=== PATIENT | male | born 1960 | race Caucasian/White ===

== ENCOUNTER 2017-11-25 15:05 | Inpatient (IN) | payer OTHER ==
[2017-11-25] MEDS ORDERED: NA CHLORIDE 0.9% 1,000 ML ONE (17:16)
[2017-11-25] MEDS ORDERED: ONDANSETRON 4 MG/2 ML VIAL ONE (17:16)
[2017-11-25] MEDS ORDERED: MORPHINE 4 MG/ML SYR ONE ×2 (17:16→22:02)
[2017-11-25 17:48] LABS: Urine Blood NEGATIVE (NEG); Urine Glucose NEGATIVE (NEG); Urine Protein 2+ (NEG); Urine pH 6.5 (5.0-7.0)
[2017-11-25 17:49] LABS: Absolute Lymphocytes (CBC) 0.9 K/uL (0.7-4.9); Absolute Monocytes 1.1 K/uL (0.1-1.3); Absolute Neutrophil 24.2 K/uL (1.8-8.0); Basophils % 0.5 % (0-1.3); Eosinophils % 0.1 % (0-4.4); Hematocrit 45.8 % (39.6-49.0); Lymphocytes % 3.3 % (15.3-44.8); MCH 33.1 pg (27.0-35.0); MPV 8.9 fL (7.6-11.3); Monocytes % 4.3 % (3.3-12.3); RBC Red Blood Cell Count 4.67 M/uL (4.33-5.43)
[2017-11-25 17:52] LABS: Bicarbonate 28 mEq/L (21-31); Glucose Level 113 mg/dL (65-120); Lipase 23 U/L (22-51); Potassium 3.6 mEq/L (3.6-5.0); Sodium Level 130 mEq/L (135-145)
[2017-11-25 17:59] LABS: ALT/SGPT 23 IU/L (10-60); AST/SGOT 48 IU/L (10-42); Albumin 3.1 g/dL (3.2-5.5); Alkaline Phosphatase 65 IU/L (42-121); BUN Blood Urea Nitrogen 9 mg/dL (6-20); Bilirubin Direct 0.3 mg/dL (0-0.2); Bilirubin Total 1.1 mg/dL (0.3-1.2); Glomerular Filtration Rate > 90 mL/min (=/>90); Protein, Total 7.3 g/dL (6.0-8.3)
[2017-11-25 18:20] LABS: Urine Amorphous Sediment 1+ /HPF (NONE SEEN); Urine Bacteria NONE SEEN /HPF (NONE SEEN); Urine Culture Reflex Order NOT NEEDED; Urine Mucus 4+ /HPF (NONE SEEN); Urine RBC <5 /HPF (NONE SEEN)
[2017-11-25 18:54] LABS: Protime INR 8.08
--- NOTE | 2017-11-25 19:00 | RAD REPORT ---
EXAM DESCRIPTION: CTAbdomen Pelvis W Contrast - 11/25/2017 6:46 pm CLINICAL HISTORY: Abdominal pain. COMPARISON: 11/19/2017 TECHNIQUE: Biphasic CT imaging of the abdomen and pelvis was performed with 100 ml non-ionic IV cont rast. All CT scans are performed using dose optimization technique as appropriate and may include automated exposure control or mA/KV adjustment according to patient size. FINDINGS: The lung bases are clear. Mild diffuse fatty liver is identified. The spleen, pancreas, adrenal glands and kidneys are within n ormal limits. Large loculated fluid collection is present along the left pericolic gutter measuring 11 x 8 cm exten ding into the left lower quadrant with components extending towards the midline and into the right lo wer quadrant and interloop region in the central mid abdomen. This fluid collection appears to abut t he sigmoid colon and is moderately enlarged since the prior study. A bowel obstruction is not present . No free air. The appendix is normal. No evidence of significant lymphadenopathy. Bilateral hip arthroplasties noted. IMPRESSION: Moderate enlargement of the inferior intra-abdominal fluid collection since the comparat clarisse study, likely representing an abscess.
[2017-11-25 19:48] LABS: Blood Morphology Comment NOT SEEN (NOT SEEN); Platelet Estimate ADEQ; Toxic Granulation 1+
--- NOTE | 2017-11-25 20:52 | ER ---
Nurse's Notes [facility] Name: Hammad Jones Jr Age: 57 yrs Sex: Male : 1960 Arrival Date: 11/25/2017 Time: 15:07 Bed 23 Private MD: Lam Denton T Diagnosis: Peritoneal abscess;Other abdominal pain;Abnormal coagulation profile-Elevated INR, coumadin toxicity;Urinary tract infection, site not specified Presentation: 11/25 15:18 Presenting complaint: Patient states: i came here last Sunday and was told i had small hj colon and colon infection, was Rx with antibiotics, i took it bu im still hurting; reports abd pain, 10/10; reports diarrhea;. Transition of care: patient was not received from another setting of care. Onset of symptoms was November 25, 2017. Care prior to arrival: None. 15:18 Method Of Arrival: Ambulatory 15:18 Acuity: RENETTA 3 hj Triage Assessment: 15:20 General: Appears in no apparent distress. uncomfortable, Behavior is calm, cooperative, hj appropriate for age. Pain: Complains of pain in abdomen. GI: Reports lower abdominal pain, cramping, nausea. Historical: - Allergies: 15:20 NKA; hj - Home Meds: 15:20 amlodipine oral [Active]; carvedilol Oral [Active]; Coumadin Oral [Active]; Iron CR hj Oral [Active]; Paxil Oral [Active]; - PMHx: 15:20 Enlarged Heart; Hypertension; hj - PSHx: 15:20 mechanical heart valve; giovanni hip replacement; hj - Immunization history:: Adult Immunizations up to date. - Social history:: Smoking status: Patient/guardian denies using tobacco, never smoked. Screenin:51 Abuse screen: Denies threats or abuse. Nutritional screening: No deficits noted. tl3 Tuberculosis screening: No symptoms or risk factors identified. Fall Risk None identified. Assessment: 15:21 GI: Bowel sounds present X 4 quads. Abd is soft Abdomen is tender to palpation. hj 15:51 General: Appears uncomfortable, obese, well groomed, well developed, Behavior is calm, tl3 cooperative, appropriate for age. Pain: Pain currently is 10 out of 10 on a pain scale. Neuro: Level of Consciousness is awake, alert, obeys commands, Oriented to person, place, time, situation, Appropriate for age. Cardiovascular: Heart tones S1 S2 present. Respiratory: Airway is patent Trachea midline. GI: Bowel sounds present X 4 quads. Abd is soft Abdomen is tender to palpation X 4 quads. : No signs and/or symptoms were reported regarding the genitourinary system. EENT: No signs and/or symptoms were reported regarding the EENT system. Derm: No signs and/or symptoms reported regarding the dermatologic system. Musculoskeletal: No signs and/or symptoms reported regarding the musculoskeletal system. 17:00 Reassessment: No changes from previously documented assessment. Patient and/or family tl3 updated on plan of care and expected duration. Pain level reassessed. Patient is alert, oriented x 3, equal unlabored respirations, skin warm/dry/pink. pt resting in room, no needs at this time. 17:18 Reassessment: pt finished contrast, CT notified. tl3 18:32 Reassessment: No changes from previously documented assessment. Patient and/or family tl3 updated on plan of care and expected duration. Pain level reassessed. Patient is alert, oriented x 3, equal unlabored respirations, skin warm/dry/pink. pt awaiting CT, in No distress at this time Luis Alberto at bedside discussing POC. 19:06 Reassessment: No changes from previously documented assessment. Patient and/or family tl3 updated on plan of care and expected duration. Pain level reassessed. Patient is alert, oriented x 3, equal unlabored respirations, skin warm/dry/pink. pt resting, no complaints at this time. 21:23 Reassessment: Luis Alberto at bedside reviewing POC with pt. tl3 22:00 Reassessment: Patient and/or family updated on plan of care and expected duration. Pain aj1 level reassessed. Patient is alert, oriented x 3, equal unlabored respirations, skin warm/dry/pink. pain decreased to a 3 after morphine. 22:40 Reassessment: No changes from previously documented assessment. Patient and/or family tl3 updated on plan of care and expected duration. Pain level reassessed. Patient is alert, oriented x 3, equal unlabored respirations, skin warm/dry/pink. attempted to call report but nurse was checking in another new patient and asks that we call back after 11pm. Vital Signs: 15:21 BP 113 / 71; Pulse 90; Resp 18; Temp 98.1(TE); Pulse Ox 97% on R/A; Weight 99.79 kg; hj Height 5 ft. 9 in. (175.26 cm); Pain 10/10; 15:51 BP 111 / 96; Pulse 95; Resp 18; Temp 98.6; Pulse Ox 100% ; tl3 17:00 BP 115 / 76; Pulse 92; Resp 18; Temp 98.5; Pulse Ox 100% ; tl3 19:06 BP 134 / 88; Pulse 89; Resp 18; Temp 98.6; Pulse Ox 98% on R/A; tl3 22:00 BP 138 / 92; Pulse 80; Resp 18; Temp 98; Pulse Ox 98% ; aj1 22:06 Pain 3/10; aj1 22:40 BP 135 / 91; Pulse 79; Resp 18; Pulse Ox 95% ; tl3 15:21 Body Mass Index 32.49 (99.79 kg, 175.26 cm) hj ED Course: 15:07 Patient arrived in ED. mr 15:08 Lam Denton MD is Private Physician. mr 15:19 Triage completed. hj 15:21 Arm band placed on left wrist. hj 15:44 Katja Shen RN is Primary Nurse. tl3 15:46 Luis Alberto Moulton NP is PHCP. pm1 15:46 Bart Drummond MD is Attending Physician. pm1 15:51 No apparent distress. Awaiting ED provider evaluation. tl3 15:51 Patient has correct armband on for positive identification. Placed in gown. Bed in low tl3 position. Call light in reach. Side rails up X 1. clinical research monitor on. Pulse ox on. NIBP on. Door closed. Lights dimmed. Warm blanket given. 15:51 No provider procedures requiring assistance completed. tl3 17:30 IV discontinued, intact, bleeding controlled, No redness/swelling at site. pt c/o pain tl3 to site with fluid infusion. 17:41 Urine Microscopic Only Sent. tl3 17:41 CT Abd/Pelvis - W/Contrast Sent. tl3 17:41 PT-INR Sent. tl3 17:42 Basic Metabolic Panel Sent. tl3 17:42 CBC with Diff Sent. tl3 17:42 Hepatic Function Sent. tl3 17:42 Lipase Sent. tl3 17:45 Missed attempt(s): 22 gauge in left antecubital area. Bleeding controlled, band aid tl3 applied, catheter tip intact. 18:29 Inserted saline lock: 22 gauge in right antecubital area, using aseptic technique. tl3 Blood collected. 18:48 CT completed. Patient moved to CT via wheelchair. Patient moved back from CT. cw1 18:54 Initial lab(s) drawn, by me, sent to lab. Inserted saline lock: 22 gauge in left upper mh5 arm, using aseptic technique. Blood collected. 19:03 Urine Culture Sent. tl3 20:47 Mj Winn MD is Hospitalizing Provider. pm1 21:22 Blood Culture Adult (2) Sent. tl3 22:06 Urine Dipstick--Ancillary (enter results) Sent. aj1 Administered Medications: 17:41 Drug: Zofran 4 mg Route: IVP; Site: right antecubital; tl3 19:05 Follow up: Response: No adverse reaction tl3 19:04 Drug: NS 0.9% 1000 ml Route: IV; Rate: 1000 ml; Site: left antecubital; tl3 20:00 Follow up: IV Status: Completed infusion; IV Intake: 1000ml aj1 20:10 Follow up: Response: No adverse reaction; IV Status: Completed infusion; IV Intake: tl3 1000ml 19:05 Drug: morphine 4 mg Route: IVP; Infused Over: 4 mins; Site: left antecubital; tl3 22:06 Follow up: Pain 3/10 Adult; Response: Pain is decreased aj1 21:00 Drug: Flagyl 500 mg Volume: 100 ml; Route: IVPB; Rate: 200 ml/hr; Infused Over: 30 tl3 mins; Site: left antecubital; Delivery: Primary tubing; 22:02 Follow up: Response: No adverse reaction; IV Status: Completed infusion; IV Intake: aj1 100ml 21:00 Drug: Cipro 400 mg Volume: 200 ml; Route: IVPB; Infused Over: 60 mins; Site: left tl3 antecubital; Delivery: Primary tubing; 22:01 Follow up: IV Status: Completed infusion; IV Intake: 100ml aj1 21:30 Drug: morphine 4 mg Route: IVP; Site: left antecubital; tl3 23:29 Follow up: Response: No adverse reaction; Pain is decreased tl3 22:07 Drug: InvANZ 1 grams Route: IVPB; Infused Over: 30 mins; Site: left antecubital; aj1 Delivery: Primary tubing; Intake: 20:00 IV: 1000ml; Total: 1000ml. aj1 20:10 IV: 1000ml; Total: 2000ml. tl3 22:01 IV: 100ml; Total: 2100ml. aj1 22:02 IV: 100ml; Total: 2200ml. aj1 Outcome: 20:51 Decision to Hospitalize by Provider. pm1 23:30 Admitted to Med/surg accompanied by tech, via stretcher, with chart, Report called to tl3 Mena RN 23:30 Admitted to 23:30 Condition: stable 23:31 Patient left the ED. tl3 Signatures: Estrella Nelson RN RN Mariella Spring mr Gage, Bernadette 1 Devon Ordaz RN RN Luis Alberto Moulton, MACHINE WOODWORKING SANDER MACHINE WOODWORKING SANDER pm1 Mariella Epstein 5 Katja Shen RN RN tl3 Corrections: (The following items were deleted from the chart) 15:22 15:21 Pulse 90bpm; Resp 18bpm; Pulse Ox 97% RA; Temp 98.1F Temporal; 99.79 kg; Height 5 hj ft. 9 in.; BMI: 32.4; Pain 10/10; hj 18:43 18:32 BP 114 / 71; Pulse 96bpm; Resp 16bpm; Pulse Ox 96% RA; Temp 102.8F; tl3 tl3
--- NOTE | 2017-11-25 20:53 | EDPHYS ---
Physician Documentation [facility] Name: Hammad Jones Jr Age: 57 yrs Sex: Male : 1960 Arrival Date: 11/25/2017 Time: 15:07 Bed 23 Private MD: Lam Denton T ED Physician Bart Drummond HPI: 11/25 16:08 This 57 yrs old Male presents to ER via Ambulatory with complaints of pm1 Abdominal Pain. 16:08 The patient presents with abdominal pain in the lower abdomen. Onset: The pm1 symptoms/episode began/occurred 2 week(s) ago. The symptoms do not radiate. Associated signs and symptoms: Pertinent positives: Diarrhea about 3 hours prior to arrival, Pertinent negatives: nausea and vomiting, chest pain, dysuria, fever, palpitations, shortness of breath. The symptoms are described as constant, crampy. Modifying factors: The symptoms are alleviated by nothing, the symptoms are aggravated by nothing. Severity of pain: in the emergency department the pain is actually worse is a 10 / 10. Patient was seen in the ER on 11/19/2017 for the same compliant of lower abdominal pain and admitted. CT at that time showed diverticulitis versus ischemic bowel. Patient also diagnosed with UTI. Patient was started on IV antibiotics and evaluated by general surgery. Patient decided to leave against medical advice the following day because he started feeling better and thought that the antibiotics would start improving his symptoms. Since leaving the hospital the patient reports that he has not been able to eat any food. He is able to drink fluids without any difficulty. No fevers or vomiting. Reports normal bowel movement until he had diarrhea for the first time about 3 hours [employer]IP [employer]. . Historical: - Allergies: 15:20 NKA; hj - Home Meds: 15:20 amlodipine oral [Active]; carvedilol Oral [Active]; Coumadin Oral [Active]; Iron CR hj Oral [Active]; Paxil Oral [Active]; - PMHx: 15:20 Enlarged Heart; Hypertension; hj - PSHx: 15:20 mechanical heart valve; giovanni hip replacement; hj - Immunization history:: Adult Immunizations up to date. - Social history:: Smoking status: Patient/guardian denies using tobacco, never smoked. ROS: 16:08 Constitutional: Negative for fever, chills, and weight loss, Eyes: Negative for injury, pm1 pain, redness, and discharge, ENT: Negative for injury, pain, and discharge, Neck: Negative for injury, pain, and swelling, Cardiovascular: Negative for chest pain, palpitations, and edema, Respiratory: Negative for shortness of breath, cough, wheezing, and pleuritic chest pain. 16:08 Back: Negative for injury and pain, : Negative for injury, bleeding, discharge, and swelling, MS/Extremity: Negative for injury and deformity, Skin: Negative for injury, rash, and discoloration. 16:08 Neuro: Negative for headache, weakness, numbness, tingling, and seizure. 16:08 Abdomen/GI: Positive for abdominal pain, diarrhea, of the right lower quadrant and left lower quadrant, Negative for nausea and vomiting. Exam: 16:10 Constitutional: This is a well developed, well nourished patient who is awake, alert, pm1 and in no acute distress. Head/Face: Normocephalic, atraumatic. Eyes: Pupils equal round and reactive to light, extra-ocular motions intact. Lids and lashes normal. Conjunctiva and sclera are non-icteric and not injected. Cornea within normal limits. Periorbital areas with no swelling, redness, or edema. ENT: Nares patent. No nasal discharge, no septal abnormalities noted. Tympanic membranes are normal and external auditory canals are clear. Oropharynx with no redness, swelling, or masses, exudates, or evidence of obstruction, uvula midline. Mucous membranes moist. Neck: Trachea midline, no thyromegaly or masses palpated, and no cervical lymphadenopathy. Supple, full range of motion without nuchal rigidity, or vertebral point tenderness. No Meningismus. Chest/axilla: Normal chest wall appearance and motion. Nontender with no deformity. No lesions are appreciated. 16:10 Respiratory: Lungs have equal breath sounds bilaterally, clear to auscultation and percussion. No rales, rhonchi or wheezes noted. No increased work of breathing, no retractions or nasal flaring. 16:10 Back: No spinal tenderness. No costovertebral tenderness. Full range of motion. Skin: Warm, dry with normal turgor. Normal color with no rashes, no lesions, and no evidence of cellulitis. MS/ Extremity: Pulses equal, no cyanosis. Neurovascular intact. Full, normal range of motion. 16:10 Cardiovascular: Rate: normal, Rhythm: regular, Heart sounds: murmur, heard in the aortic area, Click, Edema: is not appreciated. 16:10 Abdomen/GI: Inspection: obese Bowel sounds: normal, Palpation: soft, mild abdominal tenderness, in the right lower quadrant and left lower quadrant, mass, is not appreciated. 16:10 Neuro: Orientation: is normal, Motor: is normal, moves all fours, Sensation: is normal, no obvious gross deficits. Vital Signs: 15:21 BP 113 / 71; Pulse 90; Resp 18; Temp 98.1(TE); Pulse Ox 97% on R/A; Weight 99.79 kg; hj Height 5 ft. 9 in. (175.26 cm); Pain 10/10; 15:51 BP 111 / 96; Pulse 95; Resp 18; Temp 98.6; Pulse Ox 100% ; tl3 17:00 BP 115 / 76; Pulse 92; Resp 18; Temp 98.5; Pulse Ox 100% ; tl3 19:06 BP 134 / 88; Pulse 89; Resp 18; Temp 98.6; Pulse Ox 98% on R/A; tl3 22:00 BP 138 / 92; Pulse 80; Resp 18; Temp 98; Pulse Ox 98% ; aj1 22:06 Pain 3/10; aj1 22:40 BP 135 / 91; Pulse 79; Resp 18; Pulse Ox 95% ; tl3 15:21 Body Mass Index 32.49 (99.79 kg, 175.26 cm) MDM: 15:48 Patient medically screened. pm1 16:34 Data reviewed: vital signs. Data interpreted: Pulse oximetry: on room air is 100 %. pm1 Interpretation: normal. 19:55 Physician consultation: Devon Epstein MD was called at 19:52, was contacted at 19:52, pm1 regarding consult, patient's condition, Recommends consulting with Dr. Gil since he has seen the patient on 11/20/2017 with the same complaint. If he is not available, then he will provide consultation. 20:00 Physician consultation: Jordy Gil MD was contacted at 20:00, regarding consult, pm1 patient's condition, and will see patient would like admission per Dr. Mj Winn MD NPO, broad spectrum antibiotics, stop Coumadin. Contact Dr. Winn and request him to call Dr. Gil. Dr. Gil's plan is to contact Dr. Alba to determine if he will be able to drain the intraabdominal fluid percutaneously . 20:04 ED course: Discussed patient with attending physician, recommended Invanz, Flagyl, and pm1 Cipro IV based on patient's current medication, Flagyl, and his prior administration of quinolone and Flagyl given in ER at last visit. 20:05 Counseling: I had a detailed discussion with the patient and/or guardian regarding: the pm1 historical points, exam findings, and any diagnostic results supporting the discharge/admit diagnosis, radiology results, the need for further work-up and treatment in the hospital. 20:46 Physician consultation: Mj Winn MD was contacted at 20:46, regarding admission, pm1 patient's condition, and will see patient. 11/25 16:03 Order name: Basic Metabolic Panel pm1 11/25 16:03 Order name: CBC with Diff pm1 11/25 16:03 Order name: Hepatic Function pm1 11/25 16:03 Order name: Lipase pm1 11/25 16:03 Order name: PT-INR pm1 11/25 16:04 Order name: Urine Microscopic Only pm1 11/25 17:42 Order name: Urine Dipstick--Ancillary (enter results) ag 11/25 17:48 Order name: Urine Dipstick-Ancillary; Complete Time: 18:06 EDMS 11/25 17:53 Order name: Basic Metabolic Panel; Complete Time: 18:06 EDMS 11/25 17:53 Order name: Lipase; Complete Time: 18:06 EDMS 11/25 17:59 Order name: Liver (Hepatic) Function; Complete Time: 18:06 EDMS 11/25 18:03 Order name: CBC with Automated Diff; Complete Time: 21:28 EDMS 11/25 18:21 Order name: Urine Microscopic Only; Complete Time: 18:25 EDMS 11/25 18:27 Order name: Urine Culture pm11/25 16:03 Order name: IV Saline Lock; Complete Time: 17:42 pm1 11/25 16:03 Order name: Labs collected and sent; Complete Time: 17:42 pm1 11/25 16:03 Order name: Urine Dipstick-Ancillary (obtain specimen); Complete Time: 17:43 pm1 11/25 16:03 Order name: CT Abd/Pelvis - W/Contrast pm1 11/25 18:11 Order name: Labs - recollect needed; Complete Time: 19:03 iw 11/25 18:55 Order name: Protime (+INR); Complete Time: 19:40 EDMS 11/25 19:01 Order name: CT; Complete Time: 19:40 EDMS 11/25 19:45 Order name: Blood Culture Adult (2) pm1 11/25 19:49 Order name: Manual Differential; Complete Time: 21:28 EDMS 11/25 18:22 Order name: Labs - recollect needed; Complete Time: 19:03 ag 11/25 19:47 Order name: NPO; Complete Time: 21:24 pm1 Administered Medications: 17:41 Drug: Zofran 4 mg Route: IVP; Site: right antecubital; tl3 19:05 Follow up: Response: No adverse reaction tl3 19:04 Drug: NS 0.9% 1000 ml Route: IV; Rate: 1000 ml; Site: left antecubital; tl3 20:00 Follow up: IV Status: Completed infusion; IV Intake: 1000ml aj1 20:10 Follow up: Response: No adverse reaction; IV Status: Completed infusion; IV Intake: tl3 1000ml 19:05 Drug: morphine 4 mg Route: IVP; Infused Over: 4 mins; Site: left antecubital; tl3 22:06 Follow up: Pain 3/10 Adult; Response: Pain is decreased aj1 21:00 Drug: Flagyl 500 mg Volume: 100 ml; Route: IVPB; Rate: 200 ml/hr; Infused Over: 30 tl3 mins; Site: left antecubital; Delivery: Primary tubing; 22:02 Follow up: Response: No adverse reaction; IV Status: Completed infusion; IV Intake: aj1 100ml 21:00 Drug: Cipro 400 mg Volume: 200 ml; Route: IVPB; Infused Over: 60 mins; Site: left tl3 antecubital; Delivery: Primary tubing; 22:01 Follow up: IV Status: Completed infusion; IV Intake: 100ml aj1 21:30 Drug: morphine 4 mg Route: IVP; Site: left antecubital; tl3 23:29 Follow up: Response: No adverse reaction; Pain is decreased tl3 22:07 Drug: InvANZ 1 grams Route: IVPB; Infused Over: 30 mins; Site: left antecubital; aj1 Delivery: Primary tubing; Disposition: 11/26 10:59 Co-signature as Attending Physician, Bart Drummond MD I agree with the assessment and salena plan of care. Disposition: 11/25/17 20:51 Hospitalization ordered by Mj Winn for Inpatient Admission. Preliminary diagnosis are Peritoneal abscess, Other abdominal pain, Abnormal coagulation profile - Elevated INR, coumadin toxicity, Urinary tract infection, site not specified. - Bed requested for Telemetry/MedSurg (Inpatient). - Status is Inpatient Admission. tl3 - Condition is Stable. - Problem is new. - Symptoms have improved. UTI on Admission? No Signatures: Dispatcher [employer] EDEstrella Mendoza RN RN aj1 Julianna Mcguire RN Bart Lake MD MD cha Williams, Irene, RN Edwina Schultz Henry RN Luis Alberto Beltran, JOHN DIRECTOR OF GOVERNMENT SALES pm1 Katja Shen RN RN tl3
[2017-11-25] MEDS ORDERED: VITAMIN K (ADULT) 10 MG/ML SQ SCH (21:00)
[2017-11-25] MEDS ORDERED: METRONIDAZOLE 500mg IVPB 500 MG/100 ML BAG IV ONE (21:01)
[2017-11-25] MEDS ORDERED: CIPROFLOXACIN 400mg IV 400 MG/200 ML BAG IV ONE (21:01)
[2017-11-25] MEDS ORDERED: ERTAPENEM SODIUM 1 GM VIAL ONE (21:01)
[2017-11-25] MEDS ORDERED: NA CHLORIDE 0.9% 100 ML IV ONE (21:02)
[2017-11-26] MEDS ORDERED: MORPHINE 2 MG/ML SYR IV PRN (00:59)
[2017-11-26] MEDS ORDERED: ONDANSETRON 4 MG/2 ML VIAL IV PRN (00:59)
[2017-11-26] MEDS ORDERED: ACETAMINOPHEN 500 MG TAB PO PRN (00:59)
[2017-11-26] MEDS: NA CHLORIDE 0.9% 1,000 ML IV SCH ×2 (01:00→15:08)
[2017-11-26] MEDS ORDERED: HYDROMORPHONE HCL 1 MG/ML INJ IV PRN (01:06)
[2017-11-26 02:22] LABS: Protime INR 9.03
--- NOTE | 2017-11-26 04:23 | P.HP ---
Certification for Inpatient Patient admitted to: Inpatient With expected LOS: >2 Midnights Patient will require the following post-hospital care: None Practitioner: I am a practitioner with admitting privileges, knowledge of patient current condition, hospital course, and medical plan of care. Services: Services provided to patient in accordance with Admission requirements found in Title 42 Section 412.3 of the Code of Federal Regulations Patient History Date of Service: 11/25/17 Reason for admission: Intra-abdominal abscess History of Present Illness: Patient is a 57-year-old gentleman who came into the hospital with intra- abdominal abscess. Patient had been having issues and was in the hospital a few days ago. He had diverticulitis and there was concern for whether not he would need any surgical intervention. However, he eloped and the hospital was not able to identify where he went. Comes back to the emergency room with abdominal distention. His CT scan reveals a large intra-abdominal abscess. He will need to be admitted for percutaneous drainage of the intra-abdominal abscess. His INR is supratherapeutic(it was slightly subtherapeutic on his prior admission; however, I believe the interaction with antibiotics may have caused his INR to become elevated), and will try to bring this down cautiously as he has a history of aortic valve replacement with a metallic valve. Will hold quinolones, Flagyl, and even cephalosporins. Will use Zosyn and monitor INR closely. Will probably need to place him on a heparin drip while we work on getting his INR less than 1.5. At this time he is significantly supratherapeutic will hold off on the heparin drip. Will Consult Cardiology for their recommendations as well. General surgery is also consulted. Allergies No Known Allergies Allergy (Verified 11/26/17 00:31) Home Medications: Paroxetine HCl [Paxil Cr] 1 tab PO DAILY 09/21/15 Amlodipine Besylate [Amlodipine Besylate] 1 tab PO DAILY 11/19/17 Carvedilol [Carvedilol] 1 tab PO DAILY 11/19/17 Warfarin Sodium [Warfarin Sodium] 1 tab PO DAILY 11/19/17 - Past Medical/Surgical History Has patient received pneumonia vaccine in the past: No Diabetic: No -: HTN -: Aortic valve Replacement -: Chronic anticoagulation -: Abdominal infection -: Aortic valve replacement, 20 yrs ago, Dr. 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 moist/pink, EOMI, Sclerae nonicteric Neck: Supple, 2+ carotid pulse no bruit, No LAD, Without JVD or thyroid abnormality Respiratory: Clear to auscultation bilaterally, Normal air movement Cardiovascular: Regular rate/rhythm, Normal S1 S2, Systolic murmur (click) Gastrointestinal: Normal bowel sounds, Soft and benign, No tenderness, No rebound, No guarding, Distended Musculoskeletal: No clubbing, No swelling, No tenderness Integumentary: No rashes Neurological: Normal gait, Normal speech, Normal strength at 5/5 x4 extr, Normal tone, Sensation intact, Cranial nerves 3-12 intact, Normal affect Lymphatics: No axilla or inguinal lymphadenopathy - Studies Laboratory Data (last 24 hrs) 11/25/17 18:35: PT 97.4 H, INR 8.08 H* 11/25/17 17:30: WBC 26.4 H* D, Hgb 15.5, Hct 45.8, Plt Count 501 H D 11/25/17 17:30: Sodium 130 L, Potassium 3.6, BUN 9, Creatinine 0.76, Glucose 113 , Total Bilirubin 1.1, AST 48 H, ALT 23, Alkaline Phosphatase 65, Lipase 23 Assessment & Plan - Problems (Diagnosis) (1) Intra-abdominal abscess Current Visit: Yes Status: Acute (2) Elevated INR Onset Date: 09/22/15 Current Visit: No Status: Acute (3) Chronic anticoagulation Onset Date: 09/22/15 Current Visit: No Status: Chronic (4) H/O aortic valve replacement Onset Date: 09/22/15 Current Visit: No Status: Chronic (5) HTN (hypertension) Onset Date: 09/22/15 Current Visit: No Status: Chronic Qualifiers: Hypertension type: essential hypertension Qualified Code(s): I10 - Essential (primary) hypertension - Plan 1. Continue with IV hydration 2. Continue with IV antibiotics 3. Continue with pain control 4. NPO 5. General surgery consultation as well as interventional radiology for percutaneous drainage of intra-abdominal abscess; outpatient colonoscopy will also need to be performed at discharge 6. Serial H&H, and we will monitor INR closely as if he becomes subtherapeutic he has a risk of embolic phenomenon. Will start off with vitamin K and may need to give FFP prior to percutaneous drainage. Once his INR becomes therapeutic will need to start heparin drip while awaiting INR to become less than 1.5. Would check INR at least twice daily 7. GI and DVT prophylaxis Discharge Plan: Home Plan to discharge in: Greater than 2 days - Advance Directives Does patient have a Living Will: Yes Does patient have a Durable POA for Healthcare: Yes - Code Status/Comfort Care Code Status Assessed: Yes Code Status: Full Code Critical Care: No Time Spent Managing PTS Care (In Minutes): 50
[2017-11-26] MEDS ORDERED: NA CHLORIDE 0.9% 250 ML ONE ×2 (04:49→06:50)
[2017-11-26] MEDS ORDERED: VITAMIN K (ADULT) 10 MG/ML SQ SCH (05:00)
[2017-11-26] MEDS ORDERED: PIPER/TAZO/NS 3.375gm 3.375 GM/100 ML BAG IV SCH (06:00)
[2017-11-26] MEDS ORDERED: METRONIDAZOLE 500mg IVPB 500 MG/100 ML BAG IV SCH (06:00)
[2017-11-26 06:09] LABS: Absolute Lymphocytes (CBC) 0.9 K/uL (0.7-4.9); Absolute Monocytes 1.1 K/uL (0.1-1.3); Absolute Neutrophil 17.5 K/uL (1.8-8.0); Basophils % 0.4 % (0-1.3); Eosinophils % 0.2 % (0-4.4); Hematocrit 41.3 % (39.6-49.0); Lymphocytes % 4.6 % (15.3-44.8); MCH 33.4 pg (27.0-35.0); MCV 98.7 fL (80-100); MPV 9.1 fL (7.6-11.3); Monocytes % 5.7 % (3.3-12.3); RBC Red Blood Cell Count 4.18 M/uL (4.33-5.43)
[2017-11-26 06:12] LABS: Protime INR 8.78
[2017-11-26 06:14] LABS: ALT/SGPT 21 IU/L (10-60); AST/SGOT 46 IU/L (10-42); Albumin 2.4 g/dL (3.2-5.5); Bicarbonate 28 mEq/L (21-31); Potassium 3.8 mEq/L (3.6-5.0); Protein, Total 5.8 g/dL (6.0-8.3); Sodium Level 134 mEq/L (135-145)
[2017-11-26 06:50] LABS: Alkaline Phosphatase 56 IU/L (42-121); BUN Blood Urea Nitrogen 7 mg/dL (6-20); Bilirubin Total 0.8 mg/dL (0.3-1.2); Glomerular Filtration Rate > 90 mL/min (=/>90); Glucose Level 105 mg/dL (65-120)
[2017-11-26] MEDS ORDERED: INFLUENZA VACCINE (for 5y+) 0.5 ML DOSE IMVAC ONE (08:00)
[2017-11-26] MEDS: PIPER/TAZO/NS 3.375gm 3.375 GM/100 ML BAG IV SCH ×2 (09:00→15:09)
[2017-11-26] MEDS: PAROXETINE HCL PO SCH (09:00)
[2017-11-26] MEDS ORDERED: CEFEPIME 2 GM VIAL IV SCH (09:00)
[2017-11-26] MEDS: CARVEDILOL 12.5 MG TAB PO SCH (09:20)
[2017-11-26 09:27] LABS: MPV 9.2 fL (7.6-11.3)
[2017-11-26 09:44] LABS: Platelet Estimate ADEQ
--- NOTE | 2017-11-26 11:20 | CON ---
Date of Consultation: 11/25/2017 Reason: Intraabdominal abscess. History Of Present Illness: The patient is a 57-year-old gentleman, who came about a week ago with d iverticulitis and possible enteritis with some fluid in his belly and was on antibiotics. However, d uring his hospitalization, he left signing AMA and he returns yesterday with increasing abdominal dis tention and pain. He is having bowel movements. No blood in his stool. Has nausea but no vomiting. He has an aortic valve [place]. His INR is almost 9 on admission. No sore throat, runny nose, co ugh, headaches, or dizziness. No chest pain. Review of Systems: Otherwise unremarkable. Past Medical History: Hypertension. Past Surgical History: Aortic valve replacement. Allergies: NO ALLERGIES. Social History: He used to smoke. Drinks occasionally. Family History: Noncontributory. Physical Examination: Vital Signs: Stable. He is afebrile. General: He is awake, alert, oriented x3. Head and Neck: Cranial nerves 2 through 12 grossly within normal limits. No neck masses. No JVD. Throat clear. Neck is supple. Chest: Clear. Heart: S1, S2. Abdomen: Soft, distended. Hypoactive bowel sounds. Minimal tenderness but no peritonitis in the le ft lower quadrant. Extremities: Adequately perfused. Nontender. Neurologic: Nonfocal. Laboratory Data: His white count was 26.4 yesterday. It is down to 19.6. Platelets are down to 396 from 501. There is left shift still. His INR this morning was 8.78. He got vitamin K and is about to get FFP and they will repeat and give FFP as needed. The patient will need also to be on the hep michael and then that will be stopped prior to CT-guided drainage procedure, which I have discussed with Dr. Alba. Diagnostic Data: The CAT scan of the abdomen and pelvis was discussed with Dr. Alba, and the finding s are as follows: A left pericolic gutter abscess 11 x 8 cm extending into the left lower quadrant t owards the midline into the right lower quadrant and interloop region in the central mid abdomen. James wel obstruction is not present. Appendix is normal. Assessment: Intraabdominal abscess, probably secondary to perforated diverticulitis. Recommendations: Continue IV fluid, IV antibiotics as ordered: Monitor INR. Hopefully we can get i t to less than 1.5 and then we would proceed with the CT-guided drainage procedure and in the ideal s ituation, the patient will require a colonoscopy in 4-6 weeks. Following that he will need a segment al colon resection. The plan of care was discussed in detail with Dr. Winn, Dr. Hernandez, and the patie nt and family. JUAN DANIEL/ABBIE Voice ID: [id number] Report ID: [id number]
--- NOTE | 2017-11-26 12:50 | P.PN ---
Subjective Date of Service: 11/26/17 Chief Complaint: Intra-abdominal abscess Patient seen and examined at bedside with RN. Chart reviewed. Case discussed with surgery at this time. Patient complained of pain at this time. It is awaiting its per therapeutic was given vitamin K x2 and go back piece. Has a repeat INR at noon will follow up with that. Review of Systems General: As per HPI Physical Examination - Vital Signs Temperature: 98.1 F Blood Pressure: 151/82 Pulse: 77 Respirations: 16 Pulse Ox (%): 95 - Physical Exam General: Alert, In no apparent distress, Oriented x3 HEENT: Atraumatic, PERRLA, EOMI Neck: Supple, JVD not distended Respiratory: Clear to auscultation bilaterally, Normal air movement Cardiovascular: Regular rate/rhythm, Normal S1 S2 Gastrointestinal: Normal bowel sounds, Tenderness (Generalized Tenderness. ) Musculoskeletal: No tenderness Integumentary: No rashes Neurological: Normal speech, Normal tone, Normal affect Lymphatics: No axilla or inguinal lymphadenopathy - Studies Laboratory Data (last 24 hrs) 11/25/17 18:35: PT 97.4 H, INR 8.08 H* 11/25/17 17:30: WBC 26.4 H* D, Hgb 15.5, Hct 45.8, Plt Count 501 H D 11/25/17 17:30: Sodium 130 L, Potassium 3.6, BUN 9, Creatinine 0.76, Glucose 113 , Total Bilirubin 1.1, AST 48 H, ALT 23, Alkaline Phosphatase 65, Lipase 23 Medications List Reviewed: Yes Assessment & Plan - Problems (Diagnosis) (1) Intra-abdominal abscess Onset Date: 11/26/17 Current Visit: Yes Status: Acute Plan: Intra-abdominal Abscess after Acute diverticulitis. Pt left AMA last time. Now with abd pain and abscess -Scheduled for Perc drainage with IR -Supratherapeutic INR. -S/P 2 VitK and 3 FFP. -Awaiting for INR to be 1-2. IR to do procedure after that -IV Abx and Fluid for now. -Culture pending. (2) Elevated INR Onset Date: 09/22/15 Current Visit: No Status: Acute Plan: See # 1 -Hold Warfarin -Start on Heparin (3) H/O aortic valve replacement Onset Date: 09/22/15 Current Visit: No Status: Chronic (4) HTN (hypertension) Onset Date: 09/22/15 Current Visit: No Status: Chronic Qualifiers: Hypertension type: essential hypertension Qualified Code(s): I10 - Essential (primary) hypertension Discharge Plan: Other Plan to discharge in: 48 Hours - Code Status/Comfort Care Code Status Assessed: Yes Critical Care: No
[2017-11-26 13:02] LABS: Protime INR 3.23
--- NOTE | 2017-11-26 13:29 | CON ---
CARDIOLOGY CONSULTATION A 57-year-old man. History Of Present Illness: Mr. Jones came to the hospital with abdominal pain. He has been feeli ng worse and worse. His INR was very elevated and he was admitted to the hospital to undergo evaluat ion by a surgeon, most likely drainage of an abdominal abscess. The abscess was first noted on November 19, 7 days ago. He came to the hospital yesterday with worsening abdominal pain, diarrhea, and in ability to eat food. The patient has a history of aortic valve surgery. He has had bilateral hip srinivasan rgeries. He has a history of alcohol abuse, but lately has been abstinent. He has a serious problem with controlling his INRs. His INRs have ranged from too high to too low and are rarely in the ther apeutic range. His aortic valve prosthesis is a mechanical prosthesis. The goal INR is 2.5-3.5. Hi s INR when he came in was 8.08. He has had fresh frozen plasma and vitamin K and repeat INRs are lik mesfin to be close to normal. When they are normal, he should be on heparin. Heparin has an advantage of being able to wear off quickly when turned off when he needs procedures, but otherwise acting quic kly and going off quickly. We will stop Coumadin until the whole business of abscess has resolved. His abscess is in the lower abdomen and appears to be related to colonic diverticulitis or diverticul osis. He has never had a colonoscopy. He also has prostate hypertrophy. Allergies: HE HAS NO ALLERGIES. Medications: His outpatient medications had been paroxetine, Coumadin, carvedilol, and amlodipine. Past Medical History: He has underlying hypertension, depression, anxiety, aortic valve disease, pro state disease, and difficulty with medical compliance . Physical Examination: Vital Signs: Height 5 feet 9 inches; his chart says 320 pounds, but his actual weight is 220 pounds. We will try and get that corrected. General: He is obese. Alert and oriented. Heart: The prosthetic heart tones are typical. Abdomen: Soft, mildly tender, not rigid. There is no guarding or rebound. Extremities: Mild edema. A lot of discoloration and bruising of the shins. Diagnostic Data: His electrocardiogram from this admission is not yet available for viewing. Impression: Mr. Jones's aortic valve will be a significant problem. While he needs to go through surgery, I would recommend we completely reverse the Coumadin as quickly as possible and keep him on heparin until just 2 hours before procedures and then, as soon as possible after that procedure, he i s to resume heparin until such time that no procedures are anticipated and he can get back on Coumadi n then. MATY/ABBIE Voice ID: [id number] Report ID: [id number]
[2017-11-26] MEDS ORDERED: VITAMIN K (ADULT) 10 MG/ML SQ ONE (17:43)
[2017-11-26 20:23] LABS: Protime INR 2.19
[2017-11-26] MEDS ORDERED: HEPARIN 5000 UNIT/ML 1 ML VIAL SQ SCH (21:00)
[2017-11-27] MEDS: PIPER/TAZO/NS 3.375gm 3.375 GM/100 ML BAG IV SCH ×3 (01:29→18:10)
[2017-11-27] MEDS: NA CHLORIDE 0.9% 1,000 ML IV SCH ×4 (03:07→19:42)
[2017-11-27 05:32] LABS: Protime INR 1.73
[2017-11-27] MEDS: PAROXETINE HCL PO SCH (09:00)
[2017-11-27] MEDS: CARVEDILOL 12.5 MG TAB PO SCH (09:07)
[2017-11-27] MEDS: AMLODIPINE 5 MG TAB PO SCH (09:07)
[2017-11-27] MEDS: MORPHINE 4 MG/ML SYR IV PRN ×3 (09:48→19:43)
--- NOTE | 2017-11-27 10:36 | P.PN ---
Subjective Date of Service: 11/27/17 Chief Complaint: Intra-abdominal abscess Patient seen and examined at bedside with RN. Chart reviewed. Case discussed with surgery and IR at this time. Has a repeat INR that is < 2.0. Pt scheduled for Perc Drainage today. Heparin ggt to start after 1 hr if pt is not bleeding post procedure. Review of Systems General: As per HPI Physical Examination - Vital Signs Temperature: 98.4 F Blood Pressure: 156/97 Pulse: 79 Respirations: 17 Pulse Ox (%): 96 - Physical Exam General: Alert, In no apparent distress HEENT: Atraumatic, PERRLA, EOMI Neck: Supple, JVD not distended Respiratory: Clear to auscultation bilaterally, Normal air movement Cardiovascular: Regular rate/rhythm, Normal S1 S2 Gastrointestinal: Normal bowel sounds, No tenderness Musculoskeletal: No tenderness Integumentary: No rashes Neurological: Normal speech, Normal tone, Normal affect Lymphatics: No axilla or inguinal lymphadenopathy - Studies Medications List Reviewed: Yes Assessment & Plan - Problems (Diagnosis) (1) Intra-abdominal abscess Onset Date: 11/26/17 Current Visit: Yes Status: Acute Plan: Intra-abdominal Abscess after Acute diverticulitis. Pt left AMA last time. Now with abd pain and abscess -Scheduled for Perc drainage with IR -Supratherapeutic INR. -S/P 2 VitK and 3 FFP. -INR <2.0. IR todoy for perc drainage. -IV Abx and Fluid for now. -Culture pending. (2) Elevated INR Onset Date: 09/22/15 Current Visit: No Status: Acute Plan: See # 1 -Hold Warfarin -Start on Heparin ggt 1 hrs after procedure today (3) H/O aortic valve replacement Onset Date: 09/22/15 Current Visit: No Status: Chronic (4) HTN (hypertension) Onset Date: 09/22/15 Current Visit: No Status: Chronic Qualifiers: Hypertension type: essential hypertension Qualified Code(s): I10 - Essential (primary) hypertension Discharge Plan: Home Plan to discharge in: 24 Hours - Code Status/Comfort Care Code Status Assessed: Yes Critical Care: No
[2017-11-27] MEDS ORDERED: MIDAZOLAM HCL 2 MG/2 ML INJ ONE (11:14)
[2017-11-27] MEDS ORDERED: FENTANYL CITR 100 MCG/2 ML ONE ×2 (11:14)
[2017-11-27] MEDS ORDERED: NA CHLORIDE 0.9% 1,000 ML ONE (11:29)
--- NOTE | 2017-11-27 13:32 | RAD REPORT ---
EXAM DESCRIPTION: CT - Perc Abd Abcess Drainage - 11/27/2017 12:53 pm CLINICAL HISTORY: Intraperitoneal abscess for drainage COMPARISON: CT study November 25 TECHNIQUE: Patient presents for CT-guided drainage of a previously detailed intraperitoneal abscess along the left lateral abdomen. Patient had significant coagulation issues related to artificial hear t valve. INR had been corrected to approximately 1.7 which was sufficient for this procedure. Given t he planned approach between the rectus and oblique musculature, bleeding risk is felt to be low. The CT-guided percutaneous abscess drainage procedure, risks and alternatives were discussed with the patient in detail. After answering all questions, both oral and written consent were obtained. Time out procedure was performed. IV access and physiologic monitors were in place. Preliminary imaging ag ain identified a large abscess along the left side of the peritoneal cavity. Access site was selected . Skin was prepped and draped in the usual sterile fashion. Prior to any invasive procedure, the rich ent was pre-medicated with fentanyl 100 micrograms IV and Versed at 1.0 milligrams IV. Local anesthet ic was applied from the skin surface down to the peritoneal cavity. Initial attempts at single punctu re technique with the 12 [place] catheter were not successful. A Chiba needle was then used to punctur e the abdominal wall and enter the abscess cavity. CT imaging was utilized to confirm good positionin g of the Chiba needle. The needle was then removed and a second attempt at single puncture of the 12 [place] drainage catheter was performed. Successful access of the abscess was obtained. The sharp tip inner cannula is positioned approximately midway into the abscess. When the drain tube was advanced o daljit the needle the deep wall was penetrated. The inner stylet was fully retracted. Drainage catheter was retracted into a pigtail was within the central portion of the abscess. Pigtail was set. Approxim ately 300 mL of abscess fluid was aspirated. Drainage catheter was secured in place and patient was t ransferred back to the floor. Small quantity was retained for laboratory cultures. Patient tolerated procedure well without complic ation. The left side of the colon closely approximated the abscess but no evidence for colon injury o bserved. Vital signs were stable throughout the procedure. Conscious sedation time was [address] scans are performed using dose optimization technique as appropriate and may include automated exposure control or mA/KV adjustment according to patient size. IMPRESSION: CT-guided percutaneous abscess drainage procedure performed as detailed. Patient tolerat ed procedure well without immediate complication. Patient was transferred back to the floor for harpreet nued care. Small quantity of the aspirated abscess material was sent for Gram stain and culture. Approximately 3 00 mL of abscess was aspirated with an estimated 200-300 mL remaining.
[2017-11-27 13:53] LABS: Absolute Lymphocytes (CBC) 0.8 K/uL (0.7-4.9); Absolute Monocytes 1.1 K/uL (0.1-1.3); Basophils % 0.6 % (0-1.3); Eosinophils % 0.4 % (0-4.4); Hematocrit 38.1 % (39.6-49.0); MCV 98.3 fL (80-100); MPV 8.6 fL (7.6-11.3); Monocytes % 7.6 % (3.3-12.3); RBC Red Blood Cell Count 3.88 M/uL (4.33-5.43)
[2017-11-27 13:59] LABS: Protime INR 1.5
[2017-11-27 14:00] LABS: Bicarbonate 30 mEq/L (21-31); Glucose Level 91 mg/dL (65-120); Potassium 3.7 mEq/L (3.6-5.0); Sodium Level 135 mEq/L (135-145)
[2017-11-27 14:03] LABS: ALT/SGPT 27 IU/L (10-60); AST/SGOT 50 IU/L (10-42); Albumin 2.6 g/dL (3.2-5.5); Alkaline Phosphatase 53 IU/L (42-121); BUN Blood Urea Nitrogen 9 mg/dL (6-20); Bilirubin Total 1.6 mg/dL (0.3-1.2); Glomerular Filtration Rate > 90 mL/min (=/>90)
--- NOTE | 2017-11-27 14:40 | PN ---
Subjective: The patient is awake and alert. No complaints. Underwent the procedure for drainage. Had 300 cc. Removed. Cultures were done. He has a tube in place. No complaints. He is hungry. Objective: Vital Signs: Stable. He is afebrile. Abdomen: No peritonitis. Tube in place and functioning well. Assessment: Status post via CT-guided drainage of an abscess in the abdomen. Recommendation: Continue antibiotics. We will start him on clear liquids. He is cleared to start h is heparin drip and patient can be anticoagulated. We will follow this patient while in the hospital . /MODL Voice ID: [id number] Report ID: [id number]
[2017-11-27] MEDS: HEPARIN/D5W 25,000 UNIT/500 ML BAG IV PRN (16:04)
[2017-11-27] MEDS ORDERED: WARFARIN SODIUM 2.5 MG TAB PO SCH (17:00)
--- NOTE | 2017-11-27 20:56 | PN ---
The patient is 57, was admitted with an intraabdominal abscess secondary to perforated diverticulitis . He was seen by Dr. Riley yesterday. The patient underwent the surgery today. He is off Coumadin still, and heparin is still going. We will hope that he is on the Coumadin in a day or 2. The case was discussed with Dr. Hernandez. We will follow the patient as needed. The patient has a history of [facility] [place] aortic valve replacement. JOSE/ABBIE Voice ID: [id number] Report ID: [id number]
[2017-11-27 21:46] LABS: Body Fluid Source PERITONEAL; Color of fluid Brown (COLORLESS)
[2017-11-27 21:47] LABS: Appearance VERY TURBID (CLEAR); Body Fluid WBC 475000 /mm^3
[2017-11-28] MEDS: PIPER/TAZO/NS 3.375gm 3.375 GM/100 ML BAG IV SCH ×3 (00:20→17:38)
[2017-11-28] MEDS: MORPHINE 4 MG/ML SYR IV PRN (00:20)
[2017-11-28] MEDS: HYDROCODONE/APAP 5/325 MG TAB PO PRN ×3 (04:10→21:55)
[2017-11-28 05:58] LABS: Absolute Lymphocytes (CBC) 0.9 K/uL (0.7-4.9); Absolute Monocytes 0.9 K/uL (0.1-1.3); Absolute Neutrophil 7.8 K/uL (1.8-8.0); Basophils % 0.7 % (0-1.3); Eosinophils % 1.2 % (0-4.4); Hematocrit 36.3 % (39.6-49.0); Lymphocytes % 9.4 % (15.3-44.8); MCV 97.5 fL (80-100); MPV 8.9 fL (7.6-11.3); Monocytes % 9.4 % (3.3-12.3); RBC Red Blood Cell Count 3.73 M/uL (4.33-5.43)
[2017-11-28] MEDS: PAROXETINE HCL PO SCH (09:00)
[2017-11-28] MEDS: AMLODIPINE 5 MG TAB PO SCH (10:12)
[2017-11-28] MEDS: CARVEDILOL 12.5 MG TAB PO SCH (10:13)
[2017-11-28 10:22] LABS: Protime INR 1.44
[2017-11-28] MEDS: HEPARIN/D5W 25,000 UNIT/500 ML BAG IV PRN (12:34)
--- NOTE | 2017-11-28 13:03 | PN ---
Date of Progress Note: 11/28/2017 Subjective: The patient is awake, alert. Pain is much better. Tolerating liquids. Objective: Vital signs: Stable, afebrile. Abdomen: Benign. Laboratory Data: White count is normal. Drained about 60 cc. Assessment: Status post CT-guided drainage of intra-abdominal abscess. Recommendation: Continue antibiotics. Check cultures and adjust the antibiotics accordingly. Darion nue drain at this time. We will advance diet and the patient can be on Coumadin and once the INR is therapeutic, he can be discharged and follow up in a week. /MODL Voice ID: [id number] Report ID: [id number]
--- NOTE | 2017-11-28 14:38 | P.PN ---
Subjective Date of Service: 11/28/17 Chief Complaint: Intra-abdominal abscess Patient seen and examined at bedside with RN. Chart reviewed. Case discussed with surgery and IR at this time. S/p Perc Drainage. Currently being bridged with coumadin Review of Systems General: As per HPI Physical Examination - Vital Signs Temperature: 97.8 F Blood Pressure: 142/83 Pulse: 60 Respirations: 20 Pulse Ox (%): 92 - Physical Exam General: Alert, In no apparent distress HEENT: Atraumatic, PERRLA, EOMI Neck: Supple, JVD not distended Respiratory: Clear to auscultation bilaterally, Normal air movement Cardiovascular: Regular rate/rhythm, Normal S1 S2 Gastrointestinal: Normal bowel sounds, No tenderness, Distended Musculoskeletal: No tenderness Integumentary: No rashes Neurological: Normal speech, Normal tone, Normal affect Lymphatics: No axilla or inguinal lymphadenopathy - Studies Medications List Reviewed: Yes Assessment & Plan - Problems (Diagnosis) (1) Intra-abdominal abscess Onset Date: 11/26/17 Current Visit: Yes Status: Acute Plan: Intra-abdominal Abscess after Acute diverticulitis. Pt left AMA last time. Now with abd pain and abscess -S/P Perc drainage with IR POD#1 -IV Abx and Fluid for now. -Culture pending. (2) Elevated INR Onset Date: 09/22/15 Current Visit: No Status: Acute Plan: Restarted on Warfarin with INR of 1.55. Will continue to monitor to get therapeutic INR. (3) H/O aortic valve replacement Onset Date: 09/22/15 Current Visit: No Status: Chronic (4) HTN (hypertension) Onset Date: 09/22/15 Current Visit: Yes Status: Chronic Qualifiers: Hypertension type: essential hypertension Qualified Code(s): I10 - Essential (primary) hypertension Discharge Plan: Home Plan to discharge in: 24 Hours - Code Status/Comfort Care Code Status Assessed: Yes Critical Care: No
[2017-11-28] MEDS: WARFARIN SODIUM 5 MG TAB PO SCH (17:00)
[2017-11-29] MEDS: PIPER/TAZO/NS 3.375gm 3.375 GM/100 ML BAG IV SCH ×3 (01:07→16:08)
[2017-11-29] MEDS: HYDROCODONE/APAP 5/325 MG TAB PO PRN ×3 (04:39→21:52)
[2017-11-29 08:34] LABS: Protime INR 1.36
[2017-11-29] MEDS: PAROXETINE HCL PO SCH (09:00)
[2017-11-29] MEDS: CARVEDILOL 12.5 MG TAB PO SCH (10:16)
[2017-11-29] MEDS: AMLODIPINE 5 MG TAB PO SCH (10:16)
[2017-11-29] MEDS: HEPARIN/D5W 25,000 UNIT/500 ML BAG IV PRN (10:17)
--- NOTE | 2017-11-29 10:19 | PN ---
Date of Progress Note: 11/29/2017 Subjective: The patient is awake, alert, no complaint. Tolerating diet. Objective: Vital Signs: Stable. Afebrile. Abdomen: Benign. Output from the drain was 100 cc yesterday and 70 this morning. Laboratory Data: INR is 1.36 today. Assessment: CT-guided drainage of intra-abdominal abscess. Recommendation: Continue Coumadin. When anticoagulated, the patient can be discharged home on oral antibiotics, probably Augmentin is best for this patient as he is on Coumadin, and the patient will r equire followup in my office. I will arrange for a CT of the abdomen and pelvis as an outpatient to decide when to remove the drain. Plan of care was also discussed with Dr. Alba. The patient is clin ically doing very well. /MODL Voice ID: [id number] Report ID: [id number]
[2017-11-29] MEDS ORDERED: NA CHLORIDE 0.9% 250 ML ONE (10:32)
--- NOTE | 2017-11-29 12:14 | P.PN ---
Subjective Date of Service: 11/29/17 Chief Complaint: Intra-abdominal abscess Patient seen and examined at bedside with RN. Chart reviewed. Case discussed with surgery and IR at this time. S/p Perc Drainage. Currently being bridged with coumadin. INR is subtherapeutic at this time. Review of Systems 10-point ROS is otherwise unremarkable Physical Examination - Vital Signs Temperature: 97.0 F Blood Pressure: 133/77 Pulse: 69 Respirations: 18 Pulse Ox (%): 98 - Physical Exam General: Alert, In no apparent distress, Oriented x3 HEENT: Atraumatic, PERRLA, EOMI Neck: Supple, JVD not distended Respiratory: Clear to auscultation bilaterally, Normal air movement Cardiovascular: Regular rate/rhythm, Normal S1 S2 Gastrointestinal: Normal bowel sounds, No tenderness, Other (Drainage in place) , Distended Musculoskeletal: No tenderness Integumentary: No rashes Neurological: Normal speech, Normal tone, Normal affect Lymphatics: No axilla or inguinal lymphadenopathy - Studies Medications List Reviewed: Yes Assessment & Plan - Problems (Diagnosis) (1) Intra-abdominal abscess Onset Date: 11/26/17 Current Visit: Yes Status: Acute Plan: Intra-abdominal Abscess after Acute diverticulitis. Pt left AMA last time. Now with abd pain and abscess -S/P Perc drainage with IR POD#2 -IV Abx and Fluid for now. -Culture + for Enterbacter faceium. Sensitive to Augmentin. -Pt will be switched to PO augmentin when discharge home. . (2) Elevated INR Onset Date: 09/22/15 Current Visit: No Status: Acute Plan: Restarted on Warfarin -INR is 1.36. Goal is 2.5-3.5 (3) H/O aortic valve replacement Onset Date: 09/22/15 Current Visit: No Status: Chronic (4) HTN (hypertension) Onset Date: 09/22/15 Current Visit: Yes Status: Chronic Qualifiers: Hypertension type: essential hypertension Qualified Code(s): I10 - Essential (primary) hypertension Discharge Plan: Home Plan to discharge in: 24 Hours - Code Status/Comfort Care Code Status Assessed: Yes Critical Care: No
[2017-11-29] MEDS: WARFARIN SODIUM 5 MG TAB PO SCH (16:07)
[2017-11-30] MEDS ORDERED: NA CHLORIDE 0.9% 250 ML ONE (00:49)
[2017-11-30] MEDS: PIPER/TAZO/NS 3.375gm 3.375 GM/100 ML BAG IV SCH ×2 (00:52→08:21)
[2017-11-30] MEDS: HYDROCODONE/APAP 5/325 MG TAB PO PRN ×2 (04:41→11:01)
[2017-11-30] MEDS: HEPARIN/D5W 25,000 UNIT/500 ML BAG IV PRN (05:36)
[2017-11-30 05:50] LABS: Absolute Monocytes 0.7 K/uL (0.1-1.3); Absolute Neutrophil 5.6 K/uL (1.8-8.0); Lymphocytes % 13.4 % (15.3-44.8); MCH 33.4 pg (27.0-35.0); MCV 97.9 fL (80-100); MPV 8.8 fL (7.6-11.3); Monocytes % 9.6 % (3.3-12.3); RBC Red Blood Cell Count 3.89 M/uL (4.33-5.43)
[2017-11-30 06:00] LABS: Protime INR 1.44
[2017-11-30] MEDS: AMLODIPINE 5 MG TAB PO SCH (08:20)
[2017-11-30] MEDS: PAROXETINE HCL PO SCH (08:21)
[2017-11-30] MEDS: CARVEDILOL 12.5 MG TAB PO SCH (08:21)
--- NOTE | 2017-11-30 11:26 | PN ---
Date of Progress Note: 11/30/2017 Subjective: The patient is awake, alert. No complaint. Objective: Vital Signs: Stable. Afebrile. Abdomen: Benign. 70 cc out of the drain. Laboratory Data: INR still subtherapeutic. Assessment: Status post CT-guided drainage of intra-abdominal abscess. Recommendation: The patient wants to go home and states that he has Lovenox at home. Prior to surge ry, he is concerned he can be discharged home on Augmentin. We will follow him up next week in my of fice and arrange for him to have an outpatient CT to follow up. Venessa the abscess and the drainage has stopped, then we can take the drain out. Clinically, he is not septic anymore. His white count is normal. He is tolerating the diet, and the cultures are growing Enterococcus faecium sensitive to mu ltiple antibiotics including Augmentin which is probably most appropriate for him because he is on Co umadin. The plan of care was discussed with Dr. Hernandez. JUAN DANIEL/ABBIE Voice ID: [id number] Report ID: [id number]
--- NOTE | 2017-11-30 16:29 | P.DS ---
Admission Date: 11/25/17 Discharge Date: 11/30/17 Disposition: ROUTINE DISCHARGE Discharge Condition: GOOD Reason for Admission: Intra-abdominal abscess Consultations: Gen Surgery Cardiology Procedures: IR Perc Drainage of intraabd abscess - Problems (1) Intra-abdominal abscess Onset Date: 11/26/17 Status: Acute (2) Elevated INR Onset Date: 09/22/15 Status: Acute (3) H/O aortic valve replacement Onset Date: 09/22/15 Status: Chronic (4) HTN (hypertension) Onset Date: 09/22/15 Status: Chronic Qualifiers: Hypertension type: essential hypertension Qualified Code(s): I10 - Essential (primary) hypertension Brief History of Present Illness: See HPI Hospital Course: Overall during the hospital stay patient remained stable. Patient was initially admitted to the hospital for intra-abdominal abscess noticed on abdominal CT. Interventional radiology was consulted for a possible poor drainage. Given the patient's breath therapeutic INR procedure was hold until the patient's INR was subtherapeutic between 1-2. Patient was given vitamin K x2 and FFP x2 in on day 2 patient INR was 1.01. [facility]iology was also [facility] Cardio reccs to bridge pt with heparin and warfin can be on hold for the procedure. IR performed PERC drainage. patient had no complications during the procedure. Patient had a PERC drainage catheter placed and did well overall. Culture were + for Enterobacter sensitive to Augment PO. Pt was bridged over by Heparin. Today pt wanted to go home and thus pt was switched to lovenox SQ BID and warfarin was continued. PT was educated on Lovenox injection and was asked to bridge until INR is 2.5-3.5. Pt was then discharged home with home health and ppx for augmentin and lovenox. Pt was to f/u with Dr russo in the office in 2 week for PERC drainage catheter assessment. Vital Signs/Physical Exam: Temp Pulse Resp BP Pulse Ox 97.0 F 63 16 180/86 H 96 11/30/17 08:00 11/30/17 08:21 11/30/17 08:00 11/30/17 08:21 11/30/17 08:00 General: Alert, In no apparent distress, Oriented x3 HEENT: Atraumatic, PERRLA, EOMI Neck: Supple, JVD not distended Respiratory: Clear to auscultation bilaterally, Normal air movement Cardiovascular: Regular rate/rhythm, Normal S1 S2 Gastrointestinal: Normal bowel sounds, No tenderness, Other (PERC drainage in place with purlent discharge ) Musculoskeletal: No tenderness Integumentary: No rashes Neurological: Normal speech, Normal tone, Normal affect Lymphatics: No axilla or inguinal lymphadenopathy Laboratory Data at Discharge: WBC 7.5 K/uL (4.3-10.9) D 11/30/17 05:17 Hgb 13.0 g/dL (13.6-17.9) L 11/30/17 05:17 Hct 38.0 % (39.6-49.0) L 11/30/17 05:17 Plt Count 379 K/uL (152-406) 11/30/17 05:17 PT 17.1 SECONDS (9.5-12.5) H 11/30/17 05:07 INR 1.44 11/30/17 05:07 APTT 55.7 SECONDS (24.3-36.9) H 11/30/17 05:07 Sodium 135 mEq/L (135-145) 11/27/17 13:39 Potassium 3.7 mEq/L (3.6-5.0) 11/27/17 13:39 BUN 9 mg/dL (6-20) 11/27/17 13:39 Creatinine 0.56 mg/dL (0.61-1.24) L 11/27/17 13:39 Glucose 91 mg/dL (65-120) 11/27/17 13:39 Total Bilirubin 1.6 mg/dL (0.3-1.2) H 11/27/17 13:39 AST 50 IU/L (10-42) H 11/27/17 13:39 ALT 27 IU/L (10-60) 11/27/17 13:39 Alkaline Phosphatase 53 IU/L (42-121) 11/27/17 13:39 Lipase 23 U/L (22-51) 11/25/17 17:30 Home Medications: Paroxetine HCl [Paxil Cr] 1 tab PO DAILY 09/21/15 Amlodipine Besylate 1 tab PO DAILY 11/19/17 Carvedilol 1 tab PO DAILY 11/19/17 Warfarin Sodium 1 tab PO DAILY 11/19/17 Amox/Clavulanate [Augmentin 875-125 Tab] 875 mg PO BID #28 tab 11/30/17 Enoxaparin Sodium [Lovenox 100 MG INJ] 100 mg SQ BID #30 syr 11/30/17 New Medications: Amox/Clavulanate [Augmentin 875-125 Tab] 875 mg PO BID #28 tab Enoxaparin Sodium [Lovenox 100 MG INJ] 100 mg SQ BID #30 syr Patient Discharge Instructions: Please f/u Dr Gil in 2 week post discharge. New medication. Augmentin BID for 14 days. Lovenox 100mg BID till Your INR is 2.5-3.5 and then you can stop and continue wtih only Warfarin. Diet: Regular Activity: Ad renaldo Followup: Jordy Gil MD [ACTIVE - CAN ADMIT] - 1-2 Weeks
== END 2017-11-30 14:00 | disposition home health service (06) | DRG 392 ==
LOC: ER 15:05 → ERHOLD 21:34 → 2ND 21:38
PROVIDERS: ADMIT Hospitalist; ATTEND Family Medicine
PROC: 0W9F3ZZ Drainage of Abdominal Wall, Percutaneous Approach (ICD-10-PCS; principal; 2017-11-27)
DX: K57.20 Diverticulitis of large intestine with perforation and abscess without bleeding (principal); I10 Essential (primary) hypertension; F32.9 Major depressive disorder, single episode, unspecified; F41.9 Anxiety disorder, unspecified; Z79.01 Long term (current) use of anticoagulants; Z87.891 Personal history of nicotine dependence
CPT/HCPCS: 36415; 49021; 74177; 80048; 80053; 80076; 81003; 81015; 82274; 82962; 83690; 85025; 85049; 85610; 85730; 86850; 86900; 86901; 87040; 87070; 87075; 87077; 87186; 87205; 87493; 89050; 99285; J0692; J0744; J1335; J1644; J2250; J2270; J2405; J2543; J3010; J3430; J7030; P9059; Q9967

== ENCOUNTER 2018-01-27 15:13 | Emergency (ER) | payer OTHER ==
--- OUTSIDE RECORDS SUMMARY | 2018-01-27 15:16 | XMS REPORT | Clinical Summary ---
:1960 Author Organization [facility] Address [address] [place] [address] Care Team Providers Name Role Phone Lam Denton MD Primary Care Provider Allergies No Known Allergies Current Medications Prescription Sig. Disp. Refills Start Date End Date Status carvedilol (COREG) Take 12.5 mg by Active 12.5 MG tablet mouth daily. ferrous sulfate 325 Take 325 mg by Active (65 FE) MG tablet mouth daily with breakfast. acetaminophen-codei Take 1-2 tablets Active ne (TYLENOL WITH by mouth every 4 CODEINE #3) 300-30 (four) hours as mg per tablet needed for moderate pain. latanoprost Administer 1 Active (XALATAN) 0.005 % drop to both ophthalmic solution eyes nightly. PARoxetine CR Take 25 mg by Active (PAXIL-CR) 25 MG 24 mouth every hr tablet morning. warfarin (COUMADIN) Take 4 mg by Active 4 MG tablet mouth daily. amLODIPine Take 1 tablet 30 tablet 0 01/13/2018 Active (NORVASC) 10 mg (10 mg total) by 8 tablet mouth every morning for 30 days. enoxaparin Inject 0.9 mL 54 mL 0 01/12/2018 Active (LOVENOX) 100 mg/mL (90 mg total) 8 syringe under the skin 2 (two) times a day for 30 days. warfarin (COUMADIN) TAKE 1 TABLET 0 11/06/2017 Discontinued 4 MG tablet (4MG) BY ORAL 8 ROUTE EVERY DAY amLODIPine Take 5 mg by 1 11/13/2017 Discontinued (NORVASC) 5 mg mouth every 8 tablet morning. carvedilol (COREG) Take 12.5 mg by 1 10/08/2017 Discontinued 12.5 MG tablet mouth daily. 8 PARoxetine (PAXIL) Take 10 mg by Discontinued 10 MG tablet mouth every 8 morning. amoxicillin-pot Take 1 tablet by 20 tablet 0 01/03/2018 Discontinued clavulanate mouth 2 (two) 8 (AUGMENTIN) 875-125 times a day for mg per tablet 10 days. enoxaparin Inject 100 mg Discontinued (LOVENOX) 100 mg/mL under the skin 2 8 syringe (two) times a day. HYDROcodone-acetami Take 1-2 tablets Discontinued nophen (NORCO) by mouth every 4 8 5-325 mg per tablet (four) hours as needed for moderate pain. amoxicillin-pot Take 1 tablet by 01/03/2018 Discontinued clavulanate mouth 2 (two) 8 (AUGMENTIN) 875-125 times a day. For mg per tablet 10 days 01/03/18 - 01/13/18 HYDROcodone-acetami Take 1 tablet by 01/11/2018 nophen (NORCO) mouth every 4 8 7.5-325 mg per (four) hours as tablet needed for moderate pain for up to 14 days. Max Daily Amount: 6 tablets metroNIDAZOLE Take 1 tablet 30 tablet 0 01/12/2018 Discontinued (FLAGYL) 500 MG (500 mg total) 8 tablet by mouth 3 (three) times a day for 10 days. levoFLOXacin Take 1 tablet 10 tablet 0 01/13/2018 Discontinued (LEVAQUIN) 500 MG (500 mg total) 8 tablet by mouth daily for 10 days. metroNIDAZOLE Take 1 tablet 21 tablet 0 01/18/2018 (FLAGYL) 500 MG (500 mg total) 8 tablet by mouth 3 (three) times a day for 7 days. levoFLOXacin Take 1 tablet 7 tablet 0 01/18/2018 (LEVAQUIN) 500 MG (500 mg total) 8 tablet by mouth daily for 7 days. Active Problems Problem Noted Date Diverticulitis of large intestine with abscess without bleeding 01/08/2018 Bowel perforation 01/08/2018 Peritoneal abscess 01/08/2018 Encounters Date Type Specialty Care Team Description 01/18/2018 Office Visit General Surgery Tereso Diverticulitis of Cindy large intestine with NYLA Godinez abscess without bleeding (Primary Dx) 01/18/2018 Hospital Encounter Radiology Blair Flowers Diverticulitis of MD Shon large intestine with abscess without bleeding 01/11/2018 Orders Only General Surgery Blair Flowers DiverticDylan MD large intestine with abscess without bleeding (Primary Dx) 01/08/2018 - Hospital Encounter General Surgery Aileen, Diverticulitis of large intestine with abscess without bleeding (Primary Dx); 01/12/2018 Harrison Cummings MD Left lower quadrant pain Marvin Burnette MD Vinh, MD David Trotter, Gregory Bowen MD 01/03/2018 Office Visit General Surgery Blair Flowers DiverticDylan MD large intestine with perforation and abscess without bleeding (Primary Dx) after 01/26/2017 Family History Medical History Relation Name Comments Diabetes Father Heart disease Father Relation Name Status Comments Father Social History Tobacco Use Types Packs/Day Years Used Date Never Smoker Smokeless Tobacco: Never Used Alcohol Use Drinks/Week oz/Week Comments No 6 Standard drinks or equivalent 3.6 Sex Assigned at Date Recorded Not on file Last Filed Vital Signs Vital Sign Reading Time Taken Blood Pressure 134/78 01/18/2018 1:26 PM CDT Pulse 78 01/18/2018 1:26 PM CDT Temperature 36.4 C (97.6 F) 01/12/2018 11:29 AM CDT Respiratory Rate 18 01/12/2018 11:29 AM CDT Oxygen Saturation 96% 01/12/2018 11:29 AM CDT Inhaled Oxygen Concentration - - Weight 88.5 kg (195 lb) 01/18/2018 10:51 AM CDT Height 175.3 cm (5' 9") 01/18/2018 10:51 AM CDT Body Mass Index 28.8 01/18/2018 10:51 AM CDT Plan of Treatment Date Type Specialty Care Team Description 01/28/2018 Office Visit General Surgery Cindy Rider NP-C [address] [facility] [address] [facility] [place] [address] 03/12/2018 Surgery General Surgery Blair Flowers ROBOTIC ASSISTED MD Shon LAPARSCOPIC LOW [address] [facility] [address] [place], [place] [id number] 03/12/2018 Procedure Pass General Surgery 03/12/2018 Hospital Encounter General Surgery Blair Flowers MD [address] [facility] [address] [place], [place] [id number] Health Maintenance Due Date Last Done Comments COLON CANCER SCREENING 2008 SHINGRIX VACCINE (#1) 2008 INFLUENZA VACCINE 04/10/[address] Abdomen Pelvis W Contrast (01/18/2018 1:02 PM)Only the most recent of2 resultswithin the time period is included. Specimen Performing Laboratory [facility] [address] [place] [address] Narrative EXAMINATION:CT ABDOMEN PELVIS W CONTRAST CLINICAL HISTORY:K57.20 Diverticulitis of large intestine with perforation and abscess without bleeding, Diverticulitis with abscess COMPARISON:January 09, 2018 TECHNIQUE: Multiple axial CT images of the Abdomen and pelvis were obtained With IV contrast Oral contrast was administered. . Sagittal and coronal reconstructions were done. CT imaging was performed with iterative reconstruction technique and/or automated exposure control to reduce radiation dose. FINDINGS: HEPATOBILIARY:No focal hepatic lesions. No biliary ductal dilation. GALLBLADDER: Normal. SPLEEN:No splenomegaly. PANCREAS:No focal masses or ductal dilation. ADRENALS:No adrenal nodules. KIDNEYS:No hydronephrosis, stones or solid masses. PERITONEUM/RETROPERITONEUM:Left lower quadrant drain is in place. There is complete decompression of the previous fluid collection post catheter placement. A smaller collection of fluid and air in the left lower quadrant deep to the abdominal wall measures 2.8 cm in image 135 series 2 and 3.3 cm in image 140 series 2. These are adjacent to and difficult to differentiate from bowel loops. No contrast is seen within the's collections. No free air or free fluid. Subcutaneous tissue thickening measuring approximately 3.8 cm just under the sigmoid colon in image 147 series 2 similar to the prior exam could be related to some scarring. ABDOMINAL AORTA/IVC: No aneurysm or dissection. GI TRACT:There is some wall thickening the sigmoid colon sequela of prior inflammation. No bowel distention present to suggest obstruction. No pneumatosis. There are no signs of appendicitis. PELVIC ORGANS/BLADDER:The urinary bladder is fluid-filled. BONES AND SOFT TISSUES:No acute abnormality. VISUALIZED LOWER CHEST: No acute abnormality. Heart is enlarged with atherosclerotic aspiration of coronary arteries. IMPRESSION: Questionable very small residual fluid collections in the anterior peritoneum adjacent to bowel loops. No recurrence of the fluid collection drained by the percutaneous catheter. [id number] Procedure Note Hm Interface, Radiology Results Incoming - 01/18/2018 1:18 PM CDT EXAMINATION: CT ABDOMEN PELVIS W CONTRAST CLINICAL HISTORY: K57.20 Diverticulitis of large intestine with perforation and abscess without bleeding, Diverticulitis with abscess COMPARISON: January 09, 2018 TECHNIQUE: Multiple axial CT images of the Abdomen and pelvis were obtained With IV contrast Oral contrast was administered. . Sagittal and coronal reconstructions were done. CT imaging was performed with iterative reconstruction technique and/or automated exposure control to reduce radiation dose. FINDINGS: HEPATOBILIARY: No focal hepatic lesions. No biliary ductal dilation. GALLBLADDER: Normal. SPLEEN: No splenomegaly. PANCREAS: No focal masses or ductal dilation. ADRENALS: No adrenal nodules. KIDNEYS: No hydronephrosis, stones or solid masses. PERITONEUM/RETROPERITONEUM: Left lower quadrant drain is in place. There is complete decompression of the previous fluid collection post catheter placement. A smaller collection of fluid and air in the left lower quadrant deep to the abdominal wall measures 2.8 cm in image 135 series 2 and 3.3 cm in image 140 series 2. These are adjacent to and difficult to differentiate from bowel loops. No contrast is seen within the's collections. No free air or free fluid. Subcutaneous tissue thickening measuring approximately 3.8 cm just under the sigmoid colon in image 147 series 2 similar to the prior exam could be related to some scarring. ABDOMINAL AORTA/IVC: No aneurysm or dissection. GI TRACT: There is some wall thickening the sigmoid colon sequela of prior inflammation. No bowel distention present to suggest obstruction. No pneumatosis. There are no signs of appendicitis. PELVIC ORGANS/BLADDER: The urinary bladder is fluid-filled. BONES AND SOFT TISSUES: No acute abnormality. VISUALIZED LOWER CHEST: No acute abnormality. Heart is enlarged with atherosclerotic aspiration of coronary arteries. IMPRESSION: Questionable very small residual fluid collections in the anterior peritoneum adjacent to bowel loops. No recurrence of the fluid collection drained by the percutaneous catheter. [id number] Manual differential (01/12/2018 3:30 AM)Only the most recent of4 resultswithin the time period is included. Component Value Ref Range Manual differential PERFORMED Neutrophils 75.0 (H) 39.0 - 69.0 % Lymphocytes 12.0 (L) 25.0 - 45.0 % Monocytes 8.0 0.0 - 10.0 % Eosinophils 1.0 0.0 - 5.0 % Basophils 0.0 0.0 - 1.0 % Metamyelocytes 3 % Myelocytes 1 % Promyelocytes 0 % Platelet slide review Carlos A adequate Anisocytosis Moderate Specimen Performing Laboratory [facility] DEPARTMENT OF PATHOLOGY AND GENOMIC MEDICINE [address] [place] [address] Prothrombin time with INR (01/12/2018 3:30 AM)Only the most recent of5 resultswithin the time period is included. Component Value Ref Range Prothrombin time 23.2 (H) 12.0 - 15.0 sec INR 2.0 Comment: The International Normalized Ratio (INR) is a therapeutic monitoring tool for patients who are stable on oral anticoagulant therapy. An INR of 2.0-3.0 is suggested for deep vein thrombosis/pulmonary embolism. Specimen Performing Laboratory Blood [facility] DEPARTMENT OF PATHOLOGY AND GENOMIC MEDICINE [address] [place] [address] CBC with platelet and differential (01/12/2018 3:30 AM)Only the most recent of5 resultswithin the time period is included. Component Value Ref Range WBC 7.10 4.50 - 11.00 k/uL RBC 3.37 (L) 4.40 - 6.00 m/uL HGB 11.0 (L) 14.0 - 18.0 g/dL HCT 32.7 (L) 41.0 - 51.0 % MCV 97.0 82.0 - 100.0 fL MCH 32.6 27.0 - 34.0 pg MCHC 33.6 31.0 - 37.0 g/dL RDW - SD 47.1 37.0 - 55.0 fL MPV 9.4 8.8 - 13.2 fL Platelet count 309 150 - 400 k/uL Nucleated RBC 0.00 /100 WBC Neutrophils 75.0 (H) 39.0 - 69.0 % Lymphocytes 12.0 (L) 25.0 - 45.0 % Monocytes 8.0 0.0 - 10.0 % Eosinophils 1.0 0.0 - 5.0 % Basophils 0.0 0.0 - 1.0 % Specimen Performing Laboratory Blood [facility] AND [address] [address] Estimated GFR (01/11/2018 4:25 AM)Only the most recent of4 resultswithin the time period is included. Component Value Ref Range GFR Non Af Amer >90 mL/min/1.73 m2 GFR Af Amer >90 mL/min/1.73 m2 Comment: Chronic kidney disease: <60 mL/min/1.73m2 Kidney failure: <15 mL/min/1.73m2 The estimated GFR is calculated from the IDMS-traceable Modification of Diet in Renal Disease Equation. The accuracy of the calculation is poor when the creatinine is normal. Calculated values >90 mL/min/1.73m2 are not reported. This equation has not been validated in children (<18 years), women, the elderly (>70 years), or ethnic groups other than Caucasians and Americans. Specimen Performing Laboratory Plasma specimen [facility] AND [address] [address] Basic metabolic panel (01/11/2018 4:25 AM)Only the most recent of3 resultswithin the time period is included. Component Value Ref Range Sodium 135 135 - 148 mEq/L Potassium 3.9 3.5 - 5.0 mEq/L Chloride 97 (L) 98 - 112 mEq/L CO2 27 24 - 31 mEq/L Anion gap 11 7 - 15 mEq/L Comment: Starting from December , anion gap calculation no longer incorporates potassium. Please note the change. BUN 4 (L) 6 - 20 mg/dL Creatinine 0.5 (L) 0.7 - 1.2 mg/dL Glucose 81 65 - 99 mg/dL Calcium 9.0 8.3 - 10.2 mg/dL Specimen Performing Laboratory Plasma specimen [facility] DEPARTMENT OF PATHOLOGY AND [address] [address] [address] Guided Abscess Drain (01/09/2018 4:34 PM) Specimen [facility]forming [facility] [address] [place] [address] Narrative EXAMINATION:CT GUIDED ABSCESS DRAIN CLINICAL HISTORY:Fluid collectionabscess - hx of diverticulitis PROCEDURES: 1. Limited pre procedure CT of the abdomen. 2. CT guided placement of drain in left lower quadrant of the abdomen. PHYSICIANS: Dr. Manas Aguayo Anesthesia Type: Moderate sedation was administered by the procedure nurse and monitored intraservice [id number] by the procedure physician for 7 minutes. Lidocaine 1% was also used for local anesthetic. COMPLICATIONS: None. ESTIMATED BLOOD LOSS: < 5 mL PROCEDURE NOTE: The procedure, risks, benefits, and alternatives were carefully explained to the patient and written informed consent was obtained. The patient was placed supine on the CT table. A time out was performed. A limited CT of the lower abdomen was performed to localize left lower quadrantfluid collection and to determine appropriate needle entry and trajectory. The pelvis was prepped and draped in usual sterile fashion. Antibiotic prophylaxis: Antibiotic prophylaxis was not given since the patient was already on scheduled intravenous antibiotics prior to the procedure. Maximal sterile barrier technique was implemented. The skin and subcutaneous tissues were anesthetized with Lidocaine. Under CT guidance, using a 5 Fr. Yueh needle the fluid collection was accessed and 15 cc of purulent fluid was aspirated. A 0.035" Amplatz wire was advanced through the needle and coiled in the fluid collection. The needle was removed and exchanged for a 10 Australian Cook locking all-purpose drainage catheter. The wire was removed and final CT was performed to confirm drain placement within the fluid collection. The drain was sutured to skin with 2-0 nylon suture. Samples were sent for microbiology. FINDINGS: 1. Descending colon radiculitis complicated with left lower quadrant fluid collection/abscess. 2. Aspiration of purulent fluid from the collection. 3. CT guided placement of drainage catheter into the left lower quadrant. IMPRESSION: Successful CT guided drainage of left lower quadrant fluid collection/abscess. [id number] Procedure Note [facility], Radiology Results Incoming - 01/09/2018 4:58 PM CDT EXAMINATION: CT GUIDED ABSCESS DRAIN CLINICAL HISTORY: Fluid collection abscess - hx of diverticulitis PROCEDURES: 1. Limited pre procedure CT of the abdomen. 2. CT guided placement of drain in left lower quadrant of the abdomen. PHYSICIANS: Dr. Manas Aguayo Anesthesia Type: Moderate sedation was administered by the procedure nurse and monitored intraservice [id number] by the procedure physician for 7 minutes. Lidocaine 1 % was also used for local anesthetic. COMPLICATIONS: None. ESTIMATED BLOOD LOSS: < 5 mL PROCEDURE NOTE: The procedure, risks, benefits, and alternatives were carefully explained to the patient and written informed consent was obtained. The patient was placed supine on the CT table. A time out was performed. A limited CT of the lower abdomen was performed to localize left lower quadrantfluid collection and to determine appropriate needle entry and trajectory. The pelvis was prepped and draped in usual sterile fashion. Antibiotic prophylaxis: Antibiotic prophylaxis was not given since the patient was already on scheduled intravenous antibiotics prior to the procedure. Maximal sterile barrier technique was implemented. The skin and subcutaneous tissues were anesthetized with Lidocaine. Under CT guidance, using a 5 Fr. Yueh needle the fluid collection was accessed and 15 cc of purulent fluid was aspirated. A 0.035" Amplatz wire was advanced through the needle and coiled in the fluid collection. The needle was removed and exchanged for a 10 Australian Cook locking all-purpose drainage catheter. The wire was removed and final CT was performed to confirm drain placement within the fluid collection. The drain was sutured to skin with 2-0 nylon suture. Samples were sent for microbiology. FINDINGS: 1. Descending colon radiculitis complicated with left lower quadrant fluid collection/abscess. 2. Aspiration of purulent fluid from the collection. 3. CT guided placement of drainage catheter into the left lower quadrant. IMPRESSION: Successful CT guided drainage of left lower quadrant fluid collection/abscess. [id number] Aerobic culture (01/09/2018 4:15 PM) Component Value Ref Range Aerobic culture isolate Enterobacter aerogenes Few susceptibility to follow This organism is NOT a carbapenemase producing organism. (A) Comment: Specimen Information Specimen Source: Abscess Specimen Site: Abdomen Specimen Performing Laboratory Abscess [facility] DEPARTMENT OF PATHOLOGY AND GENOMIC MEDICINE [address] [place] [address] Organism Antibiotic Method Susceptibility Enterobacter aerogenes Amikacin GUS <=4 mcg/mL: Susceptible Enterobacter aerogenes Amoxicillin/Clavulanate GUS >16/8 mcg/mL: Resistant Enterobacter aerogenes Ampicillin/Sulbactam GUS >16/8 mcg/mL: Resistant Enterobacter aerogenes Ampicillin GUS >16 mcg/mL: Resistant Enterobacter aerogenes Aztreonam GUS 16 mcg/mL: Resistant Enterobacter aerogenes Cefazolin GUS >32 mcg/mL: Resistant Enterobacter aerogenes Cefoxitin GUS >16 mcg/mL: Resistant Enterobacter aerogenes Ceftazidime GUS >16 mcg/mL: Resistant Enterobacter aerogenes Ceftriaxone GUS >32 mcg/mL: Resistant Enterobacter aerogenes Cefuroxime Sodium GUS >16 mcg/mL: Resistant Enterobacter aerogenes Ciprofloxacin GUS <=0.5 mcg/mL: Susceptible Enterobacter aerogenes Ertapenem GUS 1 mcg/mL: Resistant Enterobacter aerogenes Gentamicin GUS 2 mcg/mL: Susceptible Enterobacter aerogenes Imipenem GUS mcg/mL: Resistant Enterobacter aerogenes Levofloxacin GUS <=1 mcg/mL: Susceptible Enterobacter aerogenes Meropenem GUS 0.25 mcg/mL: Susceptible Enterobacter aerogenes Piperacillin/Tazobactam GUS >64/4 mcg/mL: Resistant Enterobacter aerogenes Tetracycline GUS <=1 mcg/mL: Susceptible Enterobacter aerogenes Tigecycline GUS 1 mcg/mL: Susceptible Enterobacter aerogenes Tobramycin GUS 1 mcg/mL: Susceptible Enterobacter aerogenes Trimethoprim/Sulfamethoxazo GUS <=0.5/9.5 mcg/mL: le Susceptible Enterobacter aerogenes Cefipime GUS <=0.5 mcg/mL: Susceptible Enterobacter aerogenes Cefotaxime GUS mcg/mL: Resistant Gram stain (01/09/2018 4:15 PM) Component Value Ref Range Gram stain isolate Many WBC's Moderate Gram positive rods Comment: Specimen Information Specimen Source: Abscess Specimen Site: Abdomen Specimen Performing Laboratory Abscess [facility] DEPARTMENT OF PATHOLOGY AND GENOMIC MEDICINE [address] [place] [address] Anaerobic culture (01/09/2018 4:15 PM) Component Value Ref Range Anaerobic culture isolate Lactobacillus rhamnosus (A) Comment: Specimen Information Specimen Source: Abscess Specimen Site: Abdomen Specimen Performing Laboratory Abscess [facility] DEPARTMENT OF PATHOLOGY AND [facility] [address] [place] [address] Prepare fresh frozen plasma, 2 Units (01/09/2018 11:15 AM) Component Value Ref Range Product name Thawed Plasma Unit number [id number] Product code [id number] Dispense status Transfused Blood expiration date Blood type code 0600 Blood type A NEGATIVE Product name Thawed Plasma Unit number [id number] Product code [id number] Dispense status Transfused Blood expiration date Blood type code 6200 Blood type A POSITIVE Specimen Performing Laboratory Blood [facility] DEPARTMENT OF PATHOLOGY AND [facility] [address] [place] [address] Type and screen (01/09/2018 11:15 AM) Component Value Ref Range ABO grouping A Rh type POS Antibody screen (gel) NEG Specimen Performing Laboratory Blood [facility] DEPARTMENT OF PATHOLOGY AND [facility] [address] [place] [address] Lactic acid level (01/09/2018 4:00 AM)Only the most recent of2 resultswithin the time period is included. Component Value Ref Range Lactic acid 2.0 0.5 - 2.2 mmol/L Specimen Performing Laboratory Plasma specimen [facility] DEPARTMENT OF PATHOLOGY [address] [address] Lactic acid level, SEPSIS - Now and repeat 2x every 3 hours (01/08/2018 4:34 PM )Only the most recent of2 resultswithin the time period is included. Component Value Ref Range Lactic acid 1.8 0.5 - 2.2 mmol/L Specimen Performing Laboratory Blood [facility] DEPARTMENT PATHOLOGY [address] [address] Blood culture, aerobic & anaerobic (01/08/2018 10:35 AM) Component Value Ref Range Blood culture isolate No growth after 5 days of incubation. Comment: Specimen Information Specimen Source: Blood Specimen Site: Unspecified Specimen Performing Laboratory Blood [facility] [address] [address] Partial thromboplastin time, activated (01/08/2018 10:35 AM) Component Value Ref Range PTT 53.5 (H) 23.0 - 36.0 sec Comment: PTT therapeutic range for unfractionated heparin is 61.0-112.0 seconds which corresponds to Anti-Xa 0.3-0.7 U/ml. Specimen Performing Laboratory Blood [facility] DEPARTMENT PATHOLOGY [address] [address] Lipase level (01/08/2018 10:34 AM) Component Value Ref Range Lipase 21 13 - 60 U/L Specimen Performing Laboratory Plasma specimen [facility] DEPARTMENT PATHOLOGY [address] [address] Comprehensive metabolic panel (01/08/2018 10:34 AM) Component Value Ref Range Sodium 132 (L) 135 - 148 mEq/L Potassium 4.0 3.5 - 5.0 mEq/L Chloride 91 (L) 98 - 112 mEq/L CO2 28 24 - 31 mEq/L Anion gap 13 7 - 15 mEq/L Comment: Starting from December , anion gap calculation no longer incorporates potassium. Please note the change. BUN 5 (L) 6 - 20 mg/dL Creatinine 0.5 (L) 0.7 - 1.2 mg/dL Glucose 116 (H) 65 - 99 mg/dL Calcium 8.8 8.3 - 10.2 mg/dL Protein 7.6 6.3 - 8.3 g/dL Comment: 4.6-7.0 g/dL 1 week 4.4-7.6 g/dL 7 months-1year5.1-7.3 g/dL 1-2 years5.6-7.5 g/dL >3 years6.0-8.0 g/dL 18-150 6.3-8.3 g/dL Albumin 2.5 (L) 3.5 - 5.0 g/dL A/G ratio 0.5 (L) 0.7 - 3.8 Alkaline phosphatase 107 40 - 129 U/L AST 62 (H) 10 - 50 U/L ALT 19 5 - 50 U/L Total bilirubin 0.8 0.0 - 1.2 mg/dL Specimen Performing Laboratory Plasma specimen [facility] DEPARTMENT OF PATHOLOGY AND GENOMIC MEDICINE [address] [place] [address] Urinalysis screen and microscopy, with reflex to culture (01/08/2018 10:30 AM) Component Value Ref Range Specimen site Clean catch Color, UA Meme Appearance, UA Clear Specific gravity, UA 1.033 1.001 - 1.035 pH, UA 5.0 5.0 - 8.5 Protein, UA 2+ (A) Negative Glucose, UA Negative Negative Ketones, UA Trace (A) Negative Bilirubin, UA Positive@UBIL (A) Negative Blood, UA Negative Negative Nitrite, UA Negative Negative Urobilinogen, UA 4.0 (A) <2.0 Leukocyte esterase, UA Negative Negative Epithelial cells, UA 1 /HPF Round epithelial cells, UA <1 0 - 1 /HPF WBC, UA 4 (H) 0 - 1 /HPF RBC, UA 1 0 - 5 /HPF Bacteria, UA Few None seen Yeast, UA None seen Yeast with pseudohyphae, UA None seen Hyaline casts, UA >20 (A) /LPF Specimen Performing Laboratory Urine [facility] DEPARTMENT OF PATHOLOGY AND GENOMIC MEDICINE [address] [place] [id number] Urine culture (01/08/2018 10:30 AM) Component Value Ref Range Urine culture SEE COMMENTComment: Bacteriuria screen negative. Specimen Performing Laboratory [facility] DEPARTMENT OF PATHOLOGY AND GENOMIC MEDICINE [address] [place] [id number] after 01/26/2017 Insurance Payer Benefit Plan / Group Subscriber ID Type Phone Address [employer] PPO OPEN CHOICE xxxxxxxxx PPO Home: [id number] [facility] y [phone] [id number]
[2018-01-27 16:23] LABS: Absolute Lymphocytes (CBC) 1.2 K/uL (0.7-4.9); Absolute Neutrophil 8.6 K/uL (1.8-8.0); Basophils % 0.8 % (0-1.3); Eosinophils % 0.4 % (0-4.4); Hematocrit 38.2 % (39.6-49.0); Lymphocytes % 10.7 % (15.3-44.8); MCH 31.9 pg (27.0-35.0); MCV 92.9 fL (80-100); MPV 8.3 fL (7.6-11.3); Monocytes % 9.6 % (3.3-12.3); RBC Red Blood Cell Count 4.11 M/uL (4.33-5.43)
[2018-01-27 16:29] LABS: Protime INR 3.7
[2018-01-27] MEDS ORDERED: FAMOTIDINE 20 MG/2 ML VIAL IV ONE (16:35)
[2018-01-27] MEDS ORDERED: NA CHLORIDE 0.9% 1,000 ML ONE ×3 (16:35→17:52)
[2018-01-27] MEDS ORDERED: ONDANSETRON 4 MG/2 ML VIAL ONE (16:35)
[2018-01-27 16:41] LABS: Bicarbonate 23 mEq/L (21-31); Glucose Level 100 mg/dL (65-120); Lipase 17 U/L (22-51); Potassium 3.4 mEq/L (3.6-5.0); Sodium Level 129 mEq/L (135-145)
[2018-01-27 16:47] LABS: ALT/SGPT 13 IU/L (10-60); AST/SGOT 22 IU/L (10-42); Albumin 3.4 g/dL (3.2-5.5); Alkaline Phosphatase 67 IU/L (42-121); BUN Blood Urea Nitrogen 8 mg/dL (6-20); Bilirubin Direct 0.3 mg/dL (0-0.2); Bilirubin Total 1.2 mg/dL (0.3-1.2); Magnesium 1.5 mg/dL (1.8-2.5); Protein, Total 7.4 g/dL (6.0-8.3)
[2018-01-27 16:48] LABS: Amylase Level 29 U/L (28-100)
[2018-01-27] MEDS ORDERED: METOCLOPRAMIDE 10 MG/2mL INJ ONE (16:48)
[2018-01-27] MEDS ORDERED: POTASSIUM CL SA 10 MEQ TAB PO ONE (17:34)
[2018-01-27] MEDS ORDERED: Magnesium Sulfate 2gm IVPB 2 G/50 ML BAG IV ONE (17:34)
[2018-01-27 18:39] LABS: Urine Blood NEGATIVE (NEG); Urine Glucose NEGATIVE (NEG); Urine Protein NEGATIVE (NEG)
[2018-01-27 18:42] LABS: Urine Bacteria NONE SEEN /HPF (NONE SEEN); Urine RBC <5 /HPF (NONE SEEN)
[2018-01-27 18:43] LABS: Urine Culture Reflex Order NOT NEEDED
--- NOTE | 2018-01-27 18:45 | RAD REPORT ---
EXAM DESCRIPTION: Jeannie Single View01/27/2018 6:15 pm CLINICAL HISTORY: Chest pain COMPARISON: June 2017 FINDINGS: The lungs appear clear of acute infiltrate. Postsurgical changes involve the chest. The h eart is normal size IMPRESSION: No acute abnormalities displayed
--- NOTE | 2018-01-27 20:09 | ER ---
Nurse's Notes [facility] Name: Hammad Jones Jr Age: 57 yrs Sex: Male : 1960 Arrival Date: 01/27/2018 Time: 15:16 Bed 20 Private MD: Lam Denton T Diagnosis: Dehydration;Nausea and vomiting;Hypomagnesemia Presentation: 01/27 15:24 Presenting complaint: Patient states: I have been dealing with diverticulitis with la1 multiple abscesses, my last sx was with dr HUSSEIN at [facility] 10 days ago. Since then I have had decreased appetite, fatigue, malaise, vomiting. Pain is much better but I cant eat. Pt reports significant weight loss. Transition of care: patient was not received from another setting of care. Onset of symptoms was January 27, 2018. Initial Sepsis Screen: Does the patient meet any 2 criteria? No. Patient's initial sepsis screen is negative. Does the patient have a suspected source of infection? No. Patient's initial sepsis screen is negative. Care prior to arrival: None. 15:24 Method Of Arrival: Ambulatory la1 15:24 Acuity: RENETTA 3 la1 Historical: - Allergies: 15:27 NKA; la1 - Home Meds: 18:36 warfarin 4 mg Oral tab 1 tab once daily [Active]; paroxetine HCl 25 mg oral Tb24 1 tab ch once daily [Active]; amlodipine 10 mg tab 1 tab once daily [Active]; carvedilol 3.125 mg oral tab [Active]; Flagyl 500 mg Oral tab 1 tab [Active]; Levaquin 500 mg Oral tab 1 tab once daily [Active]; - PMHx: 15:27 Enlarged Heart; Hypertension; la1 - PSHx: 15:27 artificial heart valve; diverticulitis abscess tubes x 2; hip replacement x2; la1 - Immunization history:: Adult Immunizations up to date. - Social history:: Smoking status: Patient/guardian denies using tobacco. Screenin:12 Abuse screen: Denies threats or abuse. Denies injuries from another. Nutritional ch screening: No deficits noted. Tuberculosis screening: No symptoms or risk factors identified. Fall Risk None identified. Assessment: 17:12 General: Appears in no apparent distress. comfortable, Behavior is calm, cooperative, ch appropriate for age, quiet. Pain: Denies pain. Neuro: Level of Consciousness is awake, alert, obeys commands, Oriented to person, place, time, situation, Web Weaver are equal bilaterally Moves all extremities. Full function pt report getting weak after a few min of standing or physical exertion . Gait is steady, Speech is normal, Facial symmetry appears normal, Facial symmetry: tongue is midline, Pupils are PERRLA. Respiratory: Airway is patent Respiratory effort is even, unlabored, Breath sounds are clear bilaterally. GI: Abdomen is round non-distended, Bowel sounds present X 4 quads. Abd is soft X 4 quads Abdomen is tender to palpation X 4 quads. pt has bruising noted to lower abdomen, pt states he take lovenox in that area Reports nausea. : No signs and/or symptoms were reported regarding the genitourinary system. Derm: Skin is pink, warm \T\ dry. Musculoskeletal: Circulation, motion, and sensation intact. 19:32 General: Appears in no apparent distress. Behavior is calm, cooperative. Pain: Denies bb pain. Neuro: Level of Consciousness is awake, alert, obeys commands, Oriented to person, place, time, situation. Cardiovascular: Heart tones S1 S2 present Capillary refill < 3 seconds. Respiratory: Airway is patent Respiratory effort is even, unlabored. GI: Abdomen is non-distended, Bowel sounds present X 4 quads. Abd is soft and non tender X 4 quads. Derm: Skin is pink, warm \T\ dry. Musculoskeletal: Circulation, motion, and sensation intact. 20:28 Reassessment: Patient and/or family updated on plan of care and expected duration. Pain bb level reassessed. Patient is alert, oriented x 3, equal unlabored respirations, skin warm/dry/pink. pt states he is feeling better, verbalized understanding of and agrees to plan of care discharge instructions given, pt ambulated with steady gait to exit. Vital Signs: 15:27 BP 112 / 90; Pulse 106; Resp 16; Temp 98.3; Pulse Ox 100% on R/A; Weight 83.91 kg; la1 Height 5 ft. 9 in. (175.26 cm); 17:12 BP 120 / 58; Pulse 88; Resp 14; Temp 98.2; Pulse Ox 99% on R/A; Pain 0/10; ch 17:50 BP 125 / 83; Pulse 88; Resp 16; ch 17:52 BP 108 / 66 Sitting; Pulse 109; ch 17:54 BP 86 / 56 Standing; Pulse 124; Resp 24; ch 17:54 BP 119 / 54; Pulse 88; Resp 16; Temp 98.2; Pulse Ox 99% on R/A; Pain 0/10; ch 19:31 BP 118 / 80; Pulse 84; Resp 18 S; Pulse Ox 98% on R/A; Pain 0/10; bb 20:29 BP 151 / 82; Pulse 86; Resp 16 S; Temp 98.6(O); Pulse Ox 98% on R/A; Pain 0/10; bb 15:27 Body Mass Index 27.32 (83.91 kg, 175.26 cm) la1 ED Course: 15:16 Patient arrived in ED. sb2 15:17 Lam Denton MD is Private Physician. sb2 15:26 Triage completed. la1 15:27 Arm band placed on left wrist. la1 15:48 Vera Wang, SAUL is Primary Nurse. ch 15:53 Bart Rao PA is PHCP. cp 15:53 Bart Drummond MD is Attending Physician. cp 16:20 No provider procedures requiring assistance completed. Inserted saline lock: 18 gauge ch in right forearm, using aseptic technique. Blood collected. 17:12 Patient has correct armband on for positive identification. Bed in low position. Call ch light in reach. Side rails up X 1. Adult w/ patient. Pulse ox on. NIBP on. Warm blanket given. 18:12 X-ray completed. Portable x-ray completed in exam room. Patient tolerated procedure kp1 well. 18:15 Chest Single View XRAY In Process Unspecified. EDMS 19:32 IV is patent, is intact, with fluids infusing freely. bb 20:30 IV discontinued, intact, bleeding controlled, No redness/swelling at site. Pressure bb dressing applied. Administered Medications: 16:30 Drug: Pepcid 20 mg Route: IVP; Site: right forearm; ch 20:30 Follow up: Response: No adverse reaction bb 16:30 Drug: NS 0.9% 1000 ml Route: IV; Rate: 1 bolus; Site: right forearm; ch 17:30 Follow up: IV Status: Completed infusion; IV Intake: 1000ml bb 16:40 Drug: Zofran 4 mg Route: IVP; Site: right forearm; ch 20:30 Follow up: Response: No adverse reaction bb 17:31 Drug: Magnesium Sulfate 2 grams Route: IVPB; Infused Over: 2 hrs; Site: right forearm; ch 19:20 Follow up: IV Status: Completed infusion aa1 17:31 Drug: Potassium Chloride 20 mEq Route: PO; ch 19:00 Follow up: Response: No adverse reaction bb 17:31 Drug: NS 0.9% 1000 ml Route: IV; Rate: 125 ml/hr; Site: right forearm; ch 20:32 Follow up: IV Status: Order to discontinue infusion; IV Intake: 550ml bb 17:54 Drug: NS 0.9% 1000 ml Route: IV; Rate: 1 bolus; Site: right forearm; ch 20:31 Follow up: IV Status: Completed infusion bb 20:31 Follow up: IV Intake: 1000ml bb Intake: 17:30 IV: 1000ml; Total: 1000ml. bb 20:31 IV: 1000ml; Total: 2000ml. bb 20:32 IV: 550ml; Total: 2550ml. bb Outcome: 20:09 Discharge ordered by . cp 20:29 Discharged to home ambulatory. bb 20:29 Condition: stable 20:29 Discharge instructions given to patient, Instructed on discharge instructions, follow up and referral plans. medication usage, Demonstrated understanding of instructions, follow-up care, medications, Prescriptions given X 1. 20:32 Patient left the ED. bb Signatures: Dispatcher [employer] EDMS Vera Wang RN RN Gisela Steel RN RN aa1 Amna Montgomery RN RN bb Attema, Lee, RN RN la1 Bart Rao PA PA cp Poole, Kathy kp1 Ghazala Monroy sb2
--- NOTE | 2018-01-27 20:09 | EDPHYS ---
Physician Documentation [facility] Name: Hammad Jones Jr Age: 57 yrs Sex: Male : 1960 Arrival Date: 01/27/2018 Time: 15:16 Bed 20 Private MD: Lam Denton T ED Physician Bart Drummond HPI: 01/27 16:05 This 57 yrs old Male presents to ER via Ambulatory with complaints of cp Weakness, Decreased Appetite. 16:05 The patient presents to the emergency department with nausea, that is moderate, cp vomiting, that is intermittent. 16:05 Onset: The symptoms/episode began/occurred last week. cp 16:05 Associated signs and symptoms: Pertinent positives: anorexia, diarrhea, flatulence, cp general weakness, Pertinent negatives: abdominal pain, constipation, fever, GI bleeding. 16:05 Patient reports he was discharged last week from [facility] after being cp diagnosed with diverticular abscess and having surgery by DR Flowers. Patient reports decreased appetite, general weakness, intermittent vomiting since discharge. Historical: - Allergies: 15:27 NKA; la1 - Home Meds: 18:36 warfarin 4 mg Oral tab 1 tab once daily [Active]; paroxetine HCl 25 mg oral Tb24 1 tab ch once daily [Active]; amlodipine 10 mg tab 1 tab once daily [Active]; carvedilol 3.125 mg oral tab [Active]; Flagyl 500 mg Oral tab 1 tab [Active]; Levaquin 500 mg Oral tab 1 tab once daily [Active]; - PMHx: 15:27 Enlarged Heart; Hypertension; la1 - PSHx: 15:27 artificial heart valve; diverticulitis abscess tubes x 2; hip replacement x2; la1 - Immunization history:: Adult Immunizations up to date. - Social history:: Smoking status: Patient/guardian denies using tobacco. ROS: 16:10 Constitutional: Positive for fatigue, poor PO intake, weight loss, Negative for body cp aches, chills, fever. 16:10 Eyes: Negative for injury, pain, redness, and discharge. cp 16:10 ENT: Negative for drainage from ear(s), ear pain, sore throat, difficulty swallowing, difficulty handling secretions. 16:10 Cardiovascular: Negative for chest pain, edema, palpitations. 16:10 Respiratory: Negative for cough, shortness of breath, wheezing. 16:10 Abdomen/GI: Positive for nausea, vomiting, anorexia, Negative for abdominal pain, diarrhea, constipation, hematemesis, black/tarry stool, rectal bleeding. 16:10 : Negative for urinary symptoms. 16:10 Skin: Negative for cellulitis, rash. 16:10 Neuro: Positive for general weakness, Negative for altered mental status, headache. 16:10 All other systems are negative. Exam: 16:15 Constitutional: The patient appears in no acute distress, alert, awake, cp non-diaphoretic, non-toxic, well developed, well nourished. 16:15 Head/Face: Normocephalic, atraumatic. Eyes: Pupils equal round and reactive to light, cp extra-ocular motions intact. Lids and lashes normal. Conjunctiva and sclera are non-icteric and not injected. Cornea within normal limits. Periorbital areas with no swelling, redness, or edema. 16:15 ENT: External ear(s): are unremarkable, Ear canal(s): are normal, clear, TM's: bulging, is not appreciated, bilaterally, dullness, bilaterally, erythema, is not appreciated, bilaterally, Nose: is normal, Mouth: Lips: dry, Oral mucosa: dry, Posterior pharynx: is normal, airway is patent, no erythema, no exudate. 16:15 Neck: ROM/movement: is normal, is supple, without pain, no range of motions limitations, no meningismus, no nuchal rigidity. 16:15 Chest/axilla: Inspection: normal, Palpation: is normal, no crepitus, no tenderness. 16:15 Cardiovascular: Rate: tachycardic, Rhythm: regular, Edema: is not appreciated, JVD: is not appreciated. 16:15 Respiratory: the patient does not display signs of respiratory distress, Respirations: normal, no use of accessory muscles, no retractions, no splinting, no tachypnea, labored breathing, is not present, Breath sounds: are clear throughout, no decreased breath sounds, no stridor, no wheezing. 16:15 Abdomen/GI: Inspection: bruising, right lower quadrant and left lower quadrant, distension, is not seen, Bowel sounds: active, all quadrants, Palpation: abdomen is soft and non-tender, in all quadrants, rebound tenderness, is not appreciated, voluntary guarding, is not appreciated, involuntary guarding, is not appreciated. 16:15 Back: pain, is absent, ROM is normal. 16:15 Skin: cellulitis, is not appreciated, no rash present. 16:15 Neuro: Orientation: to person, place \T\ time. Mentation: is normal, Cerebellar function: is grossly normal, Motor: moves all fours, strength is normal, Sensation: is normal. 19:05 ECG was reviewed by the Attending Physician. cp Vital Signs: 15:27 BP 112 / 90; Pulse 106; Resp 16; Temp 98.3; Pulse Ox 100% on R/A; Weight 83.91 kg; la1 Height 5 ft. 9 in. (175.26 cm); 17:12 BP 120 / 58; Pulse 88; Resp 14; Temp 98.2; Pulse Ox 99% on R/A; Pain 0/10; ch 17:50 BP 125 / 83; Pulse 88; Resp 16; ch 17:52 BP 108 / 66 Sitting; Pulse 109; ch 17:54 BP 86 / 56 Standing; Pulse 124; Resp 24; ch 17:54 BP 119 / 54; Pulse 88; Resp 16; Temp 98.2; Pulse Ox 99% on R/A; Pain 0/10; ch 19:31 BP 118 / 80; Pulse 84; Resp 18 S; Pulse Ox 98% on R/A; Pain 0/10; bb 20:29 BP 151 / 82; Pulse 86; Resp 16 S; Temp 98.6(O); Pulse Ox 98% on R/A; Pain 0/10; bb 15:27 Body Mass Index 27.32 (83.91 kg, 175.26 cm) la1 MDM: 15:53 Patient medically screened. cp 17:00 Differential diagnosis: dehydration, kidney failure, electrolyte abnormality, bowel cp obstruction. 20:05 Data reviewed: vital signs, nurses notes, lab test result(s), EKG. cp 20:05 Test interpretation: by ED physician or midlevel provider: ECG. Counseling: I had a cp detailed discussion with the patient and/or guardian regarding: the historical points, exam findings, and any diagnostic results supporting the discharge/admit diagnosis, lab results, the need for outpatient follow up, DR Flowers, to return to the emergency department if symptoms worsen or persist or if there are any questions or concerns that arise at home. Response to treatment: the patient's symptoms have markedly improved after treatment, and as a result, I will discharge patient. 20:05 ED course: VSS. Patient reports he is feeling better. No vomiting observed in ED, cp nausea improved and patient tolerating po fluids. Will discharge to home. Patient has f/u appt tomorrow with physician wet process assistant head miller in office of DR Flowers. 01/27 16:00 Order name: Amylase, Serum; Complete Time: 17:18 cp 01/27 16:00 Order name: Basic Metabolic Panel; Complete Time: 17:18 cp 01/27 16:46 Interpretation: Normal except: NA 129; K 3.4; CL 97. cp 01/27 16:00 Order name: CBC with Diff; Complete Time: 16:46 cp 01/27 16:46 Interpretation: Normal except: RBC 4.11; HGB 13.1; HCT 38.2; MCV 92.9; MULUGETA% 78.5; LYM% cp 10.7; NEUT A 8.6. 01/27 16:00 Order name: Creatinine for Radiology; Complete Time: 16:46 cp 01/27 16:00 Order name: Hepatic Function; Complete Time: 17:18 cp 01/27 18:14 Interpretation: Normal except: BILID 0.3; GLOB 4.0; A/G 0.9. cp 01/27 16:00 Order name: Lipase; Complete Time: 17:18 cp 01/27 16:00 Order name: Urine Microscopic Only; Complete Time: 18:48 cp 01/27 16:00 Order name: Ptt, Activated; Complete Time: 16:46 cp 01/27 16:00 Order name: PT-INR; Complete Time: 16:46 cp 01/27 18:15 Interpretation: Reviewed. cp 01/27 16:00 Order name: Magnesium; Complete Time: 17:18 cp 01/27 18:14 Interpretation: Abnormal: MG 1.5. cp 01/27 16:00 Order name: Troponin I; Complete Time: 17:18 cp 01/27 17:47 Order name: Chest Single View XRAY; Complete Time: 18:48 aa5 01/27 18:49 Interpretation: Report review. cp 01/27 18:31 Order name: Urine Dipstick--Ancillary (enter results); Complete Time: 18:48 ag 01/27 16:00 Order name: Orthostatics; Complete Time: 19:27 cp 01/27 16:00 Order name: IV Saline Lock; Complete Time: 17:31 cp 01/27 16:00 Order name: Labs collected and sent; Complete Time: 17:32 cp 01/27 16:00 Order name: EKG; Complete Time: 16:01 cp 01/27 16:00 Order name: EKG - Nurse/Tech; Complete Time: 19:08 cp 01/27 18:51 Order name: PO challenge: crackers and juice; Complete Time: 20:02 cp EC:05 Rate is 78 beats/min. Rhythm is regular. OR interval is normal. QRS interval is normal. cp QT interval is normal. No ST changes noted. Interpreted by me. Reviewed by me. Administered Medications: 16:30 Drug: Pepcid 20 mg Route: IVP; Site: right forearm; ch 20:30 Follow up: Response: No adverse reaction bb 16:30 Drug: NS 0.9% 1000 ml Route: IV; Rate: 1 bolus; Site: right forearm; ch 17:30 Follow up: IV Status: Completed infusion; IV Intake: 1000ml bb 16:40 Drug: Zofran 4 mg Route: IVP; Site: right forearm; ch 20:30 Follow up: Response: No adverse reaction bb 17:31 Drug: Magnesium Sulfate 2 grams Route: IVPB; Infused Over: 2 hrs; Site: right forearm; ch 19:20 Follow up: IV Status: Completed infusion aa1 17:31 Drug: Potassium Chloride 20 mEq Route: PO; ch 19:00 Follow up: Response: No adverse reaction bb 17:31 Drug: NS 0.9% 1000 ml Route: IV; Rate: 125 ml/hr; Site: right forearm; ch 20:32 Follow up: IV Status: Order to discontinue infusion; IV Intake: 550ml bb 17:54 Drug: NS 0.9% 1000 ml Route: IV; Rate: 1 bolus; Site: right forearm; ch 20:31 Follow up: IV Status: Completed infusion bb 20:31 Follow up: IV Intake: 1000ml bb Disposition: 01/28 07:53 Co-signature as Attending Physician, Bart Drummond MD I agree with the assessment and salena plan of care. Disposition: 01/27/18 20:09 Discharged to Home. Impression: Dehydration, Nausea and vomiting, Hypomagnesemia. - Condition is Stable. - Discharge Instructions: Dehydration, Adult, Hypomagnesemia, Nausea and Vomiting, Rehydration, Adult. - Prescriptions for Phenergan 25 mg Rectal Suppository - insert 1 suppository by RECTAL route every 6 hours As needed; 12 suppository. promethazine 25 mg Oral Tablet - take 1 tablet by ORAL route every 6 hours As needed; 20 tablet. - Medication Reconciliation Form, Thank You Letter, Antibiotic Education, Prescription Opioid Use form. - Follow up: Private Physician; When: DR Flowers, tomorrow as scheduled; Reason: Recheck today's complaints. - Problem is new. - Symptoms have improved. - Notes: Hold evening dose of warfarin tonight Signatures: Dispatcher [employer] EDMS Vera Wang, RN RN Bart Sena MD MD cha Ballard, Brenda, RN RN bb Roszak, Josh, PA PA [id number] Sidney Manjarrez RN RN la1 Bart Rao PA PA cp Kern, Alissa RN aa1 Corrections: (The following items were deleted from the chart) 01/27 20:10 20:09 01/27/2018 20:09 Discharged to Home. Impression: Dehydration; Nausea and cp vomiting. Condition is Stable. Forms are Medication Reconciliation Form, Thank You Letter, Antibiotic Education, Prescription Opioid Use. Follow up: Private Physician; When: DR Flowers, tomorrow as scheduled; Reason: Recheck today's complaints. Problem is new. Symptoms have improved. cp 20:32 20:10 01/27/2018 20:09 Discharged to Home. Impression: Dehydration; Nausea and bb vomiting; Hypomagnesemia. Condition is Stable. Discharge Instructions: Dehydration, Adult, Nausea and Vomiting, Rehydration, Adult, Hypomagnesemia. Prescriptions for Phenergan 25 mg Rectal Suppository - insert 1 suppository by RECTAL route every 6 hours As needed; 12 suppository, promethazine 25 mg Oral Tablet - take 1 tablet by ORAL route every 6 hours As needed; 20 tablet. and Forms are Medication Reconciliation Form, Thank You Letter, Antibiotic Education, Prescription Opioid Use. Follow up: Private Physician; When: DR Flowers, tomorrow as scheduled; Reason: Recheck today's complaints. Problem is new. Symptoms have improved. cp
--- NOTE | 2018-01-28 08:00 | EKG ---
Test Date: 2018-01-27 Test Time: 19:02:57 Case Maker: GRICELDA MEASUREMENT RESULTS: Intervals: Rate: 78 LA: 182 QRSD: 98 QT: 384 QTc: 437 [place]: P: 29 LA: 182 QRS: 60 T: 74 INTERPRETIVE STATEMENTS: Normal sinus rhythm Normal ECG Compared to ECG 04/10/2017 09:28:44 Prolonged QT interval no longer present Electronically Signed On 01-28-18 07:59:22 CDT by Javier Riley
== END 2018-01-27 20:32 | disposition home or self-care (01) ==
LOC: ER 15:13
DX: E86.0 Dehydration (principal); E83.42 Hypomagnesemia; I10 Essential (primary) hypertension; Z79.01 Long term (current) use of anticoagulants; Z95.4 Presence of other heart-valve replacement
CPT/HCPCS: 36415; 71045; 80048; 80076; 81003; 81015; 82150; 83690; 83735; 84484; 85025; 85610; 85730; 93005; 96361; 96365; 96366; 96375; 99284; J2405; J2765; J3475; J7030

== ENCOUNTER 2018-08-14 12:05 | Inpatient (IN) | payer OTHER ==
--- OUTSIDE RECORDS SUMMARY | 2018-08-14 14:10 | XMS REPORT | Clinical Summary ---
:1960 Author Organization [facility] Address [address] [place] [address] Care Team Providers Name Role Phone Lam Denton MD Primary Care Provider Allergies No Known Allergies Medications Medication Sig Dispensed Refills Start Date End Date Status carvedilol (COREG) Take 12.5 mg by 0 Active 12.5 MG tablet mouth daily. ferrous sulfate 325 Take 325 mg by 0 Active (65 FE) MG tablet mouth daily with breakfast. acetaminophen-codei Take 1-2 tablets 0 Active ne (TYLENOL WITH by mouth every 4 CODEINE #3) 300-30 (four) hours as mg per tablet needed for moderate pain. latanoprost Administer 1 0 Active (XALATAN) 0.005 % drop to both ophthalmic solution eyes nightly. PARoxetine CR Take 25 mg by 0 Active (PAXIL-CR) 25 MG 24 mouth every hr tablet morning. warfarin (COUMADIN) Take 4 mg by 0 Active 4 MG tablet mouth daily. warfarin (COUMADIN) TAKE 1 TABLET 0 11/06/2017 Discontinued 4 MG tablet (4MG) BY ORAL 8 ROUTE EVERY DAY amLODIPine Take 5 mg by 1 11/13/2017 Discontinued (NORVASC) 5 mg mouth every 8 tablet morning. carvedilol (COREG) Take 12.5 mg by 1 10/08/2017 Discontinued 12.5 MG tablet mouth daily. 8 PARoxetine (PAXIL) Take 10 mg by 0 Discontinued 10 MG tablet mouth every 8 morning. amoxicillin-pot Take 1 tablet by 20 tablet 0 01/03/2018 Discontinued clavulanate mouth 2 (two) 8 (AUGMENTIN) 875-125 times a day for mg per tablet 10 days. enoxaparin Inject 100 mg 0 Discontinued (LOVENOX) 100 mg/mL under the skin 2 8 syringe (two) times a day. HYDROcodone-acetami Take 1-2 tablets 0 Discontinued nophen (NORCO) by mouth every 4 8 5-325 mg per tablet (four) hours as needed for moderate pain. amoxicillin-pot Take 1 tablet by 0 01/03/2018 Discontinued clavulanate mouth 2 (two) 8 (AUGMENTIN) 875-125 times a day. For mg per tablet 10 days 01/03/18 - 01/13/18 HYDROcodone-acetami Take 1 tablet by 0 01/11/2018 nophen (NORCO) mouth every 4 8 7.5-325 mg per (four) hours as tablet needed for moderate pain for up to 14 days. Max Daily Amount: 6 tablets metroNIDAZOLE Take 1 tablet 30 tablet 0 01/12/2018 Discontinued (FLAGYL) 500 MG (500 mg total) 8 tablet by mouth 3 (three) times a day for 10 days. amLODIPine Take 1 tablet 30 tablet 0 01/13/2018 (NORVASC) 10 mg (10 mg total) by 8 tablet mouth every morning for 30 days. enoxaparin Inject 0.9 mL 54 mL 0 01/12/2018 (LOVENOX) 100 mg/mL (90 mg total) 8 syringe under the skin 2 (two) times a day for 30 days. levoFLOXacin Take 1 tablet 10 tablet [...] Team Description 01/18/2018 Office Visit General Surgery Alagugurusamy, Diverticulitis of [place] large intestine with NYLA Godinez abscess without bleeding (Primary Dx) 01/18/2018 Hospital Encounter Radiology Miguel Flowersic Diverticulitis of [place] large intestine with abscess without bleeding 01/11/2018 Orders Only General Surgery Lionel Blair Diverticulitis of [place] large intestine with abscess without bleeding (Primary Dx) 01/08/2018 - Hospital Encounter General Surgery Johnnyi, Diverticulitis of large intestine with abscess without bleeding (Primary Dx); 01/12/2018 Harrison Cummings MD Left lower quadrant pain Marvin Burnette MD Vinh, Huy B., MD Patel, Gregory Bowen MD 01/03/2018 Office Visit General Surgery Blair Flowers Diverticulitis of [place] large intestine with perforation and abscess without bleeding (Primary Dx) after 08/13/2017 Family History Medical History Relation Name Comments Diabetes Father Heart disease Father Relation Name Status Comments Father Social History Tobacco Use Types Packs/Day Years Used Date Never Smoker Smokeless Tobacco: Never Used Alcohol Use Drinks/Week oz/Week Comments No 6 Standard drinks or equivalent 3.6 Sex Assigned at Date Recorded Not on file Job Start Date Occupation Industry Not on file Not on file Not on file Travel History Travel Start Travel End No recent travel history available. Last Filed Vital Signs Vital Sign Reading [...] 01/18/2018 10:51 AM CDT Plan of Treatment Health Maintenance Due Date Last Done Comments COLON CANCER SCREENING 2008 SHINGRIX VACCINE (1 of 2) 2008 INFLUENZA VACCINE 04/10/2018 HEPATITIS B VACCINES Aged Out No longer eligible based on patient's age to complete this topic IPV VACCINES Aged Out No longer eligible based on patient's age to complete this topic MENINGOCOCCAL VACCINE Aged Out No longer eligible based on patient's age to complete this topic Procedures Procedure Name Priority Date/Time Associated Diagnosis Comments TRANSFUSE FRESH FROZEN Routine 05/15/2018 5:[address] ABDOMEN PELVIS W STAT 01/18/2018 1:02 Diverticulitis of Results for this CONTRAST PM CDT large intestine with procedure are in abscess without the results bleeding section. MANUAL DIFFERENTIAL Routine 01/12/2018 3:30 Results for this AM CDT procedure are in the results section. PROTHROMBIN TIME WITH Routine 01/12/2018 3:30 Results for this INR AM CDT procedure are in the results section. CBC WITH PLATELET AND Routine 01/12/2018 3:30 Results for this DIFFERENTIAL AM CDT procedure are in the results section. MANUAL DIFFERENTIAL Routine 01/11/2018 8:46 Results for this AM CDT procedure are in the results section. CBC WITH PLATELET AND Routine 01/11/2018 8:46 Results for this DIFFERENTIAL AM CDT procedure are in the results section. ZZESTIMATED GFR Routine 01/11/2018 4:25 Results for this AM CDT procedure are in the results section. PROTHROMBIN TIME WITH Routine 01/11/2018 4:25 Results for this INR AM CDT procedure are in the results section. BASIC METABOLIC PANEL Routine 01/11/2018 4:25 Results for this AM CDT procedure are in the results section. MANUAL DIFFERENTIAL Routine 01/10/2018 3:50 Results for this AM CDT procedure are in the results section. ZZESTIMATED GFR Routine 01/10/2018 3:50 Results for this AM CDT procedure are in the results section. PROTHROMBIN TIME WITH Routine 01/10/2018 3:50 Results for this INR AM CDT procedure are in the results section. BASIC METABOLIC PANEL Routine 01/10/2018 3:50 Results for this AM CDT procedure are in the results section. CBC WITH PLATELET AND Routine 01/10/2018 3:50 Results for this DIFFERENTIAL AM CDT procedure are in the results section. CT GUIDED ABSCESS Routine 01/09/2018 4:34 Results for this DRAIN PM CDT procedure are in the results section. ANAEROBIC CULTURE Routine 01/09/2018 4:15 Results for this PM CDT procedure are in the results section. GRAM STAIN Routine 01/09/2018 4:15 Results for this PM CDT procedure are in the results section. AEROBIC CULTURE Routine 01/09/2018 4:15 Results for this PM CDT procedure are in the results section. PREPARE FRESH FROZEN Timed 01/09/2018 11:15 Results for this PLASMA AM CDT procedure are in the results section. TYPE AND SCREEN Timed 01/09/2018 11:15 Results for this AM CDT procedure are in the results section. LACTIC ACID LEVEL Routine 01/09/2018 4:00 Results for this AM CDT procedure are in the results section. ZZESTIMATED GFR Routine 01/09/2018 4:00 Results for this AM CDT procedure are in the results section. BASIC METABOLIC PANEL Routine 01/09/2018 4:00 Results for this AM CDT procedure are in the results section. PROTHROMBIN TIME WITH Routine 01/09/2018 3:35 Results for this INR AM CDT procedure are in the results section. HC COMPLETE BLD COUNT Routine 01/09/2018 3:35 Results for this W/AUTO DIFF AM CDT procedure are in the results section. LACTIC ACID LEVEL Routine 01/08/2018 9:45 Results for this PM CDT procedure are in the results section. CT ABDOMEN PELVIS W STAT 01/08/2018 7:32 Results for this CONTRAST PM CDT procedure are in the results section. LACTIC ACID LEVEL, Timed 01/08/2018 4:34 Results for this SEPSIS - NOW AND PM CDT procedure are in REPEAT 2X EVERY 3 the results HOURS section. PROTHROMBIN TIME WITH STAT 01/08/2018 10:35 Results for this INR AM CDT procedure are in the results section. PARTIAL THROMBOPLASTIN STAT 01/08/2018 10:35 Results for this TIME (PTT) AM CDT procedure are in the results section. MANUAL DIFFERENTIAL STAT 01/08/2018 10:35 Results for this AM CDT procedure are in the results section. CBC WITH PLATELET AND STAT 01/08/2018 10:35 Results for this DIFFERENTIAL AM CDT procedure are in the results section. BLOOD CULTURE, AEROBIC Routine 01/08/2018 10:35 Results for this & ANAEROBIC AM CDT procedure are in the results section. ZZESTIMATED GFR STAT 01/08/2018 10:34 Results for this AM CDT procedure are in the results section. LACTIC ACID LEVEL, STAT 01/08/2018 10:34 Results for this SEPSIS - NOW AND AM CDT procedure are in REPEAT 2X EVERY 3 the results HOURS section. LIPASE LEVEL STAT 01/08/2018 10:34 Results for this AM CDT procedure are in the results section. COMPREHENSIVE STAT 01/08/2018 10:34 Results for this METABOLIC PANEL AM CDT procedure are in the results section. URINALYSIS SCREEN AND STAT 01/08/2018 10:30 Results for this MICROSCOPY, WITH AM CDT procedure are in REFLEX TO CULTURE the results section. URINE CULTURE STAT 01/08/2018 10:30 Results for this AM CDT procedure are in the results section. after 08/13/2017 Results Transfuse fresh frozen plasma (05/15/2018 5:53 PM CDT)CT Abdomen Pelvis W Contrast (01/18/2018 1:02 PM CDT)Only the most recent of2 resultswithin the time period is included. Narrative Performed At EXAMINATION:CT ABDOMEN PELVIS W CONTRAST HM [facility] CLINICAL HISTORY:K57.20 Diverticulitis of large intestine with perforation and abscess without bleeding, Diverticulitis with abscess COMPARISON:January 09, 2018 TECHNIQUE: Multiple axial CT images of the Abdomen and pelvis were obtainedWith IV contrast Oral contrast was administered. . [...] fluid collection drained by the percutaneous catheter. [id number] Procedure Note Interface, Radiology Results Incoming - 01/18/2018 1:18 [...] fluid collection drained by the percutaneous catheter. [id number] Performing Organization Address City/State/Zipcode Phone Number [facility] [address] [place] [address] Manual differential (01/12/2018 3:30 AM CDT)Only the most recent of4 resultswithin the time period is included. Manual differential PERFORMED [facility] DEPARTMENT OF PATHOLOGY AND GENOMIC MEDICINE Neutrophils 75.0 (H) 39.0 - 69.0 % [facility] DEPARTMENT OF PATHOLOGY AND GENOMIC MEDICINE Lymphocytes 12.0 (L) 25.0 - 45.0 % [facility] DEPARTMENT OF PATHOLOGY AND GENOMIC MEDICINE Monocytes 8.0 0.0 - 10.0 % [facility] DEPARTMENT OF PATHOLOGY AND GENOMIC MEDICINE Eosinophils 1.0 0.0 - 5.0 % [facility] DEPARTMENT OF PATHOLOGY AND GENOMIC MEDICINE Basophils 0.0 0.0 - 1.0 % [facility] DEPARTMENT OF PATHOLOGY AND GENOMIC MEDICINE Metamyelocytes 3 % [facility] DEPARTMENT OF PATHOLOGY AND GENOMIC MEDICINE Myelocytes 1 % [facility] DEPARTMENT OF PATHOLOGY AND GENOMIC MEDICINE Promyelocytes 0 % [facility] DEPARTMENT OF PATHOLOGY AND GENOMIC MEDICINE Platelet slide review Carlos A adequate [facility] DEPARTMENT OF PATHOLOGY AND GENOMIC MEDICINE Anisocytosis Moderate [facility] DEPARTMENT OF PATHOLOGY AND GENOMIC MEDICINE Performing Organization Address City/[facility] Phone Number [facility] DEPARTMENT OF PATHOLOGY AND [address] [place] [id number] [facility] Prothrombin time with INR (01/12/2018 3:30 AM CDT)Only the most recent of5 resultswithin the time period is included. Prothrombin time 23.2 (H) 12.0 - 15.0 sec [facility] DEPARTMENT OF PATHOLOGY AND GENOMIC MEDICINE INR 2.0 [facility] DEPARTMENT OF Comment: PATHOLOGY AND GENOMIC The International Normalized Ratio (INR) is a therapeutic MEDICINE monitoring tool for patients who are stable on oral anticoagulant therapy. An INR of 2.0-3.0 is suggested for deep vein thrombosis/pulmonary embolism. Specimen Blood Performing Organization Address City/State/Zipcode Phone Number [facility] DEPARTMENT PATHOLOGY AND [address] [place] [id number] [employer] [facility] CBC with platelet and differential (01/12/2018 3:30 AM CDT)Only the most recent of5 resultswithin the time period is included. WBC 7.10 4.50 - 11.00 k/uL [facility] DEPARTMENT OF PATHOLOGY AND GENOMIC MEDICINE RBC 3.37 (L) 4.40 - 6.00 m/uL [facility] DEPARTMENT OF PATHOLOGY AND GENOMIC MEDICINE HGB 11.0 (L) 14.0 - 18.0 g/dL [facility] DEPARTMENT OF PATHOLOGY AND GENOMIC MEDICINE HCT 32.7 (L) 41.0 - 51.0 % [facility] DEPARTMENT OF PATHOLOGY AND GENOMIC MEDICINE MCV 97.0 82.0 - 100.0 fL [facility] DEPARTMENT OF PATHOLOGY AND GENOMIC MEDICINE MCH 32.6 27.0 - 34.0 pg [facility] DEPARTMENT OF PATHOLOGY AND GENOMIC MEDICINE MCHC 33.6 31.0 - 37.0 g/dL [facility] DEPARTMENT OF PATHOLOGY AND GENOMIC MEDICINE RDW - SD 47.1 37.0 - 55.0 fL [facility] DEPARTMENT OF PATHOLOGY AND GENOMIC MEDICINE MPV 9.4 8.8 - 13.2 fL [facility] DEPARTMENT OF PATHOLOGY AND GENOMIC MEDICINE Platelet count 309 150 - 400 k/uL [facility] DEPARTMENT OF PATHOLOGY AND GENOMIC MEDICINE Nucleated RBC 0.00 /100 WBC [facility] DEPARTMENT OF PATHOLOGY AND GENOMIC MEDICINE Neutrophils 75.0 (H) 39.0 - 69.0 % [facility] DEPARTMENT OF PATHOLOGY AND GENOMIC MEDICINE Lymphocytes 12.0 (L) 25.0 - 45.0 % [facility] DEPARTMENT OF PATHOLOGY AND GENOMIC MEDICINE Monocytes 8.0 0.0 - 10.0 % [facility] DEPARTMENT OF PATHOLOGY AND GENOMIC MEDICINE Eosinophils 1.0 0.0 - 5.0 % [facility] DEPARTMENT OF PATHOLOGY AND GENOMIC MEDICINE Basophils 0.0 0.0 - 1.0 % [facility] DEPARTMENT OF PATHOLOGY AND GENOMIC MEDICINE Specimen Blood Performing Organization Address City/State/Zipcode Phone Number [facility] DEPARTMENT OF PATHOLOGY AND [address] [place] [address] [facility] Estimated GFR (01/11/2018 4:25 AM CDT)Only the most recent of4 resultswithin the time period is included. GFR Non Af Amer >90 mL/min/1.73 m2 [facility] DEPARTMENT OF PATHOLOGY AND GENOMIC MEDICINE GFR Af Amer >90 mL/min/1.73 m2 [facility] DEPARTMENT OF Comment: PATHOLOGY AND GENOMIC Chronic kidney disease: <60 mL/min/1.73m2 MEDICINE Kidney failure: <15 mL/min/1.73m2 The estimated GFR is calculated from the IDMS-traceable Modification of Diet in Renal Disease Equation. The accuracy of the calculation is poor when the creatinine is normal. Calculated values >90 mL/min/1.73m2 are not reported. This equation has not been validated in children (<18 years), women, the elderly (>70 years), or ethnic groups other than Caucasians and Americans. Specimen Plasma specimen Performing Organization Address City/[facility] Phone Number [facility] PATHOLOGY AND [address] [place] [address] [facility] Basic metabolic panel (01/11/2018 4:25 AM CDT)Only the most recent of3 resultswithin the time period is included. Sodium 135 135 - 148 mEq/L [facility] DEPARTMENT OF PATHOLOGY AND [employer] MEDICINE Potassium 3.9 3.5 - 5.0 mEq/L [facility] DEPARTMENT OF PATHOLOGY AND [employer] MEDICINE Chloride 97 (L) 98 - 112 mEq/L [facility] DEPARTMENT OF PATHOLOGY AND [employer] MEDICINE CO2 27 24 - 31 mEq/L [facility] DEPARTMENT OF PATHOLOGY AND [employer] MEDICINE Anion gap 11 7 - 15 mEq/L [facility] DEPARTMENT OF PATHOLOGY Comment: AND [facility] Starting from December , anion gap calculation no longer incorporates potassium. Please note the change. BUN 4 (L) 6 - 20 mg/dL [facility] DEPARTMENT OF PATHOLOGY AND [employer] MEDICINE Creatinine 0.5 (L) 0.7 - 1.2 mg/dL [facility] DEPARTMENT OF PATHOLOGY AND [employer] MEDICINE Glucose 81 65 - 99 mg/dL [facility] DEPARTMENT OF PATHOLOGY AND [employer] MEDICINE Calcium 9.0 8.3 - 10.2 mg/dL [facility] DEPARTMENT OF PATHOLOGY AND [employer] MEDICINE Specimen Plasma specimen Performing Organization Address City/[facility] Phone Number [facility] PATHOLOGY AND [address] [place] [address] [facility] [address] Guided Abscess Drain (01/09/2018 4:34 PM CDT) Narrative Performed At EXAMINATION:CT GUIDED ABSCESS DRAIN RADIBANNER CLINICAL HISTORY:Fluid collectionabscess - hx of diverticulitis PROCEDURES: 1. Limited pre procedure CT of the abdomen. 2. CT guided placement of drain in left lower quadrant of the abdomen. PHYSICIANS: Dr. Manas Aguayo Anesthesia Type: Moderate sedation was administered by the procedure nurse and monitored intraservice [id number] by the procedure physician for 7 minutes. [...] was removed and exchanged for a 10 [place] Cook locking all-purpose drainage catheter. The wire [...] drainage of left lower quadrant fluid collection/abscess. [facility]-[id number] Procedure Note [facility], Radiology Results Incoming - 01/09/2018 4:58 PM CDT EXAMINATION: CT GUIDED ABSCESS DRAIN CLINICAL HISTORY: Fluid collection abscess - hx of diverticulitis PROCEDURES: 1. Limited pre procedure CT of the abdomen. 2. CT guided placement of drain in left lower quadrant of the abdomen. PHYSICIANS: Dr. Manas Aguayo Anesthesia Type: Moderate sedation was administered by the procedure nurse and monitored intraservice [id number]-[id number] by the procedure physician for 7 minutes. [...] was removed and exchanged for a 10 [place] Cook locking all-purpose drainage catheter. The wire [...] drainage of left lower quadrant fluid collection/abscess. [facility]-[id number] Performing Organization Address City/State/Zipcode Phone Number [facility] [address] [place] [address] Aerobic culture (01/09/2018 4:15 PM CDT) Aerobic culture isolate Enterobacter aerogenes [facility] DEPARTMENT OF Few PATHOLOGY AND GENOMIC susceptibility to follow MEDICINE This organism is NOT a carbapenemase producing organism. (A) Comment: Specimen Information Specimen Source: Abscess Specimen Site: Abdomen Specimen Abscess Organism Antibiotic Method Susceptibility Enterobacter aerogenes Amikacin [...] GUS <=0.5/9.5 mcg/mL: le Susceptible Enterobacter aerogenes Cefepime GUS <=0.5 mcg/mL: Susceptible Enterobacter aerogenes Cefotaxime GUS mcg/mL: Resistant Performing Organization Address City/[facility] Phone Number [facility] DEPARTMENT OF PATHOLOGY AND [address] [place] [address] GENOMIC MEDICINE Gram stain (01/09/2018 4:15 PM CDT) Gram stain isolate Many WBC's [facility] DEPARTMENT OF PATHOLOGY Moderate Gram positive rods AND GENOMIC MEDICINE Comment: Specimen Information Specimen Source: Abscess Specimen Site: Abdomen Specimen Abscess Performing Organization Address [facility] Phone Number [facility] DEPARTMENT OF PATHOLOGY AND [address] [place] [address] [employer] MEDICINE Anaerobic culture (01/09/2018 4:15 PM CDT) Anaerobic culture Lactobacillus rhamnosus (A) [facility] DEPARTMENT OF isolate Comment: PATHOLOGY AND GENOMIC Specimen Information MEDICINE Specimen Source: Abscess Specimen Site: Abdomen Specimen Abscess Performing Organization Address [facility] Phone Number [facility] DEPARTMENT OF PATHOLOGY AND [address] [place] [address] [employer] [facility] Prepare fresh frozen plasma, 2 Units (01/09/2018 11:15 AM CDT) Product name Thawed Plasma [facility] DEPARTMENT OF PATHOLOGY AND GENOMIC MEDICINE Unit number [id number] [facility] DEPARTMENT OF PATHOLOGY AND GENOMIC MEDICINE Product code [id number] [facility] DEPARTMENT OF PATHOLOGY AND GENOMIC MEDICINE Dispense status Transfused [facility] DEPARTMENT OF PATHOLOGY AND GENOMIC MEDICINE Blood expiration date [facility] DEPARTMENT OF PATHOLOGY AND GENOMIC MEDICINE Blood type code 0600 [facility] DEPARTMENT OF PATHOLOGY AND GENOMIC MEDICINE Blood type A NEGATIVE [facility] DEPARTMENT OF PATHOLOGY AND GENOMIC MEDICINE Product name Thawed Plasma [facility] DEPARTMENT OF PATHOLOGY AND GENOMIC MEDICINE Unit number [id number] [facility] DEPARTMENT OF PATHOLOGY AND GENOMIC MEDICINE Product code [id number] [facility] DEPARTMENT OF PATHOLOGY AND GENOMIC MEDICINE Dispense status Transfused [facility] DEPARTMENT OF PATHOLOGY AND GENOMIC MEDICINE Blood expiration date [facility] DEPARTMENT OF PATHOLOGY AND GENOMIC MEDICINE Blood type code 6200 [facility] DEPARTMENT OF PATHOLOGY AND GENOMIC MEDICINE Blood type A POSITIVE [facility] DEPARTMENT OF PATHOLOGY AND GENOMIC MEDICINE Specimen Blood Performing Organization Address City/[facility]/Zipcode Phone Number [facility] DEPARTMENT OF PATHOLOGY AND [address] [place] [address] GENOMIC MEDICINE Type and screen (01/09/2018 11:15 AM CDT) ABO grouping A [facility] DEPARTMENT OF PATHOLOGY AND GENOMIC MEDICINE Rh type POS [facility] DEPARTMENT OF PATHOLOGY AND GENOMIC MEDICINE Antibody screen (gel) NEG [facility] DEPARTMENT OF PATHOLOGY AND GENOMIC MEDICINE Specimen Blood Performing Organization Address City/[facility]/Zipcode Phone Number [facility] DEPARTMENT OF PATHOLOGY AND [address] [place] [phone] GENOMIC MEDICINE Lactic acid level (01/09/2018 4:00 AM CDT)Only the most recent of2 resultswithin the time period is included. Lactic acid 2.0 0.5 - 2.2 mmol/L [facility] DEPARTMENT OF PATHOLOGY AND GENOMIC MEDICINE Specimen Plasma specimen Performing Organization Address [facility] Phone Number [facility] DEPARTMENT OF PATHOLOGY AND [address] [place] [address] Lactic acid level, SEPSIS - Now and repeat 2x every 3 hours (01/08/2018 4:34 PM CDT)Only the most recent of2 resultswithin the time period is included. Lactic acid 1.8 0.5 - 2.2 mmol/L [facility] DEPARTMENT OF PATHOLOGY AND GENOMIC MEDICINE Specimen Blood Performing Organization Address City/[facility] Phone Number [facility] DEPARTMENT OF PATHOLOGY AND [address] [place] [address] MEDICINE Blood culture, aerobic & anaerobic (01/08/2018 10:35 AM CDT) Blood culture isolate No growth after 5 days of incubation. [facility] DEPARTMENT OF Comment: PATHOLOGY AND GENOMIC Specimen Information MEDICINE Specimen Source: Blood Specimen Site: Unspecified Specimen Blood Performing Organization Address City/[facility]/Zipcode Phone Number [facility] DEPARTMENT OF PATHOLOGY AND [address] [place], [place] [id number] [facility] Partial thromboplastin time, activated (01/08/2018 10:35 AM CDT) PTT 53.5 (H) 23.0 - 36.0 sec [facility] DEPARTMENT OF PATHOLOGY Comment: AND [facility] PTT therapeutic range for unfractionated heparin is 61.0-112.0 seconds which corresponds to Anti-Xa 0.3-0.7 U/ml. Specimen Blood Performing Organization Address City/[facility] Phone Number [facility] DEPARTMENT OF PATHOLOGY AND [address] [place] [address] Lipase level (01/08/2018 10:34 AM CDT) Lipase 21 13 - 60 U/L [facility] DEPARTMENT OF PATHOLOGY AND [facility] [facility] Specimen Plasma specimen Performing Organization Address City/[facility] Phone Number [facility] DEPARTMENT OF PATHOLOGY AND [address] [place] [id number] [facility] Comprehensive metabolic panel (01/08/2018 10:34 AM CDT) Sodium 132 (L) 135 - 148 mEq/L [facility] DEPARTMENT OF PATHOLOGY AND GENOMIC MEDICINE Potassium 4.0 3.5 - 5.0 mEq/L [facility] DEPARTMENT OF PATHOLOGY AND GENOMIC MEDICINE Chloride 91 (L) 98 - 112 mEq/L [facility] DEPARTMENT OF PATHOLOGY AND GENOMIC MEDICINE CO2 28 24 - 31 mEq/L [facility] DEPARTMENT OF PATHOLOGY AND GENOMIC MEDICINE Anion gap 13 7 - 15 mEq/L [facility] DEPARTMENT OF Comment: PATHOLOGY AND GENOMIC Starting from December , anion gap calculation MEDICINE no longer incorporates potassium. Please note the change. BUN 5 (L) 6 - 20 mg/dL [facility] DEPARTMENT OF PATHOLOGY AND GENOMIC MEDICINE Creatinine 0.5 (L) 0.7 - 1.2 mg/dL [facility] DEPARTMENT OF PATHOLOGY AND GENOMIC MEDICINE Glucose 116 (H) 65 - 99 mg/dL [facility] DEPARTMENT OF PATHOLOGY AND GENOMIC MEDICINE Calcium 8.8 8.3 - 10.2 mg/dL [facility] DEPARTMENT OF PATHOLOGY AND GENOMIC MEDICINE Protein 7.6 6.3 - 8.3 g/dL [facility] DEPARTMENT OF Comment: PATHOLOGY AND GENOMIC 4.6-7.0 g/dL MEDICINE 1 week 4.4-7.6 g/dL 7 months-1year5.1-7.3 g/dL 1-2 years5.6-7.5 g/dL >3 years6.0-8.0 g/dL 18-150 6.3-8.3 g/dL Albumin 2.5 (L) 3.5 - 5.0 g/dL [facility] DEPARTMENT OF PATHOLOGY AND GENOMIC MEDICINE A/G ratio 0.5 (L) 0.7 - 3.8 [facility] DEPARTMENT OF PATHOLOGY AND GENOMIC MEDICINE Alkaline phosphatase 107 40 - 129 U/L [facility] DEPARTMENT OF PATHOLOGY AND GENOMIC MEDICINE AST 62 (H) 10 - 50 U/L [facility] DEPARTMENT OF PATHOLOGY AND GENOMIC MEDICINE ALT 19 5 - 50 U/L [facility] DEPARTMENT OF PATHOLOGY AND GENOMIC MEDICINE Total bilirubin 0.8 0.0 - 1.2 mg/dL [facility] DEPARTMENT OF PATHOLOGY AND GENOMIC MEDICINE Specimen Plasma specimen Performing Organization Address City/[facility] Phone Number [facility] DEPARTMENT OF PATHOLOGY AND [address] [place] [id number] [facility] Urinalysis screen and microscopy, with reflex to culture (01/08/2018 10:30 AM CDT) Specimen site Clean catch [facility] DEPARTMENT OF PATHOLOGY AND GENOMIC MEDICINE Color, UA Meme [facility] DEPARTMENT OF PATHOLOGY AND GENOMIC MEDICINE Appearance, UA Clear [facility] DEPARTMENT OF PATHOLOGY AND GENOMIC MEDICINE Specific gravity, UA 1.033 1.001 - 1.035 [facility] DEPARTMENT OF PATHOLOGY AND GENOMIC MEDICINE pH, UA 5.0 5.0 - 8.5 [facility] DEPARTMENT OF PATHOLOGY AND GENOMIC MEDICINE Protein, UA 2+ (A) Negative [facility] DEPARTMENT OF PATHOLOGY AND GENOMIC MEDICINE Glucose, UA Negative Negative [facility] DEPARTMENT OF PATHOLOGY AND GENOMIC MEDICINE Ketones, UA Trace (A) Negative [facility] DEPARTMENT OF PATHOLOGY AND GENOMIC MEDICINE Bilirubin, UA Positive@UBIL (A) Negative [facility] DEPARTMENT OF PATHOLOGY AND GENOMIC MEDICINE Blood, UA Negative Negative [facility] DEPARTMENT OF PATHOLOGY AND GENOMIC MEDICINE Nitrite, UA Negative Negative [facility] DEPARTMENT OF PATHOLOGY AND GENOMIC MEDICINE Urobilinogen, UA 4.0 (A) <2.0 [facility] DEPARTMENT OF PATHOLOGY AND GENOMIC MEDICINE Leukocyte esterase, UA Negative Negative [facility] DEPARTMENT OF PATHOLOGY AND GENOMIC MEDICINE Epithelial cells, UA 1 /HPF [facility] DEPARTMENT OF PATHOLOGY AND GENOMIC MEDICINE Round epithelial cells, UA <1 0 - 1 /HPF [facility] DEPARTMENT OF PATHOLOGY AND GENOMIC MEDICINE WBC, UA 4 (H) 0 - 1 /HPF [facility] DEPARTMENT OF PATHOLOGY AND GENOMIC MEDICINE RBC, UA 1 0 - 5 /HPF [facility] DEPARTMENT OF PATHOLOGY AND GENOMIC MEDICINE Bacteria, UA Few None seen [facility] DEPARTMENT OF PATHOLOGY AND GENOMIC MEDICINE Yeast, UA None seen [facility] DEPARTMENT OF PATHOLOGY AND GENOMIC MEDICINE Yeast with pseudohyphae, UA None seen [facility] DEPARTMENT OF PATHOLOGY AND GENOMIC MEDICINE Hyaline casts, UA >20 (A) /LPF [facility] DEPARTMENT OF PATHOLOGY AND GENOMIC MEDICINE Specimen Urine Performing Organization Address City/[facility]/Zipcode Phone Number [facility] DEPARTMENT OF PATHOLOGY AND [address] [place] [address] GENOMIC MEDICINE Urine culture (01/08/2018 10:30 AM CDT) Urine culture SEE COMMENTComment: Bacteriuria [facility] DEPARTMENT OF PATHOLOGY screen negative. AND GENOMIC MEDICINE Performing Organization Address [facility] Phone Number [facility] DEPARTMENT OF PATHOLOGY AND [address] [place] [address] GENOMIC MEDICINE after 08/13/2017 Insurance Payer Benefit Plan / Group Subscriber ID Type Phone Address [employer] A[employer] PPO OPEN CHOICE xxxxxxxxx PPO ([place]) [place] [address] Advance Directives Patient has advance care planning documents on file. For more information, please contact:Jonah Chavez[address] [place] [address]
[2018-08-14 14:26] VITALS: BMI 31.4
[2018-08-14] MEDS ORDERED: INFLUENZA VACCINE (for 3y+) 0.5 ML DOSE IMVAC ONE (15:00)
[2018-08-14] MEDS ORDERED: ALBUTEROL 2.5 MG/3 ML NEB SOL NEB PRN (15:05)
[2018-08-14] MEDS ORDERED: ACETAMINOPHEN 500 MG TAB PO PRN (15:05)
[2018-08-14] MEDS ORDERED: ONDANSETRON 4 MG/2 ML VIAL IV PRN (15:05)
[2018-08-14 15:34] LABS: Urine Appearance CLEAR; Urine Bilirubin NEGATIVE (NEG); Urine Blood NEGATIVE (NEG); Urine Color DK YELLOW; Urine Glucose NEGATIVE (NEG); Urine Protein NEGATIVE (NEG); Urine Urobilinogen 0.2 mg/dL (0.2-1.0)
[2018-08-14 16:10] LABS: Urine Bacteria <20 /HPF (NONE SEEN); Urine Culture Reflex Order NOT NEEDED; Urine RBC <5 /HPF (NONE SEEN)
[2018-08-14 17:08] LABS: ALT/SGPT 35 U/L (12-78); AST/SGOT 37 U/L (15-37); Albumin 2.9 g/dL (3.4-5.0); Alkaline Phosphatase 64 U/L (45-117); BUN Blood Urea Nitrogen 6 mg/dL (7-18); Bicarbonate 25 mmol/L (21-32); Bilirubin Total 0.7 mg/dL (0.2-1.0); Glucose Level 92 mg/dL (74-106); Potassium 3.7 mmol/L (3.5-5.1); Protein, Total 7.3 g/dL (6.4-8.2); Sodium Level 134 mmol/L (136-145)
[2018-08-14 17:14] LABS: Absolute Lymphocytes (CBC) 1.2 K/uL (0.7-4.9); Absolute Monocytes 1.3 K/uL (0.1-1.3); Absolute Neutrophil 8.2 K/uL (1.8-8.0); Basophils % 0.6 % (0-1.3); Eosinophils % 0.2 % (0-4.4); Hematocrit 41.9 % (39.6-49.0); Lymphocytes % 11.3 % (15.3-44.8); MCH 33.9 pg (27.0-35.0); MCV 99.2 fL (80-100); MPV 8.7 fL (7.6-11.3); Monocytes % 12.4 % (3.3-12.3); RBC Red Blood Cell Count 4.22 M/uL (4.33-5.43)
[2018-08-14 17:16] LABS: Protime INR 1.55
--- NOTE | 2018-08-14 19:06 | RAD REPORT ---
EXAM DESCRIPTION: - CT CHEST,ABD,PELVIS W/O - 08/14/2018 6:35 pm CLINICAL HISTORY: . Chest and abdominal pain. COMPARISON: December 2018 TECHNIQUE: Computed tomography of the chest, abdomen pelvis were obtained. Oral contrast was given. IV contrast not requested All CT scans are performed using dose optimization technique as appropriate and may include automated exposure control or mA/KV adjustment according to patient size. FINDINGS: Evaluation of the solid organs and vessels is limited second lack of IV contrast administr ation Lungs are clear. No mediastinal or hilar lymphadenopathy seen. A pleural effusion is not noted. A pericardial fusion is not seen. Liver, spleen, pancreas, adrenals and kidneys appear grossly normal. Diverticula stem from the colon. Along the anterior aspect of the sigmoid colon is a collection of ai r measuring 49 x 24 millimeters. Several air bubbles surrounds the sigmoid colon. Ill-defined fluid l ies between the sigmoid colon and bladder. The bladder wall is thickened. IMPRESSION: These findings likely a sigmoid diverticulitis. The air and ill-defined fluid surroundi ng the sigmoid colon likely indicate abscess. Perforation of a diverticulum is a possibility. Pneumop eritoneum is not seen The thickened bladder wall indicates secondary inflammation. Air within the bladder is not seen Dr Romero notified
--- NOTE | 2018-08-14 21:56 | P.HP ---
Certification for Inpatient Patient admitted to: Inpatient With expected LOS: >2 Midnights Practitioner: I am a practitioner with admitting privileges, knowledge of patient current condition, hospital course, and medical plan of care. Services: Services provided to patient in accordance with Admission requirements found in Title 42 Section 412.3 of the Code of Federal Regulations Patient History Date of Service: 08/17/18 Reason for admission: Difficulty urinating History of Present Illness: This is a 57-year-old male with hypertension, depression/anxiety, a history of aortic valve replacement, on Coumadin admitted for 3 weeks of lower abdominal pain along with nausea. Per patient, 3 weeks ago he experienced a sharp lower abdominal pain and since then and has been progressively worsening. He states that he has a history of multiple diverticula/abdominal abscess back in November, for which she was treated here. At that time, he was told to get a colonoscopy outpatient after sex. Patient states he did not follow up for colonoscopy in he is also complaining of urinary frequency for the past multiple years, which she thinks has worsened a little bit. He was sent from Dr. flowers office. He denies any fevers, chills, vision changes, chest pain, shortness of breath, dizziness, diarrhea or constipation. Allergies No Known Allergies Allergy (Verified 11/26/17 00:31) Home Medications: Paroxetine HCl [Paxil Cr] 25 mg PO DAILY 09/21/15 Amlodipine Besylate 5 mg PO DAILY 11/19/17 Carvedilol 12.5 mg PO DAILY 11/19/17 Warfarin Sodium 4 mg PO DAILY 11/19/17 Ferrous Sulfate [Feosol] 1 tab PO DAILY 08/14/18 Ciprofloxacin HCl [Cipro 500 MG Tablet] 500 mg PO BID #28 tab 08/17/18 metroNIDAZOLE [Flagyl] 500 mg PO Q8H #42 tablet 08/17/18 traMADol HCL [Ultram*] 50 mg PO Q6HP PRN #15 tab 08/17/18 - Past Medical/Surgical History Diabetic: No -: HTN -: Aortic valve Replacement -: Chronic anticoagulation -: Abdominal infection -: Diverticulitis -: Aortic valve replacement, 20 yrs ago, Dr. 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 [employer] - Family History Father -: Heart disease, Hypertension, Diabetes Mother Notes: glaucoma Sister -: Diabetes - Social History Smoking Status: Never smoker Alcohol use: Yes CD- Drugs: No Caffeine use: No Place of Residence: Home Review of Systems General: Unremarkable Eyes: Unremarkable ENT: Unremarkable Respiratory: Unremarkable Cardiovascular: Unremarkable Gastrointestinal: Nausea, Abdominal Pain, As per HPI Genitourinary: Frequency, Retention, As per HPI Musculoskeletal: Unremarkable Integumentary: Unremarkable Neurological: Unremarkable Lymphatics: Unremarkable Physical Examination - Vital Signs Temperature: 98.7 F Blood Pressure: 146/76 Pulse: 87 Respirations: 20 Pulse Ox (%): 95 - Physical Exam General: Alert, In no apparent distress, Oriented x3 HEENT: Atraumatic, PERRLA, Mucous membr. moist/pink, EOMI, Sclerae nonicteric Neck: Supple, 2+ carotid pulse no bruit, No LAD, Without JVD or thyroid abnormality Respiratory: Clear to auscultation bilaterally, Normal air movement Cardiovascular: Regular rate/rhythm, Normal S1 S2 Gastrointestinal: Normal bowel sounds, No tenderness, Distended Musculoskeletal: No tenderness Integumentary: No rashes Neurological: Normal gait, Normal speech, Normal strength at 5/5 x4 extr, Normal tone, Normal affect Lymphatics: No axilla or inguinal lymphadenopathy - Studies Laboratory Data (last 24 hrs) 08/14/18 16:39: PT 18.4 H, INR 1.55 08/14/18 16:39: Sodium 134 L, Potassium 3.7, BUN 6 L, Creatinine 0.70, Glucose 92, Total Bilirubin 0.7, AST 37, ALT 35, Alkaline Phosphatase 64 08/14/18 16:39: WBC 10.9, Hgb 14.3, Hct 41.9, Plt Count 347 Assessment and Plan - Plan This is a 57 yr old male with: Difficulty urinating/urinary retention Hx of bladder obstruction, Dr Soto's patient. Urology consulted CT abdomen pending History of prior diverticulitis History of prior abscess, requiring drainage CT abdomen pending AVR, on chronic anticoagulation with coumadin Per patient, he "weaned" himself off of coumadin and was injecting himself with lovenox BID until 3 days ago (for 1 week), then he restarted his coumadin 3 days ago. Last dosage was yesterday. Will check INR Essential HTN Will restart home medications once reconciled Depression/anxiety Will restart home medications DVT prophylaxis: As above, hold for now GI prophylaxis: None Diet: NPO Disposition: Admit to floor with tele. Pending CT scan, urology consult, symptomatic improvement - Advance Directives Does patient have a Living Will: Yes Does patient have a Durable POA for Healthcare: Yes Physician Review: Patient Assessed, Agree with Above Assessment and Plan Time Spent Managing Pts Care (In Minutes): 55
[2018-08-14] MEDS: CIPROFLOXACIN 400mg IV 400 MG/200 ML BAG IV SCH (22:47)
[2018-08-14] MEDS: METRONIDAZOLE 500mg IVPB 500 MG/100 ML BAG IV SCH (22:47)
[2018-08-14] MEDS: NACHLORIDE 0.45% 1,000 ML IV SCH (22:48)
[2018-08-14] MEDS: HYDROMORPHONE HCL 1 MG/ML INJ IV PRN (22:48)
--- NOTE | 2018-08-15 01:40 | CON ---
Date of Consultation: 08/14/2018 Please note, this is a stat consult. Reason For Consultation: Possible perforated diverticulitis. History Of Present Illness: The patient is a 57-year-old gentleman, who states that approximately 3 weeks ago, he had a sharp right lower quadrant pain and that lasted for a day or so. He had some lef tover Cipro and Flagyl, so he started taking those as he has had previous episodes of sigmoid diverti culitis and he was concerned about that or appendix, but he never seeked medical attention. He just had some antibiotics left over and he started taking them. His pain got better and basically he went and saw Dr. Denton regarding all of his other medical issues. He has a valve that he needs to be anti coagulated for and other medical issues and he complained to Dr. Denton about frequency in lower abdomi nal pelvic pain. He had seen Dr. Soto who had recommended TURP on him. However, because he was on blood thinner, he could not do it at that time, and he was scheduled to see Dr. Soto again. He is s till having some difficulty with frequency. Occasional nausea and vomiting, but no diarrhea or const ipation. No blood in his stool. No blood in his urine. No sore throat, runny nose, cough, headache s, or dizziness. No chest pain. No fever or chills. Review of Systems: Otherwise, unremarkable. Past Medical History: Hypertension. Past Surgical History: Aortic valve replacement, [facility], I believe. Allergies: NO ALLERGIES. Social History: He is a former smoker. Drinks occasionally. Family History: Noncontributory. Physical Examination: Vital Signs: Stable. He is afebrile. General: He is awake, alert, and oriented x3. Head and Neck: Cranial nerves 2 through 12 are grossly within normal limits. No neck masses. No JV D. Throat clear. Neck is supple. No evidence of icterus. Chest: Clear. Heart: S1, S2. Abdomen: Slightly distended, but there is minimal tenderness in the suprapubic region. There is no rebound, rigidity, or guarding. There are bowel sounds present. Extremities: Adequately perfused. Nontender. Neuro: Nonfocal. Laboratory Data: Reveals his white count to be 10.9 with a slight left shift, 75.5. His INR is 1.55 . He started taking his Coumadin 3 days ago. He had been on Lovenox prior to that. His chemistry r eviewed, essentially unremarkable. He had a CAT scan done earlier today, which showed diverticula ex tending from the colon along the anterior aspect of the sigmoid colon is a collection of air measurin g 49 x 24 mm. Several air bubbles surrounding the sigmoid colon, ill-defined fluid lies between the sigmoid colon and bladder. The bladder wall is thickened. These findings likely a sigmoid diverticu litis and ill-defined fluid surrounding the sigmoid colon likely indicate a small abscess. Perforati on of a diverticulum is possibility, but pneumoperitoneum is not seen. Air within the bladder is not seen. Assessment: A 57-year-old gentleman with multiple medical problems with pelvic abscess and small and acute sigmoid diverticulitis likely. Recommendations: The patient came in with a large abscess back in November of this year and it was perc utaneously drained by our Radiology Department. He improved clinically. He was advised to take anti biotics, which he did and to go and get a colonoscopy which he never did. He did go see Dr. Blair veloz in [place] and he was told that he would need surgery eventually. At this time, the patient does n ot need any acute surgical intervention. I would recommend keeping him n.p.o. for a couple of days, treating him with IV antibiotics. Regarding his urinary issues, Dr. Soto can see him while he is an inpatient. He should probably on Lovenox, so it can be held prior to any intervention and if he imp roves with IV antibiotics, he will need oral antibiotics for 2 weeks. He was to follow up with Dr. Susanne lan in [place], a colorectal surgeon, for his surgery, which I highly recommended and he could probab ly do his colonoscopy as well. The plan of care and importance of his adherence to medical recommend ations were stressed. The patient does understand and states that he will follow our direction this time. In his last admission, he did leave AMA and then came back the next day, so that is an issue t hat can cause difficulty in caring for this complex patient. I will follow this patient while in the hospital. JUAN DANIEL/ABBIE Voice ID: [id number] Report ID: [id number]
[2018-08-15 03:44] LABS: Absolute Lymphocytes (CBC) 0.9 K/uL (0.7-4.9); Absolute Monocytes 1.3 K/uL (0.1-1.3); Absolute Neutrophil 7.5 K/uL (1.8-8.0); Basophils % 0.6 % (0-1.3); Eosinophils % 0.3 % (0-4.4); Hematocrit 39.6 % (39.6-49.0); Lymphocytes % 9.6 % (15.3-44.8); MCH 34.4 pg (27.0-35.0); MPV 8.4 fL (7.6-11.3); Monocytes % 13.2 % (3.3-12.3); RBC Red Blood Cell Count 4.04 M/uL (4.33-5.43)
[2018-08-15 04:06] LABS: ALT/SGPT 31 U/L (12-78); AST/SGOT 33 U/L (15-37); Albumin 2.6 g/dL (3.4-5.0); Alkaline Phosphatase 59 U/L (45-117); BUN Blood Urea Nitrogen 7 mg/dL (7-18); Bicarbonate 26 mmol/L (21-32); Bilirubin Total 0.8 mg/dL (0.2-1.0); Glucose Level 87 mg/dL (74-106); Magnesium 1.7 mg/dL (1.8-2.4); Phosphorus 2.4 mg/dL (2.5-4.9); Potassium 3.6 mmol/L (3.5-5.1); Protein, Total 6.9 g/dL (6.4-8.2); Sodium Level 132 mmol/L (136-145)
[2018-08-15] MEDS: NACHLORIDE 0.45% 1,000 ML IV SCH ×2 (07:00→17:15)
[2018-08-15] MEDS ORDERED: PAROXETINE HCL 25 MG PO SCH (09:00)
[2018-08-15] MEDS ORDERED: AMLODIPINE 5 MG TAB PO SCH (09:00)
[2018-08-15] MEDS ORDERED: POTASSIUM PHOS IN 0.9 % NACL 15 MMOL/250 ML BAG IV ONE (09:00)
[2018-08-15] MEDS ORDERED: CARVEDILOL 12.5 MG TAB PO SCH (09:00)
[2018-08-15] MEDS ORDERED: FERROUS SULFATE 325 MG TAB PO SCH (09:00)
[2018-08-15] MEDS ORDERED: MAGNESIUM SULFATE 1 gm IVPB 1 GM/100 ML BAG IV ONE (09:00)
[2018-08-15] MEDS: CIPROFLOXACIN 400mg IV 400 MG/200 ML BAG IV SCH ×2 (09:16→22:51)
[2018-08-15] MEDS: METRONIDAZOLE 500mg IVPB 500 MG/100 ML BAG IV SCH ×2 (09:16→17:14)
[2018-08-15] MEDS: HYDRALAZINE HCL 20 MG/ML VIAL IV PRN (09:42)
[2018-08-15] MEDS: HYDROMORPHONE HCL 1 MG/ML INJ IV PRN ×4 (09:43→22:51)
[2018-08-15 11:25] LABS: Protime INR 1.5
--- NOTE | 2018-08-15 13:22 | CON ---
History Of Present Illness: This is a history of a very noncompliant 57 years old. He does have a history of a heart valve and urethral strictures. He is normally on Coumadin. The last time he stopped before urethral dilation. He was supposed to be scheduled in January 2017 for cystoscopy and DVIU due to a bulbar stricture that needed to be dilated with 14-Nepali at that time, however , never went to his recorder gravity prospecting to get cleared and never came back to have his procedure done. I was called yesterday by Dr. Denton and that his bladder felt like it was up to his umbilicus. The patient was still on Coumadin and still has not gotten cardiac clearance. I told him it is best to go to [place] and do something if it is emergent and at least that way a cardiology intervention or something happens in the time. Instead, Now, the patient showed up and is admitted to this hospital. He got a CT scan showing an abscess along the anterior aspect of the sigmoid colon with collection of air measuring 49 x 24 mm and several air bubbles around the sigmoid colon and ill-defined fluid lies between the colon and the bladder where the wall is thickened. Bladder exposed towards the sigmoid colon. The bladder is emptying. There is no retention of urine there. The patient is still able to void well, so his ureteral strictures are now on elective case not an emergent case. I would not want to take him to the OR with an infected abscess at this time for an elective case. Review of Systems: Otherwise unremarkable. Past Medical History: Hypertension, heart valve replacement, ureteral stricture , bulbar stricture. Allergies: NO ALLERGIES. Social History: Former smoker. Drinks occasional. Family History: Noncontributory. Physical Examination: Vital Signs: He is afebrile. Stable. General: He is alert and awake. [facility]: Cranial nerves grossly intact. HEENT: Throat clear. Chest: Clear. Heart: S1 and S2. Abdomen: Slightly distended. Minimal tenderness in the suprapubic region mostly due to the abscess I believe. EXTREMITIES: Normal range of motion. Laboratory Studies: White count 9.8, hemoglobin and hematocrit 14 and 40, platelets 331, neutrophils 76%, left shift. Coagulation PT is 18.4, INR of 1.6. Chemistry; sodium 132, potassium 3.6, chloride 98, carbon dioxide 26, BUN 7, creatinine 0.6, GFR greater than 90, glucose is 87, calcium 8.3, phosphorus 2.4, magnesium 1.7. Urine is essentially negative, pH 6.0, blood negative, nitrite negative, leukocyte esterase negative. Assessment: A 57-year-old noncompliant patient with perforated sigmoid abscess now stable and history of bulbar urethral stricture. He is on blood thinners for heart valve. I agree with Dr. Gil's recommendation that this patient had a large abscess back in November, but he was percutaneously drained and patient never followed up and got his surgery done by Dr. Blair Flowers in [place]. At this time, he is going to treat him with IV antibiotics and then with p.o. antibiotics for a couple weeks and then back to Dr. Flowers to get his colonoscopy scheduled for resection and reanastomosis. I believe at that time, he can have a cysto DVIU with a urologist. [place] catheter in his bladder and he may have to assist with getting the bladder from the sigmoid colon also. We will go ahead and get a cardiac clearance in a.m. for that future surgery. VILMA/ABBIE Voice ID: [id number] Report ID: [id number] DYLON
--- NOTE | 2018-08-15 15:46 | PN ---
Date of Progress Note: 08/15/2018 Subjective: The patient is awake and alert, states the pain is a little bit better. Laboratory Data: Reviewed. Objective: Vital Signs: Stable, afebrile. Abdomen: Soft, nondistended. Minimal suprapubic tenderness. Assessment: Pelvic abscess, history of diverticulitis, possible urine outflow obstruction. Recommendations: Continue IV antibiotics, n.p.o. for today, start the clear liquids tomorrow and we will get Dr. Soto to evaluate if the patient needs any procedure on his prostate, no need for any ac radha surgical intervention, and the patient will be discharged home on oral antibiotics and follow up with Dr. Flowers in [place]. /MODL Voice ID: [id number] Report ID: [id number]
[2018-08-15] MEDS: ENOXAPARIN 40 MG/0.4 ML SQ SCH (17:14)
--- NOTE | 2018-08-15 19:02 | P.PN ---
Subjective Date of Service: 08/17/18 Chief Complaint: Difficulty urinating Subjective: No new changes, No C/O voiced, Improving Patient seen and examined at bedside. No family at bedside. Chart reviewed, case discussed with Dr. Gil, Dr. Soto and the nursing staff. Review of Systems As noted Physical Examination - Vital Signs Temperature: 98.7 F Blood Pressure: 146/76 Pulse: 87 Respirations: 20 Pulse Ox (%): 95 - Physical Exam General: Alert, In no apparent distress, Oriented x3 HEENT: Atraumatic, PERRLA, EOMI Neck: Supple, JVD not distended Respiratory: Clear to auscultation bilaterally, Normal air movement Cardiovascular: Regular rate/rhythm, Normal S1 S2 Gastrointestinal: Normal bowel sounds, No tenderness Musculoskeletal: No tenderness Integumentary: No rashes Neurological: Normal speech, Normal tone, Normal affect Lymphatics: No axilla or inguinal lymphadenopathy - Studies Laboratory Data (last 24 hrs) 08/15/18 11:01: PT 17.8 H, INR 1.50 08/15/18 03:30: Sodium 132 L, Potassium 3.6, BUN 7, Creatinine 0.60, Glucose 87 , Phosphorus 2.4 L, Magnesium 1.7 L, Total Bilirubin 0.8, AST 33, ALT 31, Alkaline Phosphatase 59 08/15/18 03:30: WBC 9.8, Hgb 13.9, Hct 39.6, Plt Count 331 Assessment And Plan - Plan This is a 57 yr old male with: Acute sigmoid diverticulitis with perforation Noted on CT scan. General surgery, Dr. Gil consulted. Recommendations appreciated. No surgical intervention planned at this time. Continue IV antibiotics and keep NPO, bowel rest. Pain control He needs a colonoscopy, he does have a colorectal surgeon that he does see in [place]. He was supposed to make an appointment to have a colonoscopy and colon resection done, but the patient never followed up after prior diverticulitis/abscess back in November. Pelvic abscess Continue IV antibiotics Urethral/bulbar stricture, chronic and stable Hx of bladder obstruction, Dr Soto's patient. Urology consulted, recommendations appreciated. No surgical intervention planned at this time History of prior diverticulitis History of prior abscess, requiring drainage Noncompliance AVR, on chronic anticoagulation with coumadin Per patient, he "weaned" himself off of coumadin and was injecting himself with lovenox BID until 3 days ago (for 1 week), then he restarted his coumadin 3 days ago. Last dosage was yesterday. INR 1.55 Restart Coumadin. Essential HTN Stable on home medications DVT prophylaxis: Coumadin GI prophylaxis: None Diet: NPO Disposition: Continue to monitor, keep NPO. Will likely start clear liquid diet tomorrow, to see outpatient tolerates. Continue IV antibiotics. Physician Review: Patient Assessed, Agree with Above Assessment and Plan Time Spent Managing PTS Care (In Minutes): 40
[2018-08-16] MEDS: METRONIDAZOLE 500mg IVPB 500 MG/100 ML BAG IV SCH ×3 (03:06→17:27)
[2018-08-16] MEDS: HYDROMORPHONE HCL 1 MG/ML INJ IV PRN ×5 (03:06→22:48)
[2018-08-16] MEDS: NACHLORIDE 0.45% 1,000 ML IV SCH ×4 (03:07→20:13)
[2018-08-16 05:12] LABS: Absolute Lymphocytes (CBC) 0.8 K/uL (0.7-4.9); Absolute Monocytes 1.3 K/uL (0.1-1.3); Absolute Neutrophil 8.1 K/uL (1.8-8.0); Basophils % 0.6 % (0-1.3); Eosinophils % 0.5 % (0-4.4); Hematocrit 38.5 % (39.6-49.0); Lymphocytes % 7.7 % (15.3-44.8); MCH 34.2 pg (27.0-35.0); MCV 97.8 fL (80-100); MPV 8.5 fL (7.6-11.3); Monocytes % 12.7 % (3.3-12.3); RBC Red Blood Cell Count 3.94 M/uL (4.33-5.43)
[2018-08-16 05:27] LABS: ALT/SGPT 27 U/L (12-78); AST/SGOT 28 U/L (15-37); Albumin 2.5 g/dL (3.4-5.0); Alkaline Phosphatase 55 U/L (45-117); BUN Blood Urea Nitrogen 6 mg/dL (7-18); Bicarbonate 23 mmol/L (21-32); Bilirubin Total 0.8 mg/dL (0.2-1.0); Glucose Level 90 mg/dL (74-106); Magnesium 1.6 mg/dL (1.8-2.4); Potassium 3.6 mmol/L (3.5-5.1); Protein, Total 6.7 g/dL (6.4-8.2); Sodium Level 130 mmol/L (136-145)
[2018-08-16] MEDS ORDERED: MAGNESIUM SULFATE 1 gm IVPB 1 GM/100 ML BAG IV ONE (06:09)
[2018-08-16] MEDS ORDERED: KCL 20 MEQ/100 mL IVPB 20 MEQ/100 ML BAG IV SCH (07:00)
[2018-08-16 07:21] LABS: Phosphorus 3.4 mg/dL (2.5-4.9)
[2018-08-16] MEDS: CIPROFLOXACIN 400mg IV 400 MG/200 ML BAG IV SCH ×2 (10:05→20:11)
--- NOTE | 2018-08-16 10:20 | PN ---
Subjective: The patient feels good. Objective: Vital Signs: The patient is afebrile. Temperature 97.7. Vital signs stable. Laboratory Data: White blood cell count stable at 10.4, H and H 13.5 and 39, platelets 306. Assessment: Sigmoidal perforated abscess, stable. The patient is clinically stable. Plan: Continue antibiotics per Dr. Gil. Follow up with Dr. Flowers. Consult Urology prior to surger y for cysto DVIU in [place]. VILMA/ABBIE Voice ID: [id number] Report ID: [id number]
--- NOTE | 2018-08-16 10:44 | PN ---
Date of Progress Note: 08/16/2018 Subjective: Patient with no complaint. Objective: Vital Signs: Stable, afebrile. Abdomen: There is no tenderness anymore in the lower abdomen. Laboratory Data: White count is normal. Assessment: Pelvic abscess, sigmoid diverticulitis, urethral stricture. Recommendation: Dr. Soto does not want to do an elective procedure while the patient has an infecti on, which I agree with. The patient is getting a cardiac clearance for eventual colonoscopy and sigm oid resection in [place]. I will start him on clear liquids, will advance as tolerated, and once he is tolerating full liquids, he can probably be discharged home on Cipro and Flagyl for 2 weeks. Foll ow up with Dr. Flowers in [place]. /ABBIE Voice ID: [id number] Report ID: [id number]
--- NOTE | 2018-08-16 14:56 | CON ---
The patient was admitted to Dr. Romero's service on 08/14/2018. Reason For Consultation: Preoperative clearance for colon surgery by Dr. Flowers in [place]. History Of Present Illness: Mr. Jones is a patient of Dr. Riley. He has had a history of metalli c aortic valve replacement, for which he has been taking Coumadin and occasional Lovenox on an as-nee ded basis. His surgery was done approximately [address] Streeter. Mr. Jones has no cardia c symptoms. Requiring colon surgery. He denied PND, orthopnea, pedal edema, palpitation, or syncope . Recent echocardiogram within the last year was normal with a normal ejection fraction. When he garcia d his aortic valve surgery, he had normal coronaries. He had a stress test approximately 2 years ago that was within normal limit. He has hypertension, for which he takes Norvasc and Coreg. He occasi onally takes iron. He also takes Paxil occasionally. Since he has been in the hospital, his vital s igns have been stable. He has been afebrile. His cardiovascular examination has been normal. Past Medical History: As stated above. Allergies: NONE. Review of Systems: Negative. Social History: Negative. Family History: Negative. Medications: Listed above. Physical Examination: Vital Signs: Stable. Afebrile. Heart: Normal cardiac exam. No edema. Diagnostic Data: All within normal limit from a cardiovascular standpoint. His mag was 1.6. EKG sh owed PVCs. Chest x-ray is negative. Impression And Plan: Status post aortic valve replacement. Normal coronaries. Normal stress test. Recent normal echo with normal functioning of the valve. The patient is on Lovenox right now. He i s being bridged. He is off Coumadin. INR is 1.5. He is certainly cleared to undergo surgery on his colon at his convenience and that Dr. Gil's discretion. He remains on antibiotics for another day or 2 by IV. His blood pressure is well controlled. We will follow him [email or web address] GARCIA/ABBIE Voice ID: [id number] Report ID: [id number]
[2018-08-16] MEDS: ENOXAPARIN 40 MG/0.4 ML SQ SCH (17:28)
[2018-08-16] MEDS: HYDRALAZINE HCL 20 MG/ML VIAL IV PRN (17:28)
[2018-08-16] MEDS ORDERED: METOPROLOL TAR 50 MG TAB PO ONE (20:52)
--- NOTE | 2018-08-16 22:10 | P.PN ---
Subjective Date of Service: 08/17/18 Chief Complaint: Difficulty urinating Subjective: No new changes, No C/O voiced, Improving Patient seen and examined at bedside. No family at bedside. Chart reviewed, case discussed with Dr. Gil, Dr. Soto and the nursing staff. Physical Examination - Vital Signs Temperature: 98.7 F Blood Pressure: 146/76 Pulse: 87 Respirations: 20 Pulse Ox (%): 95 - Studies Laboratory Data (last 24 hrs) 08/16/18 04:39: Sodium 130 L, Potassium 3.6, BUN 6 L, Creatinine 0.60, Glucose 90, Phosphorus 3.4, Magnesium 1.6 L, Total Bilirubin 0.8, AST 28, ALT 27, Alkaline Phosphatase 55 08/16/18 04:39: WBC 10.4, Hgb 13.5 L, Hct 38.5 L, Plt Count 306 Assessment And Plan - Plan This is a 57 yr old male with: Acute sigmoid diverticulitis with perforation Noted on CT scan. General surgery, Dr. Gil consulted. Recommendations appreciated. No surgical intervention planned at this time. Continue IV antibiotics. Clear liquid diet, advance as tolerated. Pain control He needs a colonoscopy, he does have a colorectal surgeon that he does see in [place]. He was supposed to make an appointment to have a colonoscopy and colon resection done, but the patient never followed up after prior diverticulitis/abscess back in November. Pelvic abscess Continue IV antibiotics Urethral/bulbar stricture, chronic and stable Hx of bladder obstruction, Dr Soto's patient. Urology consulted, recommendations appreciated. No surgical intervention planned at this time History of prior diverticulitis History of prior abscess, requiring drainage Noncompliance AVR, on chronic anticoagulation with coumadin Per patient, he "weaned" himself off of coumadin and was injecting himself with lovenox BID until 3 days ago (for 1 week), then he restarted his coumadin 3 days ago. Last dosage was yesterday. INR 1.55 Continue Coumadin. Essential HTN Stable on home medications DVT prophylaxis: Coumadin GI prophylaxis: None Diet: Clear liquid diet, advancing as tolerated Disposition: Continue to monitor, keep NPO. Likely discharge tomorrow if tolerating full liquid to soft diet. He needs to have an outpatient follow up with Dr. booker in [place] for a colonoscopy and colorectal surgery. Explained to patient, patient states that he is aware of that and he will work on getting an appointment. Discharge Plan: Home Plan to discharge in: 24 Hours Physician Review: Patient Assessed, Agree with Above Assessment and Plan Time Spent Managing PTS Care (In Minutes): 35
[2018-08-17] MEDS: METRONIDAZOLE 500mg IVPB 500 MG/100 ML BAG IV SCH ×2 (01:24→09:31)
[2018-08-17] MEDS: HYDROMORPHONE HCL 1 MG/ML INJ IV PRN ×3 (02:45→10:55)
[2018-08-17 05:40] LABS: Absolute Monocytes 1.1 K/uL (0.1-1.3); Absolute Neutrophil 6.7 K/uL (1.8-8.0); Basophils % 0.6 % (0-1.3); Hematocrit 38.6 % (39.6-49.0); Lymphocytes % 10.9 % (15.3-44.8); MCH 34.6 pg (27.0-35.0); MCV 97.3 fL (80-100); MPV 8.5 fL (7.6-11.3); RBC Red Blood Cell Count 3.97 M/uL (4.33-5.43)
[2018-08-17 05:58] LABS: ALT/SGPT 24 U/L (12-78); AST/SGOT 28 U/L (15-37); Albumin 2.5 g/dL (3.4-5.0); Alkaline Phosphatase 55 U/L (45-117); BUN Blood Urea Nitrogen 8 mg/dL (7-18); Bicarbonate 26 mmol/L (21-32); Bilirubin Total 0.6 mg/dL (0.2-1.0); Glucose Level 104 mg/dL (74-106); Magnesium 1.8 mg/dL (1.8-2.4); Phosphorus 3.1 mg/dL (2.5-4.9); Potassium 3.8 mmol/L (3.5-5.1); Protein, Total 6.7 g/dL (6.4-8.2); Sodium Level 132 mmol/L (136-145)
[2018-08-17] MEDS ORDERED: METOPROLOL TAR 25 MG TAB PO SCH (06:00)
[2018-08-17] MEDS ORDERED: MAGNESIUM SULFATE 1 gm IVPB 1 GM/100 ML BAG IV ONE (06:42)
[2018-08-17] MEDS ORDERED: POTASSIUM CL SA 10 MEQ TAB PO ONE (06:43)
[2018-08-17] MEDS: NACHLORIDE 0.45% 1,000 ML IV SCH (09:31)
[2018-08-17] MEDS: CIPROFLOXACIN 400mg IV 400 MG/200 ML BAG IV SCH (09:31)
[2018-08-17 10:08] VITALS: O2SAT 97
[2018-08-17] MEDS: HYDRALAZINE HCL 20 MG/ML VIAL IV PRN (10:55)
--- NOTE | 2018-08-17 16:51 | PN ---
Date of Progress Note: 08/17/2018 Subjective: The patient is awake, alert. Tolerating his liquid diet. No bleeding. Objective: Vital Signs: Stable, afebrile. Abdomen: Benign. Laboratory Data: Reviewed. Assessment: Acute sigmoid diverticulitis, pelvic abscess, urethral structure. Recommendation: The patient could be advanced to a full liquids tolerating, can be discharged home o n oral antibiotics. Follow up with Dr. Flowers. Discharge instructions given in detail. /MODL Voice ID: [id number] Report ID: [id number]
[2018-08-17 17:31] VITALS: BP 146/76; TEMP 98.7
--- NOTE | 2018-08-17 17:44 | P.DS ---
Admission Date: 08/14/18 Discharge Date: 08/17/18 Primary Care Provider: Dr. Denton Disposition: ROUTINE DISCHARGE Discharge Condition: GOOD Reason for Admission: Difficulty urinating Consultations: General surgery, Dr. Gil Urology, Dr. Soto Cardiology, Dr. Fallon Brief History of Present Illness: This is a 57-year-old male with hypertension, depression/anxiety, a history of aortic valve replacement, on Coumadin admitted for 3 weeks of lower abdominal pain along with nausea. Per patient, 3 weeks ago he experienced a sharp lower abdominal pain and since then and has been progressively worsening. He states that he has a history of multiple diverticula/abdominal abscess back in November, for which she was treated here. At that time, he was told to get a colonoscopy outpatient after sex. Patient states he did not follow up for colonoscopy in he is also complaining of urinary frequency for the past multiple years, which she thinks has worsened a little bit. He was sent from Dr. flowers office. He denies any fevers, chills, vision changes, chest pain, shortness of breath, dizziness, diarrhea or constipation. Hospital Course: This is a 57 yr old male with: Acute sigmoid diverticulitis with perforation Noted on CT scan. General surgery, Dr. Gil consulted. Recommendations appreciated. No surgical intervention planned at this time. He was continued on IV antibiotics, initially was kept NPO. His bowels work and rest. His pain was controlled. He was then started on a clear liquid diet , advance to soft when tolerated. At the time of discharge, he was tolerating a soft diet without any nausea or vomiting or abdominal pain. He remained stable otherwise throughout. He needs a colonoscopy, he does have a colorectal surgeon that he does see in [place]. He was supposed to make an appointment to have a colonoscopy and colon resection done, but the patient never followed up after prior diverticulitis/abscess back in November. Patient states that he has an appointment scheduled with Dr. Flowers in beginning of September for colonoscopy/ evaluation. He was discharged on oral ciprofloxacin and Flagyl for 14 days course. His symptoms/diagnoses were explained to him extensively, all questions were answered and patient verbalized understanding. At the time of discharge, he was hemodynamically stable and symptom free A cardiac clearance was obtained during this visit with Dr. Fallon, cardiology. Pelvic abscess Urethral/bulbar stricture, chronic and stable Hx of bladder obstruction, Dr Soto's patient. Urology consulted, recommendations appreciated. No surgical intervention planned at this time Per urology, this would be considered an elective procedure. He may proceed to get this procedure outpatient. Patient has Dr. soto information and he will make an appointment at a more appropriate time. History of prior diverticulitis History of prior abscess, requiring drainage Noncompliance Counseled extensively on compliance, keeping appointments and take medications as prescribed. AVR, on chronic anticoagulation with coumadin Per patient, he "weaned" himself off of coumadin and was injecting himself with lovenox BID until 3 days ago (for 1 week), then he restarted his coumadin 3 days ago. Last dosage was yesterday. INR 1.55 He was restarted on Coumadin. Extensively counseled on continued take medications as prescribed. Essential HTN Stable on home medications Vital Signs/Physical Exam: Temp Pulse Resp BP Pulse Ox 98.7 F 87 20 146/76 H 95 08/17/18 17:40 08/17/18 17:40 08/17/18 17:40 08/17/18 17:40 08/17/18 17:40 General: Alert, In no apparent distress, Oriented x3 HEENT: Atraumatic, PERRLA, EOMI Neck: Supple, JVD not distended Respiratory: Clear to auscultation bilaterally, Normal air movement Cardiovascular: Regular rate/rhythm, Normal S1 S2 Gastrointestinal: Normal bowel sounds, No tenderness Musculoskeletal: No tenderness Integumentary: No rashes Neurological: Normal speech, Normal tone, Normal affect Lymphatics: No axilla or inguinal lymphadenopathy Laboratory Data at Discharge: WBC 8.8 K/uL (4.3-10.9) D 08/17/18 05:12 Hgb 13.7 g/dL (13.6-17.9) 08/17/18 05:12 Hct 38.6 % (39.6-49.0) L 08/17/18 05:12 Plt Count 285 K/uL (152-406) 08/17/18 05:12 PT 17.8 SECONDS (9.5-12.5) H 08/15/18 11:01 INR 1.50 08/15/18 11:01 Sodium 132 mmol/L (136-145) L 08/17/18 05:12 Potassium 3.8 mmol/L (3.5-5.1) 08/17/18 05:12 BUN 8 mg/dL (7-18) 08/17/18 05:12 Creatinine 0.60 mg/dL (0.55-1.3) 08/17/18 05:12 Glucose 104 mg/dL (74-106) 08/17/18 05:12 Phosphorus 3.1 mg/dL (2.5-4.9) 08/17/18 05:12 Magnesium 1.8 mg/dL (1.8-2.4) 08/17/18 05:12 Total Bilirubin 0.6 mg/dL (0.2-1.0) 08/17/18 05:12 AST 28 U/L (15-37) 08/17/18 05:12 ALT 24 U/L (12-78) 08/17/18 05:12 Alkaline Phosphatase 55 U/L (45-117) 08/17/18 05:12 Home Medications: Paroxetine HCl [Paxil Cr] 25 mg PO DAILY 09/21/15 Amlodipine Besylate 5 mg PO DAILY 11/19/17 Carvedilol 12.5 mg PO DAILY 11/19/17 Warfarin Sodium 4 mg PO DAILY 11/19/17 Ferrous Sulfate [Feosol] 1 tab PO DAILY 08/14/18 Ciprofloxacin HCl [Cipro 500 MG Tablet] 500 mg PO BID #28 tab 08/17/18 metroNIDAZOLE [Flagyl] 500 mg PO Q8H #42 tablet 08/17/18 traMADol HCL [Ultram*] 50 mg PO Q6HP PRN #15 tab 08/17/18 New Medications: traMADol HCL [Ultram*] 50 mg PO Q6HP PRN #15 tab PRN Reason: Pain Ciprofloxacin HCl [Cipro 500 MG Tablet] 500 mg PO BID #28 tab metroNIDAZOLE [Flagyl] 500 mg PO Q8H #42 tablet Patient Discharge Instructions: Please follow up with the primary care physician in 1 week. Please make sure to keep your appointment with Dr. Flowers for colonoscopy and further evaluation/treatment. New medications: Ciprofloxacin and Flagyl. These are antibiotics for your abdominal infection. Please complete a 14 day course as prescribed. Diet: Low sodium Activity: Ad renaldo Physician Review: Patient Assessed, Agree with Above Assessment and Plan Time spent managing pt's care (in minutes): 55
== END 2018-08-17 14:10 | disposition home or self-care (01) | DRG 392 ==
LOC: 4TH 14:05
PROVIDERS: ADMIT Family Medicine; ATTEND Family Medicine
DX: K57.20 Diverticulitis of large intestine with perforation and abscess without bleeding (principal); N35.912 Unspecified bulbous urethral stricture, male; Z91.14 Patient's other noncompliance with medication regimen; Z79.01 Long term (current) use of anticoagulants; Z95.2 Presence of prosthetic heart valve; I10 Essential (primary) hypertension; F32.9 Major depressive disorder, single episode, unspecified; F41.9 Anxiety disorder, unspecified; Z96.643 Presence of artificial hip joint, bilateral; R33.9 Retention of urine, unspecified
CPT/HCPCS: 36415; 71250; 74176; 80053; 81001; 83735; 84100; 85025; 85610; 94760; J0360; J0744; J1170; J1650; J3475

== ENCOUNTER 2018-12-29 10:24 | Emergency (ER) | payer OTHER ==
--- OUTSIDE RECORDS SUMMARY | 2018-12-29 10:28 | XMS REPORT | Clinical Summary ---
:1960 Author Organization [employer] Address [address] [place] [address] Care Team Providers Name Role Phone Lam D[place] MD Primary Care Provider Allergies No Known Allergies Medications Medication Sig Dispensed Refills Start Date End Date Status carvedilol (COREG) Take 12.5 mg by 0 Active 12.5 MG tablet mouth every morning. ferrous sulfate 325 Take 325 mg by [...] every hr tablet morning. warfarin (COUMADIN) Take 5 mg by 0 Active 4 MG tablet mouth daily. amLODIPine Take 1 tablet by 1 11/10/2018 Active (NORVASC) 5 mg mouth every tablet morning. warfarin (COUMADIN) TAKE 1 TABLET 0 11/06/2017 [...] tablet by mouth daily for 7 days. SUPREP BOWEL PREP Take 2 Bottles 354 mL 0 10/07/2018 KIT 17.5-3.13-1.6 (354 mL total) 9 gram recon soln by mouth once for 1 dose. Take as directed by physician acetaminophen-codei Take 1-2 tablets 40 tablet 0 10/21/2018 ne (TYLENOL WITH by mouth every 4 9 CODEINE #3) 300-30 (four) hours as mg per tablet needed for moderate pain for up to 10 days. zolpidem (AMBIEN) 5 Take 1 tablet (5 15 tablet 0 11/04/2018 MG tablet mg total) by 9 mouth nightly as needed for sleep for up to 10 days. Active Problems Problem Noted Date Diverticulitis of large intestine with abscess without bleeding 01/08/2018 Bowel perforation 01/08/2018 Peritoneal abscess 01/08/2018 Encounters Date Type Specialty Care Team Description 12/19/2018 Pre-Admit Testing Pre-Admission Blair Flowers Preop testing Appointment Testing MD Shon (Primary Dx) 12/19/2018 Office Visit General Surgery Blair Flowers DiverticuliRené MD large intestine without perforation or abscess without bleeding (Primary Dx) 12/19/2018 Hospital Encounter Radiology Blair Flowers Ileostomy status MD Shon ([facility]) 11/25/2018 Orders Only General Surgery Blair Flowers Ileostomy status MD Shon ([facility]) (Primary Dx) 11/19/2018 Office Visit General Surgery Blair Flowers DiverticuliRneé MD large intestine without perforation or abscess without bleeding (Primary Dx) 11/06/2018 Orders Only General Surgery Blair Flowers MD 11/04/2018 Office Visit General Surgery Harveymy, Diverticulitis of [place] large intestine with Godinez, ENTEROSTOMAL NURSE-C abscess without bleeding (Primary Dx) 11/04/2018 Orders Only General Surgery Blair Flowers MD 10/25/2018 Office Visit General Surgery Harveymy, Diverticulitis of [place] large intestine with Godinez, ENTEROSTOMAL NURSE-C abscess without bleeding (Primary Dx) 10/21/2018 Office Visit General Surgery Alagugurusamy, Diverticulitis of [place] large intestine with Godinez, ENTEROSTOMAL NURSE-C abscess without bleeding (Primary Dx) 10/09/2018 Office Visit General Surgery Alagugurusamy, Diverticulitis of [place] large intestine Godinez, ENTEROSTOMAL NURSE-C without perforation Blair Flowers or abscess without MD Shon bleeding (Primary Dx) 10/07/2018 Orders Only General Surgery Blair Flowers MD 10/04/2018 Telephone General Surgery Ellison Ginger 09/25/2018 Orders Only General Surgery Blair Flowers MD 09/13/2018 Office Visit General Surgery Alagugurusamy, Diverticulitis of [place] large intestine with Godinez, ENTEROSTOMAL NURSE-C abscess without bleeding (Primary Dx) 01/18/2018 Office Visit General Surgery Alagugurusamy, Diverticulitis of [place] large intestine with Godinez, ENTEROSTOMAL NURSE-C abscess without bleeding (Primary Dx) 01/18/2018 Hospital Encounter Radiology Blair Flowers Diverticuliedison of MD Shon large intestine with abscess without bleeding 01/11/2018 Orders Only General Surgery Blair Flowers Diverticulitis of MD Shon large intestine with abscess without bleeding (Primary Dx) 01/08/2018 - Hospital Encounter General Surgery Boyareddigari, Diverticulitis of large intestine with abscess without bleeding (Primary Dx); 01/12/2018 Harrison Cummings MD Left lower quadrant pain BurnetteMarvin veloz MD Vinh, Huy B., MD Patel, Sachin P., MD 01/03/2018 Office Visit General Surgery Blair Flowers Diverticuliedison of MD Shon large intestine with perforation and abscess without bleeding (Primary Dx) after 12/28/2017 Family History Medical History Relation Name Comments [...] Vital Sign Reading Time Taken Blood Pressure 183/95 12/19/2018 11:58 AM CDT Pulse 91 12/19/2018 11:58 AM CDT Temperature 35.9 C (96.7 F) 12/19/2018 11:58 AM CDT Respiratory Rate 16 12/19/2018 11:58 AM CDT Oxygen Saturation 100% 12/19/2018 11:58 AM CDT Inhaled Oxygen Concentration - - Weight 88.5 kg (195 lb) 01/18/2018 10:51 AM CDT Height 175.3 cm (5' 9") 12/19/2018 11:58 AM CDT Body Mass Index 28.8 01/18/2018 10:51 AM CDT Plan of Treatment Health Maintenance Due Date Last Done Comments COLON CANCER SCREENING 2008 SHINGLES VACCINES (#1) 2008 INFLUENZA VACCINE 04/10/2019 Procedures Procedure Name Priority Date/Time Associated Diagnosis Comments ESTIMATED GFR Routine 12/19/2018 12:24 Results for this PM CDT procedure are in the results section. TYPE AND SCREEN Routine 12/19/2018 12:24 Preop testing Results for this PM CDT procedure are in the results section. COMPREHENSIVE Routine 12/19/2018 12:24 Preop testing Results for this METABOLIC PANEL PM CDT procedure are in the results section. HC COMPLETE BLD COUNT Routine 12/19/2018 12:24 Preop testing Results for this W/AUTO DIFF PM CDT procedure are in the results section. FL COLON GASTROGRAFIN Routine 12/19/2018 9:40 Ileostomy status Results for this WATER SOLUBLE ENEMA AM CDT (HCC) procedure are in the results section. SURGICAL PATHOLOGY Routine 10/14/2018 REQUEST SURGICAL PATHOLOGY Routine 10/14/2018 REQUEST TRANSFUSE FRESH FROZEN Routine 05/15/2018 5:53 PLASMA [...] procedure are in the results section. after 12/28/2017 Results Estimated GFR (12/19/2018 12:24 PM CDT) Estimated GFR >=90 mL/min/1.73 m2 JONAH VOODOO Comment: HOSPITAL CatergoryUnitsInterpretation G1 >=90 Normal or high G2 60-89Mildly decreased G3r80-44Mzqxwd to moderately decreased W9f29-73Wkyqxobacw to severely decreased G4 15-29Severely decreased G5 <15Kidney failure The eGFR was calculated using the Chronic Kidney Disease Epidemiology Collaboration (CKD-EPI) equation. Interpretation is based on recommendations of the National Kidney Foundation-Kidney Disease Outcomes Quality Initiative (NKF-KDOQI) published in 2014. Specimen Plasma specimen Performing Organization Address City/State/Zipcode Phone Number [facility] DEPARTMENT OF PATHOLOGY AND [address] [place] [address] [address] CBC with platelet and differential (12/19/2018 12:24 PM CDT)Only the most recent of6 resultswithin the time period is included. WBC 10.52 4.50 - 11.00 k/uL [facility] RBC 4.95 4.40 - 6.00 m/uL [facility] HGB 15.8 14.0 - 18.0 g/dL [facility] HCT 46.6 41.0 - 51.0 % [facility] MCV 94.1 82.0 - 100.0 fL [facility] MCH 31.9 27.0 - 34.0 pg [facility] MCHC 33.9 31.0 - 37.0 g/dL [facility] RDW - SD 41.6 37.0 - 55.0 fL [facility] MPV 9.3 8.8 - 13.2 fL [facility] Platelet count 265 150 - 400 k/uL [facility] Nucleated RBC 0.00 /100 WBC [facility] Neutrophils 73.8 (H) 39.0 - 69.0 % [facility] Lymphocytes 13.0 (L) 25.0 - 45.0 % [facility] Monocytes 9.7 0.0 - 10.0 % [facility] Eosinophils 1.0 0.0 - 5.0 % [facility] Basophils 0.9 0.0 - 1.0 % [facility] Immature granulocytes 1.6 (H)Comment: 0.0 - 1.0 % [facility] "Immature [facility] granulocytes" (promyelocytes, myelocytes, metamyelocytes) Specimen Blood Performing Organization Address City/State/Zipcode Phone Number [facility] DEPARTMENT OF PATHOLOGY AND [address] [place] [address] [address] Type and screen (12/19/2018 12:24 PM CDT)Only the most recent of2 resultswithin the time period is included. ABO grouping A [facility] Rh type POS [facility] Antibody screen (gel) NEG [facility] Specimen Blood Performing Organization Address City/[facility] Phone Number [facility] DEPARTMENT OF PATHOLOGY AND [address] [place], [place] [phone] [place] [phone] Comprehensive metabolic panel (12/19/2018 12:24 PM CDT)Only the most recent of2 resultswithin the time period is included. Sodium 135 135 - 148 mEq/L [facility] Potassium 4.4 3.5 - 5.0 mEq/L [facility] Chloride 98 98 - 112 mEq/L [facility] CO2 23 (L) 24 - 31 mEq/L [facility] Anion gap 14@ANIO 7 - 15 mEq/L [facility] BUN 8 8 - 23 mg/dL [facility] Creatinine 0.60 (L) 0.70 - 1.20 mg/dL [facility] Glucose 116 (H) 65 - 99 mg/dL [facility] Calcium 9.5 8.8 - 10.2 mg/dL [facility] Protein 8.9 (H) 6.3 - 8.3 g/dL [facility] Comment: HOSPITAL [place] 4.6-7.0 g/dL 1 week 4.4-7.6 g/dL 7 months-1year5.1-7.3 g/dL 1-2 years5.6-7.5 g/dL >3 years6.0-8.0 g/dL 18-150 6.3-8.3 g/dL Albumin 3.5 3.5 - 5.0 g/dL [facility] A/G ratio 0.6 (L) 0.7 - 3.8 [facility] Alkaline phosphatase 104 40 - 129 U/L [facility] AST 36 10 - 50 U/L [facility] ALT 21 5 - 50 U/L [facility] Total bilirubin 1.0 0.0 - 1.2 mg/dL [facility] Specimen Plasma specimen Performing Organization Address City/[facility] Phone Number [facility] DEPARTMENT OF PATHOLOGY AND [address] [place] [address] [id number] [place] [address] [place] Colon Gastrografin Water Soluble Enema (12/19/2018 9:40 AM CDT) Narrative Performed At EXAMINATION:[place] COLON GASTROGRAFIN [facility] CL[facility]ICAL [facility]:Z93.2 Ileostomy status, ileostomy status COMPARISON:None. TECHNIQUE:Water-soluble contrast was administered via a rectal tube by gravity under fluoroscopic guidance. Spot radiographs and overhead films were obtained. FLUOROSCOPIC TIME:1.6 minutes IMAGES:24 FINDINGS: Hunter radiograph demonstrates a nonobstructive bowel gas pattern. There are prominent vascular calcifications over the abdomen and pelvis. Degenerative changes in the spine. Bilateral hip arthroplasties. The colon was opacified in a retrograde fashion from the rectum to the cecum. What likely represents the anastomosis is seen at the rectosigmoid junction. There was no contrast leak appreciated. Contrast flowed through without delay. Some filling defects within the colon may represent some feces or mucus. IMPRESSION: Unremarkable water-soluble enema via the rectum. No contrast leak appreciated. [facility]-[id number] Procedure Note Interface, Radiology Results Incoming - 12/19/2018 10:55 AM CDT EXAMINATION: [place] COLON GASTROGRAFIN WATER SOLUBLE ENEMA CLINICAL HISTORY: Z93.2 Ileostomy status, ileostomy status COMPARISON: None. TECHNIQUE: Water-soluble contrast was administered via a rectal tube by gravity under fluoroscopic guidance. Spot radiographs and overhead films were obtained. FLUOROSCOPIC TIME: 1.6 minutes IMAGES: 24 FINDINGS: Hunter radiograph demonstrates a nonobstructive bowel gas pattern. There are prominent vascular calcifications over the abdomen and pelvis. Degenerative changes in the spine. Bilateral hip arthroplasties. The colon was opacified in a retrograde fashion from the rectum to the cecum. What likely represents the anastomosis is seen at the rectosigmoid junction. There was no contrast leak appreciated. Contrast flowed through without delay. Some filling defects within the colon may represent some feces or mucus. IMPRESSION: Unremarkable water-soluble enema via the rectum. No contrast leak appreciated. [facility]-[id number] Performing Organization Address City/State/Zipcode Phone Number [employer] [address] [place] [address] Surgical pathology request (10/14/2018)Only the most recent of2 resultswithin the time period is included. Specimen Tissue Narrative Performed At Transfuse fresh frozen plasma (05/15/2018 5:53 PM [...] fluid collection drained by the percutaneous catheter. [id number] Procedure Note Hm Interface, Radiology Results Incoming [...] fluid collection drained by the percutaneous catheter. [id number] Performing Organization Address City/State/Zipcode Phone Number [facility] [address] [place] [address] Manual differential (01/12/2018 3:30 AM CDT)Only the most recent of4 resultswithin the time period is included. Manual differential PERFORMED [facility] DEPARTMENT OF PATHOLOGY AND GENOMIC MEDICINE Neutrophils 75.0 (H) 39.0 - 69.0 % [facility] DEPARTMENT OF PATHOLOGY AND GENOMIC MEDICINE Lymphocytes 12.0 (L) 25.0 - 45.0 % [facility] DEPARTMENT OF PATHOLOGY AND GENOMIC MEDICINE Monocytes 8.0 0.0 - 10.0 % [facility] DEPARTMENT OF PATHOLOGY AND GENOMIC MEDICINE Eosinophils 1.0 0.0 - 5.0 % [facility] DEPARTMENT OF PATHOLOGY AND GENOMIC MEDICINE Basophils 0.0 0.0 - 1.0 % [facility] DEPARTMENT OF PATHOLOGY AND GENOMIC MEDICINE Metamyelocytes 3 % [facility] DEPARTMENT OF PATHOLOGY AND GENOMIC MEDICINE Myelocytes 1 % [facility] DEPARTMENT OF PATHOLOGY AND GENOMIC MEDICINE Promyelocytes 0 % [facility] DEPARTMENT OF PATHOLOGY AND GENOMIC MEDICINE Platelet slide review Carlos A adequate [facility] DEPARTMENT OF PATHOLOGY AND GENOMIC MEDICINE Anisocytosis Moderate [facility] DEPARTMENT OF PATHOLOGY AND GENOMIC MEDICINE Performing Organization Address City/State/[facility] Phone Number [facility] DEPARTMENT OF PATHOLOGY AND [address] [place] [address] [facility] Prothrombin time with INR (01/12/2018 3:30 AM CDT)Only the most recent of5 resultswithin the time period is included. Prothrombin time 23.2 (H) 12.0 - 15.0 sec [facility] DEPARTMENT OF PATHOLOGY AND GENOMIC MEDICINE INR 2.0 [facility] DEPARTMENT OF Comment: PATHOLOGY AND GENOMIC The International Normalized Ratio (INR) is a therapeutic MEDICINE monitoring tool for patients who are stable on oral anticoagulant therapy. An INR of 2.0-3.0 is suggested for deep vein thrombosis/pulmonary embolism. Specimen Blood Performing Organization Address City/[facility] Phone Number [facility] DEPARTMENT OF PATHOLOGY AND [address] [place], [place] [phone] [facility] Estimated GFR (01/11/2018 4:25 AM CDT)Only the most recent of4 resultswithin the time period is included. GFR Non Af Amer >90 mL/min/1.73 m2 [facility] DEPARTMENT OF PATHOLOGY AND GENOMIC MEDICINE GFR Af Amer >90 mL/min/1.73 m2 [facility] DEPARTMENT OF Comment: PATHOLOGY AND GENOMIC Chronic [...] Americans. Specimen Plasma specimen Performing Organization Address City/[facility] Phone Number [facility] DEPARTMENT OF PATHOLOGY AND [address] [place] [address] [facility] Basic metabolic panel (01/11/2018 4:25 AM CDT)Only the most recent of3 resultswithin the time period is included. Sodium 135 135 - 148 mEq/L [facility] DEPARTMENT OF PATHOLOGY AND GENOMIC MEDICINE Potassium 3.9 3.5 - 5.0 mEq/L [facility] DEPARTMENT OF PATHOLOGY AND GENOMIC MEDICINE Chloride 97 (L) 98 - 112 mEq/L [facility] DEPARTMENT OF PATHOLOGY AND GENOMIC MEDICINE CO2 27 24 - 31 mEq/L [facility] DEPARTMENT OF PATHOLOGY AND GENOMIC MEDICINE Anion gap 11 7 - 15 mEq/L [facility] DEPARTMENT OF PATHOLOGY Comment: [facility] Starting from December , anion gap calculation no longer incorporates potassium. Please note the change. BUN 4 (L) 6 - 20 mg/dL [facility] DEPARTMENT OF PATHOLOGY AND GENOMIC MEDICINE Creatinine 0.5 (L) 0.7 - 1.2 mg/dL [facility] DEPARTMENT OF PATHOLOGY AND GENOMIC MEDICINE Glucose 81 65 - 99 mg/dL [facility] DEPARTMENT OF PATHOLOGY AND [facility] Calcium 9.0 8.3 - 10.2 mg/dL [facility] DEPARTMENT OF PATHOLOGY AND [facility] Specimen Plasma specimen Performing Organization Address City/[facility]/Zipcode Phone Number [facility] DEPARTMENT OF PATHOLOGY AND [address] [place] [phone] [facility] CT Guided Abscess Drain (01/09/2018 4:34 PM CDT) Narrative Performed At EXAMINATION:CT GUIDED ABSCESS DRAIN RADIANT CLINICAL HISTORY:Fluid collectionabscess - hx of diverticulitis PROCEDURES: 1. Limited pre procedure CT of the abdomen. 2. CT guided placement of drain in left lower quadrant of the abdomen. PHYSICIANS: Dr. Manas Aguayo Anesthesia Type: Moderate sedation was administered by the procedure nurse and monitored intraservice [id number] by the procedure physician for 7 minutes. [...] was removed and exchanged for a 10 [place] Cook locking all-purpose drainage catheter. The wire [...] drainage of left lower quadrant fluid collection/abscess. [facility]-[id number] Procedure Note [facility], Radiology Results Incoming - 01/09/2018 4:58 PM CDT EXAMINATION: CT GUIDED ABSCESS DRAIN CLINICAL HISTORY: Fluid collection abscess - hx of diverticulitis PROCEDURES: 1. Limited pre procedure CT of the abdomen. 2. CT guided placement of drain in left lower quadrant of the abdomen. PHYSICIANS: Dr. Manas Aguayo Anesthesia Type: Moderate sedation was administered by the procedure nurse and monitored intraservice [id number] by the procedure physician for 7 minutes. [...] was removed and exchanged for a 10 [place] Cook locking all-purpose drainage catheter. The wire [...] drainage of left lower quadrant fluid collection/abscess. [facility]-[id number] Performing Organization Address City/State/Zipcode Phone Number [employer] [address] [place] [address] Aerobic culture (01/09/2018 4:15 PM CDT) Aerobic culture isolate Enterobacter aerogenes [facility] DEPARTMENT OF Few PATHOLOGY AND GENOMIC susceptibility [...] Cefotaxime GUS mcg/mL: Resistant Performing Organization Address City/[facility] Phone Number [facility] DEPARTMENT OF PATHOLOGY AND [address] [place] [address] GENOMIC MEDICINE Gram stain (01/09/2018 4:15 PM CDT) Gram stain isolate Many WBC's [facility] DEPARTMENT OF PATHOLOGY Moderate Gram positive rods AND GENOMIC MEDICINE Comment: Specimen Information Specimen Source: Abscess Specimen Site: Abdomen Specimen Abscess Performing Organization Address [facility] Phone Number [facility] DEPARTMENT OF PATHOLOGY AND [address] [place] [address] [facility] Anaerobic culture (01/09/2018 4:15 PM CDT) Anaerobic culture Lactobacillus rhamnosus (A) [facility] DEPARTMENT OF isolate Comment: PATHOLOGY AND GENOMIC Specimen Information MEDICINE Specimen Source: Abscess Specimen Site: Abdomen Specimen Abscess Performing Organization Address [facility] Phone Number [facility] DEPARTMENT OF PATHOLOGY AND [address] [place] [address] [employer] Prepare fresh frozen plasma, 2 Units (01/09/2018 11:15 AM CDT) Product name Thawed Plasma [facility] DEPARTMENT OF PATHOLOGY AND GENOMIC MEDICINE Unit number [id number] [facility] DEPARTMENT OF PATHOLOGY AND GENOMIC MEDICINE Product code [id number] [facility] DEPARTMENT OF PATHOLOGY AND GENOMIC MEDICINE Dispense status Transfused [facility] DEPARTMENT OF PATHOLOGY AND GENOMIC MEDICINE Blood expiration date [facility] DEPARTMENT OF PATHOLOGY AND GENOMIC MEDICINE Blood type code 0600 [facility] DEPARTMENT OF PATHOLOGY AND GENOMIC MEDICINE Blood type A NEGATIVE [facility] DEPARTMENT OF PATHOLOGY AND GENOMIC MEDICINE Product name Thawed Plasma [facility] DEPARTMENT OF PATHOLOGY AND GENOMIC MEDICINE Unit number [id number] [facility] DEPARTMENT OF PATHOLOGY AND GENOMIC MEDICINE Product code [id number] [facility] DEPARTMENT OF PATHOLOGY AND GENOMIC MEDICINE Dispense status Transfused [facility] DEPARTMENT OF PATHOLOGY AND GENOMIC MEDICINE Blood expiration date [facility] DEPARTMENT OF PATHOLOGY AND GENOMIC MEDICINE Blood type code 6200 [facility] DEPARTMENT OF PATHOLOGY AND GENOMIC MEDICINE Blood type A POSITIVE [facility] DEPARTMENT OF PATHOLOGY AND GENOMIC MEDICINE Specimen Blood Performing Organization Address [facility] Phone Number [facility] DEPARTMENT OF PATHOLOGY AND [address] [place] [address] GENOMIC [facility] Lactic acid level (01/09/2018 4:00 AM CDT)Only the most recent of2 resultswithin the time period is included. Lactic acid 2.0 0.5 - 2.2 mmol/L [facility] DEPARTMENT OF PATHOLOGY AND GENOMIC MEDICINE Specimen Plasma specimen Performing Organization Address [facility] Phone Number [facility] DEPARTMENT OF PATHOLOGY AND [address] [place] [address] Lactic acid level, SEPSIS - Now and repeat 2x every 3 hours (01/08/2018 4:34 PM CDT)Only the most recent of2 resultswithin the time period is included. Lactic acid 1.8 0.5 - 2.2 mmol/L [facility] DEPARTMENT OF PATHOLOGY AND GENOMIC MEDICINE Specimen Blood Performing Organization Address [facility] Phone Number [facility] DEPARTMENT OF PATHOLOGY AND [address] [place] [address] Blood culture, aerobic & anaerobic (01/08/2018 10:35 AM CDT) Blood culture isolate No growth after 5 days of incubation. [facility] DEPARTMENT OF Comment: PATHOLOGY AND GENOMIC Specimen Information MEDICINE Specimen Source: Blood Specimen Site: Unspecified Specimen Blood Performing Organization Address [facility] Phone Number [facility] DEPARTMENT OF PATHOLOGY AND [address] [place] [address] Partial thromboplastin time, activated (01/08/2018 10:35 AM CDT) PTT 53.5 (H) 23.0 - 36.0 sec [facility] DEPARTMENT OF PATHOLOGY Comment: AND [facility] PTT therapeutic range for unfractionated heparin is 61.0-112.0 seconds which corresponds to Anti-Xa 0.3-0.7 U/ml. Specimen Blood Performing Organization Address [facility] Phone Number [facility] DEPARTMENT OF PATHOLOGY AND [address] [place] [address] Lipase level (01/08/2018 10:34 AM CDT) Lipase 21 13 - 60 U/L [facility] DEPARTMENT OF PATHOLOGY AND GENOMIC MEDICINE Specimen Plasma specimen Performing Organization Address [facility] Phone Number [facility] DEPARTMENT OF PATHOLOGY AND [address] [place], [place] [phone] [facility] Urinalysis screen and microscopy, with reflex to culture (01/08/2018 10:30 AM CDT) Specimen site Clean catch [facility] DEPARTMENT OF PATHOLOGY AND GENOMIC MEDICINE Color, UA Meme [facility] DEPARTMENT OF PATHOLOGY AND GENOMIC MEDICINE Appearance, UA Clear [facility] DEPARTMENT OF PATHOLOGY AND GENOMIC MEDICINE Specific gravity, UA 1.033 1.001 - 1.035 [facility] DEPARTMENT OF PATHOLOGY AND GENOMIC MEDICINE pH, UA 5.0 5.0 - 8.5 [facility] DEPARTMENT OF PATHOLOGY AND GENOMIC MEDICINE Protein, UA 2+ (A) Negative [facility] DEPARTMENT OF PATHOLOGY AND GENOMIC MEDICINE Glucose, UA Negative Negative [facility] DEPARTMENT OF PATHOLOGY AND GENOMIC MEDICINE Ketones, UA Trace (A) Negative [facility] DEPARTMENT OF PATHOLOGY AND GENOMIC MEDICINE Bilirubin, UA Positive@UBIL (A) Negative [facility] DEPARTMENT OF PATHOLOGY AND GENOMIC MEDICINE Blood, UA Negative Negative [facility] DEPARTMENT OF PATHOLOGY AND GENOMIC MEDICINE Nitrite, UA Negative Negative [facility] DEPARTMENT OF PATHOLOGY AND GENOMIC MEDICINE Urobilinogen, UA 4.0 (A) <2.0 [facility] DEPARTMENT OF PATHOLOGY AND GENOMIC MEDICINE Leukocyte esterase, UA Negative Negative [facility] DEPARTMENT OF PATHOLOGY AND GENOMIC MEDICINE Epithelial cells, UA 1 /HPF [facility] DEPARTMENT OF PATHOLOGY AND GENOMIC MEDICINE Round epithelial cells, UA <1 0 - 1 /HPF [facility] DEPARTMENT OF PATHOLOGY AND GENOMIC MEDICINE WBC, UA 4 (H) 0 - 1 /HPF [facility] DEPARTMENT OF PATHOLOGY AND GENOMIC MEDICINE RBC, UA 1 0 - 5 /HPF [facility] DEPARTMENT OF PATHOLOGY AND GENOMIC MEDICINE Bacteria, UA Few None seen [facility] DEPARTMENT OF PATHOLOGY AND GENOMIC MEDICINE Yeast, UA None seen [facility] DEPARTMENT OF PATHOLOGY AND GENOMIC MEDICINE Yeast with pseudohyphae, UA None seen [facility] DEPARTMENT OF PATHOLOGY AND GENOMIC MEDICINE Hyaline casts, UA >20 (A) /LPF [facility] DEPARTMENT OF PATHOLOGY AND GENOMIC MEDICINE Specimen Urine Performing Organization Address City/State/Zipcode Phone Number [facility] DEPARTMENT OF PATHOLOGY AND [address] [place] [phone] [facility] Urine culture (01/08/2018 10:30 AM CDT) Urine culture SEE COMMENTComment: Bacteriuria [facility] DEPARTMENT OF PATHOLOGY screen negative. AND GENOMIC MEDICINE Performing Organization Address City/State/Zipcode Phone Number [facility] DEPARTMENT OF PATHOLOGY AND [address] [place] [id number] [facility] after 12/28/2017 Insurance Payer Benefit Plan / Group Subscriber ID Type Phone Address AETNA AETNA HMO,POS,EPO, MC/EC xxxxxxxxx HMO Advance Directives Patient has advance care planning documents on file. For more information, please contact:Jonah Diane[address] [place] [phone]
--- OUTSIDE RECORDS SUMMARY | 2018-12-29 10:29 | XMS REPORT | Clinical Summary ---
:1960 Author Organization [facility] Address [address] [place] [address] Care Team Providers Name Role Phone Pcp, No Primary Care Provider Unavailable Allergies No Known Allergies Medications Medication Sig Dispensed Refills Start Date End Date Status warfarin Take 5 mg by mouth 0 Active (COUMADIN) 2 MG daily . tablet enoxaparin Inject 0 Active sodium (LOVENOX subcutaneously 2 SUBQ) (two) times daily. amLODIPine Take 5 mg by mouth 0 Active (NORVASC) 10 MG daily . tablet carvedilol Take 12.5 mg by 0 Active (COREG) 12.5 MG mouth 2 (two) times tablet daily with breakfast and dinner. paroxetine HCl Take 20 mg by mouth 0 Active (PAXIL ORAL) daily . HYDROcodone-acet Take 1 tablet by 30 tablet 0 12/28/2018 Active aminophen (NORCO mouth every 6 (six) 9 5-325) 5-325 mg hours as needed for per tablet up to 10 days. Max Daily Amount: 4 tablets acetaminophen-co Take 1 tablet by 30 tablet 0 10/17/2018 Discontinued deine (TYLENOL mouth every 6 (six) 9 #3) 300-30 mg hours as needed for per tablet up to 5 days. Max Daily Amount: 4 tablets acetaminophen-co Take 1 tablet by 30 tablet 0 10/17/2018 deine (TYLENOL mouth every 6 (six) 9 #3) 300-30 mg hours as needed for per tablet up to 5 days. Max Daily Amount: 4 tablets acetaminophen-co Take 1 tablet by 30 tablet 0 10/17/2018 deine (TYLENOL mouth every 6 (six) 9 #3) 300-30 mg hours as needed for per tablet up to 10 days. Max Daily Amount: 4 tablets Active Problems Problem Noted Date Ileostomy status 12/26/2018 Diverticulitis 10/14/2018 Encounters Date Type Specialty Care Team Description 12/26/2018 Anesthesia Event Haley Best 12/26/2018 Surgery Lionel, Blair LAPAROSCOPY,COLOSTOMY MD Shon TAKEDOWN 12/26/2018 - Hospital Encounter General Internal Lionel, Blair Ileostomy status (HCC) 12/28/2018 Medicine MD Shon (Primary Dx) 12/24/2018 Hospital Encounter Pre-Admission Resource, Oqmt Arrived Testing Preadmit Phone 10/14/2018 Anesthesia Event Adi Leal MD 10/14/2018 Surgery Lionel, Blair ROBOTIC MD Shon LAPAROSCOPY,LOW ANTERIOR RESECTION 10/14/2018 - Hospital Encounter General Internal Lionel, Blair Diverticulitis 10/17/2018 Sharee Menendez MD (Primary Dx) 10/09/2018 Hospital Encounter Pre-Admission Blair Flowers Testing MD Shon 10/08/2018 Hospital Encounter Pre-Admission Resource, Oqmt Testing Preadmit Phone after 12/28/2017 Social History Tobacco Use Types Packs/Day Years Used Date Never Smoker Smokeless Tobacco: Never Used Alcohol Use Drinks/Week oz/Week Comments Yes 2 Cans of beer 1.2 Sex Assigned at Date Recorded Not on file Job Start Date Occupation Industry Not on file Not on file Not on file Travel History Travel Start Travel End No recent travel history available. Last Filed Vital Signs Vital Sign Reading Time Taken Blood Pressure 144/60 12/28/2018 11:30 AM CDT Pulse 64 12/28/2018 11:30 AM CDT Temperature 36.1 C (96.9 F) 12/28/2018 11:30 AM CDT Respiratory Rate 18 12/28/2018 11:30 AM CDT Oxygen Saturation 100% 12/28/2018 11:30 AM CDT Inhaled Oxygen Concentration - - Weight 87.8 kg (193 lb 9 oz) 12/26/2018 2:03 PM CDT Height 175.3 cm (5' 9") 12/26/2018 2:03 PM CDT Body Mass Index 28.58 12/26/2018 2:03 PM CDT Plan of Treatment Not on file Procedures Procedure Name Priority Date/Time Associated Diagnosis Comments CBC W/PLT COUNT & Routine 12/28/2018 11:58 Results for this AUTO DIFFERENTIAL AM CDT procedure are in the results section. CBC W/PLT COUNT & Routine 12/28/2018 11:58 Results for this AUTO DIFFERENTIAL AM CDT procedure are in the results section. BASIC METABOLIC Routine 12/28/2018 5:15 Results for this PANEL (7) AM CDT procedure are in the results section. TRANSFUSION SERVICE 12/27/2018 6:00 REPORT - SCAN PM CDT BASIC METABOLIC Routine 12/27/2018 6:28 Results for this PANEL (7) AM CDT procedure are in the results section. LAPAROSCOPY,COLOSTOM 12/26/2018 3:00 Diverticulitis of Y [place]AK[place] PM CDT colon Case Notes 2HRSOKAYED TO ADD BY RAYSA 12/24/Aide ICU BED NEEDED BASIC METABOLIC Routine 12/26/2018 2:27 Results for this PANEL (7) PM CDT procedure are in the results section. POCT-GLUCOSE METER Routine 12/26/2018 1:56 Results for this PM CDT procedure are in the results section. TYPE AND SCREEN, Routine 12/26/2018 1:52 Results for this AUTOMATED PM CDT procedure are in the results section. APTT STAT 12/26/2018 1:52 Results for this PM CDT procedure are in the results section. PROTHROMBIN TIME/INR Routine 12/26/2018 1:52 Results for this PM CDT procedure are in the results section. CBC (HEMOGRAM ONLY) Routine 12/26/2018 1:52 Results for this PM CDT procedure are in the results section. REPORT OF PROCEDURE 12/13/2018 8:11 - ENDOSCOPY SCAN AM CDT RHYTHM STRIP - SCAN 10/30/2018 11:32 AM LITHOGRAPHING MACHINE OPERATOR CBC W/PLT COUNT & Routine 10/17/2018 2:32 Results for this AUTO DIFFERENTIAL AM LITHOGRAPHING MACHINE OPERATOR procedure are in the results section. PROTHROMBIN TIME/INR Routine 10/17/2018 2:32 Results for this AM LITHOGRAPHING MACHINE OPERATOR procedure are in the results section. CBC W/PLT COUNT & Routine 10/17/2018 2:32 Results for this AUTO DIFFERENTIAL AM LITHOGRAPHING MACHINE OPERATOR procedure are in the results section. MAGNESIUM Routine 10/17/2018 2:32 Results for this AM LITHOGRAPHING MACHINE OPERATOR procedure are in the results section. BASIC METABOLIC Routine 10/17/2018 2:32 Results for this PANEL (7) AM LITHOGRAPHING MACHINE OPERATOR procedure are in the results section. PROTHROMBIN TIME/INR Routine 10/16/2018 4:36 Results for this PM LITHOGRAPHING MACHINE OPERATOR procedure are in the results section. CBC W/PLT COUNT & Routine 10/16/2018 3:45 Results for this AUTO DIFFERENTIAL AM LITHOGRAPHING MACHINE OPERATOR procedure are in the results section. APTT Routine 10/16/2018 3:45 Results for this AM LITHOGRAPHING MACHINE OPERATOR procedure are in the results section. CBC W/PLT COUNT & Routine 10/16/2018 3:45 Results for this AUTO DIFFERENTIAL AM LITHOGRAPHING MACHINE OPERATOR procedure are in the results section. MAGNESIUM Routine 10/16/2018 3:45 Results for this AM LITHOGRAPHING MACHINE OPERATOR procedure are in the results section. BASIC METABOLIC Routine 10/16/2018 3:45 Results for this PANEL (7) AM LITHOGRAPHING MACHINE OPERATOR procedure are in the results section. APTT Routine 10/15/2018 9:21 Results for this PM LITHOGRAPHING MACHINE OPERATOR procedure are in the results section. APTT Routine 10/15/2018 2:40 Results for this PM LITHOGRAPHING MACHINE OPERATOR procedure are in the results section. APTT Routine 10/15/2018 8:08 Results for this AM LITHOGRAPHING MACHINE OPERATOR procedure are in the results section. CBC W/PLT COUNT & Routine 10/15/2018 6:34 Results for this AUTO DIFFERENTIAL AM LITHOGRAPHING MACHINE OPERATOR procedure are in the results section. CBC W/PLT COUNT & Routine 10/15/2018 6:34 Results for this AUTO DIFFERENTIAL AM LITHOGRAPHING MACHINE OPERATOR procedure are in the results section. MAGNESIUM Routine 10/15/2018 6:34 Results for this AM LITHOGRAPHING MACHINE OPERATOR procedure are in the results section. BASIC METABOLIC Routine 10/15/2018 6:34 Results for this PANEL (7) AM LITHOGRAPHING MACHINE OPERATOR procedure are in the results section. APTT Routine 10/14/2018 9:57 Results for this PM LITHOGRAPHING MACHINE OPERATOR procedure are in the results section. PLATELET COUNT Routine 10/14/2018 9:57 Results for this PM LITHOGRAPHING MACHINE OPERATOR procedure are in the results section. POCT-GLUCOSE METER Routine 10/14/2018 8:19 Results for this PM LITHOGRAPHING MACHINE OPERATOR procedure are in the results section. FUNGUS CULTURE + Routine 10/14/2018 4:31 Results for this SMEAR PM LITHOGRAPHING MACHINE OPERATOR procedure are in the results section. SURGICALLY OBTAINED Routine 10/14/2018 4:31 Results for this CULTURE + GRAM STAIN PM LITHOGRAPHING MACHINE OPERATOR procedure are in the results section. ANAEROBIC CULTURE Routine 10/14/2018 4:31 Results for this PM LITHOGRAPHING MACHINE OPERATOR procedure are in the results section. FUNGUS CULTURE + Routine 10/14/2018 3:55 Results for this SMEAR PM LITHOGRAPHING MACHINE OPERATOR procedure are in the results section. ANAEROBIC CULTURE Routine 10/14/2018 3:55 Results for this PM LITHOGRAPHING MACHINE OPERATOR procedure are in the results section. SURGICALLY OBTAINED Routine 10/14/2018 3:55 Results for this CULTURE + GRAM STAIN PM LITHOGRAPHING MACHINE OPERATOR procedure are in the results section. TISSUE EXAM AP Routine 10/14/2018 3:51 Results for this PM LITHOGRAPHING MACHINE OPERATOR procedure are in the results section. FUNGUS CULTURE + Routine 10/14/2018 3:44 Results for this SMEAR PM LITHOGRAPHING MACHINE OPERATOR procedure are in the results section. SURGICALLY OBTAINED Routine 10/14/2018 3:44 Results for this CULTURE + GRAM STAIN PM LITHOGRAPHING MACHINE OPERATOR procedure are in the results section. ANAEROBIC CULTURE Routine 10/14/2018 3:44 Results for this PM LITHOGRAPHING MACHINE OPERATOR procedure are in the results section. PROCEDURE W/ DAVINCI 10/14/2018 1:00 Diverticulitis of XI PM LITHOGRAPHING MACHINE OPERATOR large intestine with abscess without bleeding Case Notes 4 HRS PER STEPHAN Special Needs (DAVINCI XI - XI REQUESTED) ROBOTIC LAPAROSCOPY,LOW 10/14/2018 1:00 PM LITHOGRAPHING MACHINE OPERATOR Diverticulitis of large ANTERIOR RESECTION intestine with abscess without bleeding Case Notes 4 HRS PER STEPHAN Special Needs (DAVINCI XI - XI REQUESTED) POCT-GLUCOSE METER Routine 10/14/2018 11:07 AM LITHOGRAPHING MACHINE OPERATOR PLATELET COUNT STAT 10/14/2018 11:07 AM LITHOGRAPHING MACHINE OPERATOR HEMOGLOBIN AND HEMATOCRIT Routine 10/14/2018 11:07 AM LITHOGRAPHING MACHINE OPERATOR PT/APTT Routine 10/14/2018 11:07 AM LITHOGRAPHING MACHINE OPERATOR GLUCOSE Routine 10/14/2018 11:07 AM LITHOGRAPHING MACHINE OPERATOR ELECTROLYTE PANEL Routine 10/14/2018 11:07 AM LITHOGRAPHING MACHINE OPERATOR TRANSFUSION SERVICE REPORT - 10/10/2018 5:55 PM LITHOGRAPHING MACHINE OPERATOR SCAN CBC W/PLT COUNT & AUTO Routine 10/09/2018 2:42 PM LITHOGRAPHING MACHINE OPERATOR Results for this DIFFERENTIAL procedure are in the results section. TYPE AND SCREEN, AUTOMATED Routine 10/09/2018 2:42 PM LITHOGRAPHING MACHINE OPERATOR COMPREHENSIVE METABOLIC Routine 10/09/2018 2:42 PM LITHOGRAPHING MACHINE OPERATOR Results for this PANEL procedure are in the results section. CBC W/PLT COUNT & AUTO Routine 10/09/2018 2:42 PM LITHOGRAPHING MACHINE OPERATOR Results for this DIFFERENTIAL procedure are in the results section. PLATELET COUNT Routine 10/09/2018 2:42 PM LITHOGRAPHING MACHINE OPERATOR HEMOGLOBIN Routine 10/09/2018 2:42 PM LITHOGRAPHING MACHINE OPERATOR ELECTROLYTE PANEL Routine 10/09/2018 2:42 PM LITHOGRAPHING MACHINE OPERATOR BUN AND CREATININE Routine 10/09/2018 2:42 PM LITHOGRAPHING MACHINE OPERATOR after 12/28/2017 Results CBC with platelet count + automated diff (12/28/2018 11:58 AM CDT)Only the most recent of5 resultswithin the time period is included. WBC 7.1 3.5 - 10.5 K/L [facility] RBC 4.09 (L) 4.63 - 6.08 M/L [facility] Hemoglobin 13.0 (L) 13.7 - 17.5 GM/DL [facility] Hematocrit 39.3 (L) 40.1 - 51.0 % [facility] MCV 96.1 (H) 79.0 - 92.2 fL [facility] MCH 31.8 25.7 - 32.2 pg [facility] MCHC 33.1 32.3 - 36.5 GM/DL [facility] RDW 12.1 11.6 - 14.4 % [facility] Platelets 194 150 - 450 K/CU MM [facility] MPV 9.6 9.4 - 12.4 fL [facility] nRBC 0 0 - 0 /100 WBC [facility] % Neutros 75 % [facility] % Lymphs 11 % [facility] % Monos 9 % [facility] % Eos 3 % [facility] % Baso 1 % [facility] # Neutros 5.37 1.78 - 5.38 K/L [facility] # Lymphs 0.81 (L) 1.32 - 3.57 K/L [facility] # Monos 0.67 0.30 - 0.82 K/L [facility] # Eos 0.18 0.04 - 0.54 K/L [facility] # Baso 0.04 0.01 - 0.08 K/L [facility] Immature Granulocytes-Relative 1 0 - 1 % [facility] Specimen Blood Performing Organization Address City/State/Zipcode Phone Number [address] [address] [place] Basic Metabolic Panel (12/28/2018 5:15 AM CDT)Only the most recent of6 resultswithin the time period is included. Sodium 133 (L) 136 - 145 meq/L [facility] Potassium 3.5 3.5 - 5.1 meq/L [facility] Chloride 100 98 - 107 meq/L [facility] CO2 25 22 - 29 meq/L [facility] BUN 7 7 - 21 mg/dL [facility] Creatinine 0.63 0.57 - 1.25 mg/dL [facility] Glucose 101 70 - 105 mg/dL [facility] Calcium 8.8 8.4 - 10.2 mg/dL [facility] EGFR 130Comment: ESTIMATED GFR IS mL/min/1.73 sq m [facility] NOT ACCURATE [facility] CLEARANCE IN PREDICTING GLOMERULAR FILTRATION RATE. ESTIMATED GFR IS NOT APPLICABLE FOR DIALYSIS PATIENTS. Specimen Blood Performing Organization Address City/State/Zipcode Phone Number [address] [address] [place] TRANSFUSION SERVICE REPORT - SCAN (12/27/2018 6:00 PM CDT)Only the most recent of2 resultswithin the time period is included. Narrative Performed At POC-Glucose meter (12/26/2018 1:56 PM CDT)Only the most recent of3 resultswithin the time period is included. POC-Glucose Meter 113 (H)Comment: TESTED AT 70 - 110 mg/dL [facility] [address] [place] [address] Specimen Blood Performing Organization Address City/[facility] Cent[facility] Phone Number [address] [address] CENTER Type and screen, automated (12/26/2018 1:52 PM CDT)Only the most recent of2 resultswithin the time period is included. ABO/RH AUTOMATED (BEAKER) A POSITIVE [facility] Ab Scrn NEGATIVE [facility] Specimen Blood Performing Organization Address City/[facility] Cent[facility]ode Phone Number [address] [address] aPTT (12/26/2018 1:52 PM CDT)Only the most recent of6 resultswithin the time period is included. PTT 35.2 22.5 - 36.0 seconds [facility] Specimen Blood Performing Organization Address City/[facility]/Zipcode Phone Number [address] [address] [phone] CENTER Prothrombin time/INR (12/26/2018 1:52 PM CDT)Only the most recent of3 resultswithin the time period is included. Protime 14.5 11.7 - 14.7 seconds [facility] INR 1.1 <=5.9 [facility] Specimen Blood Narrative Performed At RECOMMENDED COUMADIN/WARFARIN INR THERAPY [facility] RANGES STANDARD DOSE: 2.0 - 3.0 Includes: PROPHYLAXIS for venous thrombosis, systemic embolization; TREATMENT for venous thrombosis and/or pulmonary embolus. HIGH RISK: Target INR is 2.5-3.5 for patients with mechanical heart valves. Performing Organization Address [facility] Centercoks Phone Number [address] [phone] [place] CBC (Hemogram only) (12/26/2018 1:52 PM CDT) WBC 8.2 3.5 - 10.5 K/L [facility] RBC 4.78 4.63 - 6.08 M/L [facility] Hemoglobin 15.3 13.7 - 17.5 GM/DL [facility] Hematocrit 44.4 40.1 - 51.0 % [facility] MCV 92.9 (H) 79.0 - 92.2 fL [facility] MCH 32.0 25.7 - 32.2 pg [facility] MCHC 34.5 32.3 - 36.5 GM/DL [facility] RDW 11.9 11.6 - 14.4 % [facility] Platelets 281 150 - 450 K/CU MM [facility] MPV 9.5 9.4 - 12.4 fL [facility] nRBC 0 0 - 0 /100 WBC [facility] Specimen Blood Performing Organization Address City/[facility] Centercode Phone Number [facility] [place] [address] [place] [address] [place] EKG-SCANNED (12/13/2018 8:11 AM CDT) Narrative Performed At RHYTHM STRIP - SCAN (10/30/2018 11:32 AM LITHOGRAPHING MACHINE OPERATOR) Narrative Performed At Magnesium (10/17/2018 2:32 AM LITHOGRAPHING MACHINE OPERATOR)Only the most recent of3 resultswithin the time period is included. Magnesium 1.7 1.6 - 2.6 mg/dL [facility] Specimen Blood Performing Organization Address [facility]/Zipcode Phone Number [facility] [place] [address] [place] [phone] CENTER Platelet count (10/14/2018 9:57 PM LITHOGRAPHING MACHINE OPERATOR)Only the most recent of3 resultswithin the time period is included. Platelets 205 150 - 450 K/CU MM [facility] Specimen Blood Performing Organization Address [facility] Centercode Phone Number [address] [address] [phone] CENTER Anaerobic culture (10/14/2018 4:31 PM LITHOGRAPHING MACHINE OPERATOR)Only the most recent of3 resultswithin the time period is included. Result BACTEROIDES FRAGILIS GROUP (A) [facility] Result CLOSTRIDIUM PERFRINGENS (A) [facility] Specimen Abscess Narrative Performed At Anaerobic organisms of more than 3 types. No [facility] further work up performed. Performing Organization Address [facility] Cent[facility]oks Phone Number [address] [address] [phone] [place] Surgically obtained culture + gram stain (10/14/2018 4:31 PM LITHOGRAPHING MACHINE OPERATOR)Only the most recent of3 resultswithin the time period is included. Result HAFNIA ALVEI (A) [facility] Result ENTEROBACTER CLOACAE (A) [facility] Result ENTEROBACTER CLOACAE [facility] (A)Comment: of a second type [facility]ENTER Gram Stain Result 1+ WBCs [facility] Gram Stain Result No organisms seen [facility] Specimen Abscess Organism Antibiotic Method Susceptibility Hafnia alvei Amikacin <=2: Susceptible Hafnia alvei Ampicillin + Sulbactam <=2: Resistant Hafnia alvei Aztreonam <=1: Susceptible Hafnia alvei Cefepime <=1: Susceptible Hafnia alvei Cefoxitin <=4: Resistant Hafnia alvei Ceftazidime 2: Susceptible Hafnia alvei Ceftriaxone <=1: Susceptible Hafnia alvei Ertapenem <=0.5: Susceptible Hafnia alvei Gentamicin <=1: Susceptible Hafnia alvei Levofloxacin <=0.12: Susceptible Hafnia alvei Meropenem <=0.25: Susceptible Hafnia alvei Piperacillin + Tazobactam 8: Susceptible Hafnia alvei Tetracycline 2: Susceptible Hafnia alvei Tobramycin <=1: Susceptible Hafnia alvei Trimethoprim + Sulfamethoxazole <=20: Susceptible Enterobacter cloacae Amikacin <=2: Susceptible Enterobacter cloacae Aztreonam <=1: Susceptible Enterobacter cloacae Cefepime <=1: Susceptible Enterobacter cloacae Cefoxitin >=64: Resistant Enterobacter cloacae Ceftazidime <=1: Susceptible Enterobacter cloacae Ceftriaxone <=1: Susceptible Enterobacter cloacae Ertapenem <=0.5: Susceptible Enterobacter cloacae Gentamicin <=1: Susceptible Enterobacter cloacae Levofloxacin <=0.12: Susceptible Enterobacter cloacae Meropenem <=0.25: Susceptible Enterobacter cloacae Tetracycline 2: Susceptible Enterobacter cloacae Tobramycin <=1: Susceptible Enterobacter cloacae Trimethoprim + Sulfamethoxazole <=20: Susceptible Enterobacter cloacae Amikacin <=2: Susceptible Enterobacter cloacae Aztreonam <=1: Susceptible Enterobacter cloacae Cefepime <=1: Susceptible Enterobacter cloacae Cefoxitin 32: Resistant Enterobacter cloacae Ceftazidime <=1: Susceptible Enterobacter cloacae Ceftriaxone <=1: Susceptible Enterobacter cloacae Ertapenem <=0.5: Susceptible Enterobacter cloacae Gentamicin <=1: Susceptible Enterobacter cloacae Levofloxacin <=0.12: Susceptible Enterobacter cloacae Meropenem <=0.25: Susceptible Enterobacter cloacae Piperacillin + Tazobactam <=4: Susceptible Enterobacter cloacae Tetracycline 2: Susceptible Enterobacter cloacae Tobramycin <=1: Susceptible Enterobacter cloacae Trimethoprim + Sulfamethoxazole <=20: Susceptible Performing Organization Address City/State/Zipcode Phone Number [facility] [place] [address] [place] [address] [place] Fungus culture + smear (10/14/2018 4:31 PM LITHOGRAPHING MACHINE OPERATOR)Only the most recent of3 resultswithin the time period is included. Result No fungus isolated in 28 days [facility] Fungus Smear No fungi seen [facility] Specimen Abscess Performing Organization Address City/State/Zipcode Phone Number [address] [address] [phone] [place] Tissue Exam (10/14/2018 3:51 PM LITHOGRAPHING MACHINE OPERATOR) Case Report Surgical Pathology Report Case: [id number] [facility] Authorizing Provider:Blair Flowers MDCollected: 10/14/2018 1551 [facility] Ordering Location: [facility] PERIOPERATIVE Received: 10/15/2018 0742 SERVICES Pathologist: Sp Cedillo MD Specimens: A) - Abscess, ANTERIOR ABDOMINAL WALL ABSCESS B) - Large Intestine, Colon - Rectosigmoid, Rectosigmoid DIAGNOSIS A. SOFT TISSUE, LABELED "ANTERIOR ABDOMINAL WALL ABSCESS", EXCISION : [facility] CHRONICALLY INFLAMED SOFT TISSUE. [facility] NEGATIVE FOR MALIGNANCY. B. RECTOSIGMOID, LOWER ANTERIOR RESECTION: COLON WITH SEROSAL ADHESIONS, DIVERTICULITIS, AND ABSCESS FORMATION. NEGATIVE FOR GRANULOMAS, DYSPLASIA, OR INVASIVE CARCINOMA. SURGICAL MARGINS ARE VIABLE. Signing Pathologist Direct Phone Line: [phone] CPT Code(s) 69900, 81168 [facility] CLINICAL HISTORY Diverticulitis of large [facility] intestine with abscess and [facility] without bleeding SPECIMEN SOURCE A. Anterior abdominal wall [facility] abscess. B. Rectosigmoid [facility] GROSS DESCRIPTION Specimens are received in two containers of formalin both labeled with the patient's information. [facility] Specimen A: Labeled "anterior abdominal wall abscess" consists of two irregular fragments of kemp-salazar soft tissue measuring 0.5 and 0.8 cm, submitted entirely in A1. Specimen B: Labeled "rectosigmoid" consists of a ragged segment of descending colon that is not oriented measuring 27 cm in length and ranging in circumference from 2 to 4.5 cm. The serosa and fat are t an and hemorrhagic with numerous adhesions. The colon is sectioned showing multiple diverticula that all grossly appear to be intact. There are multiple subserosal abscess formations throughout the spec imen measuring no more than 0.5 cm in greatest dimension. No masses are seen. No other areas of suspicion are seen. Section code: B1, B2, marginS en face; B3, B4, abscess formations; B5-B8, diverticula. CG/ew MICROSCOPIC DESCRIPTION A-B: Performed [facility] Specimen Tissue Tissue - Rectosigmoid structure (body structure) Performing Organization Address [facility] Centercode Phone Number [address] [address] CENTER PT/aPTT (10/14/2018 11:07 AM LITHOGRAPHING MACHINE OPERATOR) Protime 14.8 (H) 11.7 - 14.7 seconds [facility] INR 1.2 <=5.9 [facility] PTT 37.4 (H) 22.5 - 36.0 seconds [facility] Specimen Blood Narrative Performed At RECOMMENDED COUMADIN/WARFARIN INR THERAPY [facility] RANGES STANDARD DOSE: 2.0 - 3.0 Includes: PROPHYLAXIS for venous thrombosis, systemic embolization; TREATMENT for venous thrombosis and/or pulmonary embolus. HIGH RISK: Target INR is 2.5-3.5 for patients with mechanical heart valves. Performing Organization Address [facility] Centercode Phone Number [address] [address] C[place] Hemoglobin and hematocrit (10/14/2018 11:07 AM LITHOGRAPHING MACHINE OPERATOR) Hemoglobin 14.5 13.7 - 17.5 GM/DL [facility] Hematocrit 41.9 40.1 - 51.0 % [facility] Specimen Blood Performing Organization Address [facility] Centercode Phone Number [address] [phone] CENTER Glucose (10/14/2018 11:07 AM LITHOGRAPHING MACHINE OPERATOR) Glucose 113 (H) 70 - 105 mg/dL [facility] Specimen Blood Narrative Performed At [facility] Performing Organization Address City/State/Zipcode Phone Number [address] [phone] CENTER Electrolytes (10/14/2018 11:07 AM LITHOGRAPHING MACHINE OPERATOR)Only the most recent of2 resultswithin the time period is included. Sodium 138 136 - 145 meq/L [facility] Potassium 4.0 3.5 - 5.1 meq/L [facility] Chloride 102 98 - 107 meq/L [facility] CO2 24 22 - 29 meq/L [facility] Specimen Blood Narrative Performed At [facility] Performing Organization Address [facility] Centercode Phone Number [address] [address] CENTER BUN and Creatinine (10/09/2018 2:42 PM LITHOGRAPHING MACHINE OPERATOR) BUN 6 (L) 7 - 21 mg/dL [facility] Creatinine 0.67Comment: Specimen 0.57 - 1.25 mg/dL [facility] slightly hemolyzed [facility] EGFR 121Comment: ESTIMATED GFR IS mL/min/1.73 sq m [facility] NOT ACCURATE CREATININE [facility] CENTER CLEARANCE IN PREDICTING GLOMERULAR FILTRATION RATE. ESTIMATED GFR IS NOT APPLICABLE FOR DIALYSIS PATIENTS. Specimen Blood Performing Organization Address City/[facility]/Zipcode Phone Number [address] [phone] CENTER Hemoglobin (10/09/2018 2:42 PM LITHOGRAPHING MACHINE OPERATOR) Hemoglobin 14.5 13.7 - 17.5 GM/DL [facility] Specimen Blood Performing Organization Address City/State/Zipcode Phone Number [facility] [place] [address] [place] [address] CENTER Comprehensive metabolic panel (10/09/2018 2:42 PM LITHOGRAPHING MACHINE OPERATOR) Protein, Total 7.7Comment: Specimen 6.0 - 8.3 gm/dL [facility] slightly hemolyzed [facility] Albumin 3.8Comment: Specimen 3.5 - 5.0 g/dL [facility] slightly hemolyzed [facility] Alkaline Phosphatase 54 40 - 150 U/L [facility] Total Bilirubin 1.0Comment: Specimen 0.2 - 1.2 mg/dL [facility] hemolyzed [facility] Sodium 132 (L) 136 - 145 meq/L [facility] Potassium 4.2Comment: Specimen 3.5 - 5.1 meq/L [facility] 98 - 107 meq/L [facility] CO2 23 22 - 29 meq/L [facility] BUN 6 (L) 7 - 21 mg/dL [facility] Creatinine 0.68Comment: Specimen 0.57 - 1.25 mg/dL [facility] hemolyzed [facility] Glucose 87 70 - 105 mg/dL [facility] Calcium 9.6 8.4 - 10.2 mg/dL [facility] AST 30Comment: Specimen 5 - 34 U/L [facility] slightly hemolyzed [facility] ALT 22Comment: Specimen 6 - 55 U/L [facility] hemolyzed [facility] EGFR 119Comment: ESTIMATED mL/min/1.73 sq m [facility] GFR IS NOT ACCURATE [facility] CREATININE CLEARANCE IN PREDICTING GLOMERULAR FILTRATION RATE. ESTIMATED GFR IS NOT APPLICABLE FOR DIALYSIS PATIENTS. Specimen Blood Performing Organization Address City/State/Zipcode Phone Number [facility] [place] [place] [address] [place] [address] CENTER after 12/28/2017 Insurance Payer Benefit Plan / Group Subscriber ID Type Phone Address [employer] H[employer] POS QPOS xxxxxxxxx HMO/POS Advance Directives For more information, please contact:[address] [phone] Code Status Date Activated Date Inactivated Comments Full Code 12/26/2018 10:07 PM 12/28/2018 6:57 PM This code status was determined by: Patient Full Code 10/14/2018 10:55 PM 12/26/2018 12:42 PM This code status was determined by: Patient
--- OUTSIDE RECORDS SUMMARY | 2018-12-29 10:30 | XMS REPORT ---
:1960 Author Organization [facility] Address [address] [place] [address] Dr. De La Cruz [address] [place] [id number] Care Team Providers Name Role Phone FLOWERSWILLIAM FRANCES ALDO Unavailable Unavailable Problems This patient has no known problems. Allergies, Adverse Reactions, Alerts This patient has no known allergies or adverse reactions. Medications This patient has no known medications. Results Test Description Test Time Test Comments Text Results Atomic Results Result Comments CBC W/PLT COUNT & AUTO DIFFERENTIAL 2018-12-28 12:15:00 Test Item Value Reference Range Comments WHITE BLOOD CELL COUNT (BEAKER) (test bapb=307) 7.1 K/ L 3.5-10.5 RED BLOOD CELL COUNT (BEAKER) (test tkag=894) 4.09 M/ L 4.63-6.08 HEMOGLOBIN (BEAKER) (test rwjk=030) 13.0 GM/DL 13.7-17.5 HEMATOCRIT (BEAKER) (test orux=260) 39.3 % 40.1-51.0 MEAN CORPUSCULAR VOLUME (BEAKER) (test gwxz=986) 96.1 fL 79.0-92.2 MEAN CORPUSCULAR HEMOGLOBIN (BEAKER) (test feti=497) 31.8 pg 25.7-32.2 MEAN CORPUSCULAR HEMOGLOBIN CONC (BEAKER) (test xyvr=732) 33.1 GM/DL 32.3- 36.5 RED CELL DISTRIBUTION WIDTH (BEAKER) (test hzhc=270) 12.1 % 11.6-14.4 PLATELET COUNT (BEAKER) (test yhzj=011) 194 K/CU MM 150-450 MEAN PLATELET VOLUME (BEAKER) (test ubhf=857) 9.6 fL 9.4-12.4 NUCLEATED RED BLOOD CELLS (BEAKER) (test rvfe=626) 0 /100 WBC 0-0 NEUTROPHILS RELATIVE PERCENT (BEAKER) (test cmed=814) 75 % LYMPHOCYTES RELATIVE PERCENT (BEAKER) (test duxl=773) 11 % MONOCYTES RELATIVE PERCENT (BEAKER) (test gear=099) 9 % EOSINOPHILS RELATIVE PERCENT (BEAKER) (test aswj=076) 3 % BASOPHILS RELATIVE PERCENT (BEAKER) (test eexh=482) 1 % NEUTROPHILS ABSOLUTE COUNT (BEAKER) (test dhzz=274) 5.37 K/ L 1.78-5.38 LYMPHOCYTES ABSOLUTE COUNT (BEAKER) (test eqep=907) 0.81 K/ L 1.32-3.57 MONOCYTES ABSOLUTE COUNT (BEAKER) (test xucv=584) 0.67 K/ L 0.30-0.82 EOSINOPHILS ABSOLUTE COUNT (BEAKER) (test rjjc=382) 0.18 K/ L 0.04-0.54 BASOPHILS ABSOLUTE COUNT (BEAKER) (test kgsr=380) 0.04 K/ L 0.01-0.08 IMMATURE GRANULOCYTES-RELATIVE PERCENT (BEAKER) (test 1 % 0-1 yxrm=7196) BASIC METABOLIC [id number] 07:52:00 Test Item Value Reference Range Comments SODIUM (BEAKER) (test 133 meq/L 136-145 rdbc=211) POTASSIUM (BEAKER) (test 3.5 meq/L 3.5-5.1 dpsz=416) CHLORIDE (BEAKER) (test 100 meq/L 98-107 dgwp=736) CO2 (BEAKER) (test 25 meq/L 22-29 ahic=813) BLOOD UREA NITROGEN 7 mg/dL 7-21 (BEAKER) (test iqii=147) CREATININE (BEAKER) (test 0.63 mg/dL 0.57-1.25 fmff=518) GLUCOSE RANDOM (BEAKER) 101 mg/dL 70-105 (test aifq=501) CALCIUM (BEAKER) (test 8.8 mg/dL 8.4-10.2 txtq=238) EGFR (BEAKER) (test 130 mL/min/1.73 sq m ESTIMATED GFR IS NOT frow=3431) ACCURATE CREATININE CLEARANCE IN PREDICTING GLOMERULAR FILTRATION RATE. ESTIMATED GFR IS NOT APPLICABLE FOR DIALYSIS PATIENTS. BASIC METABOLIC [id number] 07:01:00 Test Item Value Reference Range Comments SODIUM (BEAKER) (test 129 meq/L 136-145 mzba=405) POTASSIUM (BEAKER) (test 3.9 meq/L 3.5-5.1 ynzd=764) CHLORIDE (BEAKER) (test 96 meq/L 98-107 gkft=470) CO2 (BEAKER) (test 26 meq/L 22-29 gpff=181) BLOOD UREA NITROGEN 7 mg/dL 7-21 (BEAKER) (test ykxm=272) CREATININE (BEAKER) (test 0.69 mg/dL 0.57-1.25 niwq=167) GLUCOSE RANDOM (BEAKER) 136 mg/dL 70-105 (test wqrz=349) CALCIUM (BEAKER) (test 9.2 mg/dL 8.4-10.2 axaq=099) EGFR (BEAKER) (test 117 mL/min/1.73 sq m ESTIMATED GFR IS NOT oesh=4639) ACCURATE CREATININE CLEARANCE IN PREDICTING GLOMERULAR FILTRATION RATE. ESTIMATED GFR IS NOT APPLICABLE FOR DIALYSIS PATIENTS. BASIC METABOLIC [id number] 15:00:00 Test Item Value Reference Range Comments SODIUM (BEAKER) (test 134 meq/L 136-145 eend=974) POTASSIUM (BEAKER) (test 4.2 meq/L 3.5-5.1 lvfc=078) CHLORIDE (BEAKER) (test 100 meq/L 98-107 uapk=785) CO2 (BEAKER) (test 24 meq/L 22-29 cqxm=563) BLOOD UREA NITROGEN 8 mg/dL 7-21 (BEAKER) (test deuy=974) CREATININE (BEAKER) (test 0.71 mg/dL 0.57-1.25 oczk=012) GLUCOSE RANDOM (BEAKER) 104 mg/dL 70-105 (test zlxm=794) CALCIUM (BEAKER) (test 9.7 mg/dL 8.4-10.2 wkzv=860) EGFR (BEAKER) (test 113 mL/min/1.73 sq m ESTIMATED GFR IS NOT zzug=1047) ACCURATE CREATININE CLEARANCE IN PREDICTING GLOMERULAR FILTRATION RATE. ESTIMATED GFR IS NOT APPLICABLE FOR DIALYSIS PATIENTS. PROTHROMBIN TIME/[id number] 14:23:00 Test Item Value Reference Range Comments PROTIME (BEAKER) (test redr=339) 14.5 seconds 11.7-14.7 INR (BEAKER) (test dwxr=315) 1.1 <=5.9 RECOMMENDED COUMADIN/WARFARIN INR THERAPY RANGESSTANDARD DOSE: 2.0 - 3.0 Includes: PROPHYLAXIS forvenous thrombosis, systemic embolization; TREATMENT for venous thrombosis and/or pulmonary embolus.HIGH RISK: Target INR is 2.5-3.5 for patients with mechanical heart valves.[id number] 14:23:00 Test Item Value Reference Range Comments PARTIAL THROMBOPLASTIN TIME (BEAKER) (test 35.2 seconds 22.5-36.0 rexr=580) CBC (HEMOGRAM ONLY)2018-12-26 14:09:00 Test Item Value Reference Range Comments WHITE BLOOD CELL COUNT (BEAKER) (test tsou=374) 8.2 K/ L 3.5-10.5 RED BLOOD CELL COUNT (BEAKER) (test tsye=434) 4.78 M/ L 4.63-6.08 HEMOGLOBIN (BEAKER) (test afgb=967) 15.3 GM/DL 13.7-17.5 HEMATOCRIT (BEAKER) (test wall=454) 44.4 % 40.1-51.0 MEAN CORPUSCULAR VOLUME (BEAKER) (test dgba=871) 92.9 fL 79.0-92.2 MEAN CORPUSCULAR HEMOGLOBIN (BEAKER) (test 32.0 pg 25.7-32.2 hxvy=942) MEAN CORPUSCULAR HEMOGLOBIN CONC (BEAKER) (test 34.5 GM/DL 32.3-36.5 smjb=292) RED CELL DISTRIBUTION WIDTH (BEAKER) (test 11.9 % 11.6-14.4 pjbd=876) PLATELET COUNT (BEAKER) (test vzps=926) 281 K/CU MM 150-450 MEAN PLATELET VOLUME (BEAKER) (test dnao=573) 9.5 fL 9.4-12.4 NUCLEATED RED BLOOD CELLS (BEAKER) (test 0 /100 WBC 0-0 oyst=972) POCT-GLUCOSE [id number] 14:00:00 Test Item Value Reference Range Comments POC-GLUCOSE METER (BEAKER) 113 mg/dL 70-[address] [facility] [address] [place] [address] (test lqlo=7935) [facility] [address] FUNGUS CULTURE + [id number] 18:31:00 Test Item Value Reference Range Comments CULTURE (BEAKER) (test No fungus isolated in 28 days ljch=0449) FUNGUS SMEAR (BEAKER) (test No fungi seen xefg=1656) FUNGUS CULTURE + [id number] 18:31:00 Test Item Value Reference Range Comments CULTURE (BEAKER) (test No fungus isolated in 28 days olwx=3846) FUNGUS SMEAR (BEAKER) (test No fungi seen lbuh=6050) FUNGUS CULTURE + [id number] 18:31:00 Test Item Value Reference Range Comments CULTURE (BEAKER) (test No fungus isolated in 28 days nyyu=9914) FUNGUS SMEAR (BEAKER) (test No fungi seen xbsj=2103) ANAEROBIC [id number] 07:32:00 Test Item Value Reference Range Comments CULTURE (BEAKER) (test From Broth Only Same organism has dbdq=5159) been isolated from culture(s) of the same body site and collection date. Repeat identification performed only after consultation with the clinical microbiology laboratory.Refer to previous culture ofClostridium perfringens ANAEROBIC [id number] 07:29:00 Test Item Value Reference Range Comments CULTURE (BEAKER) (test egjj=0428) <1+ Clostridium perfringens Anaerobic organisms of more than 3 types. No further work up performed.SURGICALLY OBTAINED CULTURE + GRAM [id number] 14:32:00 Test Item Value Reference Range Comments CULTURE (BEAKER) (test <1+ Lactobacillus species ccyt=9199) GRAM STAIN RESULT <1+ WBCs (BEAKER) (test hgjt=9933) GRAM STAIN RESULT No organisms seen (BEAKER) (test wurr=84207) SURGICALLY OBTAINED CULTURE + GRAM [id number] 14:30:00 Test Item Value Reference Range Comments CULTURE (BEAKER) (test From Broth Only Hafnia ygno=4491) alvei GRAM STAIN RESULT <1+ WBCs (BEAKER) (test ssui=2063) GRAM STAIN RESULT No organisms seen (BEAKER) (test aecz=157942) ANAEROBIC [id number] 05:28:00 Test Item Value Reference Range Comments CULTURE (BEAKER) (test lizc=6965) No anaerobes isolated SURGICALLY OBTAINED CULTURE + GRAM [id number] 12:17:00 Test Item Value Reference Range Comments CULTURE (BEAKER) (test HAFNIA ALVEI <1+ Hafnia alvei ivfp=5075) Amikacin (test code=1) Ampicillin + Sulbactam (test code=6) Aztreonam (test code=32) Cefepime (test code=51) Cefoxitin (test code=68) Ceftazidime (test code=27) Ceftriaxone (test code=52) Ertapenem (test code=38) Gentamicin (test code=18) Levofloxacin (test code=22) Meropenem (test code=34) Nitrofurantoin (test code=23) Piperacillin + Tazobactam (test code=29) Tetracycline (test code=2) Tobramycin (test code=25) Trimethoprim + Sulfamethoxazole (test code=47) CULTURE (BEAKER) (test ENTEROBACTER CLOACAE <1+ Enterobacter fccz=9572) cloacae Amikacin (test code=1) Aztreonam (test code=32) Cefepime (test code=51) Cefoxitin (test code=68) Ceftazidime (test code=27) Ceftriaxone (test code=52) Ertapenem (test code=38) Gentamicin (test code=18) Levofloxacin (test code=22) Meropenem (test code=34) Tetracycline (test code=2) Tobramycin (test code=25) Trimethoprim + Sulfamethoxazole (test code=47) CULTURE (BEAKER) (test ENTEROBACTER CLOACAE <1+ Enterobacter ntak=6995) cloacaeof a second type Amikacin (test code=1) Aztreonam (test code=32) Cefepime (test code=51) Cefoxitin (test code=68) Ceftazidime (test code=27) Ceftriaxone (test code=52) Ertapenem (test code=38) Gentamicin (test code=18) Levofloxacin (test code=22) Meropenem (test code=34) Nitrofurantoin (test code=23) Piperacillin + Tazobactam (test code=29) Tetracycline (test code=2) Tobramycin (test code=25) Trimethoprim + Sulfamethoxazole (test code=47) GRAM STAIN RESULT (BEAKER) 1+ WBCs (test pkzn=2424) GRAM STAIN RESULT (BEAKER) No organisms seen (test iffx=154695) [id number] 03:38:00 Test Item Value Reference Range Comments MAGNESIUM (BEAKER) (test cbgq=829) 1.7 mg/dL 1.6-2.6 BASIC METABOLIC [id number] 03:38:00 Test Item Value Reference Range Comments SODIUM (BEAKER) (test 131 meq/L 136-145 bjxa=167) POTASSIUM (BEAKER) (test 3.1 meq/L 3.5-5.1 aaxf=786) CHLORIDE (BEAKER) (test 95 meq/L 98-107 ivnj=936) CO2 (BEAKER) (test 29 meq/L 22-29 jopm=210) BLOOD UREA NITROGEN 10 mg/dL 7-21 (BEAKER) (test soqp=739) CREATININE (BEAKER) (test 0.75 mg/dL 0.57-1.25 ehlx=164) GLUCOSE RANDOM (BEAKER) 96 mg/dL 70-105 (test qurw=560) CALCIUM (BEAKER) (test 8.9 mg/dL 8.4-10.2 mwnj=276) EGFR (BEAKER) (test 106 mL/min/1.73 sq m ESTIMATED GFR IS NOT nykp=7616) ACCURATE CREATININE CLEARANCE IN PREDICTING GLOMERULAR FILTRATION RATE. ESTIMATED GFR IS NOT APPLICABLE FOR DIALYSIS PATIENTS. PROTHROMBIN TIME/[id number] 03:32:00 Test Item Value Reference Range Comments PROTIME (BEAKER) (test zaop=508) 14.1 seconds 11.7-14.7 INR (BEAKER) (test qfpy=574) 1.1 <=5.9 RECOMMENDED COUMADIN/WARFARIN INR THERAPY RANGESSTANDARD DOSE: 2.0 - 3.0 Includes: PROPHYLAXIS forvenous thrombosis, systemic embolization; TREATMENT for venous thrombosis and/or pulmonary embolus.HIGH RISK: Target INR is 2.5-3.5 for patients with mechanical heart valves.CBC W/PLT COUNT & AUTO [id number] 03:15:00 Test Item Value Reference Range Comments WHITE BLOOD CELL COUNT (BEAKER) (test ejhb=016) 7.8 K/ L 3.5-10.5 RED BLOOD CELL COUNT (BEAKER) (test sysa=065) 3.43 M/ L 4.63-6.08 HEMOGLOBIN (BEAKER) (test bwid=204) 11.4 GM/DL 13.7-17.5 HEMATOCRIT (BEAKER) (test zidh=860) 33.9 % 40.1-51.0 MEAN CORPUSCULAR VOLUME (BEAKER) (test eqbn=985) 98.8 fL 79.0-92.2 MEAN CORPUSCULAR HEMOGLOBIN (BEAKER) (test 33.2 pg 25.7-32.2 eugp=851) MEAN CORPUSCULAR HEMOGLOBIN CONC (BEAKER) (test 33.6 GM/DL 32.3-36.5 wfdy=146) RED CELL DISTRIBUTION WIDTH (BEAKER) (test 14.2 % 11.6-14.4 tzcl=077) PLATELET COUNT (BEAKER) (test fsyw=671) 188 K/CU MM 150-450 MEAN PLATELET VOLUME (BEAKER) (test zhaf=814) 9.6 fL 9.4-12.4 NUCLEATED RED BLOOD CELLS (BEAKER) (test 0 /100 WBC 0-0 knhr=184) NEUTROPHILS RELATIVE PERCENT (BEAKER) (test 76 % etin=836) LYMPHOCYTES RELATIVE PERCENT (BEAKER) (test 13 % cbzr=888) MONOCYTES RELATIVE PERCENT (BEAKER) (test 8 % gyld=460) EOSINOPHILS RELATIVE PERCENT (BEAKER) (test 1 % ggok=407) BASOPHILS RELATIVE PERCENT (BEAKER) (test 1 % dzhv=643) NEUTROPHILS ABSOLUTE COUNT (BEAKER) (test 5.93 K/ L 1.78-5.38 bmpy=357) LYMPHOCYTES ABSOLUTE COUNT (BEAKER) (test 1.00 K/ L 1.32-3.57 eziv=028) MONOCYTES ABSOLUTE COUNT (BEAKER) (test 0.60 K/ L 0.30-0.82 mjzg=257) EOSINOPHILS ABSOLUTE COUNT (BEAKER) (test 0.09 K/ L 0.04-0.54 vhvs=617) BASOPHILS ABSOLUTE COUNT (BEAKER) (test 0.04 K/ L 0.01-0.08 qxyr=997) IMMATURE GRANULOCYTES-RELATIVE PERCENT (BEAKER) 2 % 0-1 (test cisy=2995) PROTHROMBIN TIME/[id number] 17:13:00 Test Item Value Reference Range Comments PROTIME (BEAKER) (test ddys=266) 14.4 seconds 11.7-14.7 INR (BEAKER) (test lpko=100) 1.1 <=5.9 RECOMMENDED COUMADIN/WARFARIN INR THERAPY RANGESSTANDARD DOSE: 2.0 - 3.0 Includes: PROPHYLAXIS forvenous thrombosis, systemic embolization; TREATMENT for venous thrombosis and/or pulmonary embolus.HIGH RISK: Target INR is 2.5-3.5 for patients with mechanical heart valves.TISSUE [id number] 13:56: 00Surgical Pathology Report Case: [id number] Authorizing Provider: William Flowers MD Collected : 10/14/2018 1551 Ordering Location: [facility] Received: 10/15/2018 0742 SERVICES Pathologist: Sp Cedillo MD Specimens: A) - Abscess, ANTERIOR ABDOMINAL WALL ABSCESS B) -Large Intestine, Colon - Rectosigmoid, Rectosigmoid A. SOFT TISSUE, LABELED "ANTERIOR ABDOMINAL WALL ABSCESS", EXCISION:CHRONICALLY INFLAMED SOFT TISSUE.NEGATIVE FOR MALIGNANCY.B. RECTOSIGMOID, LOWER ANTERIOR RESECTION: COLON WITH SEROSAL ADHESIONS, DIVERTICULITIS, AND ABSCESS FORMATION.NEGATIVE FOR GRANULOMAS, DYSPLASIA, OR INVASIVE CARCINOMA.SURGICAL MARGINS ARE VIABLE. Signing Pathologist Direct Phone Line: [phone] signed by Sp Cedillo MD on 10/16/2018 at 1:56 [id number], [id number] of large intestine with abscess and withoutbleedingA. Anterior abdominal wall abscess. B. Rectosigmoid Specimens are received in two containersof formalin both labeled with the patient's information.Specimen A: Labeled "anterior abdominal wallabscess" consists of two irregular fragments of kemp-salazar soft tissue measuring 0.5 and 0.8 cm, submitted entirely in A1.Specimen B: Labeled "rectosigmoid" consists of a ragged segment of descending colon that is not oriented measuring 27 cm in length and ranging in circumference from 2 to 4.5 cm. The serosa and fat are kemp and hemorrhagic with numerous adhesions. The colon is sectioned showing multiple diverticula that all grossly appear to be intact. There are multiple subserosal abscess formationsthroughout the specimen measuring no more than 0.5 cm in greatest dimension. No masses are seen. No other areas of suspicion are seen.Section code: B1, B2, marginS en face; B3, B4 , abscess formations; B5-B8, diverticula. CG/ew A-B: [id number] 05:05:00 Test Item Value Reference Range Comments MAGNESIUM (BEAKER) (test eupd=348) 2.3 mg/dL 1.6-2.6 BASIC METABOLIC [id number] 05:05:00 Test Item Value Reference Range Comments SODIUM (BEAKER) (test 132 meq/L 136-145 fafw=590) POTASSIUM (BEAKER) (test 3.1 meq/L 3.5-5.1 zacy=313) CHLORIDE (BEAKER) (test 96 meq/L 98-107 vbog=787) CO2 (BEAKER) (test 29 meq/L 22-29 teef=043) BLOOD UREA NITROGEN 8 mg/dL 7-21 (BEAKER) (test djwp=194) CREATININE (BEAKER) (test 0.68 mg/dL 0.57-1.25 ldng=921) GLUCOSE RANDOM (BEAKER) 119 mg/dL 70-105 (test awpr=763) CALCIUM (BEAKER) (test 9.0 mg/dL 8.4-10.2 sibt=439) EGFR (BEAKER) (test 119 mL/min/1.73 sq m ESTIMATED GFR IS NOT fjdb=9431) ACCURATE CREATININE CLEARANCE IN PREDICTING GLOMERULAR FILTRATION RATE. ESTIMATED GFR IS NOT APPLICABLE FOR DIALYSIS PATIENTS. [id number] 04:58:00 Test Item Value Reference Range Comments PARTIAL THROMBOPLASTIN TIME (BEAKER) (test 79.4 seconds 22.5-36.0 mcur=155) CBC W/PLT COUNT & AUTO [id number] 04:51:00 Test Item Value Reference Range Comments WHITE BLOOD CELL COUNT (BEAKER) (test talo=068) 10.7 K/ L 3.5-10.5 RED BLOOD CELL COUNT (BEAKER) (test mwcu=013) 3.92 M/ L 4.63-6.08 HEMOGLOBIN (BEAKER) (test tqee=485) 13.1 GM/DL 13.7-17.5 HEMATOCRIT (BEAKER) (test didt=907) 39.5 % 40.1-51.0 MEAN CORPUSCULAR VOLUME (BEAKER) (test hkdu=897) 100.8 fL 79.0-92.2 MEAN CORPUSCULAR HEMOGLOBIN (BEAKER) (test 33.4 pg 25.7-32.2 rulv=388) MEAN CORPUSCULAR HEMOGLOBIN CONC (BEAKER) (test 33.2 GM/DL 32.3-36.5 fgge=601) RED CELL DISTRIBUTION WIDTH (BEAKER) (test 14.9 % 11.6-14.4 zdzy=209) PLATELET COUNT (BEAKER) (test rqcc=119) 233 K/CU MM 150-450 MEAN PLATELET VOLUME (BEAKER) (test kpzf=990) 9.3 fL 9.4-12.4 NUCLEATED RED BLOOD CELLS (BEAKER) (test 0 /100 WBC 0-0 arlc=216) NEUTROPHILS RELATIVE PERCENT (BEAKER) (test 83 % dfyj=038) LYMPHOCYTES RELATIVE PERCENT (BEAKER) (test 11 % vmlm=283) MONOCYTES RELATIVE PERCENT (BEAKER) (test 5 % wfqe=892) EOSINOPHILS RELATIVE PERCENT (BEAKER) (test 0 % dtts=755) BASOPHILS RELATIVE PERCENT (BEAKER) (test 0 % pcqf=280) NEUTROPHILS ABSOLUTE COUNT (BEAKER) (test 8.90 K/ L 1.78-5.38 vcma=400) LYMPHOCYTES ABSOLUTE COUNT (BEAKER) (test 1.12 K/ L 1.32-3.57 pong=617) MONOCYTES ABSOLUTE COUNT (BEAKER) (test 0.51 K/ L 0.30-0.82 rrpl=219) EOSINOPHILS ABSOLUTE COUNT (BEAKER) (test 0.03 K/ L 0.04-0.54 lysm=596) BASOPHILS ABSOLUTE COUNT (BEAKER) (test 0.02 K/ L 0.01-0.08 jdbs=453) IMMATURE GRANULOCYTES-RELATIVE PERCENT (BEAKER) 1 % 0-1 (test uxhg=3243) [id number] 21:54:00 Test Item Value Reference Range Comments PARTIAL THROMBOPLASTIN TIME (BEAKER) (test 79.0 seconds 22.5-36.0 pdim=814) [id number] 15:02:00 Test Item Value Reference Range Comments PARTIAL THROMBOPLASTIN TIME (BEAKER) (test 52.4 seconds 22.5-36.0 cjqs=830) [id number] 08:32:00 Test Item Value Reference Range Comments PARTIAL THROMBOPLASTIN TIME (BEAKER) (test 51.2 seconds 22.5-36.0 utcf=371) CBC W/PLT COUNT & AUTO [id number] 07:29:00 Test Item Value Reference Range Comments WHITE BLOOD CELL COUNT (BEAKER) (test fveg=803) 7.4 K/ L 3.5-10.5 RED BLOOD CELL COUNT (BEAKER) (test tawi=515) 4.02 M/ L 4.63-6.08 HEMOGLOBIN (BEAKER) (test lnqs=168) 13.3 GM/DL 13.7-17.5 HEMATOCRIT (BEAKER) (test qqxg=610) 40.0 % 40.1-51.0 MEAN CORPUSCULAR VOLUME (BEAKER) (test swah=979) 99.5 fL 79.0-92.2 MEAN CORPUSCULAR HEMOGLOBIN (BEAKER) (test 33.1 pg 25.7-32.2 vqfk=032) MEAN CORPUSCULAR HEMOGLOBIN CONC (BEAKER) (test 33.3 GM/DL 32.3-36.5 faui=808) RED CELL DISTRIBUTION WIDTH (BEAKER) (test 15.4 % 11.6-14.4 imsz=855) PLATELET COUNT (BEAKER) (test fzdg=265) 216 K/CU MM 150-450 MEAN PLATELET VOLUME (BEAKER) (test ryma=207) 9.0 fL 9.4-12.4 NUCLEATED RED BLOOD CELLS (BEAKER) (test 0 /100 WBC 0-0 srxo=471) NEUTROPHILS RELATIVE PERCENT (BEAKER) (test 85 % kqfl=944) LYMPHOCYTES RELATIVE PERCENT (BEAKER) (test 6 % lbdt=522) MONOCYTES RELATIVE PERCENT (BEAKER) (test 8 % yzdg=061) EOSINOPHILS RELATIVE PERCENT (BEAKER) (test 0 % jdhy=966) BASOPHILS RELATIVE PERCENT (BEAKER) (test 0 % haqo=506) NEUTROPHILS ABSOLUTE COUNT (BEAKER) (test 6.23 K/ L 1.78-5.38 tjop=941) LYMPHOCYTES ABSOLUTE COUNT (BEAKER) (test 0.45 K/ L 1.32-3.57 sknq=767) MONOCYTES ABSOLUTE COUNT (BEAKER) (test 0.58 K/ L 0.30-0.82 dubt=467) EOSINOPHILS ABSOLUTE COUNT (BEAKER) (test 0.01 K/ L 0.04-0.54 wcpj=779) BASOPHILS ABSOLUTE COUNT (BEAKER) (test 0.03 K/ L 0.01-0.08 xllw=926) IMMATURE GRANULOCYTES-RELATIVE PERCENT (BEAKER) 1 % 0-1 (test ydvk=0615) [id number] 07:18:00 Test Item Value Reference Range Comments MAGNESIUM (BEAKER) (test 1.5 mg/dL 1.6-2.6 Specimen slightly hemolyzed vanb=939) BASIC METABOLIC [id number] 07:18:00 Test Item Value Reference Range Comments SODIUM (BEAKER) (test 134 meq/L 136-145 bsre=292) POTASSIUM (BEAKER) (test 3.6 meq/L 3.5-5.1 Specimen slightly ltfr=797) hemolyzed CHLORIDE (BEAKER) (test 102 meq/L 98-107 pkel=727) CO2 (BEAKER) (test 24 meq/L 22-29 gqje=294) BLOOD UREA NITROGEN 7 mg/dL 7-21 (BEAKER) (test fbrx=797) CREATININE (BEAKER) (test 0.62 mg/dL 0.57-1.25 Specimen slightly unmb=773) hemolyzed GLUCOSE RANDOM (BEAKER) 146 mg/dL 70-105 (test yaqd=213) CALCIUM (BEAKER) (test 8.7 mg/dL 8.4-10.2 nslg=416) EGFR (BEAKER) (test 132 mL/min/1.73 sq m ESTIMATED GFR IS NOT yiqq=2738) ACCURATE CREATININE CLEARANCE IN PREDICTING GLOMERULAR FILTRATION RATE. ESTIMATED GFR IS NOT APPLICABLE FOR DIALYSIS PATIENTS. [id number] 22:19:00 Test Item Value Reference Range Comments PARTIAL THROMBOPLASTIN TIME (BEAKER) (test 32.6 seconds 22.5-36.0 chgy=891) Prior to initiating heparinPLATELET [id number] 22:11:00 Test Item Value Reference Range Comments PLATELET COUNT (BEAKER) (test httl=872) 205 K/CU MM 150-450 POCT-GLUCOSE [id number] 20:21:00 Test Item Value Reference Range Comments POC-GLUCOSE METER (BEAKER) 135 mg/dL 70-[address] [facility] [address] (test lila=3369) [facility] [id number] 11:39:00 Test Item Value Reference Range Comments SODIUM (BEAKER) (test hgbt=022) 138 meq/L 136-145 POTASSIUM (BEAKER) (test osak=632) 4.0 meq/L 3.5-5.1 CHLORIDE (BEAKER) (test yuun=651) 102 meq/L 98-107 CO2 (BEAKER) (test tabw=695) 24 meq/L 22-29 Check [id number] 11:39:00 Test Item Value Reference Range Comments GLUCOSE RANDOM (BEAKER) (test admr=234) 113 mg/dL 70-105 Check [id number] 11:33:00 Test Item Value Reference Range Comments PROTIME (BEAKER) (test gngk=443) 14.8 seconds 11.7-14.7 INR (BEAKER) (test oaea=652) 1.2 <=5.9 PARTIAL THROMBOPLASTIN TIME (BEAKER) (test 37.4 seconds 22.5-36.0 uetj=857) RECOMMENDED COUMADIN/WARFARIN INR THERAPY RANGESSTANDARD DOSE: 2.0 - 3.0 Includes: PROPHYLAXIS forvenous thrombosis, systemic embolization; TREATMENT for venous thrombosis and/or pulmonary embolus.HIGH RISK: Target INR is 2.5-3.5 for patients with mechanical heart valves.PLATELET [id number] 11:27:00 Test Item Value Reference Range Comments PLATELET COUNT (BEAKER) (test hzkh=804) 257 K/CU MM 150-450 HEMOGLOBIN AND [id number] 11:27:00 Test Item Value Reference Range Comments HEMOGLOBIN (BEAKER) (test ztgq=365) 14.5 GM/DL 13.7-17.5 HEMATOCRIT (BEAKER) (test tdry=694) 41.9 % 40.1-51.0 POCT-GLUCOSE [id number] 11:16:00 Test Item Value Reference Range Comments POC-GLUCOSE METER (BEAKER) 112 mg/dL 70-[address] [facility] [address] [place] [address] (test ufdz=3618) [facility] [address] CBC W/PLT COUNT & AUTO [id number] 10:17:00 Test Item Value Reference Range Comments WHITE BLOOD CELL COUNT (BEAKER) (test qjuc=995) 8.4 K/ L 3.5-10.5 RED BLOOD CELL COUNT (BEAKER) (test jwvr=570) 4.39 M/ L 4.63-6.08 HEMOGLOBIN (BEAKER) (test jrcs=570) 14.6 GM/DL 13.7-17.5 HEMATOCRIT (BEAKER) (test tmcg=502) 43.4 % 40.1-51.0 MEAN CORPUSCULAR VOLUME (BEAKER) (test guth=748) 98.9 fL 79.0-92.2 MEAN CORPUSCULAR HEMOGLOBIN (BEAKER) (test 33.3 pg 25.7-32.2 hqri=223) MEAN CORPUSCULAR HEMOGLOBIN CONC (BEAKER) (test 33.6 GM/DL 32.3-36.5 ftdt=822) RED CELL DISTRIBUTION WIDTH (BEAKER) (test 15.3 % 11.6-14.4 soup=552) PLATELET COUNT (BEAKER) (test ifhf=381) 191 K/CU MM 150-450 MEAN PLATELET VOLUME (BEAKER) (test odjy=882) 10.0 fL 9.4-12.4 NUCLEATED RED BLOOD CELLS (BEAKER) (test 0 /100 WBC 0-0 dnvg=407) NEUTROPHILS RELATIVE PERCENT (BEAKER) (test 75 % dvyj=712) LYMPHOCYTES RELATIVE PERCENT (BEAKER) (test 13 % qhct=053) MONOCYTES RELATIVE PERCENT (BEAKER) (test 10 % kjqy=740) EOSINOPHILS RELATIVE PERCENT (BEAKER) (test 1 % fwkw=961) BASOPHILS RELATIVE PERCENT (BEAKER) (test 1 % fort=709) NEUTROPHILS ABSOLUTE COUNT (BEAKER) (test 6.33 K/ L 1.78-5.38 wsao=969) LYMPHOCYTES ABSOLUTE COUNT (BEAKER) (test 1.06 K/ L 1.32-3.57 wzti=953) MONOCYTES ABSOLUTE COUNT (BEAKER) (test 0.83 K/ L 0.30-0.82 eclh=324) EOSINOPHILS ABSOLUTE COUNT (BEAKER) (test 0.07 K/ L 0.04-0.54 kdbd=058) BASOPHILS ABSOLUTE COUNT (BEAKER) (test 0.04 K/ L 0.01-0.08 askn=558) IMMATURE GRANULOCYTES-RELATIVE PERCENT (BEAKER) 1 % 0-1 (test mlvy=5332) COMPREHENSIVE METABOLIC [id number] 09:27:00 Test Item Value Reference Range Comments TOTAL PROTEIN (BEAKER) 7.7 gm/dL 6.0-8.3 Specimen slightly (test lycg=128) hemolyzed ALBUMIN (BEAKER) (test 3.8 g/dL 3.5-5.0 Specimen slightly qjcr=3999) hemolyzed ALKALINE PHOSPHATASE 54 U/L 40-150 (BEAKER) (test scyl=637) BILIRUBIN TOTAL (BEAKER) 1.0 mg/dL 0.2-1.2 Specimen slightly (test vgac=229) hemolyzed SODIUM (BEAKER) (test 132 meq/L 136-145 qjzn=342) POTASSIUM (BEAKER) (test 4.2 meq/L 3.5-5.1 Specimen slightly hnbq=390) hemolyzed CHLORIDE (BEAKER) (test 99 meq/L 98-107 aqge=215) CO2 (BEAKER) (test 23 meq/L 22-29 krcb=232) BLOOD UREA NITROGEN 6 mg/dL 7-21 (BEAKER) (test hwdm=446) CREATININE (BEAKER) (test 0.68 mg/dL 0.57-1.25 Specimen slightly rbra=787) hemolyzed GLUCOSE RANDOM (BEAKER) 87 mg/dL 70-105 (test nmpr=365) CALCIUM (BEAKER) (test 9.6 mg/dL 8.4-10.2 fjmh=488) AST (SGOT) (BEAKER) (test 30 U/L 5-34 Specimen slightly wfcl=706) hemolyzed ALT (SGPT) (BEAKER) (test 22 U/L 6-55 Specimen slightly cotk=285) hemolyzed EGFR (BEAKER) (test 119 mL/min/1.73 sq ESTIMATED GFR IS NOT cztx=6335) m ACCURATE CREATININE CLEARANCE IN PREDICTING GLOMERULAR FILTRATION RATE. ESTIMATED GFR IS NOT APPLICABLE FOR DIALYSIS PATIENTS. [id number] 15:55:00 Test Item Value Reference Range Comments SODIUM (BEAKER) (test engs=958) 132 meq/L 136-145 POTASSIUM (BEAKER) (test 4.1 meq/L 3.5-5.1 Specimen slightly hemolyzed tenq=963) CHLORIDE (BEAKER) (test 100 meq/L 98-107 ydnv=567) CO2 (BEAKER) (test npvh=804) 24 meq/L 22-29 BUN AND [id number] 15:55:00 Test Item Value Reference Range Comments BLOOD UREA NITROGEN 6 mg/dL 7-21 (BEAKER) (test oeee=634) CREATININE (BEAKER) (test 0.67 mg/dL 0.57-1.25 Specimen slightly cmta=537) hemolyzed EGFR (BEAKER) (test 121 mL/min/1.73 sq m ESTIMATED GFR IS NOT ckll=0962) ACCURATE CREATININE CLEARANCE IN PREDICTING GLOMERULAR FILTRATION RATE. ESTIMATED GFR IS NOT APPLICABLE FOR DIALYSIS PATIENTS. [id number] 15:33:00 Test Item Value Reference Range Comments HEMOGLOBIN (SERGIOAKER) (test txmj=568) 14.5 GM/DL 13.7-17.5 PLATELET [id number] 15:33:00 Test Item Value Reference Range Comments PLATELET COUNT (SERGIOAKER) (test suhu=987) 197 K/CU MM 150-450
--- NOTE | 2018-12-29 11:57 | ER ---
Nurse's Notes [facility] Name: Hammad Jones Jr Age: 58 yrs Sex: Male : 1960 Arrival Date: 12/29/2018 Time: 10:28 Bed 18 Private MD: Diagnosis: Encounter for issue of repeat prescription Presentation: 12/29 10:36 Presenting complaint: Patient states: pt had an ileostomy reversal on Sunday and was sv discharged yesterday and has been unable to get his [place] filled because the OSCAR# will not go through. c/o abd pain from surgery. Transition of care: patient was not received from another setting of care. Onset of symptoms was December 28, 2018. Care prior to arrival: None. 10:36 Method Of Arrival: Ambulatory sv 10:36 Acuity: RENETTA 4 sv Historical: - Allergies: 10:38 NKA; sv - PMHx: 10:38 Enlarged Heart; Hypertension; sv - PSHx: 10:38 artificial heart valve; diverticulitis abscess tubes x 2; hip replacement x2; sv Assessment: 10:50 Reassessment: pt not in room at this time. em Vital Signs: 10:38 BP 125 / 84; Pulse 87; Resp 18; Pulse Ox 100% ; Weight 88.45 kg; Height 5 ft. 9 in. sv (175.26 cm); Pain 8/10; 10:38 Body Mass Index 28.80 (88.45 kg, 175.26 cm) sv ED Course: 10:28 Patient arrived in ED. as 10:37 Triage completed. sv 10:38 Arm band placed on. sv 10:39 uDncan Parisi PA is PHCP. [facility] 10:39 Bart Drummond MD is Attending Physician. [facility] 11:04 Dhaval Logan LVN is Primary Nurse. em Administered Medications: No medications were administered Outcome: 12:04 Eloped from patient exam room, before seeing physician Time discovered patient gone: em December 29, 2018 at 10:50 12:04 Patient left the ED. em Signatures: Jennifer Shahid RN RN Duncan Parisi PA PA Dhaval Vera LVN WRAP KNITTING MACHINE OPERATOR em Sameera Epstein as Corrections: (The following items were deleted from the chart) 10:39 10:38 Pulse 87bpm; Resp 18bpm; Pulse Ox 100%; 88.45 kg; Height 5 ft. 9 in.; BMI: 28.8; sv Pain 8/10; sv
--- NOTE | 2018-12-29 11:57 | EDPHYS ---
Physician Documentation [facility] Name: Hammad Jones Jr Age: 58 yrs Sex: Male : 1960 Arrival Date: 12/29/2018 Time: 10:28 Bed 18 Private MD: ED Physician Batr Drummond Historical: - Allergies: 12/29 10:38 NKA; sv - PMHx: 10:38 Enlarged Heart; Hypertension; sv - PSHx: 10:38 artificial heart valve; diverticulitis abscess tubes x 2; hip replacement x2; sv Vital Signs: 10:38 BP 125 / 84; Pulse 87; Resp 18; Pulse Ox 100% ; Weight 88.45 kg; Height 5 ft. 9 in. sv (175.26 cm); Pain 8/10; 10:38 Body Mass Index 28.80 (88.45 kg, 175.26 cm) sv MDM: 11:05 ED course: Patient eloped prior to PCP evaluation. estuardom Administered Medications: No medications were administered Disposition: 12/30 08:06 Co-signature as Attending Physician, Bart Drummond MD I agree with the assessment and [facility] plan of care. Disposition: 12/29/18 11:56 Patient left the facility before being seen by provider. Preliminary diagnosis is Encounter for issue of repeat prescription. - Patient left due to other. Signatures: Jennifer Shahid, Bart Jack RN, MD MD cha Mickail, Joel, PA PA Dhaval Sanchez, DAMAGE CUTTER DAMAGE CUTTER em Corrections: (The following items were deleted from the chart) 12/29 11:05 10:47 Patient medically screened. salena robledo 12:04 11:56 12/29/2018 11:56 Patient left the facility before being seen by provider. em Preliminary diagnosis is Encounter for issue of repeat prescription. Reason stated they are leaving due to other. meena
[2018-12-29 12:09] VITALS: BP 125/84; O2SAT 100
== END 2018-12-29 12:04 | disposition left against medical advice (07) ==
LOC: ER 10:24
DX: Z76.0 Encounter for issue of repeat prescription (principal); I10 Essential (primary) hypertension; Z53.21 Procedure and treatment not carried out due to patient leaving prior to being seen by health care provider
CPT/HCPCS: 99281

== ENCOUNTER 2019-05-12 09:01 | Emergency (ER) | payer OTHER ==
--- OUTSIDE RECORDS SUMMARY | 2019-05-12 09:03 | XMS REPORT | Clinical Summary ---
:1960 Author Organization [employer] Address [address] [place] [address] Care Team Providers Name Role Phone Lam Denton MD Primary Care Provider Allergies No Known Allergies Medications Medication Sig Dispensed Refills Start Date End Date Status carvedilol Take 12.5 mg by 0 Active (COREG) 12.5 MG mouth every tablet morning. ferrous sulfate Take 325 mg by 0 Active 325 (65 FE) MG mouth daily tablet with breakfast. latanoprost Administer 1 0 Active (XALATAN) 0.005 drop to both % ophthalmic eyes nightly. solution PARoxetine CR Take 25 mg by 0 Active (PAXIL-CR) 25 MG mouth every 24 hr tablet morning. warfarin Take 5 mg by 0 Active (COUMADIN) 4 MG mouth daily. tablet amLODIPine Take 1 tablet 1 11/10/2018 Active (NORVASC) 5 mg by mouth every tablet morning. acetaminophen-co Take 1-2 0 Discontinued deine (TYLENOL tablets by 9 (Reorder) WITH CODEINE #3) mouth every 4 300-30 mg per (four) hours as tablet needed for moderate pain. SUPREP BOWEL Take 2 Bottles 354 mL 0 10/07/2018 PREP KIT (354 mL total) 9 17.5-3.13-1.6 by mouth once gram recon soln for 1 dose. Take as directed by physician acetaminophen-co Take 1-2 40 tablet 0 10/21/2018 deine (TYLENOL tablets by 9 WITH CODEINE #3) mouth every 4 300-30 mg per (four) hours as tablet needed for moderate pain for up to 10 days. zolpidem Take 1 tablet 15 tablet 0 11/04/2018 (AMBIEN) 5 MG (5 mg total) by 9 tablet mouth nightly as needed for sleep for up to 10 days. acetaminophen-co Take 1-2 40 tablet 0 01/08/2019 deine (TYLENOL tablets by 9 WITH CODEINE #3) mouth every 4 300-30 mg per (four) hours as tablet needed for moderate pain for up to 10 days. 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 03/12/2019 Diverticulitis of large intestine with abscess without bleeding 01/08/2018 Bowel perforation 01/08/2018 Peritoneal abscess 01/08/2018 Encounters Date Type Specialty Care Team Description 03/14/2019 Orders Only General Surgery Kalyan Barahona Incisional hernia Yoel Herzog MD without obstruction or gangrene (Primary Dx) 03/12/2019 Office Visit General Surgery Kalyan Barahona Incisional hernia Yoel Herzog MD without obstruction or gangrene (Primary Dx) 01/15/2019 Orders Only General Surgery Blair Flowers MD 01/08/2019 Telephone General Surgery Paola Aranda 01/07/2019 Telephone General Surgery Paola Aranda 12/31/2018 Office Visit General Surgery Blair Flowers DiverticDylan MD large intestine with Alagugurusamy, abscess without Cindy bleeding (Primary Dx) NYLA Godinez 12/19/2018 Pre-Admit Testing Pre-Admission Blair Flowers Preop testing ( Primary Appointment Testing MD Shon Dx) 12/19/2018 Office Visit General Surgery Blair Flowers DiverticDylan MD large intestine without perforation or abscess without bleeding (Primary Dx) 12/19/2018 Hospital Encounter Radiology Blair Flowers Ileostomy status (HCC) MD Shon 11/25/2018 Orders Only General Surgery Blair Flowers Ileostomy status (HCC) MD Shon (Primary Dx) 11/19/2018 Office Visit General Surgery Blair Flowers DiverticuliRené MD large intestine without perforation or abscess without bleeding (Primary Dx) 11/06/2018 Orders Only General Surgery Blair Flowers MD 11/04/2018 Office Visit General Surgery Alagugurusamy, Diverticulitis of [place] large intestine with Godinez, DEPUTY HEAD-C abscess without bleeding (Primary Dx) 11/04/2018 Orders Only General Surgery Blair Flowers MD 10/25/2018 Office Visit General Surgery Alagugurusamy, Diverticulitis of [place] large intestine with Godinez, DEPUTY HEAD-C abscess without bleeding (Primary Dx) 10/21/2018 Office Visit General Surgery Alagugurusamy, Diverticulitis of [place] large intestine with Godinez, DEPUTY HEAD-C abscess without bleeding (Primary Dx) 10/09/2018 Office Visit General Surgery Alagugurusamy, Diverticulitis of [place] large intestine Godinez, DEPUTY HEAD-C without perforation or Blair Flowers abscess without MD Shon bleeding (Primary Dx) 10/07/2018 Orders Only General Surgery Blair Flowers MD 10/04/2018 Telephone General Surgery Scot Ginger 09/25/2018 Orders Only General Surgery Blair Flowers MD 09/13/2018 Office Visit General Surgery Alagugurusamy, Diverticulitis of [place] large intestine with Godinez, DEPUTY HEAD-C abscess without bleeding (Primary Dx) after 05/11/2018 Family History Medical History Relation Name Comments Diabetes Father Heart disease Father Relation Name Status Comments Father Social History Tobacco Use Types Packs/Day Years Used Date Never Smoker Smokeless Tobacco: Never Used Alcohol Use Drinks/Week oz/Week Comments No 6 Standard drinks or equivalent 6.0 Sex Assigned at Date Recorded Not on file Job Start Date Occupation Industry Not on file Not on file Not on file Travel History Travel Start Travel End No recent travel history available. Last Filed Vital Signs Vital Sign Reading Time Taken Comments Blood Pressure 183/95 12/19/2018 11:58 AM CDT Pulse 91 12/19/2018 11:58 AM CDT Temperature 35.9 C (96.7 F) 12/19/2018 11:58 AM CDT Respiratory Rate 16 12/19/2018 11:58 AM CDT Oxygen Saturation 100% 12/19/2018 11:58 AM CDT Inhaled Oxygen Concentration - - Weight - - Height 175.3 cm (5' 9") 12/19/2018 11:58 AM CDT Body Mass Index - - Plan of Treatment Health Maintenance Due Date Last Done Comments COLONOSCOPY SCREENING 2008 SHINGLES VACCINES (#1) 2008 INFLUENZA VACCINE 04/10/2019 Procedures Procedure Name Priority Date/Time Associated Comments Diagnosis SURGICAL PATHOLOGY Routine 12/26/2018 REQUEST ESTIMATED GFR Routine 12/19/2018 12:24 Results for [...] FROZEN Routine 05/15/2018 5:53 PLASMA PM CDT after 05/11/2018 Results Surgical pathology request (12/26/2018)Only the most recent of3 resultswithin the time period is included. Specimen Tissue Narrative Performed At Estimated GFR (12/19/2018 12:24 PM CDT) Estimated GFR >=90 mL/min/1.73 [facility] Comment: m2 HOSPITAL CatergoryUnitsInterpretation G1 >=90 Normal or high G2 60-89Mildly decreased [id number] to moderately decreased K8q62-44Izbhtthrbb to severely decreased G4 15-29Severely decreased G5 <15Kidney failure The eGFR was calculated using the Chronic Kidney Disease Epidemiology Collaboration (CKD-EPI) equation. Interpretation is based on recommendations of the National Kidney Foundation-Kidney Disease Outcomes Quality Initiative (NKF-KDOQI) published in 2014. Specimen Plasma specimen Performing Organization Address City/State/Zipcode Phone Number [facility] DEPARTMENT OF PATHOLOGY AND [address] [place] [address] GENOMIC MEDICINE [facility] [address] [place] [phone] CBC with platelet and differential (12/19/2018 12:24 PM CDT) WBC 10.52 4.50 - 11.00 [facility] k/uL HOSPITAL RBC 4.95 4.40 - 6.00 [facility] m/uL HOSPITAL HGB 15.8 14.0 - 18.0 [facility] g/dL HOSPITAL HCT 46.6 41.0 - 51.0 % [facility] MCV 94.1 82.0 - 100.[address] [facility] [place] [place] MCH 31.9 27.0 - 34.0 pg [facility] MCHC 33.9 31.0 - 37.0 [facility] g/dL [facility] RDW - [place] 41.6 37.0 - 55.0 [facility] MPV 9.3 8.8 - 13.2 [facility] Platelet count 265 150 - 400 k/uL [facility] Nucleated RBC 0.00 /100 WBC [facility] Neutrophils 73.8 (H) 39.0 - 69.0 % [facility] Lymphocytes 13.0 (L) 25.0 - 45.0 % [facility] Monocytes 9.7 0.0 - 10.0 % [facility] Eosinophils 1.0 0.0 - 5.0 % [facility] Basophils 0.9 0.0 - 1.0 % [facility] Immature granulocytes 1.6 0.0 - 1.0 % [facility] (H)Comment: HOSPITAL "Immature granulocytes" (promyelocytes , myelocytes, metamyelocytes ) Specimen Blood Performing Organization Address City/State/Zipcode Phone Number [facility] DEPARTMENT OF PATHOLOGY AND [address] [place] [phone] Type and screen (12/19/2018 12:24 PM CDT) ABO grouping A [facility] Rh type POS [facility] Antibody screen (gel) NEG [facility] Specimen Blood Performing Organization Address City/State/Zipcode Phone Number [facility] DEPARTMENT OF PATHOLOGY AND [address] [place] [phone] Comprehensive metabolic panel (12/19/2018 12:24 PM CDT) Sodium 135 135 - 148 [facility] mEq/L [facility] Potassium 4.4 3.5 - 5.0 [facility] mEq/L [facility] Chloride 98 98 - 112 mEq/L [facility] CO2 23 (L) 24 - 31 mEq/L [facility] Anion gap 14@ANIO 7 - 15 mEq/L [facility] BUN 8 8 - 23 mg/dL [facility] Creatinine 0.60 (L) 0.70 - 1.20 [facility] mg/dL [facility] Glucose 116 (H) 65 - 99 mg/dL [facility] Calcium 9.5 8.8 - 10.2 [facility] mg/dL [facility] Protein 8.9 (H) 6.3 - 8.3 g/dL [facility] Comment: HOSPITAL Stanley 4.6-7.0 g/dL 1 week 4.4-7.6 g/dL 7 months-1year5.1-7.3 g/dL 1-2 years5.6-7.5 g/dL >3 years6.0-8.0 g/dL 18-150 6.3-8.3 g/dL Albumin 3.5 3.5 - 5.0 g/dL [facility] A/G ratio 0.6 (L) 0.7 - 3.8 [facility] Alkaline phosphatase 104 40 - 129 U/L [facility] AST 36 10 - 50 U/L [facility] ALT 21 5 - 50 U/L [facility] Total bilirubin 1.0 0.0 - 1.2 [facility] mg/dL HOSPITAL Specimen Plasma specimen Performing Organization Address City/State/Zipcode Phone Number [facility] DEPARTMENT OF PATHOLOGY AND [address] [place] [address] GENOMIC MEDICINE [address] [address] [place] Colon Gastrografin Water Soluble Enema (12/19/2018 9:40 AM CDT) Specimen Narrative Performed At EXAMINATION:[place] COLON GASTROGRAFIN WATER SOLUBLE ENEMA RADIANT CLINICAL HISTORY:Z93.2 Ileostomy status, ileostomy status COMPARISON:None. TECHNIQUE:Water-soluble contrast was administered via a rectal tube by gravity under fluoroscopic guidance. Spot radiographs and overhead films were obtained. FLUOROSCOPIC TIME:1.6 minutes IMAGES:24 FINDINGS: Air Hammer Stripper radiograph demonstrates a nonobstructive bowel gas pattern. [...] via the rectum. No contrast leak appreciated. [facility]-[id number] Procedure Note Hm Interface, Radiology Results Incoming - 12/19/2018 10:55 AM CDT EXAMINATION: [place] COLON GASTROGRAFIN WATER SOLUBLE ENEMA CLINICAL HISTORY: Z93.2 Ileostomy status, ileostomy status COMPARISON: None. TECHNIQUE: Water-soluble contrast was administered via a rectal tube by gravity under fluoroscopic guidance. Spot radiographs and overhead films were obtained. FLUOROSCOPIC TIME: 1.6 minutes IMAGES: 24 FINDINGS: Air Hammer Stripper radiograph demonstrates a nonobstructive bowel gas pattern. [...] via the rectum. No contrast leak appreciated. [facility]-[id number] Performing Organization Address City/State/[facility] Phone Number [facility] [address] [place] [address] Transfuse fresh frozen plasma (05/15/2018 5:53 PM CDT)after 05/11/2018 Additional Health Concerns Infection Noted Time Resolved Time Multidrug-Resistant Organism - Other (C ) 01/11/2018 9:57 AM CDT Advance Directives For more information, please contact: [phone] Type Date Recorded Patient Scientific Manager Explanation Advance Directives, Living Will 01/08/2018 11:04 AM and Medical Power of Smoking Pipe Maker
--- OUTSIDE RECORDS SUMMARY | 2019-05-12 09:04 | XMS REPORT | Clinical Summary ---
:1960 Author Organization [facility] Address [address] [place] [address] Care Team Providers Name Role Phone Pcp, [...] mouth 0 Active (PAXIL ORAL) daily . acetaminophen-co Take 1 tablet by 30 tablet [...] 10 days. Max Daily Amount: 4 tablets HYDROcodone-acet Take 1 tablet by 30 tablet 0 12/28/2018 aminophen (NORCO mouth every 6 (six) 9 5-325) 5-325 mg hours as needed for per tablet up to 10 days. Max Daily Amount: 4 tablets Active Problems Problem Noted Date Ileostomy status 12/26/2018 Diverticulitis 10/14/2018 Encounters Date Type Specialty Care Team Description 12/26/2018 Anesthesia Event Haley Bestne 12/26/2018 Surgery Blair Flowers LAPAROSCOPY,COLOSTOMY MD Shon [place]EDOWN 12/26/2018 - Hospital Encounter General Internal Lionel, Blair Ileostomy status (HCC) 12/28/2018 Medicine MD Shon (Primary Dx) 12/24/2018 Hospital Encounter Pre-Admission Resource, Oqmt Testing Preadmit Phone 10/14/2018 Anesthesia Event Adi Leal MD 10/14/2018 Surgery Blair Flowers ROBOTIC MD Shon LAPAROSCOPY,LOW ANTERIOR RESECTION 10/14/2018 - Hospital Encounter General Internal Lionel, Blair Diverticulitis 10/17/2018 Sharee Menendez MD (Primary Dx) 10/09/2018 Hospital Encounter Pre-Admission Blair Flowers Testing MD Shon 10/08/2018 Hospital Encounter Pre-Admission Resource, Oqmt Testing Preadmit Phone after 05/11/2018 Social History Tobacco Use Types Packs/Day Years [...] Procedure Name Priority Date/Time Associated Diagnosis Comments RHYTHM STRIP - SCAN 12/31/2018 10:51 AM CDT CBC W/PLT COUNT & Routine 12/28/2018 11:58 [...] CDT procedure are in the results section. TISSUE EXAM AP Routine 12/26/2018 7:34 Results for this PM CDT procedure are [...] RHYTHM STRIP - SCAN 10/30/2018 11:32 AM [facility] CBC W/PLT COUNT & Routine 10/17/2018 2:32 Results for this AUTO DIFFERENTIAL AM [facility] procedure are in the results section. PROTHROMBIN TIME/INR Routine 10/17/2018 2:32 Results for this AM [facility] procedure are in the results section. CBC W/PLT COUNT & Routine 10/17/2018 2:32 Results for this AUTO DIFFERENTIAL AM [facility] procedure are in the results section. MAGNESIUM Routine 10/17/2018 2:32 Results for this AM [facility] procedure are in the results section. BASIC METABOLIC Routine 10/17/2018 2:32 Results for this PANEL (7) AM [facility] procedure are in the results section. PROTHROMBIN TIME/INR Routine 10/16/2018 4:36 Results for this PM [facility] procedure are in the results section. CBC W/PLT COUNT & Routine 10/16/2018 3:45 Results for this AUTO DIFFERENTIAL AM [facility] procedure are in the results section. APTT Routine 10/16/2018 3:45 Results for this AM [facility] procedure are in the results section. CBC W/PLT COUNT & Routine 10/16/2018 3:45 Results for this AUTO DIFFERENTIAL AM [facility] procedure are in the results section. MAGNESIUM Routine 10/16/2018 3:45 Results for this AM [facility] procedure are in the results section. BASIC METABOLIC Routine 10/16/2018 3:45 Results for this PANEL (7) AM [facility] procedure are in the results section. APTT Routine 10/15/2018 9:21 Results for this PM [facility] procedure are in the results section. APTT Routine 10/15/2018 2:40 Results for this PM [facility] procedure are in the results section. APTT Routine 10/15/2018 8:08 Results for this AM [facility] procedure are in the results section. CBC W/PLT COUNT & Routine 10/15/2018 6:34 Results for this AUTO DIFFERENTIAL AM [facility] procedure are in the results section. CBC W/PLT COUNT & Routine 10/15/2018 6:34 Results for this AUTO DIFFERENTIAL AM [facility] procedure are in the results section. MAGNESIUM Routine 10/15/2018 6:34 Results for this AM [facility] procedure are in the results section. BASIC METABOLIC Routine 10/15/2018 6:34 Results for this PANEL (7) AM [facility] procedure are in the results section. APTT Routine 10/14/2018 9:57 Results for this PM [facility] procedure are in the results section. PLATELET COUNT Routine 10/14/2018 9:57 Results for this PM [facility] procedure are in the results section. POCT-GLUCOSE METER Routine 10/14/2018 8:19 Results for this PM [facility] procedure are in the results section. FUNGUS CULTURE + Routine 10/14/2018 4:31 Results for this SMEAR PM [facility] procedure are in the results section. SURGICALLY OBTAINED Routine 10/14/2018 4:31 Results for this CULTURE + GRAM STAIN PM [facility] procedure are in the results section. ANAEROBIC CULTURE Routine 10/14/2018 4:31 Results for this PM [facility] procedure are in the results section. FUNGUS CULTURE + Routine 10/14/2018 3:55 Results for this SMEAR PM [facility] procedure are in the results section. ANAEROBIC CULTURE Routine 10/14/2018 3:55 Results for this PM [facility] procedure are in the results section. SURGICALLY OBTAINED Routine 10/14/2018 3:55 Results for this CULTURE + GRAM STAIN PM [facility] procedure are in the results section. TISSUE EXAM AP Routine 10/14/2018 3:51 Results for this PM [facility] procedure are in the results section. FUNGUS CULTURE + Routine 10/14/2018 3:44 Results for this SMEAR PM [facility] procedure are in the results section. SURGICALLY OBTAINED Routine 10/14/2018 3:44 Results for this CULTURE + GRAM STAIN PM [facility] procedure are in the results section. ANAEROBIC CULTURE Routine 10/14/2018 3:44 Results for this PM [facility] procedure are in the results section. PROCEDURE W/ DAVINCI 10/14/2018 1:00 Diverticulitis of XI PM [facility] large intestine with abscess without bleeding Case Notes 4 HRS PER STEPHAN Special Needs (DAVINCI XI - XI REQUESTED) ROBOTIC LAPAROSCOPY,LOW 10/14/2018 1:00 PM [facility] Diverticulitis of large ANTERIOR RESECTION intestine with abscess without bleeding Case Notes 4 HRS PER STEPHAN Special Needs (DAVINCI XI - XI REQUESTED) POCT-GLUCOSE METER Routine 10/14/2018 11:07 AM [facility] PLATELET COUNT STAT 10/14/2018 11:07 AM [facility] HEMOGLOBIN AND HEMATOCRIT Routine 10/14/2018 11:07 AM [facility] PT/APTT Routine 10/14/2018 11:07 AM [facility] GLUCOSE Routine 10/14/2018 11:07 AM [facility] ELECTROLYTE PANEL Routine 10/14/2018 11:07 AM [facility] TRANSFUSION SERVICE REPORT - 10/10/2018 5:55 PM [facility] SCAN CBC W/PLT COUNT & AUTO Routine 10/09/2018 2:42 PM [facility] Results for this DIFFERENTIAL procedure are in the results section. TYPE AND SCREEN, AUTOMATED Routine 10/09/2018 2:42 PM [facility] COMPREHENSIVE METABOLIC Routine 10/09/2018 2:42 PM [facility] Results for this PANEL procedure are in the results section. CBC W/PLT COUNT & AUTO Routine 10/09/2018 2:42 PM [facility] Results for this DIFFERENTIAL procedure are in the results section. PLATELET COUNT Routine 10/09/2018 2:42 PM [facility] HEMOGLOBIN Routine 10/09/2018 2:42 PM [facility] ELECTROLYTE PANEL Routine 10/09/2018 2:42 PM [facility] BUN AND CREATININE Routine 10/09/2018 2:42 PM [facility] after 05/11/2018 Results RHYTHM STRIP - SCAN (12/31/2018 10:51 AM CDT)Only the most recent of2 resultswithin the time period is included. Narrative Performed At CBC with platelet count + automated diff (12/28/2018 11:58 AM CDT)Only the most recent of5 resultswithin the time period is included. WBC 7.1 3.5 - 10.5 K/L [facility] RBC 4.09 (L) 4.63 - 6.08 M/L [facility] Hemoglobin 13.0 (L) 13.7 - 17.5 GM/DL [facility] Hematocrit 39.3 (L) 40.1 - 51.0 % [facility] MCV 96.1 (H) 79.0 - 92.[address] [facility] MCH 31.8 25.7 - 32.[address] [facility] MCHC 33.1 32.3 - 36.5 GM/DL [facility] RDW 12.1 11.6 - 14.4 % [facility] Platelets 194 150 - 450 K/CU MM [facility] MPV 9.6 9.4 - 12.[address] [facility] nRBC 0 0 - 0 /[address] [facility] % Neutros 75 % [facility] % Lymphs 11 % [facility] % Monos 9 % [facility] % Eos 3 % [facility] % Baso 1 % [facility] # Neutros 5.37 1.78 - 5.38 K/L [facility] # Lymphs 0.81 (L) 1.32 - 3.57 K/L [facility] # Monos 0.67 0.30 - 0.82 K/L [facility] # Eos 0.18 0.04 - 0.54 K/L [facility] # Baso 0.04 0.01 - 0.08 K/L [facility] Immature Granulocytes-Relative 1 0 - 1 % [facility] Specimen Blood Performing Organization Address City/State/Zipcode Phone Number [facility] [address] [place] [address] [phone] CENTER Basic Metabolic Panel (12/28/2018 5:15 AM CDT)Only the most recent of6 resultswithin the time period is included. Sodium 133 (L) 136 - 145 meq/L [facility] Potassium 3.5 3.5 - 5.1 meq/L [facility] Chloride 100 98 - 107 meq/L [facility] CO2 25 22 - 29 meq/L [facility] BUN 7 7 - 21 mg/dL [facility] Creatinine 0.63 0.57 - 1.25 mg/dL [facility] Glucose 101 70 - 105 mg/dL [facility] Calcium 8.8 8.4 - 10.2 mg/dL [facility] EGFR 130Comment: ESTIMATED GFR IS mL/min/1.73 sq m [facility] NOT ACCURATE CREATININE [facility] CENTER CLEARANCE IN PREDICTING GLOMERULAR FILTRATION RATE. ESTIMATED GFR IS NOT APPLICABLE FOR DIALYSIS PATIENTS. Specimen Blood Performing Organization Address City/State/Zipcode Phone Number [facility] [address] [place] [address] CENTER TRANSFUSION SERVICE REPORT - SCAN (12/27/2018 6:00 PM CDT)Only the most recent of2 resultswithin the time period is included. Narrative Performed At Tissue Exam (12/26/2018 7:34 PM CDT)Only the most recent of2 resultswithin the time period is included. Case Report Surgical Pathology Report Case: [id number] [facility] Authorizing Provider:Blair Flowers MDCollected: 12/26/2018 1934 [facility] Ordering Location: [facility] Received: 12/27/2018 0833 SERVICES Pathologist: Mary Guzmán MD Specimen:Ileostomy DIAGNOSIS ILEOSTOMY, LAPAROSCOPIC TAKEDOWN: [facility] - ILEOSTOMY SITE IDENTIFIED [facility] - ULCERATION AND GRANULATION TISSUE - CHRONIC INFLAMMATION AND SEROSAL ADHESIONS - NEGATIVE FOR MALIGNANCY Signing Pathologist Direct Phone Line: [phone] CPT Code(s) 35581 [facility] SPECIMEN SOURCE Ileostomy [facility] GROSS DESCRIPTION This case is received in one part and is labeled correctly with the patient's name and date of . [facility] Received labeled "ileostomy" consists of a 6.5 x 4.5 x 3.3 cm ileostomy specimen. There is a rim of kemp-brown skin with protruding small intestinal mucosa. There is an approximately 5 cm staple line aman ntified. The overall mucosa is red-brown, congested and hemorrhagic. The specimen is opened to reveal congested kemp-pink to red intestinal mucosa. Sorting Grapple Operator sections are submitted as follows: A1, A 2, staple line; A3, u.s. representative sections to include small intestine and skin. AH/ew MICROSCOPIC DESCRIPTION PERFORMED [facility] Specimen Tissue Performing Organization Address [facility] [place] Phone Number [address] [address] [phone] CENTER POC-Glucose meter (12/26/2018 1:56 PM CDT)Only the most recent of3 resultswithin the time period is included. POC-Glucose Meter 113 (H)Comment: TESTED AT 70 - 110 mg/dL [facility] [address] [place] [id number] Specimen Blood Performing Organization Address [facility] [place] Phone Number [address] [address] CENTER Type and screen, automated (12/26/2018 1:52 PM CDT)Only the most recent of2 resultswithin the time period is included. ABO/RH AUTOMATED (BEAKER) A POSITIVE [facility] Ab Scrn NEGATIVE [facility] Specimen Blood Performing Organization Address [facility] Phone Number [address] [address] [phone] aPTT (12/26/2018 1:52 PM CDT)Only the most recent of6 resultswithin the time period is included. PTT 35.2 22.5 - 36.[address] [facility] Specimen Blood Performing Organization Address City/[facility] [place] Phone Number [address] [address] CENTER Prothrombin time/INR (12/26/2018 1:52 PM CDT)Only the most recent of3 resultswithin the time period is included. Protime 14.5 11.7 - 14.[address] [facility] INR 1.1 <=5.9 [facility] Specimen Blood Narrative Performed At RECOMMENDED COUMADIN/WARFARIN INR THERAPY [facility] RANGES STANDARD DOSE: 2.0 - 3.0 Includes: PROPHYLAXIS for venous thrombosis, systemic embolization; TREATMENT for venous thrombosis and/or pulmonary embolus. HIGH RISK: Target INR is 2.5-3.5 for patients with mechanical heart valves. Performing Organization Address [facility] [place] Phone Number [address] [phone] [place] CBC (Hemogram only) (12/26/2018 1:52 PM CDT) WBC 8.2 3.5 - 10.5 K/L [facility] RBC 4.78 4.63 - 6.08 M/L [facility] Hemoglobin 15.3 13.7 - 17.5 GM/DL [facility] Hematocrit 44.4 40.1 - 51.0 % [facility] MCV 92.9 (H) 79.0 - 92.[address] [facility] MCH 32.0 25.7 - 32.[address] [facility] MCHC 34.5 32.3 - 36.5 GM/DL [facility] RDW 11.9 11.6 - 14.4 % [facility] Platelets 281 150 - 450 K/CU MM [facility] MPV 9.5 9.4 - 12.[address] [facility] nRBC 0 0 - 0 /[address] [facility] Specimen Blood Performing Organization Address [facility] Phone Number [facility] [address] [place] [address] [phone] CENTER EKG-SCANNED (12/13/2018 8:11 AM CDT) Narrative Performed At Magnesium (10/17/2018 2:32 AM [facility])Only the most recent of3 resultswithin the time period is included. Magnesium 1.7 1.6 - 2.6 mg/dL [facility] Specimen Blood Performing Organization Address [facility]/Zipcode Phone Number [facility] [address], [place] [phone] CENTER Platelet count (10/14/2018 9:57 PM [facility])Only the most recent of3 resultswithin the time period is included. Platelets 205 150 - 450 K/CU MM [facility] Specimen Blood Performing Organization Address [facility] [place] Phone Number [facility] [address] [place] [address] [phone] CENTER Anaerobic culture (10/14/2018 4:31 PM [facility])Only the most recent of3 resultswithin the time period is included. Result 1+ Bacteroides fragilis group (A) [facility] Result <1+ Clostridium perfringens (A) [facility] Specimen Abscess Narrative Performed At Anaerobic organisms of more than [address] [facility] further work up performed. Performing Organization Address [facility] Phone Number [address] [address] [place] Surgically obtained culture + gram stain (10/14/2018 4:31 PM [facility])Only the most recent of3 resultswithin the time period is included. Result <1+ Hafnia alvei (A) [facility] Result <1+ Enterobacter cloacae (A) [facility] Result <1+ Enterobacter cloacae [facility] (A)Comment: of a second type MEDICAL CENTER Gram Stain Result 1+ WBCs [facility] Gram Stain Result No organisms seen [facility] Specimen Abscess Organism Antibiotic Method Susceptibility Hafnia [...] Susceptible Performing Organization Address City/State/Zipcode Phone Number [facility] [address] [place] [address] [phone] CENTER Fungus culture + smear (10/14/2018 4:31 PM [facility])Only the most recent of3 resultswithin the time period is included. Result No fungus isolated in [address] [facility] Fungus Smear No fungi seen [facility] Specimen Abscess Performing Organization Address City/[facility]/Zipcode Phone Number [address] [address] CENTER PT/aPTT (10/14/2018 11:07 AM [facility]) Protime 14.8 (H) 11.7 - 14.[address] [facility] INR 1.[address] <=[address]9 [facility] PTT 37.4 (H) 22.5 - 36.[address] [facility] Specimen Blood Narrative Performed At RECOMMENDED COUMADIN/WARFARIN INR THERAPY [facility] RANGES STANDARD DOSE: 2.0 - 3.0 Includes: PROPHYLAXIS for venous thrombosis, systemic embolization; TREATMENT for venous thrombosis and/or pulmonary embolus. HIGH RISK: Target INR is 2.5-3.5 for patients with mechanical heart valves. Performing Organization Address [facility] [place] Phone Number [address] [address] CENTER Hemoglobin and hematocrit (10/14/2018 11:07 AM [facility]) Hemoglobin 14.5 13.7 - 17.5 GM/DL [facility] Hematocrit 41.9 40.1 - 51.0 % [facility] Specimen Blood Performing Organization Address City/[facility]/Zipcode Phone Number [address] [address] CENTER Glucose (10/14/2018 11:07 AM [facility]) Glucose 113 (H) 70 - 105 mg/dL [facility] Specimen Blood Narrative Performed At Check DOS [facility] Performing Organization Address City/State/Zipcode Phone Number [place] [phone] [place] [address] [phone] CENTER Electrolytes (10/14/2018 11:07 AM [facility])Only the most recent of2 resultswithin the time period is included. Sodium 138 136 - 145 meq/L [facility] Potassium 4.0 3.5 - 5.1 meq/L [facility] Chloride 102 98 - 107 meq/L [facility] CO2 24 22 - 29 meq/L [facility] Specimen Blood Narrative Performed At Check DOS [facility] Performing Organization Address City/[facility]/Zipcode Phone Number [address] [address] CENTER BUN and Creatinine (10/09/2018 2:42 PM [facility]) BUN 6 (L) 7 - 21 mg/dL [facility] Creatinine 0.67Comment: Specimen 0.57 - 1.25 mg/dL [facility] slightly hemolyzed [facility] EGFR 121Comment: ESTIMATED GFR IS mL/min/1.73 sq m [facility] NOT ACCURATE CREATININE [facility] CENTER CLEARANCE IN PREDICTING GLOMERULAR FILTRATION RATE. ESTIMATED GFR IS NOT APPLICABLE FOR DIALYSIS PATIENTS. Specimen Blood Performing Organization Address City/[facility]/Zipcode Phone Number [address] [address] CENTER Hemoglobin (10/09/2018 2:42 PM [facility]) Hemoglobin 14.5 13.7 - 17.5 GM/DL [facility] Specimen Blood Performing Organization Address City/[facility]/Zipcode Phone Number [place] [phone] [place] [address] [place] Comprehensive metabolic panel (10/09/2018 2:42 PM [facility]) Protein, Total 7.7Comment: Specimen 6.0 - 8.3 gm/dL [facility] Albumin 3.8Comment: Specimen 3.5 - 5.0 g/dL [facility] slightly hemolyzed [facility] Alkaline Phosphatase 54 40 - 150 U/L [facility] Total Bilirubin 1.0Comment: Specimen 0.2 - 1.2 mg/dL [facility] slightly hemolyzed [facility] Sodium 132 (L) 136 - 145 meq/L [facility] Potassium 4.2Comment: Specimen 3.5 - 5.1 meq/L [facility] slightly hemolyzed [facility] Chloride 99 98 - 107 meq/L [facility] CO2 23 22 - 29 meq/L [facility] BUN 6 (L) 7 - 21 mg/dL [facility] Creatinine 0.68Comment: Specimen 0.57 - 1.25 mg/dL [facility] slightly hemolyzed [facility] Glucose 87 70 - 105 mg/dL [facility] Calcium 9.6 8.4 - 10.2 mg/dL [facility] AST 30Comment: Specimen 5 - 34 U/L [facility] slightly hemolyzed [facility] ALT 22Comment: Specimen 6 - 55 U/L [facility] slightly hemolyzed [facility] EGFR 119Comment: ESTIMATED mL/min/1.73 sq m [facility] GFR IS NOT ACCURATE [facility] CREATININE CLEARANCE IN PREDICTING GLOMERULAR FILTRATION RATE. ESTIMATED GFR IS NOT APPLICABLE FOR DIALYSIS PATIENTS. Specimen Blood Performing Organization Address City/State/Zipcode Phone Number [facility] [address] [place] [address] [phone] CENTER after 05/11/2018 Insurance Payer Benefit Plan / Group Subscriber ID Type Phone Address [employer] HMO POS QPOS xxxxxxxxx HMO/POS Advance Directives For more information, please contact:[address] [phone] Code Status Date Activated Date Inactivated Comments Full Code 12/26/2018 10:07 PM 12/28/2018 6:57 PM This code status was determined by: Patient Full Code 10/14/2018 10:55 PM 12/26/2018 12:42 PM This code status was determined by: Patient
--- OUTSIDE RECORDS SUMMARY | 2019-05-12 09:05 | XMS REPORT ---
:1960 Author Organization [facility] Address [address] [place] [address] [address] [place] [address] Care Team Providers Name Role Phone WILLIAM FLOWERS Unavailable Unavailable Problems This patient has no known problems. Allergies, Adverse Reactions, Alerts This patient has no known allergies or adverse reactions. Medications This patient has no known medications. Results Test Description Test Time Test Comments Text Results Atomic Results Result Comments TISSUE EXAM 2018-12-30 17:35:00 Surgical Pathology Report Case: [id number] Authorizing Provider: William Flowers MD Collected: 12/26/2018 1934 Ordering Location: [facility] Received: 12/27/2018 0833 SERVICES Pathologist: Mary Guzmán MD Specimen: Ileostomy ILEOSTOMY, LAPAROSCOPIC TAKEDOWN: - ILEOSTOMY SITE IDENTIFIED - ULCERATION AND GRANULATION TISSUE - CHRONIC INFLAMMATION AND SEROSAL ADHESIONS - NEGATIVE FOR MALIGNANCY Signing Pathologist Direct Phone Line: [phone] signed by Mary Guzmán MD on 12/30/2018 at 5:35 [id number] This case is received in one part and is labeled correctly with the patient's name and date of .Received labeled "ileostomy" consists of a 6.5 x 4.5 x 3.3 cm ileostomy specimen. There is a rim of kemp-brown skin with protruding small intestinal mucosa. There is an approximately 5 cm staple line identified. The overall mucosa is red-brown, congested and hemorrhagic. The specimen is opened to reveal congested kemp-pink to red intestinal mucosa. Animated Cartoons Painter sections are submitted as follows: A1, A2, staple line; A3, international representative sections to include small intestine and skin. AH/ewPERFORMED CBC W/PLT COUNT & AUTO DIFFERENTIAL 2018-12-28 12:15:00 Test Item Value Reference Range Comments WHITE BLOOD CELL COUNT (BEAKER) (test mzpc=045) 7.1 K/ L 3.5-10.5 RED BLOOD CELL COUNT (BEAKER) (test eeji=743) 4.09 M/ L 4.63-6.08 HEMOGLOBIN (BEAKER) (test capb=126) 13.0 GM/DL 13.7-17.5 HEMATOCRIT (BEAKER) (test djzl=305) 39.3 % 40.1-51.0 MEAN CORPUSCULAR VOLUME (BEAKER) (test obcy=484) 96.1 fL 79.0-92.2 MEAN CORPUSCULAR HEMOGLOBIN (BEAKER) (test koju=690) 31.8 pg 25.7-32.2 MEAN CORPUSCULAR HEMOGLOBIN CONC (BEAKER) (test rwlt=084) 33.1 GM/DL 32.3- 36.5 RED CELL DISTRIBUTION WIDTH (BEAKER) (test egjj=869) 12.1 % 11.6-14.4 PLATELET COUNT (BEAKER) (test vkmv=727) 194 K/CU MM 150-450 MEAN PLATELET VOLUME (BEAKER) (test jwtt=050) 9.6 fL 9.4-12.4 NUCLEATED RED BLOOD CELLS (BEAKER) (test rgyn=821) 0 /100 WBC 0-0 NEUTROPHILS RELATIVE PERCENT (BEAKER) (test hfcb=406) 75 % LYMPHOCYTES RELATIVE PERCENT (BEAKER) (test tvzp=535) 11 % MONOCYTES RELATIVE PERCENT (BEAKER) (test zhol=703) 9 % EOSINOPHILS RELATIVE PERCENT (BEAKER) (test wuac=857) 3 % BASOPHILS RELATIVE PERCENT (BEAKER) (test gvnk=352) 1 % NEUTROPHILS ABSOLUTE COUNT (BEAKER) (test zfev=798) 5.37 K/ L 1.78-5.38 LYMPHOCYTES ABSOLUTE COUNT (BEAKER) (test sxxu=756) 0.81 K/ L 1.32-3.57 MONOCYTES ABSOLUTE COUNT (BEAKER) (test kugj=814) 0.67 K/ L 0.30-0.82 EOSINOPHILS ABSOLUTE COUNT (BEAKER) (test plbs=861) 0.18 K/ L 0.04-0.54 BASOPHILS ABSOLUTE COUNT (BEAKER) (test adgg=046) 0.04 K/ L 0.01-0.08 IMMATURE GRANULOCYTES-RELATIVE PERCENT (BEAKER) (test 1 % 0-1 ivlg=7806) BASIC METABOLIC [id number] 07:52:00 Test Item Value Reference Range Comments SODIUM (BEAKER) (test 133 meq/L 136-145 fmtm=680) POTASSIUM (BEAKER) (test 3.5 meq/L 3.5-5.1 ubmv=337) CHLORIDE (BEAKER) (test 100 meq/L 98-107 zgwt=666) CO2 (BEAKER) (test 25 meq/L 22-29 mpfl=432) BLOOD UREA NITROGEN 7 mg/dL 7-21 (BEAKER) (test cmie=935) CREATININE (BEAKER) (test 0.63 mg/dL 0.57-1.25 dhkd=784) GLUCOSE RANDOM (BEAKER) 101 mg/dL 70-105 (test aeye=103) CALCIUM (BEAKER) (test 8.8 mg/dL 8.4-10.2 egvy=032) EGFR (BEAKER) (test 130 mL/min/1.73 sq m ESTIMATED GFR IS NOT npdr=5093) ACCURATE CREATININE CLEARANCE IN PREDICTING GLOMERULAR FILTRATION RATE. ESTIMATED GFR IS NOT APPLICABLE FOR DIALYSIS PATIENTS. BASIC METABOLIC [id number] 07:01:00 Test Item Value Reference Range Comments SODIUM (BEAKER) (test 129 meq/L 136-145 nsnr=071) POTASSIUM (BEAKER) (test 3.9 meq/L 3.5-5.1 tqan=368) CHLORIDE (BEAKER) (test 96 meq/L 98-107 ffes=866) CO2 (BEAKER) (test 26 meq/L 22-29 zcls=391) BLOOD UREA NITROGEN 7 mg/dL 7-21 (BEAKER) (test tpyu=608) CREATININE (BEAKER) (test 0.69 mg/dL 0.57-1.25 uftm=424) GLUCOSE RANDOM (BEAKER) 136 mg/dL 70-105 (test knlk=284) CALCIUM (BEAKER) (test 9.2 mg/dL 8.4-10.2 qery=058) EGFR (BEAKER) (test 117 mL/min/1.73 sq m ESTIMATED GFR IS NOT llhh=1620) ACCURATE CREATININE CLEARANCE IN PREDICTING GLOMERULAR FILTRATION RATE. ESTIMATED GFR IS NOT APPLICABLE FOR DIALYSIS PATIENTS. BASIC METABOLIC [id number] 15:00:00 Test Item Value Reference Range Comments SODIUM (BEAKER) (test 134 meq/L 136-145 obqu=364) POTASSIUM (BEAKER) (test 4.2 meq/L 3.5-5.1 xgwh=442) CHLORIDE (BEAKER) (test 100 meq/L 98-107 tuhs=907) CO2 (BEAKER) (test 24 meq/L 22-29 zcsb=324) BLOOD UREA NITROGEN 8 mg/dL 7-21 (BEAKER) (test ifef=941) CREATININE (BEAKER) (test 0.71 mg/dL 0.57-1.25 acko=072) GLUCOSE RANDOM (BEAKER) 104 mg/dL 70-105 (test szci=910) CALCIUM (BEAKER) (test 9.7 mg/dL 8.4-10.2 xfdh=994) EGFR (BEAKER) (test 113 mL/min/1.73 sq m ESTIMATED GFR IS NOT keop=2895) ACCURATE CREATININE CLEARANCE IN PREDICTING GLOMERULAR FILTRATION RATE. ESTIMATED GFR IS NOT APPLICABLE FOR DIALYSIS PATIENTS. PROTHROMBIN [id number] 14:23:00 Test Item Value Reference Range Comments PROTIME (BEAKER) (test nisb=083) 14.5 seconds 11.7-14.7 INR (BEAKER) (test iaxw=535) 1.1 <=5.9 RECOMMENDED COUMADIN/WARFARIN INR THERAPY RANGESSTANDARD DOSE: 2.0 - 3.0 Includes: PROPHYLAXIS forvenous thrombosis, systemic embolization; TREATMENT for venous thrombosis and/or pulmonary embolus.HIGH RISK: Target INR is 2.5-3.5 for patients with mechanical heart valves.[id number] 14:23:00 Test Item Value Reference Range Comments PARTIAL THROMBOPLASTIN TIME (BEAKER) (test 35.2 seconds 22.5-36.0 azvj=356) CBC (HEMOGRAM ONLY)2018-12-26 14:09:00 Test Item Value Reference Range Comments WHITE BLOOD CELL COUNT (BEAKER) (test rncd=475) 8.2 K/ L 3.5-10.5 RED BLOOD CELL COUNT (BEAKER) (test rwoy=926) 4.78 M/ L 4.63-6.08 HEMOGLOBIN (BEAKER) (test fcha=634) 15.3 GM/DL 13.7-17.5 HEMATOCRIT (BEAKER) (test yksr=918) 44.4 % 40.1-51.0 MEAN CORPUSCULAR VOLUME (BEAKER) (test mlrc=033) 92.9 fL 79.0-92.2 MEAN CORPUSCULAR HEMOGLOBIN (BEAKER) (test 32.0 pg 25.7-32.2 optl=982) MEAN CORPUSCULAR HEMOGLOBIN CONC (BEAKER) (test 34.5 GM/DL 32.3-36.5 jvgl=805) RED CELL DISTRIBUTION WIDTH (BEAKER) (test 11.9 % 11.6-14.4 bxmx=879) PLATELET COUNT (BEAKER) (test vazp=627) 281 K/CU MM 150-450 MEAN PLATELET VOLUME (BEAKER) (test haqj=622) 9.5 fL 9.4-12.4 NUCLEATED RED BLOOD CELLS (BEAKER) (test 0 /100 WBC 0-0 akcj=383) POCT-GLUCOSE [id number] 14:00:00 Test Item Value Reference Range Comments POC-GLUCOSE METER (BEAKER) 113 mg/dL 70-110 TESTED AT [address] (test wogi=1118) [facility] [address] FUNGUS CULTURE + [id number] 18:31:00 Test Item Value Reference Range Comments CULTURE (BEAKER) (test No fungus isolated in 28 days rius=1398) FUNGUS SMEAR (BEAKER) (test No fungi seen havp=6996) FUNGUS CULTURE + [id number] 18:31:00 Test Item Value Reference Range Comments CULTURE (BEAKER) (test No fungus isolated in 28 days huwp=8747) FUNGUS SMEAR (BEAKER) (test No fungi seen pfrs=7525) FUNGUS CULTURE + [id number] 18:31:00 Test Item Value Reference Range Comments CULTURE (BEAKER) (test No fungus isolated in 28 days szll=7584) FUNGUS SMEAR (BEAKER) (test No fungi seen pwkw=0739) ANAEROBIC [id number] 07:32:00 Test Item Value Reference Range Comments CULTURE (BEAKER) (test From Broth Only Same organism has qfhp=6223) been isolated from culture(s) of the same body site and collection date. Repeat identification performed only after consultation with the clinical microbiology laboratory.Refer to previous culture ofClostridium perfringens ANAEROBIC [id number] 07:29:00 Test Item Value Reference Range Comments CULTURE (BEAKER) (test pqjk=9815) <1+ Clostridium perfringens Anaerobic organisms of more than 3 types. No further work up performed.SURGICALLY OBTAINED CULTURE + GRAM [id number] 14:32:00 Test Item Value Reference Range Comments CULTURE (BEAKER) (test <1+ Lactobacillus species kakz=8930) GRAM STAIN RESULT <1+ WBCs (BEAKER) (test qmaq=9394) GRAM STAIN RESULT No organisms seen (BEAKER) (test topk=42677) SURGICALLY OBTAINED CULTURE + GRAM [id number] 14:30:00 Test Item Value Reference Range Comments CULTURE (BEAKER) (test From Broth Only Hafnia xrqc=3916) alvei GRAM STAIN RESULT <1+ WBCs (BEAKER) (test bmuj=4763) GRAM STAIN RESULT No organisms seen (BEAKER) (test ifwj=556065) ANAEROBIC [id number] 05:28:00 Test Item Value Reference Range Comments CULTURE (BEAKER) (test jbnz=9973) No anaerobes isolated SURGICALLY OBTAINED CULTURE + GRAM [id number] 12:17:00 Test Item Value Reference Range Comments CULTURE (BEAKER) (test HAFNIA ALVEI <1+ Hafnia alvei viwq=6933) Amikacin (test code=1) Ampicillin + Sulbactam (test code=6) Aztreonam (test code=32) Cefepime (test code=51) Cefoxitin (test code=68) Ceftazidime (test code=27) Ceftriaxone (test code=52) Ertapenem (test code=38) Gentamicin (test code=18) Levofloxacin (test code=22) Meropenem (test code=34) Nitrofurantoin (test code=23) Piperacillin + Tazobactam (test code=29) Tetracycline (test code=2) Tobramycin (test code=25) Trimethoprim + Sulfamethoxazole (test code=47) CULTURE (BEAKER) (test ENTEROBACTER CLOACAE <1+ Enterobacter pklk=4459) cloacae Amikacin (test code=1) Aztreonam (test code=32) Cefepime (test code=51) Cefoxitin (test code=68) Ceftazidime (test code=27) Ceftriaxone (test code=52) Ertapenem (test code=38) Gentamicin (test code=18) Levofloxacin (test code=22) Meropenem (test code=34) Tetracycline (test code=2) Tobramycin (test code=25) Trimethoprim + Sulfamethoxazole (test code=47) CULTURE (BEAKER) (test ENTEROBACTER CLOACAE <1+ Enterobacter assd=7597) cloacaeof a second type Amikacin (test code=1) Aztreonam (test code=32) Cefepime (test code=51) Cefoxitin (test code=68) Ceftazidime (test code=27) Ceftriaxone (test code=52) Ertapenem (test code=38) Gentamicin (test code=18) Levofloxacin (test code=22) Meropenem (test code=34) Nitrofurantoin (test code=23) Piperacillin + Tazobactam (test code=29) Tetracycline (test code=2) Tobramycin (test code=25) Trimethoprim + Sulfamethoxazole (test code=47) GRAM STAIN RESULT (BEAKER) 1+ WBCs (test titr=9320) GRAM STAIN RESULT (BEAKER) No organisms seen (test ovkb=322304) [id number] 03:38:00 Test Item Value Reference Range Comments MAGNESIUM (BEAKER) (test sivr=295) 1.7 mg/dL 1.6-2.6 BASIC METABOLIC [id number] 03:38:00 Test Item Value Reference Range Comments SODIUM (BEAKER) (test 131 meq/L 136-145 ghui=037) POTASSIUM (BEAKER) (test 3.1 meq/L 3.5-5.1 xlto=799) CHLORIDE (BEAKER) (test 95 meq/L 98-107 dpfv=279) CO2 (BEAKER) (test 29 meq/L 22-29 xtyr=841) BLOOD UREA NITROGEN 10 mg/dL 7-21 (BEAKER) (test gtom=288) CREATININE (BEAKER) (test 0.75 mg/dL 0.57-1.25 bbuh=197) GLUCOSE RANDOM (BEAKER) 96 mg/dL 70-105 (test bqts=968) CALCIUM (BEAKER) (test 8.9 mg/dL 8.4-10.2 nhqz=301) EGFR (BEAKER) (test 106 mL/min/1.73 sq m ESTIMATED GFR IS NOT pzir=9925) ACCURATE CREATININE CLEARANCE IN PREDICTING GLOMERULAR FILTRATION RATE. ESTIMATED GFR IS NOT APPLICABLE FOR DIALYSIS PATIENTS. PROTHROMBIN [id number] 03:32:00 Test Item Value Reference Range Comments PROTIME (BEAKER) (test uiee=958) 14.1 seconds 11.7-14.7 INR (BEAKER) (test frez=366) 1.1 <=5.9 RECOMMENDED COUMADIN/WARFARIN INR THERAPY RANGESSTANDARD DOSE: 2.0 - 3.0 Includes: PROPHYLAXIS forvenous thrombosis, systemic embolization; TREATMENT for venous thrombosis and/or pulmonary embolus.HIGH RISK: Target INR is 2.5-3.5 for patients with mechanical heart valves.CBC W/PLT COUNT & AUTO [id number] 03:15:00 Test Item Value Reference Range Comments WHITE BLOOD CELL COUNT (BEAKER) (test ufqu=064) 7.8 K/ L 3.5-10.5 RED BLOOD CELL COUNT (BEAKER) (test eyey=168) 3.43 M/ L 4.63-6.08 HEMOGLOBIN (BEAKER) (test ewjz=243) 11.4 GM/DL 13.7-17.5 HEMATOCRIT (BEAKER) (test stbx=643) 33.9 % 40.1-51.0 MEAN CORPUSCULAR VOLUME (BEAKER) (test tklw=218) 98.8 fL 79.0-92.2 MEAN CORPUSCULAR HEMOGLOBIN (BEAKER) (test 33.2 pg 25.7-32.2 kjuy=129) MEAN CORPUSCULAR HEMOGLOBIN CONC (BEAKER) (test 33.6 GM/DL 32.3-36.5 gzqd=905) RED CELL DISTRIBUTION WIDTH (BEAKER) (test 14.2 % 11.6-14.4 toeh=634) PLATELET COUNT (BEAKER) (test qezq=094) 188 K/CU MM 150-450 MEAN PLATELET VOLUME (BEAKER) (test fhoz=648) 9.6 fL 9.4-12.4 NUCLEATED RED BLOOD CELLS (BEAKER) (test 0 /100 WBC 0-0 ulum=188) NEUTROPHILS RELATIVE PERCENT (BEAKER) (test 76 % odup=117) LYMPHOCYTES RELATIVE PERCENT (BEAKER) (test 13 % aaax=597) MONOCYTES RELATIVE PERCENT (BEAKER) (test 8 % shto=066) EOSINOPHILS RELATIVE PERCENT (BEAKER) (test 1 % qgxh=497) BASOPHILS RELATIVE PERCENT (BEAKER) (test 1 % cdas=198) NEUTROPHILS ABSOLUTE COUNT (BEAKER) (test 5.93 K/ L 1.78-5.38 ocvz=437) LYMPHOCYTES ABSOLUTE COUNT (BEAKER) (test 1.00 K/ L 1.32-3.57 ttpa=750) MONOCYTES ABSOLUTE COUNT (BEAKER) (test 0.60 K/ L 0.30-0.82 zcnt=397) EOSINOPHILS ABSOLUTE COUNT (BEAKER) (test 0.09 K/ L 0.04-0.54 wnwg=657) BASOPHILS ABSOLUTE COUNT (BEAKER) (test 0.04 K/ L 0.01-0.08 vhnd=311) IMMATURE GRANULOCYTES-RELATIVE PERCENT (BEAKER) 2 % 0-1 (test tygq=0222) PROTHROMBIN [id number] 17:13:00 Test Item Value Reference Range Comments PROTIME (BEAKER) (test ewbp=840) 14.4 seconds 11.7-14.7 INR (BEAKER) (test dvvi=068) 1.1 <=5.9 RECOMMENDED COUMADIN/WARFARIN INR THERAPY RANGESSTANDARD DOSE: 2.0 - 3.0 Includes: PROPHYLAXIS forvenous thrombosis, systemic embolization; TREATMENT for venous thrombosis and/or pulmonary embolus.HIGH RISK: Target INR is 2.5-3.5 for patients with mechanical heart valves.TISSUE [id number] 13:56: 00Surgical Pathology Report Case: [id number] Authorizing Provider: William Flowers MD Collected : 10/14/2018 1551 Ordering Location: [facility] Received: 10/15/2018 0742 SERVICES Pathologist: Sp [...] ARE VIABLE. Signing Pathologist Direct Phone Line: [phone] signed by Sp Cedillo MD on 10/16/2018 at 1:56 [id number], 22862Gwktcsctbtegnp of large intestine with abscess and withoutbleedingA. [...] , abscess formations; B5-B8, diverticula. CG/ew A-B: [id number] 05:05:00 Test Item Value Reference Range Comments MAGNESIUM (BEAKER) (test dcpw=742) 2.3 mg/dL 1.6-2.6 BASIC METABOLIC [id number] 05:05:00 Test Item Value Reference Range Comments SODIUM (BEAKER) (test 132 meq/L 136-145 qjzs=109) POTASSIUM (BEAKER) (test 3.1 meq/L 3.5-5.1 ewii=149) CHLORIDE (BEAKER) (test 96 meq/L 98-107 ppxz=048) CO2 (BEAKER) (test 29 meq/L 22-29 ttnv=020) BLOOD UREA NITROGEN 8 mg/dL 7-21 (BEAKER) (test fifr=119) CREATININE (BEAKER) (test 0.68 mg/dL 0.57-1.25 nepn=378) GLUCOSE RANDOM (BEAKER) 119 mg/dL 70-105 (test cbwx=296) CALCIUM (BEAKER) (test 9.0 mg/dL 8.4-10.2 btar=799) EGFR (BEAKER) (test 119 mL/min/1.73 sq m ESTIMATED GFR IS NOT itog=6850) ACCURATE CREATININE CLEARANCE IN PREDICTING GLOMERULAR FILTRATION RATE. ESTIMATED GFR IS NOT APPLICABLE FOR DIALYSIS PATIENTS. [id number] 04:58:00 Test Item Value Reference Range Comments PARTIAL THROMBOPLASTIN TIME (BEAKER) (test 79.4 seconds 22.5-36.0 aaon=575) CBC W/PLT COUNT & AUTO [id number] 04:51:00 Test Item Value Reference Range Comments WHITE BLOOD CELL COUNT (BEAKER) (test qrhq=048) 10.7 K/ L 3.5-10.5 RED BLOOD CELL COUNT (BEAKER) (test cswr=051) 3.92 M/ L 4.63-6.08 HEMOGLOBIN (BEAKER) (test xmdq=260) 13.1 GM/DL 13.7-17.5 HEMATOCRIT (BEAKER) (test nryy=833) 39.5 % 40.1-51.0 MEAN CORPUSCULAR VOLUME (BEAKER) (test ehhj=720) 100.8 fL 79.0-92.2 MEAN CORPUSCULAR HEMOGLOBIN (BEAKER) (test 33.4 pg 25.7-32.2 bqor=139) MEAN CORPUSCULAR HEMOGLOBIN CONC (BEAKER) (test 33.2 GM/DL 32.3-36.5 wyeb=646) RED CELL DISTRIBUTION WIDTH (BEAKER) (test 14.9 % 11.6-14.4 qoaj=790) PLATELET COUNT (BEAKER) (test admr=729) 233 K/CU MM 150-450 MEAN PLATELET VOLUME (BEAKER) (test rvxs=246) 9.3 fL 9.4-12.4 NUCLEATED RED BLOOD CELLS (BEAKER) (test 0 /100 WBC 0-0 yfux=859) NEUTROPHILS RELATIVE PERCENT (BEAKER) (test 83 % rfmh=916) LYMPHOCYTES RELATIVE PERCENT (BEAKER) (test 11 % eefm=698) MONOCYTES RELATIVE PERCENT (BEAKER) (test 5 % efiw=314) EOSINOPHILS RELATIVE PERCENT (BEAKER) (test 0 % hziy=078) BASOPHILS RELATIVE PERCENT (BEAKER) (test 0 % pxoi=633) NEUTROPHILS ABSOLUTE COUNT (BEAKER) (test 8.90 K/ L 1.78-5.38 gqiz=405) LYMPHOCYTES ABSOLUTE COUNT (BEAKER) (test 1.12 K/ L 1.32-3.57 jaoc=900) MONOCYTES ABSOLUTE COUNT (BEAKER) (test 0.51 K/ L 0.30-0.82 juin=032) EOSINOPHILS ABSOLUTE COUNT (BEAKER) (test 0.03 K/ L 0.04-0.54 qcbl=970) BASOPHILS ABSOLUTE COUNT (BEAKER) (test 0.02 K/ L 0.01-0.08 yyha=015) IMMATURE GRANULOCYTES-RELATIVE PERCENT (BEAKER) 1 % 0-1 (test dduj=4695) [id number] 21:54:00 Test Item Value Reference Range Comments PARTIAL THROMBOPLASTIN TIME (BEAKER) (test 79.0 seconds 22.5-36.0 wsyg=070) [id number] 15:02:00 Test Item Value Reference Range Comments PARTIAL THROMBOPLASTIN TIME (BEAKER) (test 52.4 seconds 22.5-36.0 rjmg=860) [id number] 08:32:00 Test Item Value Reference Range Comments PARTIAL THROMBOPLASTIN TIME (BEAKER) (test 51.2 seconds 22.5-36.0 cbaj=846) CBC W/PLT COUNT & AUTO [id number] 07:29:00 Test Item Value Reference Range Comments WHITE BLOOD CELL COUNT (BEAKER) (test vmbt=786) 7.4 K/ L 3.5-10.5 RED BLOOD CELL COUNT (BEAKER) (test mieh=163) 4.02 M/ L 4.63-6.08 HEMOGLOBIN (BEAKER) (test fhxw=514) 13.3 GM/DL 13.7-17.5 HEMATOCRIT (BEAKER) (test wdvz=215) 40.0 % 40.1-51.0 MEAN CORPUSCULAR VOLUME (BEAKER) (test skts=157) 99.5 fL 79.0-92.2 MEAN CORPUSCULAR HEMOGLOBIN (BEAKER) (test 33.1 pg 25.7-32.2 iwux=519) MEAN CORPUSCULAR HEMOGLOBIN CONC (BEAKER) (test 33.3 GM/DL 32.3-36.5 hbpo=458) RED CELL DISTRIBUTION WIDTH (BEAKER) (test 15.4 % 11.6-14.4 ttmm=547) PLATELET COUNT (BEAKER) (test argc=284) 216 K/CU MM 150-450 MEAN PLATELET VOLUME (BEAKER) (test ncpo=548) 9.0 fL 9.4-12.4 NUCLEATED RED BLOOD CELLS (BEAKER) (test 0 /100 WBC 0-0 pubt=557) NEUTROPHILS RELATIVE PERCENT (BEAKER) (test 85 % iego=512) LYMPHOCYTES RELATIVE PERCENT (BEAKER) (test 6 % iaad=443) MONOCYTES RELATIVE PERCENT (BEAKER) (test 8 % qkoo=090) EOSINOPHILS RELATIVE PERCENT (BEAKER) (test 0 % tlld=018) BASOPHILS RELATIVE PERCENT (BEAKER) (test 0 % toji=234) NEUTROPHILS ABSOLUTE COUNT (BEAKER) (test 6.23 K/ L 1.78-5.38 njop=869) LYMPHOCYTES ABSOLUTE COUNT (BEAKER) (test 0.45 K/ L 1.32-3.57 ilyq=970) MONOCYTES ABSOLUTE COUNT (BEAKER) (test 0.58 K/ L 0.30-0.82 rikk=611) EOSINOPHILS ABSOLUTE COUNT (BEAKER) (test 0.01 K/ L 0.04-0.54 myrg=756) BASOPHILS ABSOLUTE COUNT (BEAKER) (test 0.03 K/ L 0.01-0.08 gmlo=153) IMMATURE GRANULOCYTES-RELATIVE PERCENT (BEAKER) 1 % 0-1 (test pvts=2556) [id number] 07:18:00 Test Item Value Reference Range Comments MAGNESIUM (BEAKER) (test 1.5 mg/dL 1.6-2.6 Specimen slightly hemolyzed diog=078) BASIC METABOLIC [id number] 07:18:00 Test Item Value Reference Range Comments SODIUM (BEAKER) (test 134 meq/L 136-145 dedl=948) POTASSIUM (BEAKER) (test 3.6 meq/L 3.5-5.1 Specimen slightly ayoy=058) hemolyzed CHLORIDE (BEAKER) (test 102 meq/L 98-107 olpm=867) CO2 (BEAKER) (test 24 meq/L 22-29 ebyp=696) BLOOD UREA NITROGEN 7 mg/dL 7-21 (BEAKER) (test dxvx=514) CREATININE (BEAKER) (test 0.62 mg/dL 0.57-1.25 Specimen slightly aymu=682) hemolyzed GLUCOSE RANDOM (BEAKER) 146 mg/dL 70-105 (test ladm=171) CALCIUM (BEAKER) (test 8.7 mg/dL 8.4-10.2 fnxr=314) EGFR (BEAKER) (test 132 mL/min/1.73 sq m ESTIMATED GFR IS NOT mrsg=4641) ACCURATE CREATININE CLEARANCE IN PREDICTING GLOMERULAR FILTRATION RATE. ESTIMATED GFR IS NOT APPLICABLE FOR DIALYSIS PATIENTS. [id number] 22:19:00 Test Item Value Reference Range Comments PARTIAL THROMBOPLASTIN TIME (BEAKER) (test 32.6 seconds 22.5-36.0 hikl=785) Prior to initiating heparinPLATELET [id number] 22:11:00 Test Item Value Reference Range Comments PLATELET COUNT (BEAKER) (test fcfh=813) 205 K/CU MM 150-450 POCT-GLUCOSE [id number] 20:21:00 Test Item Value Reference Range Comments POC-GLUCOSE METER (BEAKER) 135 mg/dL 70-110 TESTED AT [facility] [address] [facility] (test ukgl=9588) [facility] [id number] [id number] 11:39:00 Test Item Value Reference Range Comments SODIUM (BEAKER) (test jsgj=768) 138 meq/L 136-145 POTASSIUM (BEAKER) (test mzwf=899) 4.0 meq/L 3.5-5.1 CHLORIDE (BEAKER) (test balc=745) 102 meq/L 98-107 CO2 (BEAKER) (test qzhf=875) 24 meq/L 22-29 Check [id number] 11:39:00 Test Item Value Reference Range Comments GLUCOSE RANDOM (BEAKER) (test yudd=588) 113 mg/dL 70-105 Check [id number] 11:33:00 Test Item Value Reference Range Comments PROTIME (BEAKER) (test rvxv=989) 14.8 seconds 11.7-14.7 INR (BEAKER) (test obhj=698) 1.2 <=5.9 PARTIAL THROMBOPLASTIN TIME (BEAKER) (test 37.4 seconds 22.5-36.0 ydit=929) RECOMMENDED COUMADIN/WARFARIN INR THERAPY RANGESSTANDARD DOSE: 2.0 - 3.0 Includes: PROPHYLAXIS forvenous thrombosis, systemic embolization; TREATMENT for venous thrombosis and/or pulmonary embolus.HIGH RISK: Target INR is 2.5-3.5 for patients with mechanical heart valves.PLATELET [id number] 11:27:00 Test Item Value Reference Range Comments PLATELET COUNT (BEAKER) (test stix=330) 257 K/CU MM 150-450 HEMOGLOBIN AND [id number] 11:27:00 Test Item Value Reference Range Comments HEMOGLOBIN (BEAKER) (test ucrf=750) 14.5 GM/DL 13.7-17.5 HEMATOCRIT (BEAKER) (test ybzv=617) 41.9 % 40.1-51.0 POCT-GLUCOSE [id number] 11:16:00 Test Item Value Reference Range Comments POC-GLUCOSE METER (BEAKER) 112 mg/dL 70-110 TESTED AT [facility] [address] [facility] (test nwjl=3048) [facility] [id number] CBC W/PLT COUNT & AUTO [id number] 10:17:00 Test Item Value Reference Range Comments WHITE BLOOD CELL COUNT (BEAKER) (test txdg=731) 8.4 K/ L 3.5-10.5 RED BLOOD CELL COUNT (BEAKER) (test akls=049) 4.39 M/ L 4.63-6.08 HEMOGLOBIN (BEAKER) (test tsgq=601) 14.6 GM/DL 13.7-17.5 HEMATOCRIT (BEAKER) (test xwtn=924) 43.4 % 40.1-51.0 MEAN CORPUSCULAR VOLUME (BEAKER) (test hroi=491) 98.9 fL 79.0-92.2 MEAN CORPUSCULAR HEMOGLOBIN (BEAKER) (test 33.3 pg 25.7-32.2 fbjs=590) MEAN CORPUSCULAR HEMOGLOBIN CONC (BEAKER) (test 33.6 GM/DL 32.3-36.5 ayen=804) RED CELL DISTRIBUTION WIDTH (BEAKER) (test 15.3 % 11.6-14.4 vcvf=518) PLATELET COUNT (BEAKER) (test ryuk=513) 191 K/CU MM 150-450 MEAN PLATELET VOLUME (BEAKER) (test uvue=557) 10.0 fL 9.4-12.4 NUCLEATED RED BLOOD CELLS (BEAKER) (test 0 /100 WBC 0-0 bycs=727) NEUTROPHILS RELATIVE PERCENT (BEAKER) (test 75 % umtj=080) LYMPHOCYTES RELATIVE PERCENT (BEAKER) (test 13 % hmpo=289) MONOCYTES RELATIVE PERCENT (BEAKER) (test 10 % qxtn=976) EOSINOPHILS RELATIVE PERCENT (BEAKER) (test 1 % zexf=488) BASOPHILS RELATIVE PERCENT (BEAKER) (test 1 % zuos=828) NEUTROPHILS ABSOLUTE COUNT (BEAKER) (test 6.33 K/ L 1.78-5.38 bjek=832) LYMPHOCYTES ABSOLUTE COUNT (BEAKER) (test 1.06 K/ L 1.32-3.57 rjkl=243) MONOCYTES ABSOLUTE COUNT (BEAKER) (test 0.83 K/ L 0.30-0.82 eydf=550) EOSINOPHILS ABSOLUTE COUNT (BEAKER) (test 0.07 K/ L 0.04-0.54 ovev=116) BASOPHILS ABSOLUTE COUNT (BEAKER) (test 0.04 K/ L 0.01-0.08 wsef=783) IMMATURE GRANULOCYTES-RELATIVE PERCENT (BEAKER) 1 % 0-1 (test njkt=1741) COMPREHENSIVE METABOLIC [id number] 09:27:00 Test Item Value Reference Range Comments TOTAL PROTEIN (BEAKER) 7.7 gm/dL 6.0-8.3 Specimen slightly (test akjd=228) hemolyzed ALBUMIN (BEAKER) (test 3.8 g/dL 3.5-5.0 Specimen slightly fxmq=9745) hemolyzed ALKALINE PHOSPHATASE 54 U/L 40-150 (BEAKER) (test fffs=224) BILIRUBIN TOTAL (BEAKER) 1.0 mg/dL 0.2-1.2 Specimen slightly (test sftc=327) hemolyzed SODIUM (BEAKER) (test 132 meq/L 136-145 vuwv=682) POTASSIUM (BEAKER) (test 4.2 meq/L 3.5-5.1 Specimen slightly vkbn=373) hemolyzed CHLORIDE (BEAKER) (test 99 meq/L 98-107 sohb=548) CO2 (BEAKER) (test 23 meq/L 22-29 tswm=964) BLOOD UREA NITROGEN 6 mg/dL 7-21 (BEAKER) (test qgyw=135) CREATININE (BEAKER) (test 0.68 mg/dL 0.57-1.25 Specimen slightly xwov=410) hemolyzed GLUCOSE RANDOM (BEAKER) 87 mg/dL 70-105 (test kflg=674) CALCIUM (BEAKER) (test 9.6 mg/dL 8.4-10.2 jmty=554) AST (SGOT) (BEAKER) (test 30 U/L 5-34 Specimen slightly yiri=790) hemolyzed ALT (SGPT) (BEAKER) (test 22 U/L 6-55 Specimen slightly uuik=416) hemolyzed EGFR (BEAKER) (test 119 mL/min/1.73 sq ESTIMATED GFR IS NOT gfga=0790) m ACCURATE CREATININE CLEARANCE IN PREDICTING GLOMERULAR FILTRATION RATE. ESTIMATED GFR IS NOT APPLICABLE FOR DIALYSIS PATIENTS. [id number] 15:55:00 Test Item Value Reference Range Comments SODIUM (BEAKER) (test mtaq=081) 132 meq/L 136-145 POTASSIUM (BEAKER) (test 4.1 meq/L 3.5-5.1 Specimen slightly hemolyzed lbzb=848) CHLORIDE (BEAKER) (test 100 meq/L 98-107 ndsd=055) CO2 (BEAKER) (test gazz=297) 24 meq/L 22-29 BUN AND [id number] 15:55:00 Test Item Value Reference Range Comments BLOOD UREA NITROGEN 6 mg/dL 7-21 (BEAKER) (test knug=577) CREATININE (BEAKER) (test 0.67 mg/dL 0.57-1.25 Specimen slightly wfcm=092) hemolyzed EGFR (BEAKER) (test 121 mL/min/1.73 sq m ESTIMATED GFR IS NOT njic=9148) ACCURATE CREATININE CLEARANCE IN PREDICTING GLOMERULAR FILTRATION RATE. ESTIMATED GFR IS NOT APPLICABLE FOR DIALYSIS PATIENTS. [id number] 15:33:00 Test Item Value Reference Range Comments HEMOGLOBIN (BEAKER) (test rexr=997) 14.5 GM/DL 13.7-17.5 PLATELET [id number] 15:33:00 Test Item Value Reference Range Comments PLATELET COUNT (BEAKER) (test hnfi=424) 197 K/CU MM 150-450
[2019-05-12] MEDS ORDERED: CEFAZOLIN/SWI 2gm 2 GM/20 ML SYR IV ONE (09:45)
[2019-05-12] MEDS ORDERED: ONDANSETRON 4 MG/2 ML VIAL ONE (09:49)
[2019-05-12] MEDS ORDERED: MORPHINE 4 MG/ML SYR ONE (09:49)
--- NOTE | 2019-05-12 09:49 | RAD REPORT ---
EXAM DESCRIPTION: RAD - Chest Single View - 05/12/2019 9:40 am CLINICAL HISTORY: Cough, preop chest for possible treatment of current wound right leg COMPARISON: January 2018 TECHNIQUE: AP portable chest image was obtained 0933 hours . FINDINGS: No acute lung parenchymal process seen. No failure or volume overload. Sternotomy wires ar e in place. Patient rotated. Heart and vasculature are normal. No measurable pleural effusion and no pneumothorax. No acute bony abnormality seen. No acute aortic findings suspected. IMPRESSION: No acute cardiopulmonary process. No significant interval change.
[2019-05-12] MEDS ORDERED: TETANUS & DIPHTHERIA TOX,ADULT 0.5 ML VIAL ONE (09:50)
[2019-05-12] MEDS ORDERED: NA CHLORIDE 0.9% 1,000 ML ONE ×2 (09:50→10:32)
[2019-05-12 09:55] LABS: Basophils % 0.8 % (0-1.3); Hematocrit 40.7 % (39.6-49.0); RBC Red Blood Cell Count 4.33 M/uL (4.33-5.43)
[2019-05-12 09:56] LABS: Protime INR 1.56
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
[2019-05-12 10:12] LABS: ALT/SGPT 63 U/L (12-78); AST/SGOT 46 U/L (15-37); Albumin 3.5 g/dL (3.4-5.0); Alkaline Phosphatase 53 U/L (45-117); BUN Blood Urea Nitrogen 4 mg/dL (7-18); Bicarbonate 22 mmol/L (21-32); Bilirubin Direct 0.4 mg/dL (0-0.2); Glucose Level 101 mg/dL (74-106); Magnesium 1.7 mg/dL (1.8-2.4); NT PRO-BNP 311 pg/mL (<125); Potassium 3.8 mmol/L (3.5-5.1); Protein, Total 7.6 g/dL (6.4-8.2); Sodium Level 133 mmol/L (136-145); Troponin (Emerg Dept Use Only) < 0.02 ng/mL (0.0-0.045)
[2019-05-12 10:36] LABS: Urine Blood TRACE (NEG); Urine Glucose NEGATIVE (NEG); Urine Protein NEGATIVE (NEG); Urine Specific Gravity <1.005 (1.005-1.030)
[2019-05-12] MEDS ORDERED: Magnesium Sulfate 2gm IVPB 2 G/50 ML BAG IV ONE (10:38)
[2019-05-12 11:02] LABS: Blood Morphology Comment NOT SEEN (NOT SEEN); Platelet Estimate ADEQ; Urine White Blood Cell Casts OK
[2019-05-12 11:39] VITALS: TEMP 98.1
[2019-05-12 11:43] VITALS: BP 140/68; O2SAT 97
--- NOTE | 2019-05-13 17:39 | EKG ---
Test Date: 2019-05-12 Test Time: 09:41:04 [employer] Consultant: TAWNYA MEASUREMENT RESULTS: Intervals: Rate: 85 MD: 166 QRSD: 104 QT: 376 QTc: 447 [place]: P: 47 MD: 166 QRS: 111 T: 122 INTERPRETIVE STATEMENTS: Normal sinus rhythm Possible Left atrial enlargement Left posterior fascicular block Abnormal ECG Compared to ECG 01/27/2018 19:02:57 Left posterior fascicular block now present Electronically Signed On 05-13-19 17:35:21 CDT by Bernardo Fallon
== END 2019-05-12 11:27 | disposition short-term general hospital (02) ==
LOC: ER 09:01
DX: T24.201A Burn of second degree of unspecified site of right lower limb, except ankle and foot, initial encounter (principal); E83.42 Hypomagnesemia; I10 Essential (primary) hypertension; Z23 Encounter for immunization; Z95.2 Presence of prosthetic heart valve
CPT/HCPCS: 93005; 85025; 80048; 36415; 83735; 85610; 80076; 81003; 84484; 83880; 71045; 90471; 90714; 96375; 96374; 99284; J3475; J0690; J7030 ×2; J2405

== ENCOUNTER 2020-02-12 16:18 | Emergency (ER) | payer OTHER ==
--- OUTSIDE RECORDS SUMMARY | 2020-02-12 16:20 | XMS REPORT | Clinical Summary ---
:1960 Author Organization [facility] Address [address] [place] [address] Care Team Providers Name Role Phone Pcp Primary Care Provider Unavailable Allergies No Known Allergies Medications Medication Sig Dispensed Refills Start Date End Date Status warfarin Take 5 mg by mouth 0 A ctive (COUMADIN) 2 MG daily . tablet enoxaparin sodium Inject subcutaneously 0 Active (LOVENOX SUBQ) 2 (two) times daily. amLODIPine Take 5 mg by mouth 0 Active (NORVASC) 10 MG daily . tablet carvedilol (COREG) Take 12.5 mg by mouth 0 Active 12.5 MG tablet 2 (two) times daily with breakfast and dinner. paroxetine HCl Take 20 mg by mouth 0 Active (PAXIL ORAL) daily . Active Problems Problem Noted Date Ileostomy status 12/26/2018 Diverticulitis 10/14/2018 Social History Tobacco Use Types Packs/Day Years Used Date Never Smoker Smokeless Tobacco: Never Used Alcohol Use Drinks/Week oz/Week Comments Yes 2 Cans of beer 1.2 Sex Assigned at Date Recorded Not on file Job Start Date Occupation Industry Not on file Not on file Not on file Travel History Travel Start Travel End No recent travel history available. Last Filed Vital Signs Not on file Plan of Treatment Not on file Results Not on fileafter 02/11/2019 Insurance Payer Benefit Plan / Group Subscriber ID Type Phone A ddress [employer] - [employer] CARE A[employer] HMO POS QPOS xxxxxxxxx HMO/POS Advance Directives For more information, please contact:[address] [place], [place] [phone] Code Status Date Activated Date Inactivated Comments Full Code 12/26/2018 10:07 PM 12/28/2018 6:57 PM This code status was determined by: Patient Full Code 10/14/2018 10:55 PM 12/26/2018 12:42 PM This code status was determined by: Patient
--- OUTSIDE RECORDS SUMMARY | 2020-02-12 16:20 | XMS REPORT | Clinical Summary ---
:1960 Author Organization [facility] Address [address] [place] [address] Care Team Providers Name Role Phone Lam Denton MD Primary Care Provider [phone] Allergies No Known Allergies Medications Medication Sig Dispensed Refills Start Date End Date Status carvedilol (COREG) Take 12.5 mg by 0 Active 12.5 MG tablet mouth every morning. ferrous sulfate 325 Take 325 mg by 0 Active (65 FE) MG tablet mouth daily with breakfast. PARoxetine CR Take 25 mg by 0 Ac tive (PAXIL-CR) 25 MG 24 mouth every hr tablet morning. warfarin (COUMADIN) Take 2.5 mg by 0 Active 2.5 MG tablet mouth daily. amLODIPine Take 1 tablet by 1 11/10/2018 A ctive (NORVASC) 5 mg mouth every tablet morning. enoxaparin Inject 100 mg 0 Activ e (LOVENOX) 100 mg/mL under the skin syringe every 12 (twelve) hours. MILK THISTLE ORAL Take by mouth. 0 Active latanoprost Administer 1 0 Disco ntinued (XALATAN) 0.005 % drop to both 0 ophthalmic solution eyes nightly. neomycin Take 1 tablet 6 tablet 0 10/05/2019 Expir ed (MYCIFRADIN) 500 mg (500 mg total) 0 tabletIndications: by mouth take as Incisional hernia directed (preop) without obstruction for up to 1 day. or gangrene metroNIDAZOLE Take 1 tablet 3 tablet 0 10/05/2019 E xpired (FLAGYL) 500 MG (500 mg total) 0 tabletIndications: by mouth take as Incisional hernia directed (bowel without obstruction prep) for up to or gangrene 1 day. 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 11/2018 Diverticulitis of large intestine with abscess without bleeding 01/08/2018 Bowel perforation 01/08/2018 Peritoneal abscess 01/08/2018 Encounters Date Type Specialty Care Team Description 10/24/2019 Pre-Admit Testing Pre-Admission Kalyan Barahona (Patient) Appointment Testing MD Mino 10/05/2019 Orders Only General Surgery Alagugurusamy, Incisional hernia Cindy Godinez, without ob struction [employer] or gangrene (Primary Dx) 07/28/2019 Hospital Encounter Radiology Kalyan Barahona MD 07/21/2019 Orders Only General Surgery Kalyan Barahona MD 07/21/2019 Telephone General Surgery Tom Napoles MA 07/09/2019 Orders Only General Surgery Kalyan Barahona MD without obstruc tion or gangrene (Primary Dx) 07/08/2019 Telephone General Surgery Tom Napoles MA 07/01/2019 Telephone General Surgery Tom Napoles MA 06/30/2019 Telephone General Surgery Tom Napoles MA 06/24/2019 Orders Only General Surgery Kalyan Barahona MD without obstruc tion or gangrene (Primary Dx) 06/23/2019 Telephone General Surgery Tom Napoles MA 03/14/2019 Orders Only General Surgery Kalyan Barahona MD without obstruc tion or gangrene (Primary Dx) 03/12/2019 Office Visit General Surgery Kalyan Barahona MD without obstruc tion or gangrene (Primary Dx) after 02/11/2019 Family History Medical History Relation Name Comments Diabetes Father Heart disease Father Relation Name Status Comments Father Social History Tobacco Use Types Packs/Day Years Used Date Never Smoker Smokeless Tobacco: Never Used Alcohol Use Drinks/Week oz/Week Comments Yes 6 Standard drinks or equivalent 6.0 Sex Assigned at Date Recorded Not on file Job Start Date Occupation Industry Not on file Not on file Not on file Travel History Travel Start Travel End No recent travel history available. Last Filed Vital Signs Vital Sign Reading Time Taken Comments Blood Pressure - - Pulse - - Temperature - - Respiratory Rate - - Oxygen Saturation - - Inhaled Oxygen Concentration - - Weight 95.3 kg (210 lb) 10/21/2019 9:00 AM [employer] Height 172.7 cm (5' 8") 10/21/2019 9:00 AM [employer] Body Mass Index 31.93 10/21/2019 9:00 AM [employer] Plan of Treatment Health Maintenance Due Date Last Done Comments COLONOSCOPY SCREENING 2008 SHINGLES VACCINES (#1) 2008 INFLUENZA VACCINE 04/10/2020 Procedures Procedure Name Priority Date/Time Associated Diagnosis Comme nts CT ABD/PELVIC Routine 07/18/2019 1:41 PM Results for this EXTERNAL STUDY [employer] procedure are in the results section. SURGICAL PATHOLOGY Routine 07/16/2019 REQUEST after 02/11/[address] Abd/Pelvic External Study (07/18/2019 1:41 PM [employer] [facility]) Specimen Narrative Performed At This exam was not acquired at a [facility] t facility and has not been [facility] interpreted by a [facility] Provider. T he exam was imported into our imaging system for comparisons purposes. Performing Organization Address City/State/Zipcode Phone Number [email or web address] [address] [place] [address] Surgical pathology request (07/16/2019) Specimen Tissue Narrative Performed At This result has an attachment that is no t available. 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
--- OUTSIDE RECORDS SUMMARY | 2020-02-12 16:22 | XMS REPORT | Continuity of Care Document ---
:1960 Author Organization [facility] t Address [address] [place] [address] [address]. [address] [place] [address] Care Team Providers Name Role Phone Dipak Denton MD Primary Care Physician [place] SAM, Yoel Herzog Attending Clinician Gretchen Rodriguez Attending Clinician [phone] Dony WATSON, A Attending Clinician Unavailable Room, Therapy-Tub Attending Clinician Unavailable Aida SAM, Wallace Attending Clinician Gee Attending Clinician Pcp, Does Not Have A Attending Clinician Sidney SAM, O Attending Clinician Uzma Terrell MD Attending Clinician ALDO FLOWERS Attending Clinician Unavailable Sidney SAM, O Admitting Clinician ALDO FLOWERS Admitting Clinician Unavailable Payers Payer Name Policy Type Policy Number Effective Date Expiration Date S mckenzie AETNAAETNA xxxxxxxxx [facility] Christian MARK ANTHONY/ECxxxxxxxxx2000-PresentHM O Problems Condition Condition Condition Status Onset Resolution Last Treating Co mments Source Name Details Category Date Date Treatment Clinician Date 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 Family History Family Member Diagnosis Comments Start Date Stop Date Source Natural father Diabetes [facility] thodist Natural father Heart disease [facility] Social History Social Habit Start Date Stop Date Quantity Comments Source Sex Assigned At [facility] ethodist Alcohol intake 2019-10-21 2019-10-21 Current drinker [place] 00:00:00 00:00:00 of alcohol (finding) Smoking Status Start Date Stop Date Source Never smoker [place] Methodis t Medications Ordered Filled Start Stop Current Ordering Indication Dosage Frequency Signature Comments Components Source Medication Medication Date Date Medication? Clinician (SIG) Name Name MILK 2020-0 Yes Take by Jonah THISTLE 2-11 mouth. Methodi ORAL 09:59: st 58 carvedilol 2020-0 Yes 12.5mg QD Take 12.5 [place] (COREG) 2-11 mg by Methodi 12.5 MG 09:58: mouth st tablet 42 every morning. ferrous 2020-0 Yes 325mg QD Take 325 [place] sulfate 325 2-11 mg by Methodi (65 FE) MG 09:58: mouth st tablet 42 daily with breakfast. PARoxetine 2020-0 Yes 25mg QD Take 25 mg [place] CR 2-11 by mouth [facility] (PAXIL-CR) 09:58: every st 25 MG 24 hr 42 morning. tablet warfarin 2020-0 Yes 2.5mg QD Take 2.5 [place] (COUMADIN) 2-11 mg by Methodi 2.5 MG 09:58: mouth st tablet 42 daily. enoxaparin 2020-0 Yes 100mg Q12H Inject 100 [place] (LOVENOX) 2-11 mg under Method i 100 mg/mL 09:58: the skin st syringe 42 every 12 (twelve) hours. latanoprost 2020-0 2020- No 1[drp] QD Administer Mck[place] (XALATAN) 2-11 02-11 1 drop to Meth tiffanie 0.005 % 09:56: 00:[address] ophthalmic 15 :00 nightly. solution neomycin 2019- No Incisional 500mg Take 1 Mck[place] (MYCIFRADIN 10-05 hernia tablet Met hodi ) 500 mg 00:00: 23:59 without ([address] tablet 00 :00 obstruction total) by or gangrene mouth take as directed (preop) for up to 1 day. metroNIDAZO No Incisional 500mg Take 1 Mckenzie LE (FLAGYL) 10-05 hernia tablet Met hodi 500 MG 00:00: 23:59 without ([address] tablet 00 :00 obstruction total) by or gangrene mouth take as directed (bowel prep) for up to 1 day. amLODIPine Yes 1{tbl} QD Take 1 Jann varela (NORVASC) 5 3-03 tablet by Met hodi mg tablet 00:00: mouth st 00 every morning. Vital Signs Vital Name Observation Time Observation Value Comments Source Body height 2019-10-21 09:00:00 172.7 cm Jonah Chavez Body weight 2019-10-21 09:00:00 95.255 kg Jonah Chavez BMI 2019-10-21 09:00:00 31.93 kg/m2 Jonah Chavez Procedures Procedure Date / Time Performed Performing Clinician Sour e CT ABD/PELVIC EXTERNAL 2019-07-18 13:41:00 Kalyan Barahona STUDY [facility] SURGICAL PATHOLOGY 2019-07-16 00:00:00 Kalyan Barahona Plan of Care Planned Activity Planned Date Details Comments Source Future Scheduled 2020-04-10 INFLUENZA VACCINE Kimymto n Christian Test 00:00:00 [code = INFLUENZA VACCINE] Future Scheduled 2008 COLONOSCOPY SCREENING Ho darius Christian Test 00:00:00 [code = COLONOSCOPY SCREENING] Future Scheduled 2008 SHINGLES VACCINES Kimmyto n Christian Test 00:00:00 (#1) [code = SHINGLES VACCINES (#1)] Encounters Start End Encounter Admission Attending Care Care Encounter Source Date/Time Date/Time Type Type Clinicians Facility Department ID 2019-05-27 2019-05-27 [place] [id number] 10:54:31 10:54:40 Visit [facility]-Occup SHAMEKA [id number] Therapy-Tub [place] [id number] 2019-05-26 2019-05-26 [facility] Aida Priscilla [id number] 12:30:00 23:59:00 Encounter Jeanie Gonsalez [place] [id number] [place] [id number] 2019-05-23 2019-05-23 Telephone Priscilla Flynn [id number] 00:00:00 00:00:00 Andrae Sandovaly [id number] [place] [id number] 2019-05-22 2019-05-22 Telephone Priscilla Nichols [id number] 00:00:00 00:00:00 Patient [place] [id number] Have A [id number] 2019-05-12 2019-05-20 [facility] Alli Littlenie [id number] 14:53:00 11:40:00 Encounter [place] [id number] [place] [id number] 2019-05-14 2019-05-14 Anesthesia Priscilla Terrell [id number] 08:58:00 10:15:00 Shamiso [place] [id number] [place] [id number] Results Test Description Test Time Test Comments Results Result [facility] e Comments CT Abd/Pelvic 2019-07-11 This exam was not [place] External Study 9 acquired at a [facility] 12:30:12 Christian facility and has not been interpreted by a Christian Provider. The exam was imported into our imaging system for comparisons purposes. TISSUE EXAM 2018-12-10 Surgical Pathology 2 Report 17:35:00 Case: [id number] Authorizing Provider: Blair Flowers MD Collected: 12/26/2018 1934 Ordering Location: [facility] PERIOPERATIVE Received: 12/27/2018 0833 SERVICES Pathologist: Mary Guzmán MD Specimen: Ileostomy ILEOSTOMY, LAPAROSCOPIC TAKEDOWN: - ILEOSTOMY SITE IDENTIFIED - ULCERATION AND GRANULATION TISSUE - CHRONIC INFLAMMATION AND SEROSAL ADHESIONS - NEGATIVE FOR MALIGNANCY Signing Pathologist Direct Phone Line: [phone] nically signed by Mary Guzmán MD on 12/30/2018 at 5:35 [id number] This case is received in one part [...] reveal congested kemp-pink to red intestinal mucosa. Criminal Research Specialist sections are submitted as follows: A1, A2, staple line; A3, employment representative sections to include small intestine and skin. AH/ewPERFORMED CBC W/PLT COUNT & AUTO DIFFERENTIAL 2018-12-28 12:15:00 Test Item Value Reference Range Interpretation Comme nts WHITE BLOOD CELL COUNT (BEAKER) (test code = 775) 7.1 K/ L 3.5- 10.5 RED BLOOD CELL COUNT (BEAKER) (test code = 761) 4.09 M/ L 4.63-6 .08 L HEMOGLOBIN (BEAKER) (test code = 410) 13.0 GM/DL 13.7-17.5 L HEMATOCRIT (BEAKER) (test code = 411) 39.3 % 40.1-51.0 L MEAN CORPUSCULAR VOLUME (BEAKER) (test code = 753) 96.1 fL 79. 0-92.2 H MEAN CORPUSCULAR HEMOGLOBIN (BEAKER) (test code = 751) 31.8 pg 25.7-32.2 MEAN CORPUSCULAR HEMOGLOBIN CONC (BEAKER) (test code = 752) 33.1 GM/DL 32.3-36.5 RED CELL DISTRIBUTION WIDTH (BEAKER) (test code = 412) 12.1 % 11.6-14.4 PLATELET COUNT (BEAKER) (test code = 756) 194 K/CU MM 150-450 MEAN PLATELET VOLUME (BEAKER) (test code = 754) 9.6 fL 9.4-12 .4 NUCLEATED RED BLOOD CELLS (BEAKER) (test code = 413) 0 /100 WBC 0 -0 NEUTROPHILS RELATIVE PERCENT (BEAKER) (test code = 429) 75 % LYMPHOCYTES RELATIVE PERCENT (BEAKER) (test code = 430) 11 % MONOCYTES RELATIVE PERCENT (BEAKER) (test code = 431) 9 % EOSINOPHILS RELATIVE PERCENT (BEAKER) (test code = 432) 3 % BASOPHILS RELATIVE PERCENT (BEAKER) (test code = 437) 1 % NEUTROPHILS ABSOLUTE COUNT (BEAKER) (test code = 670) 5.37 K/ L 1.78-5.38 LYMPHOCYTES ABSOLUTE COUNT (BEAKER) (test code = 414) 0.81 K/ L 1.32-3.57 L MONOCYTES ABSOLUTE COUNT (BEAKER) (test code = 415) 0.67 K/ L 0. 30-0.82 EOSINOPHILS ABSOLUTE COUNT (BEAKER) (test code = 416) 0.18 K/ L 0.04-0.54 BASOPHILS ABSOLUTE COUNT (BEAKER) (test code = 417) 0.04 K/ L 0. 01-0.08 IMMATURE GRANULOCYTES-RELATIVE PERCENT (BEAKER) (test code 1 % 0-1 = 2801) BASIC METABOLIC [id number] 07:52:00 Test Item Value Reference Range Interpretation Comments SODIUM (BEAKER) 133 meq/L 136-145 L (test code = 381) POTASSIUM (BEAKER) 3.5 meq/L 3.5-5.1 (test code = 379) CHLORIDE (BEAKER) 100 meq/L 98-107 (test code = 382) CO2 (BEAKER) (test 25 meq/L 22-29 code = 355) BLOOD UREA NITROGEN 7 mg/dL 7-21 (BEAKER) (test code = 354) CREATININE (BEAKER) 0.63 mg/dL 0.57-1.25 (test code = 358) GLUCOSE RANDOM 101 mg/dL 70-105 (BEAKER) (test code = 652) CALCIUM (BEAKER) 8.8 mg/dL 8.4-10.2 (test code = 697) EGFR (BEAKER) (test 130 mL/min/1.73 ESTIM ATED GFR IS code = 1092) sq m NOT ACCURATE CREATININE CLEARANCE IN PREDICTING GLOMERULAR FILTRATION RATE . ESTIMATED GFR I S NOT APPLICABLE FOR DIALYSIS PATIEN TS. BASIC METABOLIC [id number] 07:01:00 Test Item Value Reference Range Interpretation Comments SODIUM (BEAKER) 129 meq/L 136-145 L (test code = 381) POTASSIUM (BEAKER) 3.9 meq/L 3.5-5.1 (test code = 379) CHLORIDE (BEAKER) 96 meq/L 98-107 L (test code = 382) CO2 (BEAKER) (test 26 meq/L 22-29 code = 355) BLOOD UREA NITROGEN 7 mg/dL 7-21 (BEAKER) (test code = 354) CREATININE (BEAKER) 0.69 mg/dL 0.57-1.25 (test code = 358) GLUCOSE RANDOM 136 mg/dL 70-105 H (BEAKER) (test code = 652) CALCIUM (BEAKER) 9.2 mg/dL 8.4-10.2 (test code = 697) EGFR (BEAKER) (test 117 mL/min/1.73 ESTIM ATED GFR IS code = 1092) sq m NOT ACCURATE CREATININE CLEARANCE IN PREDICTING GLOMERULAR FILTRATION RATE . ESTIMATED GFR I S NOT APPLICABLE FOR DIALYSIS PATIEN TS. BASIC METABOLIC [id number] 15:00:00 Test Item Value Reference Range Interpretation Comments SODIUM (BEAKER) 134 meq/L 136-145 L (test code = 381) POTASSIUM (BEAKER) 4.2 meq/L 3.5-5.1 (test code = 379) CHLORIDE (BEAKER) 100 meq/L 98-107 (test code = 382) CO2 (BEAKER) (test 24 meq/L 22-29 code = 355) BLOOD UREA NITROGEN 8 mg/dL 7-21 (BEAKER) (test code = 354) CREATININE (BEAKER) 0.71 mg/dL 0.57-1.25 (test code = 358) GLUCOSE RANDOM 104 mg/dL 70-105 (BEAKER) (test code = 652) CALCIUM (BEAKER) 9.7 mg/dL 8.4-10.2 (test code = 697) EGFR (BEAKER) (test 113 mL/min/1.73 ESTIM ATED GFR IS code = 1092) sq m NOT ACCURATE CREATININE CLEARANCE IN PREDICTING GLOMERULAR FILTRATION RATE . ESTIMATED GFR I S NOT APPLICABLE FOR DIALYSIS PATIEN TS. PROTHROMBIN [id number] 14:23:00 Test Item Value Reference Range Interpretation Comments PROTIME (BEAKER) (test code = 14.5 seconds 11.7-14.7 759) INR (BEAKER) (test code = 370) 1.1 <=5.9 RECOMMENDED COUMADIN/WARFARIN INR THERAPY RANGESSTANDARD DOSE: 2.0 - 3.0 Includes: PROPHYLAXIS forvenous thrombosis, systemic embolization; TREATMENT for venous thrombosis and/or pulmonary embolus.HIGH RISK: Target INR is 2.5-3.5 for patients with mechanical heart valves.[id number] 14:23:00 Test Item Value Reference Range Interpretation Comments PARTIAL THROMBOPLASTIN TIME 35.2 seconds 22.5-36.0 (BEAKER) (test code = 760) CBC (HEMOGRAM ONLY)2018-12-26 14:09:00 Test Item Value Reference Range Interpretation Comments WHITE BLOOD CELL COUNT (BEAKER) 8.2 K/ L 3.5-10.5 (test code = 775) RED BLOOD CELL COUNT (BEAKER) 4.78 M/ L 4.63-6.08 (test code = 761) HEMOGLOBIN (BEAKER) (test code = 15.3 GM/DL 13.7-17.5 410) HEMATOCRIT (BEAKER) (test code = 44.4 % 40.1-51.0 411) MEAN CORPUSCULAR VOLUME (BEAKER) 92.9 fL 79.0-92.2 H (test code = 753) MEAN CORPUSCULAR HEMOGLOBIN 32.0 pg 25.7-32.2 (BEAKER) (test code = 751) MEAN CORPUSCULAR HEMOGLOBIN CONC 34.5 GM/DL 32.3-36.5 (BEAKER) (test code = 752) RED CELL DISTRIBUTION WIDTH 11.9 % 11.6-14.4 (BEAKER) (test code = 412) PLATELET COUNT (BEAKER) (test 281 K/CU MM 150-450 code = 756) MEAN PLATELET VOLUME (BEAKER) 9.5 fL 9.4-12.4 (test code = 754) NUCLEATED RED BLOOD CELLS 0 /100 WBC 0-0 (BEAKER) (test code = 413) POCT-GLUCOSE [id number] 14:00:00 Test Item Value Reference Range Interpretation Comments POC-GLUCOSE METER 113 mg/dL 70-[address] [facility] (BEAKER) (test code = [place] 1538) [address] FUNGUS CULTURE + [id number] 18:31:00 Test Item Value Reference Range Interpretation Comments CULTURE (BEAKER) (test No fungus isolated in code = 1095) 28 days FUNGUS SMEAR (BEAKER) No fungi seen (test code = 1406) FUNGUS CULTURE + [id number] 18:31:00 Test Item Value Reference Range Interpretation Comments CULTURE (BEAKER) (test No fungus isolated in code = 1095) 28 days FUNGUS SMEAR (BEAKER) No fungi seen (test code = 1406) FUNGUS CULTURE + [id number] 18:31:00 Test Item Value Reference Range Interpretation Comments CULTURE (BEAKER) (test No fungus isolated in code = 1095) 28 days FUNGUS SMEAR (BEAKER) No fungi seen (test code = 1406) ANAEROBIC [id number] 07:32:00 Test Item Value Reference Range Interpretation Comments CULTURE (BEAKER) A From Broth Only Same (test code = 1095) organism has been isolated from culture(s) of the same body site and c ollection date. Repeat id entification performed only after consultation wi th the clinical microb iology laboratory.Refe r to previous cultur e ofClostridium p janells ANAEROBIC [id number] 07:29:00 Test Item Value Reference Range Interpretation Comments CULTURE (BEAKER) (test A <1+ C lostridium code = 1095) perfringens Anaerobic organisms of more than 3 types. No further work up performed. SURGICALLY OBTAINED CULTURE + GRAM [id number] 14:32:00 Test Item Value Reference Range Interpretation Comments CULTURE (BEAKER) A <1+ Lactoba cillus (test code = species 1095) GRAM STAIN <1+ WBCs RESULT (BEAKER) (test code = 1123) GRAM STAIN No organisms seen RESULT (BEAKER) (test code = 30630) SURGICALLY OBTAINED CULTURE + GRAM [id number] 14:30:00 Test Item Value Reference Range Interpretation Comments CULTURE (BEAKER) A From Broth Only (test code = 1095) Hafnia al vei GRAM STAIN RESULT <1+ WBCs (BEAKER) (test code = 1123) GRAM STAIN RESULT No organisms seen (BEAKER) (test code = 657751) ANAEROBIC [id number] 05:28:00 Test Item Value Reference Range Interpretation Comments CULTURE (BEAKER) (test No anaerobes isolated code = 1095) SURGICALLY OBTAINED CULTURE + GRAM [id number] 12:17:00 Test Item Value Reference Interpretation Comments Range CULTURE (BEAKER) (test HAFNIA ALVEI A <1+ H afnia alvei code = 1095) Amikacin (test code = S 1) Ampicillin + Sulbactam R (test code = 6) Aztreonam (test code = S 32) Cefepime (test code = S 51) Cefoxitin (test code = R 68) Ceftazidime (test code S = 27) Ceftriaxone (test code S = 52) Ertapenem (test code = S 38) Gentamicin (test code S = 18) Levofloxacin (test S code = 22) Meropenem (test code = S 34) Nitrofurantoin (test S code = 23) Piperacillin + S Tazobactam (test code = 29) Tetracycline (test S code = 2) Tobramycin (test code S = 25) Trimethoprim + S Sulfamethoxazole (test code = 47) CULTURE (BEAKER) (test ENTEROBACTER A <1+ E nterobacter code = 1095) CLOACAE cloacae Amikacin (test code = S 1) Aztreonam (test code = S 32) Cefepime (test code = S 51) Cefoxitin (test code = R 68) Ceftazidime (test code S = 27) Ceftriaxone (test code S = 52) Ertapenem (test code = S 38) Gentamicin (test code S = 18) Levofloxacin (test S code = 22) Meropenem (test code = S 34) Tetracycline (test S code = 2) Tobramycin (test code S = 25) Trimethoprim + S Sulfamethoxazole (test code = 47) CULTURE (BEAKER) (test ENTEROBACTER A <1+ E nterobacter code = 1095) CLOACAE cloacaeof a second type Amikacin (test code = S 1) Aztreonam (test code = S 32) Cefepime (test code = S 51) Cefoxitin (test code = R 68) Ceftazidime (test code S = 27) Ceftriaxone (test code S = 52) Ertapenem (test code = S 38) Gentamicin (test code S = 18) Levofloxacin (test S code = 22) Meropenem (test code = S 34) Nitrofurantoin (test I code = 23) Piperacillin + S Tazobactam (test code = 29) Tetracycline (test S code = 2) Tobramycin (test code S = 25) Trimethoprim + S Sulfamethoxazole (test code = 47) GRAM STAIN RESULT 1+ WBCs (BEAKER) (test code = 1123) GRAM STAIN RESULT No organisms seen (BEAKER) (test code = 881409) [id number] 03:38:00 Test Item Value Reference Range Interpretation Comments MAGNESIUM (BEAKER) (test code = 1.7 mg/dL 1.6-2.6 627) BASIC METABOLIC [id number] 03:38:00 Test Item Value Reference Range Interpretation Comments SODIUM (BEAKER) 131 meq/L 136-145 L (test code = 381) POTASSIUM (BEAKER) 3.1 meq/L 3.5-5.1 L (test code = 379) CHLORIDE (BEAKER) 95 meq/L 98-107 L (test code = 382) CO2 (BEAKER) (test 29 meq/L 22-29 code = 355) BLOOD UREA NITROGEN 10 mg/dL 7-21 (BEAKER) (test code = 354) CREATININE (BEAKER) 0.75 mg/dL 0.57-1.25 (test code = 358) GLUCOSE RANDOM 96 mg/dL 70-105 (BEAKER) (test code = 652) CALCIUM (BEAKER) 8.9 mg/dL 8.4-10.2 (test code = 697) EGFR (BEAKER) (test 106 mL/min/1.73 ESTIM ATED GFR IS code = 1092) sq m NOT ACCURATE CREATININE CLEARANCE IN PREDICTING GLOMERULAR FILTRATION RATE . ESTIMATED GFR I S NOT APPLICABLE FOR DIALYSIS PATIEN TS. PROTHROMBIN [id number] 03:32:00 Test Item Value Reference Range Interpretation Comments PROTIME (BEAKER) (test code = 14.1 seconds 11.7-14.7 759) INR (BEAKER) (test code = 370) 1.1 <=5.9 RECOMMENDED COUMADIN/WARFARIN INR THERAPY RANGESSTANDARD DOSE: 2.0 - 3.0 Includes: PROPHYLAXIS forvenous thrombosis, systemic embolization; TREATMENT for venous thrombosis and/or pulmonary embolus.HIGH RISK: Target INR is 2.5-3.5 for patients with mechanical heart valves.CBC W/PLT COUNT & AUTO DIFFERENTIAL 2018-10-17 03:15:00 Test Item Value Reference Range Interpretation Comments WHITE BLOOD CELL COUNT (BEAKER) 7.8 K/ L 3.5-10.5 (test code = 775) RED BLOOD CELL COUNT (BEAKER) 3.43 M/ L 4.63-6.08 L (test code = 761) HEMOGLOBIN (BEAKER) (test code = 11.4 GM/DL 13.7-17.5 L 410) HEMATOCRIT (BEAKER) (test code = 33.9 % 40.1-51.0 L 411) MEAN CORPUSCULAR VOLUME (BEAKER) 98.8 fL 79.0-92.2 H (test code = 753) MEAN CORPUSCULAR HEMOGLOBIN 33.2 pg 25.7-32.2 H (BEAKER) (test code = 751) MEAN CORPUSCULAR HEMOGLOBIN CONC 33.6 GM/DL 32.3-36.5 (BEAKER) (test code = 752) RED CELL DISTRIBUTION WIDTH 14.2 % 11.6-14.4 (BEAKER) (test code = 412) PLATELET COUNT (BEAKER) (test 188 K/CU MM 150-450 code = 756) MEAN PLATELET VOLUME (BEAKER) 9.6 fL 9.4-12.4 (test code = 754) NUCLEATED RED BLOOD CELLS 0 /100 WBC 0-0 (BEAKER) (test code = 413) NEUTROPHILS RELATIVE PERCENT 76 % (BEAKER) (test code = 429) LYMPHOCYTES RELATIVE PERCENT 13 % (BEAKER) (test code = 430) MONOCYTES RELATIVE PERCENT 8 % (BEAKER) (test code = 431) EOSINOPHILS RELATIVE PERCENT 1 % (BEAKER) (test code = 432) BASOPHILS RELATIVE PERCENT 1 % (BEAKER) (test code = 437) NEUTROPHILS ABSOLUTE COUNT 5.93 K/ L 1.78-5.38 H (BEAKER) (test code = 670) LYMPHOCYTES ABSOLUTE COUNT 1.00 K/ L 1.32-3.57 L (BEAKER) (test code = 414) MONOCYTES ABSOLUTE COUNT (BEAKER) 0.60 K/ L 0.30-0.82 (test code = 415) EOSINOPHILS ABSOLUTE COUNT 0.09 K/ L 0.04-0.54 (BEAKER) (test code = 416) BASOPHILS ABSOLUTE COUNT (BEAKER) 0.04 K/ L 0.01-0.08 (test code = 417) IMMATURE GRANULOCYTES-RELATIVE 2 % 0-1 H PERCENT (BEAKER) (test code = 2801) PROTHROMBIN [id number] 17:13:00 Test Item Value Reference Range Interpretation Comments PROTIME (BEAKER) (test code = 14.4 seconds 11.7-14.7 759) INR (BEAKER) (test code = 370) 1.1 <=5.9 RECOMMENDED COUMADIN/WARFARIN INR THERAPY RANGESSTANDARD DOSE: 2.0 - 3.0 Includes: PROPHYLAXIS forvenous thrombosis, systemic embolization; TREATMENT for venous thrombosis and/or pulmonary embolus.HIGH RISK: Target INR is 2.5-3.5 for patients with mechanical heart valves.TISSUE [id number] 13:56:00Surgical Pathology Report Case: [id number] Authorizing Provider: Blair Flowers MD Collected: 10/14/2018 1551 Ordering Location: [facility] PERIOPERATIVE Received: 10/15/2018 0742 SERVICES Pathologist: [...] ARE VIABLE. Signing Pathologist Direct Phone Line: [phone] signed by Sp Cedillo MD on 10/16/2018 at 1:56 [id number], [id number] of large intestine with abscess and withoutbleedingA. [...] B3, B4, abscess formations; B5-B8, diverticula. CG/ew A-B: [id number] 05:05:00 Test Item Value Reference Range Interpretation Comments MAGNESIUM (BEAKER) (test code = 2.3 mg/dL 1.6-2.6 627) BASIC METABOLIC [id number] 05:05:00 Test Item Value Reference Range Interpretation Comments SODIUM (BEAKER) 132 meq/L 136-145 L (test code = 381) POTASSIUM (BEAKER) 3.1 meq/L 3.5-5.1 L (test code = 379) CHLORIDE (BEAKER) 96 meq/L 98-107 L (test code = 382) CO2 (BEAKER) (test 29 meq/L 22-29 code = 355) BLOOD UREA NITROGEN 8 mg/dL 7-21 (BEAKER) (test code = 354) CREATININE (BEAKER) 0.68 mg/dL 0.57-1.25 (test code = 358) GLUCOSE RANDOM 119 mg/dL 70-105 H (BEAKER) (test code = 652) CALCIUM (BEAKER) 9.0 mg/dL 8.4-10.2 (test code = 697) EGFR (BEAKER) (test 119 mL/min/1.73 ESTIM ATED GFR IS code = 1092) sq m NOT ACCURATE CREATININE CLEARANCE IN PREDICTING GLOMERULAR FILTRATION RATE . ESTIMATED GFR I S NOT APPLICABLE FOR DIALYSIS PATIEN TS. [id number] 04:58:00 Test Item Value Reference Range Interpretation Comments PARTIAL THROMBOPLASTIN TIME 79.4 seconds 22.5-36.0 H (BEAKER) (test code = 760) CBC W/PLT COUNT & AUTO [id number] 04:51:00 Test Item Value Reference Range Interpretation Comments WHITE BLOOD CELL COUNT (BEAKER) 10.7 K/ L 3.5-10.5 H (test code = 775) RED BLOOD CELL COUNT (BEAKER) 3.92 M/ L 4.63-6.08 L (test code = 761) HEMOGLOBIN (BEAKER) (test code = 13.1 GM/DL 13.7-17.5 L 410) HEMATOCRIT (BEAKER) (test code = 39.5 % 40.1-51.0 L 411) MEAN CORPUSCULAR VOLUME (BEAKER) 100.8 fL 79.0-92.2 H (test code = 753) MEAN CORPUSCULAR HEMOGLOBIN 33.4 pg 25.7-32.2 H (BEAKER) (test code = 751) MEAN CORPUSCULAR HEMOGLOBIN CONC 33.2 GM/DL 32.3-36.5 (BEAKER) (test code = 752) RED CELL DISTRIBUTION WIDTH 14.9 % 11.6-14.4 H (BEAKER) (test code = 412) PLATELET COUNT (BEAKER) (test 233 K/CU MM 150-450 code = 756) MEAN PLATELET VOLUME (BEAKER) 9.3 fL 9.4-12.4 L (test code = 754) NUCLEATED RED BLOOD CELLS 0 /100 WBC 0-0 (BEAKER) (test code = 413) NEUTROPHILS RELATIVE PERCENT 83 % (BEAKER) (test code = 429) LYMPHOCYTES RELATIVE PERCENT 11 % (BEAKER) (test code = 430) MONOCYTES RELATIVE PERCENT 5 % (BEAKER) (test code = 431) EOSINOPHILS RELATIVE PERCENT 0 % (BEAKER) (test code = 432) BASOPHILS RELATIVE PERCENT 0 % (BEAKER) (test code = 437) NEUTROPHILS ABSOLUTE COUNT 8.90 K/ L 1.78-5.38 H (BEAKER) (test code = 670) LYMPHOCYTES ABSOLUTE COUNT 1.12 K/ L 1.32-3.57 L (BEAKER) (test code = 414) MONOCYTES ABSOLUTE COUNT (BEAKER) 0.51 K/ L 0.30-0.82 (test code = 415) EOSINOPHILS ABSOLUTE COUNT 0.03 K/ L 0.04-0.54 L (BEAKER) (test code = 416) BASOPHILS ABSOLUTE COUNT (BEAKER) 0.02 K/ L 0.01-0.08 (test code = 417) IMMATURE GRANULOCYTES-RELATIVE 1 % 0-1 PERCENT (BEAKER) (test code = 2801) [id number] 21:54:00 Test Item Value Reference Range Interpretation Comments PARTIAL THROMBOPLASTIN TIME 79.0 seconds 22.5-36.0 H (BEAKER) (test code = 760) [id number] 15:02:00 Test Item Value Reference Range Interpretation Comments PARTIAL THROMBOPLASTIN TIME 52.4 seconds 22.5-36.0 H (BEAKER) (test code = 760) [id number] 08:32:00 Test Item Value Reference Range Interpretation Comments PARTIAL THROMBOPLASTIN TIME 51.2 seconds 22.5-36.0 H (BEAKER) (test code = 760) CBC W/PLT COUNT & AUTO [id number] 07:29:00 Test Item Value Reference Range Interpretation Comments WHITE BLOOD CELL COUNT (BEAKER) 7.4 K/ L 3.5-10.5 (test code = 775) RED BLOOD CELL COUNT (BEAKER) 4.02 M/ L 4.63-6.08 L (test code = 761) HEMOGLOBIN (BEAKER) (test code = 13.3 GM/DL 13.7-17.5 L 410) HEMATOCRIT (BEAKER) (test code = 40.0 % 40.1-51.0 L 411) MEAN CORPUSCULAR VOLUME (BEAKER) 99.5 fL 79.0-92.2 H (test code = 753) MEAN CORPUSCULAR HEMOGLOBIN 33.1 pg 25.7-32.2 H (BEAKER) (test code = 751) MEAN CORPUSCULAR HEMOGLOBIN CONC 33.3 GM/DL 32.3-36.5 (BEAKER) (test code = 752) RED CELL DISTRIBUTION WIDTH 15.4 % 11.6-14.4 H (BEAKER) (test code = 412) PLATELET COUNT (BEAKER) (test 216 K/CU MM 150-450 code = 756) MEAN PLATELET VOLUME (BEAKER) 9.0 fL 9.4-12.4 L (test code = 754) NUCLEATED RED BLOOD CELLS 0 /100 WBC 0-0 (BEAKER) (test code = 413) NEUTROPHILS RELATIVE PERCENT 85 % (BEAKER) (test code = 429) LYMPHOCYTES RELATIVE PERCENT 6 % (BEAKER) (test code = 430) MONOCYTES RELATIVE PERCENT 8 % (BEAKER) (test code = 431) EOSINOPHILS RELATIVE PERCENT 0 % (BEAKER) (test code = 432) BASOPHILS RELATIVE PERCENT 0 % (BEAKER) (test code = 437) NEUTROPHILS ABSOLUTE COUNT 6.23 K/ L 1.78-5.38 H (BEAKER) (test code = 670) LYMPHOCYTES ABSOLUTE COUNT 0.45 K/ L 1.32-3.57 L (BEAKER) (test code = 414) MONOCYTES ABSOLUTE COUNT (BEAKER) 0.58 K/ L 0.30-0.82 (test code = 415) EOSINOPHILS ABSOLUTE COUNT 0.01 K/ L 0.04-0.54 L (BEAKER) (test code = 416) BASOPHILS ABSOLUTE COUNT (BEAKER) 0.03 K/ L 0.01-0.08 (test code = 417) IMMATURE GRANULOCYTES-RELATIVE 1 % 0-1 PERCENT (BEAKER) (test code = 2801) [id number] 07:18:00 Test Item Value Reference Range Interpretation Comments MAGNESIUM (BEAKER) 1.5 mg/dL 1.6-2.6 L Specimen slightly (test code = 627) hemolyzed BASIC METABOLIC [id number] 07:18:00 Test Item Value Reference Range Interpretation Comments SODIUM (BEAKER) 134 meq/L 136-145 L (test code = 381) POTASSIUM (BEAKER) 3.6 meq/L 3.5-5.1 Specimen slightly (test code = 379) hemolyzed CHLORIDE (BEAKER) 102 meq/L 98-107 (test code = 382) CO2 (BEAKER) (test 24 meq/L 22-29 code = 355) BLOOD UREA NITROGEN 7 mg/dL 7-21 (BEAKER) (test code = 354) CREATININE (BEAKER) 0.62 mg/dL 0.57-1.25 Specimen slightly (test code = 358) hemolyzed GLUCOSE RANDOM 146 mg/dL 70-105 H (BEAKER) (test code = 652) CALCIUM (BEAKER) 8.7 mg/dL 8.4-10.2 (test code = 697) EGFR (BEAKER) (test 132 mL/min/1.73 ESTIM ATED GFR IS code = 1092) sq m NOT ACCURATE CREATININE CLEARANCE IN PREDICTING GLOMERULAR FILTRATION RATE . ESTIMATED GFR I S NOT APPLICABLE FOR DIALYSIS PATIEN TS. [id number] 22:19:00 Test Item Value Reference Range Interpretation Comments PARTIAL THROMBOPLASTIN TIME 32.6 seconds 22.5-36.0 (BEAKER) (test code = 760) Prior to initiating heparinPLATELET [id number] 22:11:00 Test Item Value Reference Range Interpretation Comments PLATELET COUNT (BEAKER) (test 205 K/CU MM 150-450 code = 756) POCT-GLUCOSE [id number] 20:21:00 Test Item Value Reference Range Interpretation Comments POC-GLUCOSE METER 135 mg/dL 70-[address] [facility] (BEAKER) (test code = [place] 1538) [id number] 11:39:00 Test Item Value Reference Range Interpretation Comments SODIUM (BEAKER) (test code = 381) 138 meq/L 136-145 POTASSIUM (BEAKER) (test code = 4.0 meq/L 3.5-5.1 379) CHLORIDE (BEAKER) (test code = 382) 102 meq/L 98-107 CO2 (BEAKER) (test code = 355) 24 meq/L 22-29 Check [id number] 11:39:00 Test Item Value Reference Range Interpretation Comments GLUCOSE RANDOM (BEAKER) (test code 113 mg/dL 70-105 H = 652) Check [id number] 11:33:00 Test Item Value Reference Range Interpretation Comments PROTIME (BEAKER) (test code = 14.8 seconds 11.7-14.7 H 759) INR (BEAKER) (test code = 370) 1.2 <=5.9 PARTIAL THROMBOPLASTIN TIME 37.4 seconds 22.5-36.0 H (BEAKER) (test code = 760) RECOMMENDED COUMADIN/WARFARIN INR THERAPY RANGESSTANDARD DOSE: 2.0 - 3.0 Includes: PROPHYLAXIS forvenous thrombosis, systemic embolization; TREATMENT for venous thrombosis and/or pulmonary embolus.HIGH RISK: Target INR is 2.5-3.5 for patients with mechanical heart valves.PLATELET [id number] 11:27:00 Test Item Value Reference Range Interpretation Comments PLATELET COUNT (BEAKER) (test 257 K/CU MM 150-450 code = 756) HEMOGLOBIN AND [id number] 11:27:00 Test Item Value Reference Range Interpretation Comments HEMOGLOBIN (BEAKER) (test code = 14.5 GM/DL 13.7-17.5 410) HEMATOCRIT (BEAKER) (test code = 41.9 % 40.1-51.0 411) POCT-GLUCOSE [id number] 11:16:00 Test Item Value Reference Range Interpretation Comments POC-GLUCOSE METER 112 mg/dL 70-[address] [facility] (BEAKER) (test code = [place] 1538) [id number] CBC W/PLT COUNT & AUTO [id number] 10:17:00 Test Item Value Reference Range Interpretation Comments WHITE BLOOD CELL COUNT (BEAKER) 8.4 K/ L 3.5-10.5 (test code = 775) RED BLOOD CELL COUNT (BEAKER) 4.39 M/ L 4.63-6.08 L (test code = 761) HEMOGLOBIN (BEAKER) (test code = 14.6 GM/DL 13.7-17.5 410) HEMATOCRIT (BEAKER) (test code = 43.4 % 40.1-51.0 411) MEAN CORPUSCULAR VOLUME (BEAKER) 98.9 fL 79.0-92.2 H (test code = 753) MEAN CORPUSCULAR HEMOGLOBIN 33.3 pg 25.7-32.2 H (BEAKER) (test code = 751) MEAN CORPUSCULAR HEMOGLOBIN CONC 33.6 GM/DL 32.3-36.5 (BEAKER) (test code = 752) RED CELL DISTRIBUTION WIDTH 15.3 % 11.6-14.4 H (BEAKER) (test code = 412) PLATELET COUNT (BEAKER) (test 191 K/CU MM 150-450 code = 756) MEAN PLATELET VOLUME (BEAKER) 10.0 fL 9.4-12.4 (test code = 754) NUCLEATED RED BLOOD CELLS 0 /100 WBC 0-0 (BEAKER) (test code = 413) NEUTROPHILS RELATIVE PERCENT 75 % (BEAKER) (test code = 429) LYMPHOCYTES RELATIVE PERCENT 13 % (BEAKER) (test code = 430) MONOCYTES RELATIVE PERCENT 10 % (BEAKER) (test code = 431) EOSINOPHILS RELATIVE PERCENT 1 % (BEAKER) (test code = 432) BASOPHILS RELATIVE PERCENT 1 % (BEAKER) (test code = 437) NEUTROPHILS ABSOLUTE COUNT 6.33 K/ L 1.78-5.38 H (BEAKER) (test code = 670) LYMPHOCYTES ABSOLUTE COUNT 1.06 K/ L 1.32-3.57 L (BEAKER) (test code = 414) MONOCYTES ABSOLUTE COUNT (BEAKER) 0.83 K/ L 0.30-0.82 H (test code = 415) EOSINOPHILS ABSOLUTE COUNT 0.07 K/ L 0.04-0.54 (BEAKER) (test code = 416) BASOPHILS ABSOLUTE COUNT (BEAKER) 0.04 K/ L 0.01-0.08 (test code = 417) IMMATURE GRANULOCYTES-RELATIVE 1 % 0-1 PERCENT (BEAKER) (test code = 2801) COMPREHENSIVE METABOLIC [id number] 09:27:00 Test Item Value Reference Range Interpretation Comments TOTAL PROTEIN 7.7 gm/dL 6.0-8.3 Specimen sligh tly (BEAKER) (test code = hemoly zed 770) ALBUMIN (BEAKER) 3.8 g/dL 3.5-5.0 Specimen sl ightly (test code = 1145) hemolyzed ALKALINE PHOSPHATASE 54 U/L 40-150 (BEAKER) (test code = 346) BILIRUBIN TOTAL 1.0 mg/dL 0.2-1.2 Specimen sli ghtly (BEAKER) (test code = hemoly zed 377) SODIUM (BEAKER) (test 132 meq/L 136-145 L code = 381) POTASSIUM (BEAKER) 4.2 meq/L 3.5-5.1 Specimen slightly (test code = 379) hemolyzed CHLORIDE (BEAKER) 99 meq/L 98-107 (test code = 382) CO2 (BEAKER) (test 23 meq/L 22-29 code = 355) BLOOD UREA NITROGEN 6 mg/dL 7-21 L (BEAKER) (test code = 354) CREATININE (BEAKER) 0.68 mg/dL 0.57-1.25 Specimen slightly (test code = 358) hemolyzed GLUCOSE RANDOM 87 mg/dL 70-105 (BEAKER) (test code = 652) CALCIUM (BEAKER) 9.6 mg/dL 8.4-10.2 (test code = 697) AST (SGOT) (BEAKER) 30 U/L 5-34 Specimen slightly (test code = 353) hemolyzed ALT (SGPT) (BEAKER) 22 U/L 6-55 Specimen slightly (test code = 347) hemolyzed EGFR (BEAKER) (test 119 ESTIMATE D GFR IS code = 1092) mL/min/1.73 sq NOT ACCURA TE m CREATININE CLEARANCE IN PREDICTING GLOMERULAR FILTRATION RATE . ESTIMATED GFR I S NOT APPLICABLE FOR DIALYSIS PATIEN TS. [id number] 15:55:00 Test Item Value Reference Range Interpretation Comments SODIUM (BEAKER) (test 132 meq/L 136-145 L code = 381) POTASSIUM (BEAKER) 4.1 meq/L 3.5-5.1 Specimen slightly (test code = 379) hemolyzed CHLORIDE (BEAKER) 100 meq/L 98-107 (test code = 382) CO2 (BEAKER) (test 24 meq/L 22-29 code = 355) BUN AND [id number] 15:55:00 Test Item Value Reference Range Interpretation Comments BLOOD UREA NITROGEN 6 mg/dL 7-21 L (BEAKER) (test code = 354) CREATININE (BEAKER) 0.67 mg/dL 0.57-1.25 Specimen slightly (test code = 358) hemolyzed EGFR (BEAKER) (test 121 mL/min/1.73 ESTIM ATED GFR IS code = 1092) sq m NOT ACCURATE CREATININE CLEARANCE IN PREDICTING GLOMERULAR FILTRATION RATE . ESTIMATED GFR I S NOT APPLICABLE FOR DIALYSIS PATIEN TS. [id number] 15:33:00 Test Item Value Reference Range Interpretation Comments HEMOGLOBIN (BEAKER) (test code = 14.5 GM/DL 13.7-17.5 410) PLATELET [id number] 15:33:00 Test Item Value Reference Range Interpretation Comments PLATELET COUNT (BEAKER) (test 197 K/CU MM 150-450 code = 756)
[2020-02-12] MEDS ORDERED: TETANUS & DIPHTHERIA TOX,ADULT 0.5 ML VIAL ONE (18:39)
[2020-02-12] MEDS ORDERED: HYDROCODONE/APAP 10/325 TAB ONE (18:39)
--- NOTE | 2020-02-12 18:47 | EDPHYS ---
Physician Documentation [facility] Name: Hammad Jones Jr Age: 59 yrs Sex: Male : 1960 Arrival Date: 02/12/2020 Time: 16:19 Bed 6 Private MD: Lam Denton T ED Physician Kevin Sotelo HPI: 02/11 18:41 This 59 yrs old Male presents to ER via Ambulatory with complaints of Fall kdr Injury - 5 ft, Shoulder Injury - dislocation, Skin Tear(s). 18:41 Details of fall: The patient fell from an upright position, while standing. Onset: The kdr symptoms/episode began/occurred suddenly, this morning, at 09:00. Associated injuries: The patient sustained anterior aspect of left shoulder and posterior aspect of left shoulder, decreased range of motion, painful injury, swelling. Severity of symptoms: At their worst the symptoms were moderate, in the emergency department the symptoms are unchanged. The patient has not experienced similar symptoms in the past. The patient has not recently seen a physician. Historical: - Allergies: 16:44 NKA; iw - Home Meds: 16:44 amlodipine 10 mg tab 1 tab once daily [Active]; carvedilol 3.125 mg Oral tab [Active]; iw paroxetine HCl 25 mg Oral Tb24 1 tab once daily [Active]; warfarin 4 mg Oral tab 1 tab once daily [Active]; - PMHx: 16:44 Enlarged Heart; Hypertension; iw - PSHx: 16:44 artificial heart valve; diverticulitis abscess tubes x 2; hip replacement x2; iw - Immunization history: Last tetanus immunization:. - Social history:: Smoking status: Patient denies any tobacco usage or history of. Patient uses alcohol, on a daily basis. claims drinking about a 6 pack/day. ROS: 18:41 Constitutional: Negative for fever, chills, and weight loss, Eyes: Negative for injury, kdr pain, redness, and discharge, Neck: Negative for injury, pain, and swelling, Cardiovascular: Negative for chest pain, palpitations, and edema. 18:41 MS/extremity: Positive for injury or acute deformity, abrasion, swelling, tenderness, of the anterior aspect of left shoulder, posterior aspect of left shoulder and left tricep, Negative for paresthesias, puncture, tingling. Exam: 18:41 Constitutional: This is a well developed, well nourished patient who is awake, alert, kdr and in no acute distress. Head/Face: Normocephalic, atraumatic. Eyes: Pupils equal round and reactive to light, extra-ocular motions intact. Lids and lashes normal. Conjunctiva and sclera are non-icteric and not injected. Cornea within normal limits. Periorbital areas with no swelling, redness, or edema. 18:41 Musculoskeletal/extremity: Extremities: grossly normal except: noted in the anterior aspect of left shoulder, left bicep, left axilla and left tricep: abrasion, decreased ROM, erythema, pain, swelling, tenderness. Vital Signs: 16:45 BP 125 / 89; Pulse 72; Resp 16; Temp 98.2(O); Pulse Ox 98% on R/A; Weight 95.25 kg; iw Height 5 ft. 8 in. (172.72 cm); Pain 9/10; 18:40 BP 95 / 70; Pulse 76; Resp 16; Pulse Ox 99% ; bp 16:45 Body Mass Index 31.93 (95.25 kg, 172.72 cm) iw MDM: 18:46 Patient medically screened. kdr 19:28 Counseling: I had a detailed discussion with the patient and/or guardian regarding: the kdr historical points, exam findings, and any diagnostic results supporting the discharge/admit diagnosis, radiology results, the need for outpatient follow up. 19:28 Data reviewed: vital signs, nurses notes, radiologic studies. 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 Exp: bp 10/24/2021. Lot #: [id number]. } Route: IM; Site: right deltoid; 19:10 Follow up: Response: No adverse reaction bp Disposition: 02/12/20 18:46 Discharged to Home. Impression: Left Humeral Head Fracture - mildly displaced, Left elbow abrasioin. - Condition is Stable. - Discharge Instructions: Humerus Fracture Treated With Immobilization, [id number]. - Prescriptions for Tylenol- Codeine #3 300-30 mg Oral Tablet - take 2 tablets by ORAL route every 6 hours As needed; 20 tablet. - Medication Reconciliation Form, Thank You Letter, Prescription Opioid Use form. - Follow up: Lam Denton MD; When: 2 - 3 days; Reason: If symptoms return, Further diagnostic work-up, Recheck today's complaints, Continuance of care, Re-evaluation by your physician. Follow up: Ernst Jose MD; When: 2 - 3 days; Reason: If symptoms return, Further diagnostic work-up, Recheck today's complaints, Continuance of care, Re-evaluation by your physician. - Problem is new. - Symptoms have improved. Signatures: Dispatcher [employer] EDMS Kevin Sotelo MD MD [facility] Argelia Saxena RN RN iw Clarence Matos RN RN bp Corrections: (The following items were deleted from the chart) 19:11 18:46 02/12/2020 18:46 Discharged to Home. Impression: Left Humeral Head Fracture - bp mildly displaced, Left elbow abrasioin. Condition is Stable. Forms are Medication Reconciliation Form, Thank You Letter, Antibiotic Education, Prescription Opioid Use. Follow up: Lam Denton; When: 2 - 3 days; Reason: If symptoms return, Further diagnostic work-up, Recheck today's complaints, Continuance of care, Re-evaluation by your physician. Follow up: Dr. Ernst Jose; When: 2 - 3 days; Reason: If symptoms return, Further diagnostic work-up, Recheck today's complaints, Continuance of care, Re-evaluation by your physician. Problem is new. Symptoms have improved. kdr
--- NOTE | 2020-02-12 18:47 | ER ---
Nurse's Notes [facility] Name: Hammad Jones Jr Age: 59 yrs Sex: Male : 1960 Arrival Date: 02/12/2020 Time: 16:19 Bed 6 Private MD: Lam Denton T Diagnosis: Left Humeral Head Fracture - mildly displaced, Left elbow abrasioin Presentation: 02/11 16:40 Chief complaint: Patient states: slipped in boat in driveway coming down steps and fell iw out of boat onto driveway, approx 5 feet, fell onto left arm, thinks left shoulder is dislocated, can't lift left arm, has abrasion to left elbow, did not hit head, no other injuries reported, happened at 0900 today. Care prior to arrival: None. Mechanism of Injury: Fall approximately 5 feet. Trauma event details: Injury occurred in the [facility]. 16:40 Acuity: RENETTA 3 iw 16:40 Method Of Arrival: Ambulatory iw 16:45 Coronavirus screen: Proceed with normal triage. Patient denies a cough. Patient denies iw shortness of breath or difficulty breathing. Patient denies measured and/or subjective temperature greater than 100.4F prior to today's visit. Patient denies travel on a cruise ship or to a country the [facility] currently lists as an affected area. Patient denies contact with known and/or suspected case of COVID-19. Ebola Screen: Patient negative for fever greater than or equal to 101.5 degrees Fahrenheit, and additional compatible Ebola Virus Disease symptoms Patient denies exposure to infectious person. Patient denies travel to an Ebola-affected area in the 21 days before illness onset. No symptoms or risks identified at this time. Initial Sepsis Screen: Does the patient meet any 2 criteria? No. Patient's initial sepsis screen is negative. Does the patient have a suspected source of infection? No. Patient's initial sepsis screen is negative. Risk Assessment: Do you want to hurt yourself or someone else? Patient reports no desire to harm self or others. Onset of symptoms was February 12, 2020. Triage Assessment: 17:54 General: Appears in no apparent distress. uncomfortable, obese, Behavior is bp cooperative, appropriate for age, anxious. Pain: Complains of pain in left arm. EENT: No deficits noted. Neuro: No deficits noted. Cardiovascular: No deficits noted. Respiratory: No deficits noted. GI: No signs and/or symptoms were reported involving the gastrointestinal system. : No signs and/or symptoms were reported regarding the genitourinary system. Derm: No deficits noted. Musculoskeletal: Reports pain in left arm. Trauma Activation: Not Applicable Physician: ED Physician; Name: ; Notified At: ; Arrived At: Physician: General Surgeon; Name: ; Notified At: ; Arrived At: Physician: Radiology; Name: ; Notified At: ; Arrived At: Physician: Respiratory; Name: ; Notified At: ; Arrived At: Physician: Lab; Name: ; Notified At: ; Arrived At: Historical: - Allergies: 16:44 NKA; iw - Home Meds: 16:44 amlodipine 10 mg tab 1 tab once daily [Active]; carvedilol 3.125 mg Oral tab [Active]; iw paroxetine HCl 25 mg Oral Tb24 1 tab once daily [Active]; warfarin 4 mg Oral tab 1 tab once daily [Active]; - PMHx: 16:44 Enlarged Heart; Hypertension; iw - PSHx: 16:44 artificial heart valve; diverticulitis abscess tubes x 2; hip replacement x2; iw - Immunization history: Last tetanus immunization:. - Social history:: Smoking status: Patient denies any tobacco usage or history of. Patient uses alcohol, on a daily basis. claims drinking about a 6 pack/day. Screenin:55 Abuse screen: Denies threats or abuse. Denies injuries from another. Nutritional bp screening: No deficits noted. Tuberculosis screening: No symptoms or risk factors identified. Fall Risk None identified. Assessment: 17:55 General: SEE TRIAGE NOTE. bp 18:46 Reassessment: ALL ORDERS COMPLETED, SLING IN PLACE. bp 19:09 Reassessment: PT D/C HOME AMBULATORY, DX WITH LEFT HUMERUS HEAD FX. bp Vital Signs: 16:45 BP 125 / 89; Pulse 72; Resp 16; Temp 98.2(O); Pulse Ox 98% on R/A; Weight 95.25 kg; iw Height 5 ft. 8 in. (172.72 cm); Pain 9/10; 18:40 BP 95 / 70; Pulse 76; Resp 16; Pulse Ox 99% ; bp 16:45 Body Mass Index 31.93 (95.25 kg, 172.72 cm) iw ED Course: 16:19 Patient arrived in ED. as 16:19 Lam Denton MD is Private Physician. as 16:43 Triage completed. iw 16:48 Arm band placed on. iw 17:53 Clarence Matos, RN is Primary Nurse. bp 17:55 Patient has correct armband on for positive identification. Bed in low position. Call bp light in reach. Side rails up X2. 18:10 Kevin Sotelo MD is Attending Physician. kdr 18:19 Shoulder Left (2 View) XRAY In Process Unspecified. EDMS 18:19 Elbow Left 3 View XRAY In Process Unspecified. EDMS 18:38 No provider procedures requiring assistance completed. Patient did not have IV access bp during this emergency room visit. Sling applied to left arm. 18:44 Lam Denton MD is Referral Physician. kdr 18:45 Ernst Jose MD is Referral Physician. 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 Exp: bp 10/24/2021. Lot #: [id number]. } Route: IM; Site: right deltoid; 19:10 Follow up: Response: No adverse reaction bp Outcome: 18:46 Discharge ordered by . kdr 19:10 Discharged to home ambulatory. bp 19:10 Condition: stable 19:10 Discharge instructions given to patient, Instructed on discharge instructions, follow up and referral plans. medication usage, Demonstrated understanding of instructions, follow-up care, medications, splint care, Prescriptions given X 1. 19:11 Patient left the ED. bp Signatures: Dispatcher [employer] EDID Kevin Sotelo MD MD kdr Sameera Epstein as Argelia Saxena RN RN Clarence Matos, SAUL RN bp
--- NOTE | 2020-02-12 19:11 | RAD REPORT ---
EXAM DESCRIPTION: RAD - Elbow Left 3 View - 02/12/2020 6:18 pm CLINICAL HISTORY: fall, left elbow pain COMPARISON: None. FINDINGS: No fracture is identified and no elevated posterior fat pad. There is no dislocation or pe riosteal reaction noted. No foreign body or other soft tissue abnormality. Dense arterial tree calc ifications are present. IMPRESSION: Negative left elbow for acute bone or joint finding.
--- NOTE | 2020-02-12 19:11 | RAD REPORT ---
EXAM DESCRIPTION: RAD - Shoulder Left 2 View - 02/12/2020 6:18 pm CLINICAL HISTORY: fall COMPARISON: No comparisons TECHNIQUE: Internal and external rotation views of the left shoulder were obtained. FINDINGS: Oblique fracture is present through the surgical neck and greater tuberosity of the humeru s. Small fracture fragments are seen along the fracture plane. No distraction or angulation component seen. There are no findings of pathologic fracture. No dislocation of the humeral head. AC joint degenerative changes are present with large superiorly directed clavicle and acromion spurs. Acromial humeral joint space is normal. No abnormal soft tissue calcifications. No suspicious soft t issue findings. Edema is present near the humeral head. IMPRESSION: Proximal left humerus fracture with no significant distraction or angulation.
[2020-02-12 19:20] VITALS: TEMP 98.2
[2020-02-12 19:21] VITALS: BP 95/70; O2SAT 99
== END 2020-02-12 19:11 | disposition home or self-care (01) ==
LOC: ER 16:18
DX: S42.212A Unspecified displaced fracture of surgical neck of left humerus, initial encounter for closed fracture (principal); S50.312A Abrasion of left elbow, initial encounter; W10.9XXA Fall (on) (from) unspecified stairs and steps, initial encounter; Y93.89 Activity, other specified; Y92.9 Unspecified place or not applicable; I10 Essential (primary) hypertension; Z72.89 Other problems related to lifestyle; Z23 Encounter for immunization
CPT/HCPCS: 90471; 90714; 99284

== ENCOUNTER 2021-03-21 08:57 | Inpatient (IN) | payer OTHER ==
--- NOTE | 2021-03-21 16:55 | R.PREADM ---
PRE-ADMISSION SCREENING FORM SCREENING DATE AND TIME 03/21/2021 12:36 (CDT) ANTICIPATED REHAB ADMISSION DATE 03/23/2021 REFERRING FACILITY [facility] REFERRAL DATE AND TIME 03/17/2021 12:38 (CDT) ACUTE ADMIT DATE 03/17/2021 Previous Rehabilitation(s): No. REFERRING PHYSICIAN Dr Kalyan Wilson REHAB FACILITY [facility] CLINICAL LIAISON Erendira Puri PHYSICIAN REVIEWER Dr. Alfred Crump M.D. MR# [id number] NAME SABA SUE ADDRESS [address] [facility] [id number] DATE OF 1960 AGE 60 SSN# [id number] GENDER male MARITAL STATUS RACE white PREF. LANGUAGE (IF NON-ROMANSH) French ADMIT FROM 02 - [facility] PRE-HOSPITAL LIVING SETTING 01 - Home (private home/apt. board/care, assisted living, senior living, transitional living) HOME TYPE AND DETAILS Type of home: single family house # of levels in the residence: 1 # of steps to enter the residence: 0 # of steps within the residence: 0 PRE-HOSPITAL LIVING WITH Family/Relatives FAMILY SUPPORT Yes PRIMARY FAMILY CONTACT NAME Ava Sue PRIMARY FAMILY CONTACT PHONE PRIMARY FAMILY CONTACT RELATIONSHIP Spouse IS PRIMARY FAMILY CONTACT AUTH. REP.? no 1ST EMERGENCY CONTACT Ava Sue 1ST CONTACT PHONE 1ST CONTACT RELATIONSHIP Spouse IS 1ST CONTACT AUTH. REP.? no PHONE 2ND CONTACT ON ADM.? no PATIENT EMPLOYMENT STATUS Retired (for age) PATIENT EMPLOYER No Employer PAYOR INFORMATION: 1ST PAYOR NAME Charisse 1ST PAYOR PHONE 1ST PAYOR AUTHORIZATION# [id number] 1ST PAYOR UPDATE DUE 03/28/2021 1ST PAYOR INJURY/ILLNESS DUE TO ACCIDENT? No ANOTHER [employer] RESPONSIBLE? No PRIMARY REHAB/ACUTE DIAGNOSIS: Diverticulitis of LG intestine, bowel perforation, peritoneal abscess, incisional hernia, acute respi ratory failure, ventilator dependent ONSET DATE 03/17/2021 REHAB IMPAIRMENT CATEGORY (ESTEBAN): 20 Miscellaneous (Misc) does NOT meet 60% rule PRIMARY DIAGNOSIS-RELATED SURGERIES: incisional hernia repair on warfarin due to AVR - performed by hernia on 03/17/2021 status post exploratory laparotomy with lysis of adhesions, component seperation with reinforcement u sing mesh that was transferred tot surgical ICU for hemodynamic monitoring after acute blood loss anemia from a mesenteric hematoma found on CT scan. Patient was Tachy. INTERVENTIONS: - N/A Post Operative Pain RISK FOR COMPLICATIONS: - N/A Alcohol Abuse Delirium Sinus Tachycardia Pain Troponinemia SUMMARY OF ACUTE HOSPITALIZATION: Pt. is a 60 yo Right-handed white male. On 03/17/2021 he was admitted to [facility] with diagnosis Diverticulitis o f LG intestine, bowel perforation, peritoneal abscess, incisional hernia, acute respiratory failure, ventilator dependent . His impairment category is Debility 16 - Debility (16). Pre-morbidly, Pt. was independent/mod-I in Locomotion, Safety Awareness, Balance, Self-Care, Communic ation, and Sphincter Control; and he had good Endurance and Transfers Control. Currently, he has deficits of Locomotion, Balance, Transfers Control, Sphincter Control, and Enduranc e. Pt. is now referred to [facility] for acute in-patient rehabilitation in order to maximize patient's functional independence in activities of daily living, strength, ROM, and mobi lity. Patient has realistic goal of being discharged at assistance level 7-Ind to reside at Home with Fami ly/Relatives. PAST MEDICAL HISTORY HX of Depression ALCOHOL ABUSE TROPONINEMIA HYPERTENSION H/O SINUS TACHYCARDIA ACUTE RESPIRATORY INSUFFICIENCY AFTER NONCARDIAC SURGERY PULMONARY TOILET DIVERTICULOSIS PARTIAL COLECTOMY WITH ILEOSTOMY CREATION MESENTERIC HEMATOMA ACUTE KIDNEY INJURY METABOLIC ACIDOSIS ANION GAP ELEVATED LIVER ENZYMES HYPERBILIRUBINEMIA ACUTE BLOOD LOSS ANEMIA ON ANTICOAGULATION DUE TO HISTORY OF AORTIC VALVE REPLACEMENT HYPERGLYCEMIA PAST SURGICAL HISTORY: AORTIC VALVE REPLACEMENT BURN TREATMENT ILEOSTOMY CLOSURE LEG SURGERY REPAIR, HERNIA RESECTION, COLON, LOW ANTERIOR THYROID CYST EXCISION TOTAL HIP ARTHO (BILATERAL) TOTAL SHOULDER ARTHO (LEFT) MEDICATION ALLERGIES: No Known Drug Allergies (NKDA) ENVIRONMENTAL ALLERGIES: None Known - Substance Allergies None Known - Other Allergies None Known CODE STATUS: Full code WEIGHT/HEIGHT/BMI: WEIGHT 172 lbs HEIGHT 5' 8" BMI 26.1 DIET: - Diet Type Regular - Diet - Solid Texture Regular - Diet - Liquid Texture Regular - Tube Feed N/A REVIEW OF SYSTEMS: - Gen Alert and awake Lying in bed No apparent distress Oriented to: person, time, and place - Vital Signs Temperature: 98.1 F SBP/DBP: 102/47 Pulse: 91 Resp: 18 Vital signs stable, afebrile - CVS RRR VITAL SIGNS Temperature: 98.1 F SBP/DBP: 102/47 Pulse: 91 Resp: 18 Vital signs stable, afebrile MEDICATIONS/TREATMENT: Other- See attached MAR (Medication Administration Record). CURRENT SPHINCTER CONTROL: Pre-hospital bladder status: unspecified # of bladder accidents in the last 7 days prior to screenin Pre-hospital bowel status: unspecified # of bowel accidents in the last 7 days prior to screenin Last Bowel Movement Date: 03/21/2021 CURRENT LOCOMOTION STATUS: distance walked 60 feet DETAILED CURRENT FUNCTIONAL STATUS: - Bladder accident frequency: 7-Ind - No accidents in the past 7 days - Bowel accident frequency: 7-Ind - No accidents in the past 7 days - Walking score based on distance walked: 0(N/A) score based on distance walked: 2(50-149ft) - Wheelchair score based on distance traveled: 0(N/A) QI SCORES: - Self-Care A. Eating 03-Partial/moderate assistance B. Oral hygiene 03-Partial/moderate assistance C. Toileting hygiene 03-Partial/moderate assistance E. Shower/bathe self 03-Partial/moderate assistance F. Upper body dressing 03-Partial/moderate assistance G. Lower body dressing 03-Partial/moderate assistance H. Putting on/taking off footwear 88-Not attempted due to medical condition or safety concerns - Mobility A. Roll left and right 03-Partial/moderate assistance B. Sit to lying 03-Partial/moderate assistance C. Lying to sitting on side of bed 03-Partial/moderate assistance D. Sit to stand 03-Partial/moderate assistance E. Chair/nst-ld-rtjbh transfer 03-Partial/moderate assistance F. Toilet transfer 03-Partial/moderate assistance G. Car transfer 88-Not attempted due to medical condition or safety concerns I. Walk 10 feet 03-Partial/moderate assistance J. Walk 50 feet with two turns 03-Partial/moderate assistance K. Walk 150 feet 88-Not attempted due to medical condition or safety concerns L. Walking 10 feet on uneven surfaces 88-Not attempted due to medical condition or safety concerns M. 1 step (curb) 88-Not attempted due to medical condition or safety concerns N. 4 steps 88-Not attempted due to medical condition or safety concerns O. 12 steps 88-Not attempted due to medical condition or safety concerns P. Picking up object 88-Not attempted due to medical condition or safety concerns R. Wheel 50 feet with two turns 88-Not attempted due to medical condition or safety concerns S. Wheel 150 feet 88-Not attempted due to medical condition or safety concerns - Bladder and Bowel Bladder continence Bowel continence - Endurance Fair - Balance Fair - Safety Awareness Fair CURRENT FUNC. DEFICITS: Self-Care, Mobility, Endurance, Balance, and Safety Awareness CURRENT / PREVIOUS ASSISTIVE DEVICES: Rolling Walker HISTORY OF FALLS. HAS THE PATIENT HAD TWO OR MORE FALLS IN THE PAST YEAR OR ANY FALL WITH INJURY IN T HE PAST YEAR?: No PRIOR SURGERY. DID THE PATIENT HAVE MAJOR SURGERY DURING THE 100 DAYS PRIOR TO ADMISSION?: No THERAPY NOTES FROM ACUTE CARE: Attached. SPECIAL NEEDS: - Safety Concerns Skin breakdown precautions needed due to skin breakdown risk PATIENT NEEDS ACTIVE AND ONGOING THERAPEUTIC INTERVENTION OF MULTIPLE THERAPY DISCIPLINES, INCLUDING: - Dietary and Nutrition Adequate Nutrition. Nutritional Education. Nutritional Supplements. PATIENT NEEDS CLOSE MEDICAL SUPERVISION BY A REHABILITATION PHYSICIAN FOR: Coordination of Treatment Team PATIENT REQUIRES 24X7 REHAB NURSING FOR MEDICAL AND FUNCTIONAL MGT. OF THE FOLLOWING DEFICITS: Disease Management Medication Management Patient/Family Education Providing Safe Environment PATIENT REQUIRES INTENSIVE, COORDINATED INTERDISCIPLINARY APPROACH TO REHAB: Arranging Home Equipment/Services Discharge Planning Family Intervention/Training Capacitor Repairer/Case Management PATIENT REHAB POTENTIAL: Elizabeth SUE is able and expected to receive 3 hours of individualized therapy daily on at least 5 of e very 7 days Elizabeth SUE's prognosis for significant practical improvement within a reasonable period of time appea rs Good Expected level of measurable improvement will be of a practical value to Elizabeth SUE's functional capa city or adaptations to impairments Has a viable Discharge Plan Medically appropriate; condition is sufficiently stable to participate in intensive rehab program DISCHARGE PLAN: - Estimated Length of Stay (days) 13. - Consensus on plan Discharge plan has been discussed with primary caregiver. Patient/Family is in agreement with the kim n. Primary caregiver is in agreement with the plan. - Patient/Family Goals Return home independently. - Planned Living Setting Upon Discharge Home, to live with Family/Relatives. Transitional Living. RECOMMENDED CARE LEVEL: IRF RECOMMENDATION DETAILS: Recommended Admission to Comprehensive Rehabilitation Program to Increase Functional Senath SCREENER'S COMPLETENESS CONFIRMATION: - Screening Confirmation The patient data collection on this preadmission screening form is finished PHYSICIANS REVIEW AND ADMISSION DETERMINATION Admit - Based on my review of the Pre-Admission Screening results, in my medical judgment and experie nce, I concur with the findings and recommend admission to [facility], as this patient requires an IRF level of care. SIGNATURE PANEL: [employer]ounds - [electronically] signed by Erendira Puri on 03/21/2021 at 15:05 (CDT) [employer] - [electronically] signed by Raffaele Coughlin PT on 03/21/2021 at 15:19 (CDT) Physician Reviewer - [electronically] signed by Dr. Alfred Crump M.D. on 03/21/2021 at 16:54 (CDT )
--- OUTSIDE RECORDS SUMMARY | 2021-03-22 15:40 | XMS REPORT | Continuity of Care Document ---
:1960 Author Organization [facility] t Address [address] [place] [address] Care Team Providers Name Role Phone Pcp Primary Care Physician Unavailable ISAURA Attending Clinician Unavailable MD Romana DELAROSA Attending Clinician Unavailable MD CHANI Attending Clinician Unavailable MD CONSTANTINO NELSON Attending Clinician Unavailable OMAR Attending Clinician Unavailable MIKY Attending Clinician Unavailable Room, [facility] Attending Clinician Unavailable Wallace Parra MD Attending Clinician Gee Attending Clinician Pcp, Does Not Have A Attending Clinician Rabia Little MD Attending Clinician Uzma Terrell MD Attending Clinician ALDO FLOWERS Attending Clinician Unavailable ISAURA Admitting Clinician Unavailable MD Romana DELAROSA Admitting Clinician Unavailable MD CONSTANTINO NELSON Admitting Clinician Unavailable OMAR Admitting Clinician Unavailable Rabia Little MD Admitting Clinician ALDO FLOWERS Admitting Clinician Unavailable Payers Payer Name Policy Type Policy Number Effective Date Expiration Date S ource Problems Condition Condition Condition Status Onset Resolution Last Treating Co mments Source Name Details Category Date Date Treatment Clinician Date Ileostomy Ileostomy Disease Active [facility] 00 [place] Diverticul Diverticul Disease Active [facility] Allergies, Adverse Reactions, Alerts Allergy Allergy Status Severity Reaction(s) Onset Inactive Treating Comm ents Source Name Type Date Date Clinician No Known DA Active [facility] [place] hydrom[facility] DA Active [facility] [place] [facility] DA [facility] phone 11-17 [place] [facility] Social History Social Habit Start Date Stop Date Quantity Comments Source Sex Assigned At [facility] Tobacco use and 2018-12-27 2018-12-[address] [facility] - exposure 00:00:00 00:00:00 [facility] Alcohol intake 2018-12-27 2018-12-27 [facility]00 [facility] alcohol [facility] (finding) Smoking Status Start Date Stop Date Source Never smoker [facility] edical [place] Medications Ordered Filled Start Stop Current Ordering Indication Dosage Frequency Signature Comments Components Source Medication Medication Date Date Medication? Clinician (SIG) Name Name enoxaparin Yes Q.5D Inject [facility] 4-20 [facility]o [facility] - (LOVENOX 16:57: usly 2 Medical SUBQ) 53 (two) Center times daily. amLODIPine Yes 5mg QD Take [address] (NORVASC) 4-20 by mouth [facility] - 10 MG 16:57: daily . Medical tablet 53 Center carvedilol Yes 12.5mg Take 12.[address] (COREG) 4-20 mg by [facility] - 12.5 MG 16:57: mouth 2 Medical tablet 53 (two) Center times daily with breakfast and dinner. paroxetine Yes 20mg QD Take [address] HCl (PAXIL 4-20 by mouth [facility] - ORAL) 16:57: daily . Medical 53 Center warfarin Yes 5mg QD Take [address] (COUMADIN) 4-20 by mouth [facility] - 2 MG tablet 16:57: daily . [address] Procedures This patient has no known procedures. Plan of Care Planned Activity Planned Date Details Comments Source Future Scheduled 2020-05-[address] [facility] - Test 00:00:00 (#1) [code = [facility] INFLUENZA VACCINE (#1)] Future Scheduled [address] [facility] - Test 00:00:00 (procedure) [code = [facility] 92229395] Future Scheduled [address] [facility] - Test 00:00:00 malignant neoplasm Medical C enter of colon (procedure) [code = 491192507] Encounters Start End Encounter Admission Attending Care Care Encounter Source Date/Time Date/Time Type Type Clinicians Facility Department ID 2021-02-15 2021-03-22 Inpatient JUAN DELAROSA [facility] [id number] [place] 00:00:00 00:00:00 646 [facility] 2021-02-10 2021-02-10 Outpatient LEFRUSS, [facility] [id number] [place] 00:00:00 00:00:00 VINNY 105 Method i 2021-01-05 2021-01-05 Outpatient LEFRUSS, [facility] [id number] [place] 00:00:00 00:00:00 VINNY 248 [facility] i 2020-11-17 2020-11-17 [id number] [place] 00:00:00 00:00:00 VINNY [address] 2020-11-15 2020-11-15 Outpatient LEFRUSS, [facility] [id number] [place] 00:00:00 00:00:00 VINNY 864 Method i 2020-11-05 2020-11-05 Outpatient LEFAVE, [facility] [id number] [place] 00:00:00 00:00:00 VINNY [address] 2020-07-28 2020-07-28 Outpatient SHAHZAD BOLAÑOS [facility] [id number] [place] 00:00:00 00:00:[address] 2019-05-27 2019-05-27 Ancillary Room, [facility] [id number] 10:54:31 10:54:40 Visit [facility] SHAMEKA 350.1.13.10 [facility] 4.2.7.2.686 [id number] 2019-05-26 2019-05-26 [facility] Priscilla Parra [id number] 12:30:00 23:59:00 Encounter Jeanie Gonsalez [place] 350.1.13.10 [facility] 4.2.7.2.686 [id number] 2019-05-23 2019-05-23 Telephone Priscilla Flynn [id number] 00:00:00 00:00:00 Andrae Sandovaly 350.1.13.10 [place] [id number] [id number] 2019-05-22 2019-05-22 Telephone Priscilla Nichols [id number] 00:00:00 00:00:00 Patient Sh[place]ka 350.1.13.10 Does [facility] 4.2.7.2.686 Have A [id number] 2019-05-12 2019-05-20 [facility] Alli Little [id number] 14:53:00 11:40:00 Encounter Shameka 350.1.13.10 [facility] 4.2.7.2.686 [id number] 2019-05-14 2019-05-14 Anesthesia Priscilla Terrell 1.2.840.114 [id number] 08:58:00 10:15:00 [place] 350.1.13.10 [place] [id number] [id number] Results Test Description Test Time Test Comments Results Result Comments Source SARS-CoV-2 (COVID-19) RNA [Presence] in Respiratory sp ecimen by 2021-03-15 17:02:49 BRINA with probe detection Test Item Value Reference Range Interpretation Comme nts SARS-CoV-2 (COVID-19) RNA [Presence] in Respiratory Not detected No t-Detected specimen by BRINA with probe detection (test code = 60745-1) Whether patient is employed in a healthcare setting (test code = 42674-9) Whether the patient has symptoms related to condition of interest (test code = 14012-9) Patient was hospitalized because of this condition (test code = 53205-3) Whether the patient was admitted to intensive care unit (ICU) for condition of interest (test code = 41593-3) Whether patient resides in a congregate care setting (test code = 66319-1) SARS-CoV-2 (COVID-19) RNA [Presence] in Respiratory specimen by BRINA with probe [id number] 13:16:37 Test Item Value Reference Range Interpretation Comments Whether the patient was admitted to intensive care unit (ICU) for condition of interest (test code = 65870-4) Whether patient resides in a congregate care setting (test code = 33664-6) SARS-CoV-2 (COVID-19) RNA [Presence] in Respiratory specimen by BRINA with probe [id number] 15:07:06 Test Item Value Reference Range Interpretation Comments SARS-CoV-2 (COVID-19) RNA Not detected Not-Detected [Presence] in Respiratory specimen by BRINA with probe detection (test code = 27282-8) Whether patient is employed in a healthcare setting (test code = 46222-6) Whether the patient has symptoms related to condition of interest (test code = 11859-2) Patient was hospitalized because of this condition (test code = 49725-5) Whether the patient was admitted to intensive care unit (ICU) for condition of interest (test code = 65285-2) Whether patient resides in a congregate care setting (test code = 62231-6) SARS-CoV-2 (COVID-19) RNA [Presence] in Respiratory specimen by BRINA with probe [id number] 17:26:42 Test Item Value Reference Range Interpretation Comments SARS-CoV-2 (COVID-19) RNA Not detected Not-Detected [Presence] in Respiratory specimen by BRINA with probe detection (test code = 19396-4) Whether patient is employed in a healthcare setting (test code = 31179-2) Whether the patient has symptoms related to condition of interest (test code = 01771-1) Patient was hospitalized because of this condition (test code = 11920-6) Whether the patient was admitted to intensive care unit (ICU) for condition of interest (test code = 27306-0) Whether patient resides in a congregate care setting (test code = 36162-2) SARS-CoV-2 (COVID-19) RNA [Presence] in Respiratory specimen by BRINA with probe [id number] 16:28:13 Test Item Value Reference Range Interpretation Comments SARS-CoV-2 (COVID-19) RNA Not detected Not-Detected [Presence] in Respiratory specimen by BRINA with probe detection (test code = 87748-7) B-TYPE NATRIURETIC [id number] 09:08:00 Test Item Value Reference Range Interpretation Comments B-TYPE NATRIURETIC PEPTIDE (test 261.19 pg/mL 0-100 H code = BNP) B-TYPE NATRIURETIC [id number] 09:08:00 Test Item Value Reference Range Interpretation Comments B-TYPE NATRIURETIC PEPTIDE (test 261.19 pg/mL 0-100 H code = BNP) PROTHROMBIN [id number] 07:16:00 Test Item Value Reference Range Interpretation Comments PROTHROMBIN TIME 12.4 secs 10.1-12.5 N PATIENT (test code = PTP) INTERNATIONAL NORMAL 1.11 <2.0 RECOMME NDED THERAPEUTIC RATIO (test code = RANGE FOR ORAL INR) ANTICOAGULANTTR EATMENT: CONDI TION INRProphylaxis of venous thrombos is in 2.0 - 3.0 high-risk medic al or surgical patientsTreatme nt of venous thrombos is 2.0 - 3.0Prevention o f embolism 2.0 - 3.0Prevention o f recurrent embol ism, or 3.0 - 4. 5 patients with mechanical pros thetic intravascular v wilk[place] IS PATIENT ON ANTICOAGULANTS ? YLIST ANTICOAGULANT/ANTI PLT MEDICATION : Lovenox and CoumadinHas Lab been notified if Patient is on Heparin Drip? NO- XR SHOULDER 1 V [id number] 07:04:00 Patient Name: SABA SUE Unit No: [id number] EXAMS: CPT CODE: [id number] XR SHOULDER 1 [place] [address]98 IMAGES PROVIDED: Single AP view of the left shoulder FINDINGS:Postoperative changes of left reverse total shoulder arthoplasty demonstrated without evidenceof immediate complication. No acute fracture. Visualized lung is clear. IMPRESSION: Left reverse total shoulder arthoplasty without immediate complication. at 0704 Reported and signed by: Marvin Cross M.D. CC: Wes Angulo MD Technologist: ERICKA EWING RT(R) Transcribed D/ (0704) Rosie [facility] NAME: SABA SUE JR [address] [facility] PHYS: Wes Dolanley : 1960 AGE: 59 SEX: M [place], [place] [address] LOC: Y.520 A PHONE #: [phone] EXAM DATE: 05/12/2020 STATUS: ADM IN FAX #: [phone] RAD #: D/C DT PAGE 1 Signed Report Patient Name: SABA SUE JR Unit No: [id number] EXAMS: CPT CODE: [id number] XR SHOULDER 1 VLT 32638 <Continued> Orig Print D/T: S: 05/13/2020 (0708) [facility] NAME: SABA SUE JR [address] [facility] PHYS: Wes Dolan Lencho : 1960 AGE: 59 SEX: M [place], [place] [address] LOC: Y.520 A PHONE #: [phone] EXAM DATE: 05/12/2020 STATUS: ADM IN FAX #: [phone] RAD #:D/C DT PAGE 2 Signed ReportBASIC METABOLIC PANEL 2020-05-13 06:35:00 Test Item Value Reference Range Interpretation Comments SODIUM (test code = 134 mmol/L 136-145 L NA) POTASSIUM (test code = 3.9 mmol/L 3.5-5.1 N K) CHLORIDE (test code = 98.0 mmol/L 98-107 N CL) CARBON DIOXIDE (test 27.7 mmol/L 21-32 N code = CO2) GLUCOSE (test code = 101 mg/dL 70-110 N GLU) BLOOD UREA NITROGEN 9 mg/dL 7-18 N (test code = BUN) GLOMERULAR FILTRATION 120.6 >60 Unit o f measure: RATE (test code = GFR) mL/mi n/1.73 u5Ucailseks Range:Healthy A dults >90 mL/min/1.73 m2 For Chronic Kidney Disease: St age II Mild Dec rease in GFR 6 0-90 Stage III Moderate Decrea se in GFR 30-59 Stage IV Se yuan Decrease in GFR 15-29 Stage V Kidney Failur e <15 CREATININE (test code 0.67 mg/dL 0.55-1.30 N = CREAT) CALCIUM (test code = 8.2 mg/dL 8.2-10.1 N CA) [id number] 06:35:00 Test Item Value Reference Range Interpretation Comments MAGNESIUM (test code = MAG) 1.5 mg/dL 1.8-2.4 L CBC W/AUTO [id number] 05:51:00 Test Item Value Reference Range Interpretation Comments WHITE BLOOD CELL (test code = WBC) 5.1 K/mm3 5.7-10.5 L RED BLOOD CELL (test code = RBC) 3.69 M/mm3 4.2-5.4 L HEMOGLOBIN (test code = HGB) 12.2 g/dL 12-16 N HEMATOCRIT (test code = HCT) 36.3 % 37-47 L MEAN CELL VOLUME (test code = MCV) 98 fL 80-98 N MEAN CELL HGB (test code = MCH) 33.1 pg 27-34 N MEAN CELL HGB CONCENTRATION (test 33.6 g/dL 30.8-34.1 N code = MCHC) RED CELL DISTRIBUTION WIDTH (test 13.2 % 11-16 N code = RDW) PLT (test code = PLT) 128 K/mm3 130-400 L MEAN PLATELET VOLUME (test code = 10.6 fL 8.9-12.1 N MPV) NEUTROPHIL % (test code = NT%) 77.1 % 45-70 H LYMPHOCYTE % (test code = LY%) 8.0 % 20-40 L MONOCYTE % (test code = MO%) 10.0 % 3-10 N EOSINOPHIL % (test code = EO%) 3.5 % 1-5 N BASOPHIL % (test code = BA%) 0.6 % 0.0-1.1 N NEUTROPHIL # (test code = NT#) 3.95 K/mm3 2.00-7.50 N LYMPHOCYTE # (test code = LY#) 0.41 K/mm3 1.50-4.00 L MONOCYTE # (test code = MO#) 0.51 K/mm3 0.2-0.8 N EOSINOPHIL # (test code = EO#) 0.18 K/mm3 0.04-0.4 N BASOPHIL # (test code = BA#) 0.03 K/mm3 0.02-0.10 N MANUAL DIFF REQUIRED (test code = NO MANUAL DIFF MDIFF) NUCLEATED RED BLOOD CELL (test 0 % 0-0 N code = NRBC) SPECIMEN COMMENT: POD #1Novel Coronavirus 2019 [id number] 10:35:00 Test Item Value Reference Range Interpretation Comments Novel Coronavirus 2019 Inhouse (test Negative Negative code = COVNONPUI) Novel Coronavirus 2019 [id number] 10:35:00 Test Item Value Reference Range Interpretation Comments Novel Coronavirus 2019 Inhouse (test Negative Negative code = COVNONPUI) - CT UP EXTREM W/O CONT [id number] 17:56:00 Patient Name: SABA SUE JR Unit No: [id number] EXAMS: CPT CODE: [id number] [place] EXTREM W/[place] [address] [place] SCAN LEFT SHOULDER WITH RECONSTRUCTION 1. There is a comminuted through part fracture of the proximal humerus. The major fracture is through the humeral neck. There is associated varus deformity of the proximal humerus. There is a minimally displaced fracture through the greater tuberosity. The lesser tuberosity appears to be intact. 2. Mild to moderate atrophy of the supraspinatus and infraspinatus muscle bellies. TECHNIQUE: Volumetric CT data of the left shoulder was obtained without use of intravenous contrast. Images were then viewed in the axial, coronal and sagittal planes. CT radiationdose optimization is achieved for this examination by the use of a CT protocol in accordance with ACR practice standards and adherence to toe sewer's recommendations. INDICATION: PROXIMAL HUMERUS FRACTURE COMPARISON: None. COMMENT: Findings are as described above. at 1756 Reported and signed by: Janessa Johnson MD CC: Wes Angulo MD Technologist: CAESAR CHAVEZ MRI CTDI: DLP: Trnscrpt: 04/15/2020 (1756) Niurka.GVG [facility] NAME: SABA SUE [address] [facility] PHYS: ED [facility] - Wes Angulo : 1960 AGE: 59 SEX:M [place], [place] [address] LOC: Y.RAD PHONE #: [phone] EXAM DATE: 04/15/2020 STATUS: REG CLI FAX #: [phone] RAD #: D/C DT PAGE 1 Signed Report Patient Name: SABA SUE JR Unit No: [id number] EXAMS: CPT CODE: [id number] [place] EXTREM W/[place] [address] <Continued> Orig Print D/T: S: 04/15/2020 (1759) [facility] NAME: SABA SEU JR [address] [facility] PHYS: Wes Dolan : 1960 AGE: 59 SEX: M [place], [place] [address] LOC: Y.RAD PHONE #: [phone] EXAM DATE: 04/15/2020 STATUS: REG CLI FAX #: [phone] RAD #: D/C DT PAGE2 Signed ReportCBC W/AUTO DIFF 2020-04-15 15:45:00 Test Item Value Reference Range Interpretation Comments WHITE BLOOD CELL (test code = WBC) 3.5 K/mm3 5.7-10.5 L RED BLOOD CELL (test code = RBC) 4.43 M/mm3 4.2-5.4 N HEMOGLOBIN (test code = HGB) 14.5 g/dL 12-16 N HEMATOCRIT (test code = HCT) 42.5 % 37-47 N MEAN CELL VOLUME (test code = MCV) 96 fL 80-98 N MEAN CELL HGB (test code = MCH) 32.7 pg 27-34 N MEAN CELL HGB CONCENTRATION (test 34.1 g/dL 30.8-34.1 N code = MCHC) RED CELL DISTRIBUTION WIDTH (test 13.2 % 11-16 N code = RDW) PLT (test code = PLT) 159 K/mm3 130-400 N MEAN PLATELET VOLUME (test code = 9.2 fL 8.9-12.1 N MPV) NEUTROPHIL % (test code = NT%) 52.9 % 45-70 N LYMPHOCYTE % (test code = LY%) 30.1 % 20-40 N MONOCYTE % (test code = MO%) 12.3 % 3-10 H EOSINOPHIL % (test code = EO%) 2.9 % 1-5 N BASOPHIL % (test code = BA%) 0.9 % 0.0-1.1 N NEUTROPHIL # (test code = NT#) 1.85 K/mm3 2.00-7.50 L LYMPHOCYTE # (test code = LY#) 1.05 K/mm3 1.50-4.00 L MONOCYTE # (test code = MO#) 0.43 K/mm3 0.2-0.8 N EOSINOPHIL # (test code = EO#) 0.10 K/mm3 0.04-0.4 N BASOPHIL # (test code = BA#) 0.03 K/mm3 0.02-0.10 N MANUAL DIFF REQUIRED (test code = NO MANUAL DIFF MDIFF) NUCLEATED RED BLOOD CELL (test 0 % 0-0 N code = NRBC) PROTHROMBIN [id number] 15:44:00 Test Item Value Reference Range Interpretation Comments PROTHROMBIN TIME 26.5 secs 10.1-12.5 H PATIENT (test code = PTP) INTERNATIONAL NORMAL 2.39 <2.0 RECOMME NDED THERAPEUTIC RATIO (test code = RANGE FOR ORAL INR) ANTICOAGULANTTR EATMENT: CONDI TION INRProphylaxis of venous thrombos is in 2.0 - 3.0 high-risk medic al or surgical patientsTreatme nt of venous thrombos is 2.0 - 3.0Prevention o f embolism 2.0 - 3.0Prevention o f recurrent embol ism, or 3.0 - 4. 5 patients with mechanical pros thetic intravascular v wilkerson IS PATIENT ON ANTICOAGULANTS ? YLIST ANTICOAGULANT/ANTI PLT MEDICATION : CoumadinHas Lab been notified if Patient is on Heparin Drip? NOIf Yes, order CBC, OCCULT BLOOD, PT every other day NTHROMBOPLASTIN TIME [id number] 15:44:00 Test Item Value Reference Range Interpretation Comments PTT ACTIVATED (test 47.1 secs 24.9-37.0 HH VERIFIED BY REPEAT code = APTT) ANALYSIS.CRITIC AL VALUE CALLED TO ADEEL WITH ' OFFICEREAD BACK & CONFIRMED? YESB Y F.LAB.AEG 04/15 0805 IS PATIENT ON ANTICOAGULANTS ? YLIST ANTICOAGULANT/ANTI PLT MEDICATION : CoumadinHas Lab been notified if Patient is on Heparin Drip? NOIf Yes, order CBC, OCCULT BLOOD, PT every other day NCOMPREHENSIVE METABOLIC [id number] 15:38:00 Test Item Value Reference Range Interpretation Comments SODIUM (test code = NA) 135 mmol/L 136-145 L POTASSIUM (test code = 4.5 mmol/L 3.5-5.1 N K) CHLORIDE (test code = 98.0 mmol/L 98-107 N CL) CARBON DIOXIDE (test 29.3 mmol/L 21-32 N code = CO2) GLUCOSE (test code = 92 mg/dL 70-110 N GLU) BLOOD UREA NITROGEN 5 mg/dL 7-18 L (test code = BUN) GLOMERULAR FILTRATION 120.6 >60 Unit o f measure: RATE (test code = GFR) mL/mi n/1.73 c9Punxfbstg Range:Healthy Adults >90 mL/min/1.73 m2 For Chronic Kidney Disease: St age II Mild Decrease in GFR 60-90 St age III Moderate Decrease in GFR 30-59 Stage IV Severe Decre ase in GFR 15- 29 Stage V Kidney Failure <15 CREATININE (test code = 0.67 mg/dL 0.55-1.30 N CREAT) TOTAL PROTEIN (test 7.5 g/dL 6.4-8.2 N code = PROT) ALBUMIN (test code = 3.7 g/dL 3.4-5.0 N ALB) GLOBULIN (test code = 3.8 g/dL 2.2-4.2 N GLOB) ALBUMIN/GLOBULIN RATIO 1.0 0.7-2.0 N (test code = A/G) CALCIUM (test code = 9.1 mg/dL 8.2-10.1 N CA) BILIRUBIN TOTAL (test 0.60 mg/dL 0.2-1.00 N code = BILT) SGOT/AST (test code = 100.0 U/L 15-37 H AST) SGPT/ALT (test code = 85.0 U/L 12-78 H Please note new ALT) normal range. ALKALINE PHOSPHATASE 85 U/L 46-116 N TOTAL (test code = ALKP) TISSUE [id number] 17:35:00Surgical Pathology Report Case: [id number] Authorizing Provider: Blair Flowers MD Collected: 12/26/2018 193 Ordering Location: [facility] Received: 12/27/2018 0833 SERVICES Pathologist: Mary Guzmán MD Specimen: Ileostomy ILEOSTOMY, LAPAROSCOPIC TAKEDOWN: - ILEOSTOMY SITE IDENTIFIED - ULCERATION AND GRANULATION TISSUE - CHRONIC INFLAMMATION AND SEROSAL ADHESIONS - NEGATIVE FOR MALIGNANCY Signing Pathologist Direct Phone Line: [phone] This case is received in one part [...] reveal congested kemp-pink to red intestinal mucosa. Rd Lab Technician sections are submitted as follows: A1, A2, staple line; A3, labor representative sections to include small intestine and skin. AH/ewPERFORMEDC W/PLT COUNT & AUTO [id number] 12:15:00 Test Item Value Reference Range Interpretation Comments WHITE BLOOD CELL COUNT (BEAKER) 7.1 K/ L 3.5-10.5 (test code = 775) RED BLOOD CELL COUNT (BEAKER) 4.09 M/ L 4.63-6.08 L (test code = 761) HEMOGLOBIN (BEAKER) (test code = 13.0 GM/DL 13.7-17.5 L 410) HEMATOCRIT (BEAKER) (test code = 39.3 % 40.1-51.0 L 411) MEAN CORPUSCULAR VOLUME (BEAKER) 96.1 fL 79.0-92.2 H (test code = 753) MEAN CORPUSCULAR HEMOGLOBIN 31.8 pg 25.7-32.2 (BEAKER) (test code = 751) MEAN CORPUSCULAR HEMOGLOBIN CONC 33.1 GM/DL 32.3-36.5 (BEAKER) (test code = 752) RED CELL DISTRIBUTION WIDTH 12.1 % 11.6-14.4 (BEAKER) (test code = 412) PLATELET COUNT (BEAKER) (test 194 K/CU MM 150-450 code = 756) MEAN PLATELET VOLUME (BEAKER) 9.6 fL 9.4-12.4 (test code = 754) NUCLEATED RED BLOOD CELLS 0 /100 WBC 0-0 (BEAKER) (test code = 413) NEUTROPHILS RELATIVE PERCENT 75 % (BEAKER) (test code = 429) LYMPHOCYTES RELATIVE PERCENT 11 % (BEAKER) (test code = 430) MONOCYTES RELATIVE PERCENT 9 % (BEAKER) (test code = 431) EOSINOPHILS RELATIVE PERCENT 3 % (BEAKER) (test code = 432) BASOPHILS RELATIVE PERCENT 1 % (BEAKER) (test code = 437) NEUTROPHILS ABSOLUTE COUNT 5.37 K/ L 1.78-5.38 (BEAKER) (test code = 670) LYMPHOCYTES ABSOLUTE COUNT 0.81 K/ L 1.32-3.57 L (BEAKER) (test code = 414) MONOCYTES ABSOLUTE COUNT (BEAKER) 0.67 K/ L 0.30-0.82 (test code = 415) EOSINOPHILS ABSOLUTE COUNT 0.18 K/ L 0.04-0.54 (BEAKER) (test code = 416) BASOPHILS ABSOLUTE COUNT (BEAKER) 0.04 K/ L 0.01-0.08 (test code = 417) IMMATURE GRANULOCYTES-RELATIVE 1 % 0-1 PERCENT (BEAKER) (test code = 2801) BASIC METABOLIC [id number] 07:52:00 Test Item Value Reference Range Interpretation [...] APPLICABLE FOR DIALYSIS PATIEN TS. BASIC METABOLIC [id number] 07:01:00 Test Item Value Reference Range Interpretation [...] APPLICABLE FOR DIALYSIS PATIEN TS. BASIC METABOLIC [id number] 15:00:00 Test Item Value Reference Range Interpretation [...] NOT APPLICABLE FOR DIALYSIS PATIEN TS. PROTHROMBIN [id number] 14:23:00 Test Item Value Reference Range Interpretation Comments PROTIME (BEAKER) (test code = 14.5 seconds 11.7-14.7 759) INR (BEAKER) (test code = 370) 1.1 <=5.9 RECOMMENDED COUMADIN/WARFARIN INR THERAPY RANGESSTANDARD DOSE: 2.0 - 3.0 Includes: PROPHYLAXIS forvenous thrombosis, systemic embolization; TREATMENT for venous thrombosis and/or pulmonary embolus.HIGH RISK: Target INR is 2.5-3.5 for patients with mechanical heart valves.[id number] 14:23:00 Test Item Value Reference Range Interpretation [...] 0-0 (BEAKER) (test code = 413) POCT-GLUCOSE [id number] 14:00:00 Test Item Value Reference Range Interpretation Comments POC-GLUCOSE METER 113 mg/dL 70-[address] [facility] 6720 (BEAKER) (test code = [place] 1538) [address] FUNGUS CULTURE + [id number] 18:31:00 Test Item Value Reference Range Interpretation Comments CULTURE (BEAKER) (test No fungus isolated in code = 1095) 28 days FUNGUS SMEAR (BEAKER) No fungi seen (test code = 1406) FUNGUS CULTURE + [id number] 18:31:00 Test Item Value Reference Range Interpretation Comments CULTURE (BEAKER) (test No fungus isolated in code = 1095) 28 days FUNGUS SMEAR (BEAKER) No fungi seen (test code = 1406) FUNGUS CULTURE + [id number] 18:31:00 Test Item Value Reference Range Interpretation Comments CULTURE (BEAKER) (test No fungus isolated in code = 1095) 28 days FUNGUS SMEAR (BEAKER) No fungi seen (test code = 1406) ANAEROBIC [id number] 07:32:00 Test Item Value Reference Range Interpretation Comments CULTURE (BEAKER) A From Broth Only Same (test code = 1095) organism has been isolated from culture(s) of the same body site and c ollection date. Repeat id entification performed only after consultation wi th the clinical microb iology laboratory.Refe r to previous cultur e ofClostridium p erfringens ANAEROBIC [id number] 07:29:00 Test Item Value Reference Range Interpretation Comments CULTURE (BEAKER) (test A <1+ C lostridium code = 1095) perfringens Anaerobic organisms of more than 3 types. No further work up performed. SURGICALLY OBTAINED CULTURE + GRAM [id number] 14:32:00 Test Item Value Reference Range Interpretation Comments CULTURE (BEAKER) A <1+ Lactoba cillus (test code = species 1095) GRAM STAIN <1+ WBCs RESULT (BEAKER) (test code = 1123) GRAM STAIN No organisms seen RESULT (BEAKER) (test code = 74664) SURGICALLY OBTAINED CULTURE + GRAM [id number] 14:30:00 Test Item Value Reference Range Interpretation Comments CULTURE (BEAKER) A From Broth Only (test code = 1095) Hafnia al vei GRAM STAIN RESULT <1+ WBCs (BEAKER) (test code = 1123) GRAM STAIN RESULT No organisms seen (BEAKER) (test code = 030420) ANAEROBIC [id number] 05:28:00 Test Item Value Reference Range Interpretation Comments CULTURE (BEAKER) (test No anaerobes isolated code = 1095) SURGICALLY OBTAINED CULTURE + GRAM [id number] 12:17:00 Test Item Value Reference Interpretation Comments [...] No organisms seen (BEAKER) (test code = 878574) [id number] 03:38:00 Test Item Value Reference Range Interpretation Comments MAGNESIUM (BEAKER) (test code = 1.7 mg/dL 1.6-2.6 627) BASIC METABOLIC [id number] 03:38:00 Test Item Value Reference Range Interpretation [...] NOT APPLICABLE FOR DIALYSIS PATIEN TS. PROTHROMBIN [id number] 03:32:00 Test Item Value Reference Range Interpretation [...] PERCENT (BEAKER) (test code = 2801) PROTHROMBIN TIME/[id number] 17:13:00 Test Item Value Reference Range Interpretation Comments PROTIME (BEAKER) (test code = 14.4 seconds 11.7-14.7 759) INR (BEAKER) (test code = 370) 1.1 <=5.9 RECOMMENDED COUMADIN/WARFARIN INR THERAPY RANGESSTANDARD DOSE: 2.0 - 3.0 Includes: PROPHYLAXIS forvenous thrombosis, systemic embolization; TREATMENT for venous thrombosis and/or pulmonary embolus.HIGH RISK: Target INR is 2.5-3.5 for patients with mechanical heart valves.TISSUE [id number] 13:56:00Surgical Pathology Report Case: [id number] Authorizing Provider: Blair Flowers MD Collected: 10/14/2018 1551 Ordering Location: [facility] Received: 10/15/2018 0742 SERVICES [...] ARE VIABLE. Signing Pathologist Direct Phone Line: [phone] signed by Sp Cedillo MD on 10/16/2018 at 1:56 [id number], [id number] of large intestine with abscess and withoutbleedingA. [...] B4, abscess formations; B5-B8, diverticula. CG/ew A-B: [id number] 05:05:00 Test Item Value Reference Range Interpretation Comments MAGNESIUM (BEAKER) (test code = 2.3 mg/dL 1.6-2.6 627) BASIC METABOLIC [id number] 05:05:00 Test Item Value Reference Range Interpretation [...] I S NOT APPLICABLE FOR DIALYSIS PATIEN ELY. [id number] 04:58:00 Test Item Value Reference Range Interpretation Comments PARTIAL THROMBOPLASTIN TIME 79.4 seconds 22.5-36.0 H (BEAKER) (test code = 760) CBC W/PLT COUNT & AUTO [id number] 04:51:00 Test Item Value Reference Range Interpretation [...] 0-1 PERCENT (BEAKER) (test code = 2801) [id number] 21:54:00 Test Item Value Reference Range Interpretation Comments PARTIAL THROMBOPLASTIN TIME 79.0 seconds 22.5-36.0 H (BEAKER) (test code = 760) [id number] 15:02:00 Test Item Value Reference Range Interpretation Comments PARTIAL THROMBOPLASTIN TIME 52.4 seconds 22.5-36.0 H (BEAKER) (test code = 760) [id number] 08:32:00 Test Item Value Reference Range Interpretation Comments PARTIAL THROMBOPLASTIN TIME 51.2 seconds 22.5-36.0 H (BEAKER) (test code = 760) CBC W/PLT COUNT & AUTO [id number] 07:29:00 Test Item Value Reference Range Interpretation [...] 0-1 PERCENT (BEAKER) (test code = 2801) [id number] 07:18:00 Test Item Value Reference Range Interpretation Comments MAGNESIUM (BEAKER) 1.5 mg/dL 1.6-2.6 L Specimen slightly (test code = 627) hemolyzed BASIC METABOLIC [id number] 07:18:00 Test Item Value Reference Range Interpretation [...] S NOT APPLICABLE FOR DIALYSIS PATIEN TS. [id number] 22:19:00 Test Item Value Reference Range Interpretation Comments PARTIAL THROMBOPLASTIN TIME 32.6 seconds 22.5-36.0 (BEAKER) (test code = 760) Prior to initiating heparinPLATELET [id number] 22:11:00 Test Item Value Reference Range Interpretation Comments PLATELET COUNT (BEAKER) (test 205 K/CU MM 150-450 code = 756) POCT-GLUCOSE [id number] 20:21:00 Test Item Value Reference Range Interpretation Comments POC-GLUCOSE METER 135 mg/dL 70-[address] [facility] 6720 (BEAKER) (test code = [place] 1538) [id number] 11:39:00 Test Item Value Reference Range Interpretation Comments SODIUM (BEAKER) (test code = 381) 138 meq/L 136-145 POTASSIUM (BEAKER) (test code = 4.0 meq/L 3.5-5.1 379) CHLORIDE (BEAKER) (test code = 382) 102 meq/L 98-107 CO2 (BEAKER) (test code = 355) 24 meq/L 22-29 Check [id number] 11:39:00 Test Item Value Reference Range Interpretation Comments GLUCOSE RANDOM (BEAKER) (test code 113 mg/dL 70-105 H = 652) Check [id number] 11:33:00 Test Item Value Reference Range Interpretation [...] 2.5-3.5 for patients with mechanical heart valves.PLATELET [id number] 11:27:00 Test Item Value Reference Range Interpretation Comments PLATELET COUNT (BEAKER) (test 257 K/CU MM 150-450 code = 756) HEMOGLOBIN AND [id number] 11:27:00 Test Item Value Reference Range Interpretation Comments HEMOGLOBIN (BEAKER) (test code = 14.5 GM/DL 13.7-17.5 410) HEMATOCRIT (BEAKER) (test code = 41.9 % 40.1-51.0 411) POCT-GLUCOSE [id number] 11:16:00 Test Item Value Reference Range Interpretation Comments POC-GLUCOSE METER 112 mg/dL 70-[address] [facility] 6720 (BEAKER) (test code = [place] 1538) [id number] CBC W/PLT COUNT & AUTO [id number] 10:17:00 Test Item Value Reference Range Interpretation [...] (BEAKER) (test code = 2801) COMPREHENSIVE METABOLIC [id number] 09:27:00 Test Item Value Reference Range Interpretation [...] S NOT APPLICABLE FOR DIALYSIS PATIEN TS. [id number] 15:55:00 Test Item Value Reference Range Interpretation Comments SODIUM (BEAKER) (test 132 meq/L 136-145 L code = 381) POTASSIUM (BEAKER) 4.1 meq/L 3.5-5.1 Specimen slightly (test code = 379) hemolyzed CHLORIDE (BEAKER) 100 meq/L 98-107 (test code = 382) CO2 (BEAKER) (test 24 meq/L 22-29 code = 355) BUN AND [id number] 15:55:00 Test Item Value Reference Range Interpretation [...] S NOT APPLICABLE FOR DIALYSIS PATIEN TS. [id number] 15:33:00 Test Item Value Reference Range Interpretation Comments HEMOGLOBIN (BEAKER) (test code = 14.5 GM/DL 13.7-17.5 410) PLATELET [id number] 15:33:00 Test Item Value Reference Range Interpretation Comments PLATELET COUNT (BEAKER) (test 197 K/CU MM 150-450 code = 756)
[2021-03-22] MEDS ORDERED: BISACODYL 10 MG RECTAL SUPP PR PRN (17:17)
[2021-03-22] MEDS ORDERED: cloNIDine HCL 0.1 MG TAB PO PRN (18:32)
[2021-03-22] MEDS ORDERED: ENOXAPARIN 100 MG/ML SYR SQ SCH ×2 (20:00)
[2021-03-22] MEDS: THIAMINE HCL 100 MG TABLET PO SCH (20:21)
[2021-03-22] MEDS: FAMOTIDINE 20 MG TAB PO SCH (20:21)
[2021-03-22] MEDS: AMOX/K CLAV 875 MG TAB PO SCH (20:21)
[2021-03-22] MEDS: ATORVASTATIN 80 MG TAB PO SCH (20:21)
[2021-03-22] MEDS: WARFARIN SODIUM 4 MG TAB PO SCH (20:21)
[2021-03-22] MEDS: ENOXAPARIN 100 MG/ML SYR SQ SCH (20:24)
[2021-03-23] MEDS: carvediloL 12.5 MG TAB PO SCH ×2 (05:25→16:45)
[2021-03-23 06:33] LABS: Basophils % 1.1 % (0-1.3); Hematocrit 29.9 % (39.6-49.0); Lymphocytes % 15.2 % (15.3-44.8); RBC Red Blood Cell Count 3.21 M/uL (4.33-5.43)
[2021-03-23 06:40] LABS: Protime INR 2.52
[2021-03-23] MEDS: ENOXAPARIN 100 MG/ML SYR SQ SCH (06:51)
[2021-03-23 07:32] LABS: Albumin 2.2 g/dL (3.4-5.0); BUN Blood Urea Nitrogen 9 mg/dL (7-18); Bicarbonate 35 mmol/L (21-32); Glucose Level 101 mg/dL (74-106); Prealbumin 4.9 mg/dL (20-40); Sodium Level 140 mmol/L (136-145)
[2021-03-23 07:33] LABS: Magnesium 1.5 mg/dL (1.8-2.4); Potassium 2.8 mmol/L (3.5-5.1)
[2021-03-23] MEDS: ACETAMINOPHEN 500 MG TAB PO PRN ×2 (08:13→19:55)
[2021-03-23] MEDS: TAMSULOSIN 0.4 MG SR CAP PO SCH (08:14)
[2021-03-23] MEDS: PARoxetine HCL 10 MG TAB PO SCH (08:14)
[2021-03-23] MEDS: FAMOTIDINE 20 MG TAB PO SCH ×2 (08:14→19:55)
[2021-03-23] MEDS: ISOSORBIDE MONO SR 30 MG TAB PO SCH (08:14)
[2021-03-23] MEDS: AMOX/K CLAV 875 MG TAB PO SCH ×2 (08:14→19:54)
[2021-03-23] MEDS: MULTIVITAMIN TAB PO SCH (08:14)
[2021-03-23] MEDS: FOLIC ACID 1 MG TABLET PO SCH (08:14)
[2021-03-23] MEDS: ASPIRIN EC 81 MG TAB PO SCH (08:14)
[2021-03-23] MEDS: AMLODIPINE 5 MG TAB PO SCH (08:14)
[2021-03-23] MEDS: FUROSEMIDE 20 MG TABLET PO SCH (08:15)
[2021-03-23] MEDS: THIAMINE HCL 100 MG TABLET PO SCH ×2 (08:15→19:55)
[2021-03-23] MEDS ORDERED: POTASSIUM CL SA 10 MEQ TAB PO ONE (09:19)
[2021-03-23 11:58] LABS: Urine Appearance CLEAR (Clear); Urine Bilirubin 1+ (Negative); Urine Blood 1+ (Negative); Urine Color DK YELLOW (Yellow); Urine Glucose NEGATIVE (Negative); Urine Protein 1+ (Negative)
[2021-03-23 13:11] LABS: Urine Bacteria 20-50 /HPF (NONE SEEN)
[2021-03-23] MEDS: WARFARIN SODIUM 4 MG TAB PO SCH (16:45)
--- NOTE | 2021-03-23 18:13 | R.HP ---
HISTORY AND PHYSICAL FACILITY: [facility] ENCOUNTER DATE AND TIME: 03/23/2021 13:09 (CDT) MR#: [id number] NAME SABA SUE ADDRESS: [address] [place] [address] CITY: [place]IP [address] PHONE: DATE OF : 1960 AGE: 60 SSN# [id number] GENDER: Male DEXTERITY Right-handed MARITAL STATUS RACE White PRE-HOSPITAL LIVING SETTING 01 - Home (private home/apt. board/care, assisted living, nursing home, transitional living) PRE-HOSPITAL LIVING WITH Family/Relatives ENCOUNTER PHYSICIAN: Dr. Alfred Crump M.D. REFERRING DOCTOR: Dr Kalyan Wilson DATE OF ADMISSION: 03/22/2021 15:37 (CDT) REFERRING FACILITY [facility] HOME TYPE AND DETAILS: Type of home: single family house # of levels in the residence: 1 # of steps to enter the residence: 0 # of steps within the residence: 0 ONSET DATE: 03/17/2021 PRIMARY DIAGNOSIS-RELATED SURGERIES: incisional hernia repair on warfarin due to AVR - performed by hernia on 03/17/2021 status post exploratory laparotomy with lysis of adhesions, component seperation with reinforcement u sing mesh that was transferred tot surgical ICU for hemodynamic monitoring after acute blood loss anemia from a mesenteric hematoma found on CT scan. Patient was Tachy. HISTORY OF PRESENT ILLNESS (HPI): Pt. is a 60 yo Right-handed white male. On 03/17/2021 he was admitted to [facility] with diagnosis Diverticulitis o f LG intestine, bowel perforation, peritoneal abscess, incisional hernia, acute respiratory failure, ventilator dependent . His impairment category is Debility 16 - Debility (16). Pre-morbidly, Pt. was independent/mod-I in Locomotion, Safety Awareness, Balance, Self-Care, Communic ation, and Sphincter Control; and he had good Endurance and Transfers Control. Currently, he has deficits of Locomotion, Balance, Transfers Control, Sphincter Control, and Enduranc e. Pt. is now referred to [facility] for acute in-patient rehabilitation in order to maximize patient's functional independence in activities of daily living, strength, ROM, and mobi lity. Patient has realistic goal of being discharged at assistance level 7-Ind to reside at Home with Fami ly/Relatives. MEDICATION ALLERGIES: No Known Drug Allergies (NKDA) ENVIRONMENTAL ALLERGIES: None Known - Substance Allergies None Known - Other Allergies None Known PAST MEDICAL HISTORY: HX of Depression ALCOHOL ABUSE TROPONINEMIA HYPERTENSION H/O SINUS TACHYCARDIA ACUTE RESPIRATORY INSUFFICIENCY AFTER NONCARDIAC SURGERY PULMONARY TOILET DIVERTICULOSIS PARTIAL COLECTOMY WITH ILEOSTOMY CREATION MESENTERIC HEMATOMA ACUTE KIDNEY INJURY METABOLIC ACIDOSIS ANION GAP ELEVATED LIVER ENZYMES HYPERBILIRUBINEMIA ACUTE BLOOD LOSS ANEMIA ON ANTICOAGULATION DUE TO HISTORY OF AORTIC VALVE REPLACEMENT HYPERGLYCEMIA PAST SURGICAL HISTORY: AORTIC VALVE REPLACEMENT BURN TREATMENT ILEOSTOMY CLOSURE LEG SURGERY REPAIR, HERNIA RESECTION, COLON, LOW ANTERIOR THYROID CYST EXCISION TOTAL HIP ARTHO (BILATERAL) TOTAL SHOULDER ARTHO (LEFT) SOCIAL HISTORY: - Home Living Family/Relatives REVIEW OF SYSTEMS: - Gen No Chills Fatigue No Fever - Eyes No Double Vision No itchiness - ENMT No Difficulty Swallowing - CVS No Chest Discomfort No Chest Pain Fatigue No Weight Gain - Resp No Cough No Shortness of Breath - GI Continent Abdominal Pain No Constipation No Diarrhea - Continent No Kidney Pain No Painful Urination No Urinary Urgency - MSK No Joint Pain Muscle Cramps Stiffness - Skin No Itching No Rash No Suspicious Lesions - Neuro No Coordination Difficulty No Difficulty with Concentration No Memory Loss No Seizures Weakness - Psych No Anxiety No Depression No HIV Exposure No Persistent Infections No Seasonal Allergies - Endo No Cold/Heat Intolerance No Excessive Hunger No Excessive Thirst No Excessive Urination PHYSICAL EXAM - Gen Alert and awake Lying in bed No apparent distress Oriented to: person, time, and place - Skin No breakdowns Normacephalic - Eyes No abnormalities - ENMT No abnormalities - Neck No abnormalities - CVS RRR - Chest Clear - Resp Clear to auscultation - Abd + bowel sounds, incision is healing well. - GI Soft Deferred - No abnormalities - Ext No significant edema - MSK 4+/5 weakness in both lower extremities. - Neuro No focal deficits - Psych No abnormalities VITAL SIGNS Temperature: 97.8 F SBP/DBP: 140/76 Pulse: 88 Resp: 16 NURSING: - Shower allowing shower ACTIVITIES OOB only with supervision QI SCORES: - Self-Care A. Eating 03-Partial/moderate assistance B. Oral hygiene 03-Partial/moderate assistance C. Toileting hygiene 03-Partial/moderate assistance E. Shower/bathe self 03-Partial/moderate assistance F. Upper body dressing 03-Partial/moderate assistance G. Lower body dressing 03-Partial/moderate assistance H. Putting on/taking off footwear 88-Not attempted due to medical condition or safety concerns - Mobility A. Roll left and right 03-Partial/moderate assistance B. Sit to lying 03-Partial/moderate assistance C. Lying to sitting on side of bed 03-Partial/moderate assistance D. Sit to stand 03-Partial/moderate assistance E. Chair/mox-fd-jupvs transfer 03-Partial/moderate assistance F. Toilet transfer 03-Partial/moderate assistance G. Car transfer 88-Not attempted due to medical condition or safety concerns I. Walk 10 feet 03-Partial/moderate assistance J. Walk 50 feet with two turns 03-Partial/moderate assistance K. Walk 150 feet 88-Not attempted due to medical condition or safety concerns L. Walking 10 feet on uneven surfaces 88-Not attempted due to medical condition or safety concerns M. 1 step (curb) 88-Not attempted due to medical condition or safety concerns N. 4 steps 88-Not attempted due to medical condition or safety concerns O. 12 steps 88-Not attempted due to medical condition or safety concerns P. Picking up object 88-Not attempted due to medical condition or safety concerns R. Wheel 50 feet with two turns 88-Not attempted due to medical condition or safety concerns S. Wheel 150 feet 88-Not attempted due to medical condition or safety concerns - Bladder and Bowel Bladder continence Bowel continence - Endurance Fair - Balance Fair - Safety Awareness Fair [facility] DEFICITS: Self-Care, Mobility, Endurance, Balance, and Safety Awareness MEDICATIONS: - Other See attached MAR (Medication Administration Record) ASSESSMENT: Pt. is a 60 yo Right-handed white male.On 03/17/2021 he was admitted to [facility] with diagnosis Diverticulitis of LG intestine, bowel perforation, peritoneal abscess, incisio nal hernia, acute respiratory failure, ventilator dependent .His impairment category is Debility 16 - Debility (16).Pre-morbidly, Pt. was independent/mod-I in Locomotion, Safety Awareness, Balance, S elf-Care, Communication, and Sphincter Control; and he had good Endurance and Transfers Control.Curre ntly, he has deficits of Locomotion, Balance, Transfers Control, Sphincter Control, and Endurance.Pt. is now referred to [facility] for acute in-patient rehabilitation in order to maximize patient's functional independence in activities of daily living, strength, ROM, and mobilit y.- Rehab Goal Patient has realistic goal of being discharged at assistance level 7-Ind to reside at Home with Fami ly/Relatives. REHAB PLAN: - Physical Therapy Gait dysfunction - to improve, our physical therapists will perform initial evaluation of pt's status upon admission and devise an individualized program for Gait Training, and Wheel Chair mobility Inability to transfer - to improve, our physical therapists will perform initial evaluation of pt's s tatus upon admission and devise an individualized program for Bed mobility Need for home safety evaluation - to improve, our physical therapists will perform initial evaluation of pt's status upon admission and devise an individualized program for Home Evaluation Need in caregiver upon discharge - to improve, our physical therapists will perform initial evaluatio n of pt's status upon admission and devise an individualized program for Caregiver Training New precaution - to improve, our physical therapists will perform initial evaluation of pt's status u callie admission and devise an individualized program for Patient precaution education Edema - to improve, our physical therapists will perform initial evaluation of pt's status upon admi ssion and devise an individualized program for Elevation Training, and Lymphedema Therapy Poor balance - to improve, our physical therapists will perform initial evaluation of pt's status upo n admission and devise an individualized program for Balance Training Poor endurance - to improve, our physical therapists will perform initial evaluation of pt's status u callie admission and devise an individualized program for Endurance Training Weakness - to improve, our physical therapists will perform initial evaluation of pt's status upon ad mission and devise an individualized program for Aquatic Therapy, Neuromuscular Reeducation, and Stre ngthening Achieving independence - to improve, our physical therapists will perform initial evaluation of pt's status upon admission and devise an individualized program for Community Reintegration Activities - Occupational Therapy Need for manager long term care - to improve, our occupation therapists will perform initial evaluation of pt's s tatus upon admission and devise an individualized program for Caregiver Training Weakness - to improve, our occupation therapists will perform initial evaluation of pt's status upon admission and devise an individualized program for Aquatic Therapy, Balance, Endurance, UE ROM, and U E strengthening MEDICAL PLAN: - Diet Type Start Regular - Diet - Liquid Texture Start Regular - Tube Feed Start N/A - Other See attached MAR (Medication Administration Record) - Diet - Solid Texture Regular - Shower shower DISCHARGE PLAN: - Estimated Length of Stay (days) 13. - Consensus on plan Discharge plan has been discussed with primary caregiver. Patient/Family is in agreement with the kim n. Primary caregiver is in agreement with the plan. - Patient/Family Goals Return home independently. - Planned Living Setting Upon Discharge Home, to live with Family/Relatives. Transitional Living. SIGNATURE PANEL: (CDT)
--- NOTE | 2021-03-23 18:14 | PAPE ---
POST ADMISSION PHYSICIAN EVALUATION PATIENT: [facility] MR# [id number] REFERRING DOCTOR Dr Kalyan Wilson EVALUATION DATE AND TIME 03/23/2021 18:14 (CDT) NAME SABA SUE DATE OF 1960 AGE 60 PHONE SSN# [id number] GENDER male EVALUATING PHYSICIAN Dr. Alfred Crump M.D. ADMISSION DIAGNOSIS: Diverticulitis of LG intestine, bowel perforation, peritoneal abscess, incisional hernia, acute respi ratory failure, ventilator dependent ONSET DATE 03/17/2021 POST-ADMISSION FUNCTIONAL/MEDICAL STATUS: - Bladder Same accident frequency: 7-Ind - No accidents in the past 7 days - Bowel Same accident frequency: 7-Ind - No accidents in the past 7 days - Walking Same score based on distance walked: 0(N/A) Same score based on distance walked: 2(50-149ft) - Wheelchair Same score based on distance traveled: 0(N/A) STATUS CHANGE EVALUATION: No change in Functional or Medical Status is identified compared with Pre-Admission screening. PATIENT NEEDS CLOSE MEDICAL SUPERVISION BY A REHABILITATION PHYSICIAN FOR: Coordination of Treatment Team PATIENT REQUIRES 24X7 REHAB NURSING FOR MEDICAL AND FUNCTIONAL MGT. OF THE FOLLOWING DEFICITS: Disease Management Medication Management Patient/Family Education Providing Safe Environment PATIENT REQUIRES INTENSIVE, COORDINATED INTERDISCIPLINARY APPROACH TO REHAB: Arranging Home Equipment/Services Discharge Planning Family Intervention/Training Director Asset/Case Management LIST OF IDENTIFIED AND POTENTIAL PROBLEMS: Alteration in leisure activities Bladder, Incontinence Bowel, Incontinence Infection, Actual or Potential Mobility Impaired Pain, Alteration in Comfort Self Care Deficit Skin Integrity, Actual or Potential Urinary Tract Infection (UTI), Actual or Potential RISK FOR COMPLICATIONS - N/A Alcohol Abuse. Delirium. Sinus Tachycardia. Pain. Troponinemia. INTERVENTIONS - N/A Post Operative Pain. PATIENT COULD BE AT RISK FOR COMPLICATIONS FROM ADVERSE MEDICAL CONDITIONS DUE TO HIS/HER COMORBIDITI ES AND THE RIGORS OF THE INTENSIVE REHABILLITATION PROGRAM. METHODS OR INTERVENTIONS TO AVOID COMPLIC ATIONS INCLUDE: - Infection Clinical staff to assess and manage the signs and symptoms of infection including fever, redness, war mth, etc. - Urinary Tract Infection - Falls Patient will be evaluated for Fall Precautions and will be placed on Fall Precautions as indicated pe r protocol. - Skin Breakdown Nursing will assess skin daily using assessment tool and will place on Skin Breakdown Precautions as indicated per protocol. - Pain Clinical staff may employ non-medication methods such as massage, distraction, decrease stimulus, etc . as needed. Clinical staff will assess patient's pain level every shift per protocol to assess and e nsure pain management effectiveness. Medications will be given and the pain level re-assessed. PRELIMINARY PLAN OF CARE: - Physical Therapy Patient needs Physical Therapy for a daily minimum of 1.5 hours at least 5 out of 7 days, to improve: Mobility, Strengthening, Transfers, Stretching, ROM, Endurance, Ability to manage stairs, Gait, and Balance. - Rehabilitation Nursing Patient requires 24x7 Rehabilitation Nursing for: Pain Issues, Identifying and preventing risk factor s, Monitoring and reporting current medical conditions, Assisting with ambulation and transfer, Lissette ting with all ADL-s, Teaching patients about disease process and medications, Family teaching, Provid ing safe environment, Bowel and Bladder Issues, Skin Integrity, and Medication Management. Patient needs Director Asset and/or Case Management for: Discharge Planning, Arranging Home Equipmen t or Services, and Family Interventions. - Dietary and Nutrition Services Patient needs Dietary and Nutrition Services for: Adequate Nutrition, Nutritional Supplements, and Nu tritional Education. - Occupational Therapy Patient needs Occupational Therapy for a daily minimum of 1.5 hours at least 5 out of 7 days, to impr ove Activities of Daily Living, including: Eating, Grooming, Bathing, Dressing, Toileting, Toilet Tra nsfers, Community Reintegration, Higher functional activities, Adaptive Equipment, Splinting, Househo ld Tasks, and Other activities as determined. QI SCORES: - Self-Care A. Eating 03-Partial/moderate assistance B. Oral hygiene 03-Partial/moderate assistance C. Toileting hygiene 03-Partial/moderate assistance E. Shower/bathe self 03-Partial/moderate assistance F. Upper body dressing 03-Partial/moderate assistance G. Lower body dressing 03-Partial/moderate assistance H. Putting on/taking off footwear 88-Not attempted due to medical condition or safety concerns - Mobility A. Roll left and right 03-Partial/moderate assistance B. Sit to lying 03-Partial/moderate assistance C. Lying to sitting on side of bed 03-Partial/moderate assistance D. Sit to stand 03-Partial/moderate assistance E. Chair/uqr-ty-jpkxk transfer 03-Partial/moderate assistance F. Toilet transfer 03-Partial/moderate assistance G. Car transfer 88-Not attempted due to medical condition or safety concerns I. Walk 10 feet 03-Partial/moderate assistance J. Walk 50 feet with two turns 03-Partial/moderate assistance K. Walk 150 feet 88-Not attempted due to medical condition or safety concerns L. Walking 10 feet on uneven surfaces 88-Not attempted due to medical condition or safety concerns M. 1 step (curb) 88-Not attempted due to medical condition or safety concerns N. 4 steps 88-Not attempted due to medical condition or safety concerns O. 12 steps 88-Not attempted due to medical condition or safety concerns P. Picking up object 88-Not attempted due to medical condition or safety concerns R. Wheel 50 feet with two turns 88-Not attempted due to medical condition or safety concerns S. Wheel 150 feet 88-Not attempted due to medical condition or safety concerns - Bladder and Bowel Bladder continence Bowel continence - Endurance Fair - Balance Fair - Safety Awareness Fair POTENTIAL FUNCTIONAL GOALS FOR PATIENT TO ACHIEVE BY DISCHARGE: - Safety Precaution Patient will remain free from falls or injury at time of discharge. - Bed Mobility Patient will perform bed mobility at 4-Steven level of assistance. - Transfers Patient will complete transfers from bed to chair at 4-Steven level of assistance. - Mobility Patient will ambulate 150 ft with 4-Steven level of assistance with RW. PATIENT REHAB POTENTIAL Elizabeth SUE is able and expected to receive 3 hours of individualized therapy daily on at least 5 of e very 7 days Elizabeth ERNANDEZs prognosis for significant practical improvement within a reasonable period of time appea rs Good Expected level of measurable improvement will be of a practical value to Elizabeth SUE's functional [facility] [place] or adaptations to impairments Has a viable Discharge Plan Medically appropriate; condition is sufficiently stable to participate in intensive rehab program DISCHARGE PLAN: - Estimated Length of Stay (days) 13. - Consensus on plan Discharge plan has been discussed with primary caregiver. Patient/Family is in agreement with the kim n. Primary caregiver is in agreement with the plan. - Patient/Family Goals Return home independently. - Planned Living Setting Upon Discharge Home, to live with Family/Relatives. Transitional Living. CONCLUSION ON REHABILITATION NECESSITY: I have evaluated patient's pre-admission functional status and, comparing it to the patient's post-ad mission functional status now, I conclude that the pre-admission assessment was accurate. Patient's c ondition on admission supports the medical necessity of admission to IRF. It is safe to proceed with patient's therapy program. SIGNATURE PANEL: (CDT)
[2021-03-23] MEDS: ATORVASTATIN 80 MG TAB PO SCH (19:54)
[2021-03-23] MEDS: CRANBERRY FRUIT EXTRACT 200 MG CAP PO SCH (19:54)
[2021-03-23] MEDS: SENOSIDES 8.6 MG TAB PO PRN (19:55)
[2021-03-24] MEDS: carvediloL 12.5 MG TAB PO SCH ×2 (05:14→16:59)
[2021-03-24 06:20] LABS: Hematocrit 30.4 % (39.6-49.0); Lymphocytes % 14.5 % (15.3-44.8); MPV 9.1 fL (7.6-11.3); RBC Red Blood Cell Count 3.29 M/uL (4.33-5.43)
[2021-03-24 06:22] LABS: Protime INR 3.55
[2021-03-24] MEDS: AMLODIPINE 5 MG TAB PO SCH (06:44)
[2021-03-24] MEDS: ISOSORBIDE MONO SR 30 MG TAB PO SCH (06:45)
[2021-03-24 06:51] LABS: Albumin 2.3 g/dL (3.4-5.0); BUN Blood Urea Nitrogen 10 mg/dL (7-18); Bicarbonate 32 mmol/L (21-32); Glucose Level 101 mg/dL (74-106); Magnesium 1.6 mg/dL (1.8-2.4); Prealbumin 5.8 mg/dL (20-40); Sodium Level 139 mmol/L (136-145)
[2021-03-24 06:53] LABS: Potassium 2.8 mmol/L (3.5-5.1)
[2021-03-24 07:36] LABS: Blood Morphology Comment NOT SEEN (NOT SEEN); Platelet Estimate ADEQ
[2021-03-24] MEDS: ACETAMINOPHEN 500 MG TAB PO PRN ×2 (07:47→19:39)
[2021-03-24] MEDS: CRANBERRY FRUIT EXTRACT 200 MG CAP PO SCH ×2 (07:48→19:38)
[2021-03-24] MEDS: TAMSULOSIN 0.4 MG SR CAP PO SCH (07:49)
[2021-03-24] MEDS: MULTIVITAMIN TAB PO SCH (07:49)
[2021-03-24] MEDS: AMOX/K CLAV 875 MG TAB PO SCH ×2 (07:49→19:39)
[2021-03-24] MEDS: ASPIRIN EC 81 MG TAB PO SCH (07:49)
[2021-03-24] MEDS: FUROSEMIDE 20 MG TABLET PO SCH (07:50)
[2021-03-24] MEDS: FOLIC ACID 1 MG TABLET PO SCH (07:50)
[2021-03-24] MEDS: FAMOTIDINE 20 MG TAB PO SCH ×2 (07:50→19:39)
[2021-03-24] MEDS: PARoxetine HCL 10 MG TAB PO SCH (07:50)
[2021-03-24] MEDS: THIAMINE HCL 100 MG TABLET PO SCH ×2 (07:50→19:39)
[2021-03-24] MEDS ORDERED: POTASSIUM CL SA 10 MEQ TAB PO SCH (08:00)
[2021-03-24] MEDS ORDERED: POTASSIUM CL SA 10 MEQ TAB PO ONE (09:46)
[2021-03-24] MEDS: WARFARIN SODIUM 4 MG TAB PO SCH (14:49)
--- NOTE | 2021-03-24 17:47 | R.PN ---
PROGRESS NOTES ENCOUNTER DATE AND TIME: 03/24/2021 17:38 (CDT) NAME SABA SUE DATE OF : 1960 DATE OF ADMISSION: 03/22/2021 15:37 (CDT) Diverticulitis of LG intestine, bowel perforation, peritoneal abscess, incisional hernia, acute respi ratory failure, ventilator dependent CHIEF COMPLAINT: S/P hernia repair and debility SUBJECTIVE: Pt denied any depression. Pt denied any Shortness of Breath. WBC 6.7, Hgb 10.2, Plt 364, K+ 2.8, prealbumin 5.8. Will give K+ 20 meq x 2 and 10 meq bid. UA shows bacteria 20 to 50 and WBC 5-10, COVID-19 is negative. Ambulated 680' with contact guard assistance using a rolling walker. VITAL SIGNS Temperature: 97.2 F SBP/DBP: 134/67 Pulse: 86 Resp: 16 MEDICATION ALLERGIES: No Known Drug Allergies (NKDA) ENVIRONMENTAL ALLERGIES: None Known - Substance Allergies None Known - Other Allergies None Known NURSING: - Shower allowing shower ACTIVITIES OOB only with supervision THERAPIES: - Dietary and Nutrition Adequate Nutrition. Nutritional Education. Nutritional Supplements. PHYSICAL EXAM - Gen Alert and awake Lying in bed No apparent distress Oriented to: person, time, and place - Skin No breakdowns Normacephalic - Eyes No abnormalities - ENMT No abnormalities - Neck No abnormalities - CVS RRR - Chest Clear - Resp Clear to auscultation - Abd + bowel sounds, incision is healing well. - GI Soft Deferred - No abnormalities - Ext No significant edema - MSK 4+/5 weakness in both lower extremities. - Neuro No focal deficits - Psych No abnormalities ASSESSMENT: Pt. is a 60 yo Right-handed white male.On 03/17/2021 he was admitted to [facility] with diagnosis Diverticulitis of LG intestine, bowel perforation, peritoneal abscess, incisio nal hernia, acute respiratory failure, ventilator dependent .His impairment category is Debility 16 - Debility (16).Pre-morbidly, Pt. was independent/mod-I in Locomotion, Safety Awareness, Balance, S elf-Care, Communication, and Sphincter Control; and he had good Endurance and Transfers Control.Curre ntly, he has deficits of Locomotion, Balance, Transfers Control, Sphincter Control, and Endurance.Pt. is now referred to [facility] for acute in-patient rehabilitation in order to maximize patient's functional independence in activities of daily living, strength, ROM, and mobilit y.- Rehab Goal Patient has realistic goal of being discharged at assistance level 7-Ind to reside at Home with Fami ly/Relatives. MDM/PLAN: - Physical Therapy Gait dysfunction - to improve, our physical therapists will perform initial evaluation of pt's statu s upon admission and devise an individualized program for Gait Training, and Wheel Chair mobility Inability to transfer - to improve, our physical therapists will perform initial evaluation of pt's status upon admission and devise an individualized program for Bed mobility Need for home safety evaluation - to improve, our physical therapists will perform initial evaluatio n of pt's status upon admission and devise an individualized program for Home Evaluation Need in caregiver upon discharge - to improve, our physical therapists will perform initial evaluati on of pt's status upon admission and devise an individualized program for Caregiver Training New precaution - to improve, our physical therapists will perform initial evaluation of pt's status upon admission and devise an individualized program for Patient precaution education Edema - to improve, our physical therapists will perform initial evaluation of pt's status upon admis beto and devise an individualized program for Elevation Training, and Lymphedema Therapy Poor balance - to improve, our physical therapists will perform initial evaluation of pt's status up on admission and devise an individualized program for Balance Training Poor endurance - to improve, our physical therapists will perform initial evaluation of pt's status upon admission and devise an individualized program for Endurance Training Weakness - to improve, our physical therapists will perform initial evaluation of pt's status upon a dmission and devise an individualized program for Aquatic Therapy, Neuromuscular Reeducation, and Str engthening Achieving independence - to improve, our physical therapists will perform initial evaluation of pt's status upon admission and devise an individualized program for Community Reintegration Activities - Occupational Therapy Need for healthcare interpreter - to improve, our occupation therapists will perform initial evaluation of pt's status upon admission and devise an individualized program for Caregiver Training Weakness - to improve, our occupation therapists will perform initial evaluation of pt's status upon admission and devise an individualized program for Aquatic Therapy, Balance, Endurance, UE ROM, and UE strengthening - Other See attached MAR (Medication Administration Record) - Diet Type Continue Regular - Diet - Liquid Texture Continue Regular - Tube Feed Continue N/A - Diet - Solid Texture Continue Regular - Shower allowing shower FUNCTIONAL STATUS: UPDATED AT WEEKLY TEAM CONFERENCE - Bladder Same accident frequency: 7-Ind - No accidents in the past 7 days - Bowel Same accident frequency: 7-Ind - No accidents in the past 7 days - Walking Same score based on distance walked: 0(N/A) Same score based on distance walked: 2(50-149ft) - Wheelchair Same score based on distance traveled: 0(N/A) FUNCTIONAL STATUS: - Self-Care A. Eating Ind B. Grooming Mckenzie C. Bathing Steven D. Dressing - Upper sup E. Dressing - Lower sup F. Toileting sup - Sphincter Control G. Bladder control Mckenzie H. Bowel control Mckenzie - Transfers Control I. Bed/Chair/Wheelchair Steven J. Toilet Steven K. Tub/Shower Steven - Locomotion L. Walk/Wheelchair (B) Steven M. Stairs ADNO - Communication N. Comprehension (B) Mckenzie O. Expression (B) Mckenzie - Social Cognition P. Social Interaction Ind Q. Problem Solving Mckenzie R. Memory Mckenzie - Endurance Good - Balance Good - Safety Awareness Good QI SCORES: - Self-Care A. Eating 03-Partial/moderate assistance B. Oral hygiene 03-Partial/moderate assistance C. Toileting hygiene 03-Partial/moderate assistance E. Shower/bathe self 03-Partial/moderate assistance F. Upper body dressing 03-Partial/moderate assistance G. Lower body dressing 03-Partial/moderate assistance H. Putting on/taking off footwear 88-Not attempted due to medical condition or safety concerns - Mobility A. Roll left and right 03-Partial/moderate assistance B. Sit to lying 03-Partial/moderate assistance C. Lying to sitting on side of bed 03-Partial/moderate assistance D. Sit to stand 03-Partial/moderate assistance E. Chair/htq-un-lfswe transfer 03-Partial/moderate assistance F. Toilet transfer 03-Partial/moderate assistance G. Car transfer 88-Not attempted due to medical condition or safety concerns I. Walk 10 feet 03-Partial/moderate assistance J. Walk 50 feet with two turns 03-Partial/moderate assistance K. Walk 150 feet 88-Not attempted due to medical condition or safety concerns L. Walking 10 feet on uneven surfaces 88-Not attempted due to medical condition or safety concerns M. 1 step (curb) 88-Not attempted due to medical condition or safety concerns N. 4 steps 88-Not attempted due to medical condition or safety concerns O. 12 steps 88-Not attempted due to medical condition or safety concerns P. Picking up object 88-Not attempted due to medical condition or safety concerns R. Wheel 50 feet with two turns 88-Not attempted due to medical condition or safety concerns S. Wheel 150 feet 88-Not attempted due to medical condition or safety concerns - Bladder and Bowel Bladder continence Bowel continence - Endurance Fair - Balance Fair - Safety Awareness Fair CURRENT [facility]. DEFICITS: Self-Care, Mobility, Endurance, Balance, and Safety Awareness SIGNATURE PANEL: (CDT)
[2021-03-24] MEDS: ATORVASTATIN 80 MG TAB PO SCH (19:39)
[2021-03-24] MEDS: POTASSIUM CL SA 10 MEQ TAB PO SCH (19:40)
[2021-03-25] MEDS: carvediloL 12.5 MG TAB PO SCH ×2 (05:04→16:53)
[2021-03-25 06:46] LABS: Protime INR 3.21
[2021-03-25] MEDS: FAMOTIDINE 20 MG TAB PO SCH ×2 (08:37→19:46)
[2021-03-25] MEDS: AMOX/K CLAV 875 MG TAB PO SCH ×2 (08:37→19:45)
[2021-03-25] MEDS: POTASSIUM CL SA 10 MEQ TAB PO SCH ×2 (08:37→19:45)
[2021-03-25] MEDS: ACETAMINOPHEN 500 MG TAB PO PRN (08:38)
[2021-03-25] MEDS: MULTIVITAMIN TAB PO SCH (08:38)
[2021-03-25] MEDS: TAMSULOSIN 0.4 MG SR CAP PO SCH (08:38)
[2021-03-25] MEDS: THIAMINE HCL 100 MG TABLET PO SCH ×2 (08:38→19:46)
[2021-03-25] MEDS: AMLODIPINE 5 MG TAB PO SCH (08:39)
[2021-03-25] MEDS: PARoxetine HCL 10 MG TAB PO SCH (08:39)
[2021-03-25] MEDS: ISOSORBIDE MONO SR 30 MG TAB PO SCH (08:39)
[2021-03-25] MEDS: FUROSEMIDE 20 MG TABLET PO SCH (08:40)
[2021-03-25] MEDS: ASPIRIN EC 81 MG TAB PO SCH (08:40)
[2021-03-25] MEDS: CRANBERRY FRUIT EXTRACT 200 MG CAP PO SCH ×2 (08:40→19:45)
[2021-03-25] MEDS: FOLIC ACID 1 MG TABLET PO SCH (08:40)
--- NOTE | 2021-03-25 09:53 | P.RH.PN ---
Estimated Length of Stay: 12 Expected Discharge Date: 04/03/21 Discharge Disposition Plan: Home Family Support: Yes Alf Goal: Mobility, Transfers, Self Care Vital Signs: Last Vital Signs Temp 96.7 F L 03/25/21 07:28 Pulse 74 03/25/21 08:40 Resp 16 03/25/21 07:28 BP 147/69 H 03/25/21 08:40 Pulse Ox 94 03/25/21 07:28 Laboratory: Laboratory Last Values WBC 6.70 K/uL (4.3-10.9) 03/24/21 06:05 RBC 3.29 M/uL (4.33-5.43) L 03/24/21 06:05 Hgb 10.2 g/dL (13.6-17.9) L 03/24/21 06:05 Hct 30.4 % (39.6-49.0) L 03/24/21 06:05 MCV 92.5 fL (80-100) 03/24/21 06:05 MCH 31.0 pg (27.0-35.0) 03/24/21 06:05 MCHC 33.5 g/dL (32.0-36.0) 03/24/21 06:05 RDW 14.9 % (12.1-15.2) 03/24/21 06:05 Plt Count 364 K/uL (152-406) 03/24/21 06:05 MPV 9.1 fL (7.6-11.3) 03/24/21 06:05 Neutrophils % 66.0 % (41.7-73.7) 03/24/21 06:05 Lymphocytes % 14.5 % (15.3-44.8) L 03/24/21 06:05 Monocytes % 13.1 % (3.3-12.3) H 03/24/21 06:05 Eosinophils % 5.4 % (0-4.4) H 03/24/21 06:05 Basophils % 1.0 % (0-1.3) 03/24/21 06:05 Absolute Neutrophils 4.5 K/uL (1.8-8.0) 03/24/21 06:05 Segmented Neutrophils 55 % (40-80) 03/24/21 06:05 Absolute Lymphocytes 1.0 K/uL (0.7-4.9) 03/24/21 06:05 Lymphocytes 26 % (15-42) 03/24/21 06:05 Monocytes 15 % (0-10) H 03/24/21 06:05 Absolute Monocytes 0.9 K/uL (0.1-1.3) 03/24/21 06:05 Eosinophils 4 % (0-3) H 03/24/21 06:05 Absolute Eosinophils 0.4 K/uL (0-0.5) 03/24/21 06:05 Absolute Basophils 0.1 K/uL (0-0.5) 03/24/21 06:05 Platelet Estimate Adeq 03/24/21 06:05 Morphology Comment Not seen (NOT SEEN) 03/24/21 06:05 PT 37.3 SECONDS (9.5-12.5) H 03/25/21 06:24 INR 3.21 03/25/21 06:24 Sodium 139 mmol/L (136-145) 03/24/21 06:05 Potassium 2.8 mmol/L (3.5-5.1) L* 03/24/21 06:05 Chloride 100 mmol/L (98-107) 03/24/21 06:05 Carbon Dioxide 32 mmol/L (21-32) 03/24/21 06:05 BUN 10 mg/dL (7-18) 03/24/21 06:05 Creatinine 0.65 mg/dL (0.55-1.3) 03/24/21 06:05 Estimated GFR > 90 mL/min (=/>90) 03/24/21 06:05 Glucose 101 mg/dL (74-106) 03/24/21 06:05 POC Glucose 137 mg/dL (65-120) H 03/24/21 19:01 Calcium 8.8 mg/dL (8.5-10.1) 03/24/21 06:05 Magnesium 1.6 mg/dL (1.8-2.4) L 03/24/21 06:05 Albumin 2.3 g/dL (3.4-5.0) L 03/24/21 06:05 Prealbumin 5.8 mg/dL (20-40) L 03/24/21 06:05 Urine Color Dk yellow (Yellow) 03/23/21 11:20 Urine Appearance Clear (Clear) 03/23/21 11:20 Urine pH 7.0 (5.0-7.0) 03/23/21 11:20 Ur Specific [place] 1.020 (1.005-1.030) 03/23/21 11:20 Glucose (UA)(Auto) Negative (Negative) 03/23/21 11:20 Urine Ketones Negative (Negative) 03/23/21 11:20 Urine Blood 1+ (Negative) H 03/23/21 11:20 Urine Nitrite Negative (Negative) 03/23/21 11:20 Urine Bilirubin 1+ (Negative) H 03/23/21 11:20 Urine Urobilinogen 2.0 mg/dL (0.2-1.0) H 03/23/21 11:20 Ur Leukocyte Esterase Negative (Negative) 03/23/21 11:20 Urine RBC 10-20 /HPF (NONE SEEN) H 03/23/21 11:20 Urine WBC 5-10 /HPF (<5) H 03/23/21 11:20 Ur Squamous Epith Cells 5-10 /HPF (NONE SEEN) H 03/23/21 11:20 Urine Bacteria 20-50 /HPF (NONE SEEN) H 03/23/21 11:20 Urine Culture Reflexed Not needed 03/23/21 11:20 Urine Total Protein 1+ (Negative) H 03/23/21 11:20 SARS-CoV-2 RNA (RT-PCR) Negative (NEGATIVE) 03/22/21 16:25 Weight: 197 lb Closed Surgical Incision Present: Yes Physician Update: Labs reviewed and are stable. Walking 250' and transferring with contact guard assistance. He want to get back to bed during the day. He need much help with self care. He will have to be independent at home. He may require assistance at home. Functional Improvement: Today was this therapist's first time treating patient for PT services, however patient appears, when fully awake, to present w/ good attitude toward therapy. Patient demonstrate good balance w/ gait tx. Summary: Patient's care plan and intermediate accountant goals have been reviewed and revised as necessary. Please see the Rehabilitation Signature page for all necessary signatures.
[2021-03-25] MEDS: MAGNESIUM OXIDE 400 MG TAB PO SCH ×2 (16:05→19:46)
[2021-03-25] MEDS: WARFARIN SODIUM 1 MG TAB PO SCH (16:52)
[2021-03-25] MEDS: WARFARIN SODIUM 2.5 MG TAB PO SCH (16:52)
[2021-03-25] MEDS: ATORVASTATIN 80 MG TAB PO SCH (19:46)
[2021-03-25] MEDS: SENOSIDES 8.6 MG TAB PO PRN (19:47)
[2021-03-26 05:43] VITALS: BMI 30.5
[2021-03-26] MEDS: carvediloL 12.5 MG TAB PO SCH ×2 (06:00→16:43)
[2021-03-26 06:22] LABS: Protime INR 2.49
[2021-03-26 07:09] LABS: BUN Blood Urea Nitrogen 12 mg/dL (7-18); Bicarbonate 33 mmol/L (21-32); Glucose Level 100 mg/dL (74-106); Magnesium 1.8 mg/dL (1.8-2.4); Potassium 3.2 mmol/L (3.5-5.1); Sodium Level 139 mmol/L (136-145)
[2021-03-26] MEDS: CRANBERRY FRUIT EXTRACT 200 MG CAP PO SCH ×2 (08:40→19:43)
[2021-03-26] MEDS: FAMOTIDINE 20 MG TAB PO SCH ×2 (08:41→19:43)
[2021-03-26] MEDS: FUROSEMIDE 20 MG TABLET PO SCH (08:41)
[2021-03-26] MEDS: PARoxetine HCL 10 MG TAB PO SCH (08:41)
[2021-03-26] MEDS: FOLIC ACID 1 MG TABLET PO SCH (08:41)
[2021-03-26] MEDS: ASPIRIN EC 81 MG TAB PO SCH (08:42)
[2021-03-26] MEDS: TAMSULOSIN 0.4 MG SR CAP PO SCH (08:42)
[2021-03-26] MEDS: POTASSIUM CL SA 10 MEQ TAB PO SCH ×2 (08:42→19:42)
[2021-03-26] MEDS: AMLODIPINE 5 MG TAB PO SCH (08:43)
[2021-03-26] MEDS: AMOX/K CLAV 875 MG TAB PO SCH ×2 (08:43→19:43)
[2021-03-26] MEDS: THIAMINE HCL 100 MG TABLET PO SCH ×2 (08:43→19:43)
[2021-03-26] MEDS: ACETAMINOPHEN 500 MG TAB PO PRN (08:46)
[2021-03-26] MEDS: MULTIVITAMIN TAB PO SCH (08:46)
[2021-03-26] MEDS: ISOSORBIDE MONO SR 30 MG TAB PO SCH (08:46)
[2021-03-26] MEDS: MAGNESIUM OXIDE 400 MG TAB PO SCH ×2 (09:07→19:43)
[2021-03-26] MEDS: WARFARIN SODIUM 2.5 MG TAB PO SCH (16:43)
[2021-03-26] MEDS: WARFARIN SODIUM 1 MG TAB PO SCH (16:43)
[2021-03-26] MEDS: ATORVASTATIN 80 MG TAB PO SCH (19:43)
[2021-03-27] MEDS: carvediloL 12.5 MG TAB PO SCH ×2 (05:38→17:03)
[2021-03-27 06:21] LABS: Protime INR 2.4
[2021-03-27] MEDS: AMOX/K CLAV 875 MG TAB PO SCH ×2 (08:19→19:41)
[2021-03-27] MEDS: CRANBERRY FRUIT EXTRACT 200 MG CAP PO SCH ×2 (08:19→19:41)
[2021-03-27] MEDS: MAGNESIUM OXIDE 400 MG TAB PO SCH ×2 (08:20→19:41)
[2021-03-27] MEDS: PARoxetine HCL 10 MG TAB PO SCH (08:21)
[2021-03-27] MEDS: ISOSORBIDE MONO SR 30 MG TAB PO SCH (08:21)
[2021-03-27] MEDS: THIAMINE HCL 100 MG TABLET PO SCH ×2 (08:21→19:42)
[2021-03-27] MEDS: ASPIRIN EC 81 MG TAB PO SCH (08:21)
[2021-03-27] MEDS: FUROSEMIDE 20 MG TABLET PO SCH (08:21)
[2021-03-27] MEDS: FOLIC ACID 1 MG TABLET PO SCH (08:21)
[2021-03-27] MEDS: MULTIVITAMIN TAB PO SCH (08:21)
[2021-03-27] MEDS: TAMSULOSIN 0.4 MG SR CAP PO SCH (08:21)
[2021-03-27] MEDS: FAMOTIDINE 20 MG TAB PO SCH ×2 (08:22→19:41)
[2021-03-27] MEDS: AMLODIPINE 5 MG TAB PO SCH (08:22)
[2021-03-27] MEDS: POTASSIUM CL SA 10 MEQ TAB PO SCH ×2 (08:26→19:41)
[2021-03-27] MEDS ORDERED: DOCUSATE NA 100 MG CAP PO PRN (11:30)
[2021-03-27] MEDS: WARFARIN SODIUM 2.5 MG TAB PO SCH (17:03)
[2021-03-27] MEDS: WARFARIN SODIUM 1 MG TAB PO SCH (17:03)
[2021-03-27] MEDS: ATORVASTATIN 80 MG TAB PO SCH (19:41)
[2021-03-28] MEDS: carvediloL 12.5 MG TAB PO SCH ×2 (05:11→17:02)
[2021-03-28 06:20] LABS: Protime INR 2.47
[2021-03-28 06:22] LABS: BUN Blood Urea Nitrogen 10 mg/dL (7-18); Bicarbonate 31 mmol/L (21-32); Glucose Level 91 mg/dL (74-106); Potassium 3.7 mmol/L (3.5-5.1); Sodium Level 139 mmol/L (136-145)
[2021-03-28] MEDS: ACETAMINOPHEN 500 MG TAB PO PRN (07:44)
[2021-03-28] MEDS: CRANBERRY FRUIT EXTRACT 200 MG CAP PO SCH ×2 (07:45→19:04)
[2021-03-28] MEDS: ASPIRIN EC 81 MG TAB PO SCH (07:45)
[2021-03-28] MEDS: PARoxetine HCL 10 MG TAB PO SCH (07:46)
[2021-03-28] MEDS: ISOSORBIDE MONO SR 30 MG TAB PO SCH (07:46)
[2021-03-28] MEDS: FOLIC ACID 1 MG TABLET PO SCH (07:46)
[2021-03-28] MEDS: POTASSIUM CL SA 10 MEQ TAB PO SCH ×2 (07:46→19:05)
[2021-03-28] MEDS: FAMOTIDINE 20 MG TAB PO SCH ×2 (07:46→19:06)
[2021-03-28] MEDS: MAGNESIUM OXIDE 400 MG TAB PO SCH ×2 (07:47→19:06)
[2021-03-28] MEDS: TAMSULOSIN 0.4 MG SR CAP PO SCH (07:47)
[2021-03-28] MEDS: THIAMINE HCL 100 MG TABLET PO SCH ×2 (07:47→19:05)
[2021-03-28] MEDS: AMOX/K CLAV 875 MG TAB PO SCH ×2 (07:47→19:04)
[2021-03-28] MEDS: MULTIVITAMIN TAB PO SCH (07:47)
[2021-03-28] MEDS: FUROSEMIDE 20 MG TABLET PO SCH (07:47)
[2021-03-28] MEDS: AMLODIPINE 5 MG TAB PO SCH (07:47)
[2021-03-28] MEDS: WARFARIN SODIUM 1 MG TAB PO SCH (17:02)
[2021-03-28] MEDS: WARFARIN SODIUM 2.5 MG TAB PO SCH (17:02)
--- NOTE | 2021-03-28 17:48 | R.PN ---
PROGRESS NOTES ENCOUNTER DATE AND TIME: 03/28/2021 17:42 (CDT) NAME SABA SUE DATE OF : 1960 DATE OF ADMISSION: 03/22/2021 15:37 (CDT) Diverticulitis of LG intestine, bowel perforation, peritoneal abscess, incisional hernia, acute respi ratory failure, ventilator dependent CHIEF COMPLAINT: S/P hernia repair and debility SUBJECTIVE: Pt denied any depression. Pt denied any Shortness of Breath. WBC 6.7, Hgb 10.2, Plt 364, K+ 3.7, prealbumin 5.8. Will give K+ 20 meq x 2 and 10 meq bid. UA shows bacteria 20 to 50 and WBC 5-10, COVID-19 is negative. Ambulated 1150' with standby assistance using a rolling walker. INR is 2.47. VITAL SIGNS Temperature: 97.8 F SBP/DBP: 150/60 Pulse: 79 Resp: 14 MEDICATION ALLERGIES: No Known Drug Allergies (NKDA) ENVIRONMENTAL ALLERGIES: None Known - Substance Allergies None Known - Other Allergies None Known NURSING: - Shower allowing shower ACTIVITIES OOB only with supervision THERAPIES: - Dietary and Nutrition Adequate Nutrition. Nutritional Education. Nutritional Supplements. PHYSICAL EXAM - Gen Alert and awake Lying in bed No apparent distress Oriented to: person, time, and place - Skin No breakdowns Normacephalic - Eyes No abnormalities - ENMT No abnormalities - Neck No abnormalities - CVS RRR - Chest Clear - Resp Clear to auscultation - Abd + bowel sounds, incision is healing well. - GI Soft Deferred - No abnormalities - Ext No significant edema - MSK 4+/5 weakness in both lower extremities. - Neuro No focal deficits - Psych No abnormalities ASSESSMENT: Pt. is a 60 yo Right-handed white male.On 03/17/2021 he was admitted to [facility] with diagnosis Diverticulitis of LG intestine, bowel perforation, peritoneal abscess, incisio nal hernia, acute respiratory failure, ventilator dependent .His impairment category is Debility 16 - Debility (16).Pre-morbidly, Pt. was independent/mod-I in Locomotion, Safety Awareness, Balance, S elf-Care, Communication, and Sphincter Control; and he had good Endurance and Transfers Control.Curre ntly, he has deficits of Locomotion, Balance, Transfers Control, Sphincter Control, and Endurance.Pt. is now referred to [facility] for acute in-patient rehabilitation in order to maximize patient's functional independence in activities of daily living, strength, ROM, and mobilit y.- Rehab Goal Patient has realistic goal of being discharged at assistance level 7-Ind to reside at Home with Fami ly/Relatives. MDM/PLAN: - Physical Therapy Gait dysfunction - to improve, our physical therapists will perform initial evaluation of pt's statu s upon admission and devise an individualized program for Gait Training, and Wheel Chair mobility Inability to transfer - to improve, our physical therapists will perform initial evaluation of pt's status upon admission and devise an individualized program for Bed mobility Need for home safety evaluation - to improve, our physical therapists will perform initial evaluatio n of pt's status upon admission and devise an individualized program for Home Evaluation Need in caregiver upon discharge - to improve, our physical therapists will perform initial evaluati on of pt's status upon admission and devise an individualized program for Caregiver Training New precaution - to improve, our physical therapists will perform initial evaluation of pt's status upon admission and devise an individualized program for Patient precaution education Edema - to improve, our physical therapists will perform initial evaluation of pt's status upon admi ssion and devise an individualized program for Elevation Training, and Lymphedema Therapy Poor balance - to improve, our physical therapists will perform initial evaluation of pt's status up on admission and devise an individualized program for Balance Training Poor endurance - to improve, our physical therapists will perform initial evaluation of pt's status upon admission and devise an individualized program for Endurance Training Weakness - to improve, our physical therapists will perform initial evaluation of pt's status upon a dmission and devise an individualized program for Aquatic Therapy, Neuromuscular Reeducation, and Str engthening Achieving independence - to improve, our physical therapists will perform initial evaluation of pt's status upon admission and devise an individualized program for Community Reintegration Activities - Occupational Therapy Need for career consultant - to improve, our occupation therapists will perform initial evaluation of pt's status upon admission and devise an individualized program for Caregiver Training Weakness - to improve, our occupation therapists will perform initial evaluation of pt's status upon admission and devise an individualized program for Aquatic Therapy, Balance, Endurance, UE ROM, and UE strengthening - Other See attached MAR (Medication Administration Record) - Diet Type Continue Regular - Diet - Liquid Texture Continue Regular - Tube Feed Continue N/A - Diet - Solid Texture Continue Regular - Shower allowing shower FUNCTIONAL STATUS: UPDATED AT WEEKLY TEAM CONFERENCE - Bladder Same accident frequency: 7-Ind - No accidents in the past 7 days - Bowel Same accident frequency: 7-Ind - No accidents in the past 7 days - Walking Same score based on distance walked: 0(N/A) Same score based on distance walked: 2(50-149ft) - Wheelchair Same score based on distance traveled: 0(N/A) FUNCTIONAL STATUS: - Self-Care A. Eating Ind B. Grooming Mckenzie C. Bathing Steven D. Dressing - Upper sup E. Dressing - Lower sup F. Toileting sup - Sphincter Control G. Bladder control Mckenzie H. Bowel control Mckenzie - Transfers Control I. Bed/Chair/Wheelchair Steven J. Toilet Steven K. Tub/Shower Steven - Locomotion L. Walk/Wheelchair (B) Steven M. Stairs ADNO - Communication N. Comprehension (B) Mckenzie O. Expression (B) Mckenzie - Social Cognition P. Social Interaction Ind Q. Problem Solving Mckenzie R. Memory Mckenzie - Endurance Good - Balance Good - Safety Awareness Good QI SCORES: - Self-Care A. Eating 03-Partial/moderate assistance B. Oral hygiene 03-Partial/moderate assistance C. Toileting hygiene 03-Partial/moderate assistance E. Shower/bathe self 03-Partial/moderate assistance F. Upper body dressing 03-Partial/moderate assistance G. Lower body dressing 03-Partial/moderate assistance H. Putting on/taking off footwear 88-Not attempted due to medical condition or safety concerns - Mobility A. Roll left and right 03-Partial/moderate assistance B. Sit to lying 03-Partial/moderate assistance C. Lying to sitting on side of bed 03-Partial/moderate assistance D. Sit to stand 03-Partial/moderate assistance E. Chair/nlf-jf-shhjx transfer 03-Partial/moderate assistance F. Toilet transfer 03-Partial/moderate assistance G. Car transfer 88-Not attempted due to medical condition or safety concerns I. Walk 10 feet 03-Partial/moderate assistance J. Walk 50 feet with two turns 03-Partial/moderate assistance K. Walk 150 feet 88-Not attempted due to medical condition or safety concerns L. Walking 10 feet on uneven surfaces 88-Not attempted due to medical condition or safety concerns M. 1 step (curb) 88-Not attempted due to medical condition or safety concerns N. 4 steps 88-Not attempted due to medical condition or safety concerns O. 12 steps 88-Not attempted due to medical condition or safety concerns P. Picking up object 88-Not attempted due to medical condition or safety concerns R. Wheel 50 feet with two turns 88-Not attempted due to medical condition or safety concerns S. Wheel 150 feet 88-Not attempted due to medical condition or safety concerns - Bladder and Bowel Bladder continence Bowel continence - Endurance Fair - Balance Fair - Safety Awareness Fair CURRENT [facility]. DEFICITS: Self-Care, Mobility, Endurance, Balance, and Safety Awareness SIGNATURE PANEL: (CDT)
[2021-03-28] MEDS: ATORVASTATIN 80 MG TAB PO SCH (19:05)
[2021-03-28] MEDS: SENOSIDES 8.6 MG TAB PO PRN (19:05)
[2021-03-29] MEDS: carvediloL 12.5 MG TAB PO SCH ×2 (05:04→17:04)
[2021-03-29 06:34] LABS: Protime INR 2.89
[2021-03-29] MEDS: ACETAMINOPHEN 500 MG TAB PO PRN (07:46)
[2021-03-29] MEDS: THIAMINE HCL 100 MG TABLET PO SCH ×2 (07:47→20:47)
[2021-03-29] MEDS: CRANBERRY FRUIT EXTRACT 200 MG CAP PO SCH ×2 (07:47→20:46)
[2021-03-29] MEDS: TAMSULOSIN 0.4 MG SR CAP PO SCH (07:47)
[2021-03-29] MEDS: ASPIRIN EC 81 MG TAB PO SCH (07:47)
[2021-03-29] MEDS: AMOX/K CLAV 875 MG TAB PO SCH ×2 (07:48→20:46)
[2021-03-29] MEDS: AMLODIPINE 5 MG TAB PO SCH (07:48)
[2021-03-29] MEDS: FOLIC ACID 1 MG TABLET PO SCH (07:48)
[2021-03-29] MEDS: PARoxetine HCL 10 MG TAB PO SCH (07:48)
[2021-03-29] MEDS: FAMOTIDINE 20 MG TAB PO SCH ×2 (07:48→20:46)
[2021-03-29] MEDS: MAGNESIUM OXIDE 400 MG TAB PO SCH ×2 (07:48→20:47)
[2021-03-29] MEDS: ISOSORBIDE MONO SR 30 MG TAB PO SCH (07:49)
[2021-03-29] MEDS: POTASSIUM CL SA 10 MEQ TAB PO SCH ×2 (07:49→20:47)
[2021-03-29] MEDS: FUROSEMIDE 20 MG TABLET PO SCH (07:49)
[2021-03-29] MEDS: MULTIVITAMIN TAB PO SCH (07:49)
[2021-03-29] MEDS: WARFARIN SODIUM 2.5 MG TAB PO SCH (17:04)
[2021-03-29] MEDS: WARFARIN SODIUM 1 MG TAB PO SCH (17:04)
--- NOTE | 2021-03-29 17:18 | R.PN ---
PROGRESS NOTES ENCOUNTER DATE AND TIME: 03/29/2021 17:15 (CDT) NAME SABA SUE DATE OF : 1960 DATE OF ADMISSION: 03/22/2021 15:37 (CDT) Diverticulitis of LG intestine, bowel perforation, peritoneal abscess, incisional hernia, acute respi ratory failure, ventilator dependent CHIEF COMPLAINT: S/P hernia repair and debility SUBJECTIVE: Pt denied any depression. Pt denied any Shortness of Breath. WBC 6.7, Hgb 10.2, Plt 364, K+ 3.7, prealbumin 5.8. Will give K+ 20 meq x 2 and 10 meq bid. UA shows bacteria 20 to 50 and WBC 5-10, COVID-19 is negative. Ambulated 800' with standby assistance using a rolling walker. INR is 2.89. VITAL SIGNS Temperature: 97.8 F SBP/DBP: 117/63 Pulse: 78 Resp: 16 MEDICATION ALLERGIES: No Known Drug Allergies (NKDA) ENVIRONMENTAL ALLERGIES: None Known - Substance Allergies None Known - Other Allergies None Known NURSING: - Shower allowing shower ACTIVITIES OOB only with supervision THERAPIES: - Dietary and Nutrition Adequate Nutrition. Nutritional Education. Nutritional Supplements. PHYSICAL EXAM - Gen Alert and awake Lying in bed No apparent distress Oriented to: person, time, and place - Skin No breakdowns Normacephalic - Eyes No abnormalities - ENMT No abnormalities - Neck No abnormalities - CVS RRR - Chest Clear - Resp Clear to auscultation - Abd + bowel sounds, incision is healing well. - GI Soft Deferred - No abnormalities - Ext No significant edema - MSK 4+/5 weakness in both lower extremities. - Neuro No focal deficits - Psych No abnormalities ASSESSMENT: Pt. is a 60 yo Right-handed white male.On 03/17/2021 he was admitted to [facility] with diagnosis Diverticulitis of LG intestine, bowel perforation, peritoneal abscess, incisio nal hernia, acute respiratory failure, ventilator dependent .His impairment category is Debility 16 - Debility (16).Pre-morbidly, Pt. was independent/mod-I in Locomotion, Safety Awareness, Balance, S elf-Care, Communication, and Sphincter Control; and he had good Endurance and Transfers Control.Curre ntly, he has deficits of Locomotion, Balance, Transfers Control, Sphincter Control, and Endurance.Pt. is now referred to [facility] for acute in-patient rehabilitation in order to maximize patient's functional independence in activities of daily living, strength, ROM, and mobilit y.- Rehab Goal Patient has realistic goal of being discharged at assistance level 7-Ind to reside at Home with Fami ly/Relatives. MDM/PLAN: - Physical Therapy Gait dysfunction - to improve, our physical therapists will perform initial evaluation of pt's statu s upon admission and devise an individualized program for Gait Training, and Wheel Chair mobility Inability to transfer - to improve, our physical therapists will perform initial evaluation of pt's status upon admission and devise an individualized program for Bed mobility Need for home safety evaluation - to improve, our physical therapists will perform initial evaluatio n of pt's status upon admission and devise an individualized program for Home Evaluation Need in caregiver upon discharge - to improve, our physical therapists will perform initial evaluati on of pt's status upon admission and devise an individualized program for Caregiver Training New precaution - to improve, our physical therapists will perform initial evaluation of pt's status upon admission and devise an individualized program for Patient precaution education Edema - to improve, our physical therapists will perform initial evaluation of pt's status upon admi ssion and devise an individualized program for Elevation Training, and Lymphedema Therapy Poor balance - to improve, our physical therapists will perform initial evaluation of pt's status up on admission and devise an individualized program for Balance Training Poor endurance - to improve, our physical therapists will perform initial evaluation of pt's status upon admission and devise an individualized program for Endurance Training Weakness - to improve, our physical therapists will perform initial evaluation of pt's status upon a dmission and devise an individualized program for Aquatic Therapy, Neuromuscular Reeducation, and Str engthening Achieving independence - to improve, our physical therapists will perform initial evaluation of pt's status upon admission and devise an individualized program for Community Reintegration Activities - Occupational Therapy Need for director of managed care - to improve, our occupation therapists will perform initial evaluation of pt's status upon admission and devise an individualized program for Caregiver Training Weakness - to improve, our occupation therapists will perform initial evaluation of pt's status upon admission and devise an individualized program for Aquatic Therapy, Balance, Endurance, UE ROM, and UE strengthening - Other See attached MAR (Medication Administration Record) - Diet Type Continue Regular - Diet - Liquid Texture Continue Regular - Tube Feed Continue N/A - Diet - Solid Texture Continue Regular - Shower allowing shower FUNCTIONAL STATUS: UPDATED AT WEEKLY TEAM CONFERENCE - Bladder Same accident frequency: 7-Ind - No accidents in the past 7 days - Bowel Same accident frequency: 7-Ind - No accidents in the past 7 days - Walking Same score based on distance walked: 0(N/A) Same score based on distance walked: 2(50-149ft) - Wheelchair Same score based on distance traveled: 0(N/A) FUNCTIONAL STATUS: - Self-Care A. Eating Ind B. Grooming Mckenzie C. Bathing Steven D. Dressing - Upper sup E. Dressing - Lower sup F. Toileting sup - Sphincter Control G. Bladder control Mckenzie H. Bowel control Mckenzie - Transfers Control I. Bed/Chair/Wheelchair Steven J. Toilet Steven K. Tub/Shower Steven - Locomotion L. Walk/Wheelchair (B) Steven M. Stairs ADNO - Communication N. Comprehension (B) Mckenzie O. Expression (B) Mckenzie - Social Cognition P. Social Interaction Ind Q. Problem Solving Mckenzie R. Memory Mckenzie - Endurance Good - Balance Good - Safety Awareness Good QI SCORES: - Self-Care A. Eating 03-Partial/moderate assistance B. Oral hygiene 03-Partial/moderate assistance C. Toileting hygiene 03-Partial/moderate assistance E. Shower/bathe self 03-Partial/moderate assistance F. Upper body dressing 03-Partial/moderate assistance G. Lower body dressing 03-Partial/moderate assistance H. Putting on/taking off footwear 88-Not attempted due to medical condition or safety concerns - Mobility A. Roll left and right 03-Partial/moderate assistance B. Sit to lying 03-Partial/moderate assistance C. Lying to sitting on side of bed 03-Partial/moderate assistance D. Sit to stand 03-Partial/moderate assistance E. Chair/zhh-gs-mfeom transfer 03-Partial/moderate assistance F. Toilet transfer 03-Partial/moderate assistance G. Car transfer 88-Not attempted due to medical condition or safety concerns I. Walk 10 feet 03-Partial/moderate assistance J. Walk 50 feet with two turns 03-Partial/moderate assistance K. Walk 150 feet 88-Not attempted due to medical condition or safety concerns L. Walking 10 feet on uneven surfaces 88-Not attempted due to medical condition or safety concerns M. 1 step (curb) 88-Not attempted due to medical condition or safety concerns N. 4 steps 88-Not attempted due to medical condition or safety concerns O. 12 steps 88-Not attempted due to medical condition or safety concerns P. Picking up object 88-Not attempted due to medical condition or safety concerns R. Wheel 50 feet with two turns 88-Not attempted due to medical condition or safety concerns S. Wheel 150 feet 88-Not attempted due to medical condition or safety concerns - Bladder and Bowel Bladder continence Bowel continence - Endurance Fair - Balance Fair - Safety Awareness Fair CURRENT [facility]. DEFICITS: Self-Care, Mobility, Endurance, Balance, and Safety Awareness SIGNATURE PANEL: (CDT)
[2021-03-29] MEDS: ATORVASTATIN 80 MG TAB PO SCH (20:46)
[2021-03-30] MEDS: carvediloL 12.5 MG TAB PO SCH ×2 (05:36→17:09)
[2021-03-30 06:00] LABS: Protime INR 2.75
[2021-03-30] MEDS: ASPIRIN EC 81 MG TAB PO SCH ×2 (08:00→12:47)
[2021-03-30] MEDS: CRANBERRY FRUIT EXTRACT 200 MG CAP PO SCH ×2 (08:17→19:31)
[2021-03-30] MEDS: MULTIVITAMIN TAB PO SCH (08:18)
[2021-03-30] MEDS: TAMSULOSIN 0.4 MG SR CAP PO SCH (08:18)
[2021-03-30] MEDS: FUROSEMIDE 20 MG TABLET PO SCH (08:19)
[2021-03-30] MEDS: FAMOTIDINE 20 MG TAB PO SCH ×2 (08:19→19:33)
[2021-03-30] MEDS: POTASSIUM CL SA 10 MEQ TAB PO SCH ×2 (08:19→19:33)
[2021-03-30] MEDS: ISOSORBIDE MONO SR 30 MG TAB PO SCH (08:20)
[2021-03-30] MEDS: ACETAMINOPHEN 500 MG TAB PO PRN ×2 (08:20→19:32)
[2021-03-30] MEDS: THIAMINE HCL 100 MG TABLET PO SCH ×2 (08:20→19:33)
[2021-03-30] MEDS: PARoxetine HCL 10 MG TAB PO SCH (08:20)
[2021-03-30] MEDS: AMLODIPINE 5 MG TAB PO SCH (08:21)
[2021-03-30] MEDS: FOLIC ACID 1 MG TABLET PO SCH (08:21)
[2021-03-30] MEDS: MAGNESIUM OXIDE 400 MG TAB PO SCH ×2 (08:30→19:31)
--- NOTE | 2021-03-30 17:02 | R.PN ---
PROGRESS NOTES ENCOUNTER DATE AND TIME: 03/30/2021 16:59 (CDT) NAME SABA SUE DATE OF : 1960 DATE OF ADMISSION: 03/22/2021 15:37 (CDT) Diverticulitis of LG intestine, bowel perforation, peritoneal abscess, incisional hernia, acute respi ratory failure, ventilator dependent CHIEF COMPLAINT: S/P hernia repair and debility SUBJECTIVE: Pt denied any depression. Pt denied any Shortness of Breath. WBC 6.7, Hgb 10.2, Plt 364, K+ 3.7, prealbumin 5.8. Will give K+ 20 meq x 2 and 10 meq bid. UA shows bacteria 20 to 50 and WBC 5-10, COVID-19 is negative. Ambulated 1000' with standby assistance using a rolling walker. INR is 2.75 VITAL SIGNS Temperature: 98.4F SBP/DBP: 134/68 Pulse: 86 Resp: 16 MEDICATION ALLERGIES: No Known Drug Allergies (NKDA) ENVIRONMENTAL ALLERGIES: None Known - Substance Allergies None Known - Other Allergies None Known NURSING: - Shower allowing shower ACTIVITIES OOB only with supervision THERAPIES: - Dietary and Nutrition Adequate Nutrition. Nutritional Education. Nutritional Supplements. PHYSICAL EXAM - Gen Alert and awake Lying in bed No apparent distress Oriented to: person, time, and place - Skin No breakdowns Normacephalic - Eyes No abnormalities - ENMT No abnormalities - Neck No abnormalities - CVS RRR - Chest Clear - Resp Clear to auscultation - Abd + bowel sounds, incision is healing well. - GI Soft Deferred - No abnormalities - Ext No significant edema - MSK 4+/5 weakness in both lower extremities. - Neuro No focal deficits - Psych No abnormalities ASSESSMENT: Pt. is a 60 yo Right-handed white male.On 03/17/2021 he was admitted to [facility] with diagnosis Diverticulitis of LG intestine, bowel perforation, peritoneal abscess, incisio nal hernia, acute respiratory failure, ventilator dependent .His impairment category is Debility 16 - Debility (16).Pre-morbidly, Pt. was independent/mod-I in Locomotion, Safety Awareness, Balance, S elf-Care, Communication, and Sphincter Control; and he had good Endurance and Transfers Control.Curre ntly, he has deficits of Locomotion, Balance, Transfers Control, Sphincter Control, and Endurance.Pt. is now referred to [facility] for acute in-patient rehabilitation in order to maximize patient's functional independence in activities of daily living, strength, ROM, and mobilit y.- Rehab Goal Patient has realistic goal of being discharged at assistance level 7-Ind to reside at Home with Fami ly/Relatives. MDM/PLAN: - Physical Therapy Gait dysfunction - to improve, our physical therapists will perform initial evaluation of pt's statu s upon admission and devise an individualized program for Gait Training, and Wheel Chair mobility Inability to transfer - to improve, our physical therapists will perform initial evaluation of pt's status upon admission and devise an individualized program for Bed mobility Need for home safety evaluation - to improve, our physical therapists will perform initial evaluatio n of pt's status upon admission and devise an individualized program for Home Evaluation Need in caregiver upon discharge - to improve, our physical therapists will perform initial evaluati on of pt's status upon admission and devise an individualized program for Caregiver Training New precaution - to improve, our physical therapists will perform initial evaluation of pt's status upon admission and devise an individualized program for Patient precaution education Edema - to improve, our physical therapists will perform initial evaluation of pt's status upon admi ssion and devise an individualized program for Elevation Training, and Lymphedema Therapy Poor balance - to improve, our physical therapists will perform initial evaluation of pt's status up on admission and devise an individualized program for Balance Training Poor endurance - to improve, our physical therapists will perform initial evaluation of pt's status upon admission and devise an individualized program for Endurance Training Weakness - to improve, our physical therapists will perform initial evaluation of pt's status upon a dmission and devise an individualized program for Aquatic Therapy, Neuromuscular Reeducation, and Str engthening Achieving independence - to improve, our physical therapists will perform initial evaluation of pt's status upon admission and devise an individualized program for Community Reintegration Activities - Occupational Therapy Need for home care provider - to improve, our occupation therapists will perform initial evaluation of pt's status upon admission and devise an individualized program for Caregiver Training Weakness - to improve, our occupation therapists will perform initial evaluation of pt's status upon admission and devise an individualized program for Aquatic Therapy, Balance, Endurance, UE ROM, and UE strengthening - Other See attached MAR (Medication Administration Record) - Diet Type Continue Regular - Diet - Liquid Texture Continue Regular - Tube Feed Continue N/A - Diet - Solid Texture Continue Regular - Shower allowing shower FUNCTIONAL STATUS: UPDATED AT WEEKLY TEAM CONFERENCE - Bladder Same accident frequency: 7-Ind - No accidents in the past 7 days - Bowel Same accident frequency: 7-Ind - No accidents in the past 7 days - Walking Same score based on distance walked: 0(N/A) Same score based on distance walked: 2(50-149ft) - Wheelchair Same score based on distance traveled: 0(N/A) FUNCTIONAL STATUS: - Self-Care A. Eating Ind B. Grooming Mckenzie C. Bathing Steven D. Dressing - Upper sup E. Dressing - Lower sup F. Toileting sup - Sphincter Control G. Bladder control Mckenzie H. Bowel control Mckenzie - Transfers Control I. Bed/Chair/Wheelchair Steven J. Toilet Steven K. Tub/Shower Steven - Locomotion L. Walk/Wheelchair (B) Steven M. Stairs ADNO - Communication N. Comprehension (B) Mckenzie O. Expression (B) Mckenzie - Social Cognition P. Social Interaction Ind Q. Problem Solving Mckenzie R. Memory Mckenzie - Endurance Good - Balance Good - Safety Awareness Good QI SCORES: - Self-Care A. Eating 03-Partial/moderate assistance B. Oral hygiene 03-Partial/moderate assistance C. Toileting hygiene 03-Partial/moderate assistance E. Shower/bathe self 03-Partial/moderate assistance F. Upper body dressing 03-Partial/moderate assistance G. Lower body dressing 03-Partial/moderate assistance H. Putting on/taking off footwear 88-Not attempted due to medical condition or safety concerns - Mobility A. Roll left and right 03-Partial/moderate assistance B. Sit to lying 03-Partial/moderate assistance C. Lying to sitting on side of bed 03-Partial/moderate assistance D. Sit to stand 03-Partial/moderate assistance E. Chair/ujl-hk-xvejq transfer 03-Partial/moderate assistance F. Toilet transfer 03-Partial/moderate assistance G. Car transfer 88-Not attempted due to medical condition or safety concerns I. Walk 10 feet 03-Partial/moderate assistance J. Walk 50 feet with two turns 03-Partial/moderate assistance K. Walk 150 feet 88-Not attempted due to medical condition or safety concerns L. Walking 10 feet on uneven surfaces 88-Not attempted due to medical condition or safety concerns M. 1 step (curb) 88-Not attempted due to medical condition or safety concerns N. 4 steps 88-Not attempted due to medical condition or safety concerns O. 12 steps 88-Not attempted due to medical condition or safety concerns P. Picking up object 88-Not attempted due to medical condition or safety concerns R. Wheel 50 feet with two turns 88-Not attempted due to medical condition or safety concerns S. Wheel 150 feet 88-Not attempted due to medical condition or safety concerns - Bladder and Bowel Bladder continence Bowel continence - Endurance Fair - Balance Fair - Safety Awareness Fair CURRENT [facility]. DEFICITS: Self-Care, Mobility, Endurance, Balance, and Safety Awareness SIGNATURE PANEL: (CDT)
[2021-03-30] MEDS: WARFARIN SODIUM 2.5 MG TAB PO SCH (17:07)
[2021-03-30] MEDS: WARFARIN SODIUM 1 MG TAB PO SCH (17:07)
[2021-03-30] MEDS: ATORVASTATIN 80 MG TAB PO SCH (19:32)
[2021-03-30] MEDS: AMLODIPINE 2.5 MG TAB PO SCH (19:34)
[2021-03-31] MEDS: carvediloL 12.5 MG TAB PO SCH (05:00)
[2021-03-31 06:48] LABS: Absolute Lymphocytes (CBC) 1.3 K/uL (0.7-4.9); Basophils % 0.9 % (0-1.3); Hematocrit 31.5 % (39.6-49.0); Lymphocytes % 17.3 % (15.3-44.8); MPV 8.1 fL (7.6-11.3); RBC Red Blood Cell Count 3.44 M/uL (4.33-5.43)
[2021-03-31 07:04] LABS: Protime INR 2.62
[2021-03-31 07:10] LABS: Albumin 2.6 g/dL (3.4-5.0); BUN Blood Urea Nitrogen 13 mg/dL (7-18); Bicarbonate 30 mmol/L (21-32); Glucose Level 96 mg/dL (74-106); Potassium 4.3 mmol/L (3.5-5.1); Prealbumin 11.4 mg/dL (20-40); Sodium Level 138 mmol/L (136-145)
[2021-03-31] MEDS: POTASSIUM CL SA 10 MEQ TAB PO SCH (08:00)
[2021-03-31] MEDS: CRANBERRY FRUIT EXTRACT 200 MG CAP PO SCH ×2 (08:18→19:17)
[2021-03-31] MEDS: PARoxetine HCL 10 MG TAB PO SCH (08:19)
[2021-03-31] MEDS: MULTIVITAMIN TAB PO SCH (08:19)
[2021-03-31] MEDS: FOLIC ACID 1 MG TABLET PO SCH (08:19)
[2021-03-31] MEDS: THIAMINE HCL 100 MG TABLET PO SCH ×2 (08:19→19:18)
[2021-03-31] MEDS: TAMSULOSIN 0.4 MG SR CAP PO SCH (08:20)
[2021-03-31] MEDS: FAMOTIDINE 20 MG TAB PO SCH ×2 (08:20→19:18)
[2021-03-31] MEDS: MAGNESIUM OXIDE 400 MG TAB PO SCH ×2 (08:44→19:18)
[2021-03-31 09:21] LABS: Blood Morphology Comment NOT SEEN (NOT SEEN); Platelet Estimate ADEQ
[2021-03-31] MEDS: ISOSORBIDE MONO SR 30 MG TAB PO SCH (12:45)
[2021-03-31] MEDS: AMLODIPINE 2.5 MG TAB PO SCH ×2 (12:45→19:18)
[2021-03-31] MEDS: WARFARIN SODIUM 1 MG TAB PO SCH (17:19)
[2021-03-31] MEDS: WARFARIN SODIUM 2.5 MG TAB PO SCH (17:20)
[2021-03-31] MEDS: carvediloL 6.25 MG TAB PO SCH (17:21)
--- NOTE | 2021-03-31 17:58 | R.PN ---
PROGRESS NOTES ENCOUNTER DATE AND TIME: 03/31/2021 17:53 (CDT) NAME SABA USE DATE OF : 1960 DATE OF ADMISSION: 03/22/2021 15:37 (CDT) Diverticulitis of LG intestine, bowel perforation, peritoneal abscess, incisional hernia, acute respi ratory failure, ventilator dependent CHIEF COMPLAINT: S/P hernia repair and debility SUBJECTIVE: Pt denied any depression. Pt denied any Shortness of Breath. WBC 7.4, Hgb 16.2, Plt 364, K+ 3.7, prealbumin 11.4. K+ is normal at 4.3. COVID-19 is negative. Ambulated 75' with standby assistance using a rolling walker. Up and down 5 steps with minimum assist ance. Self-propelled wheelchair 250' with standby assistance. INR is 2.62 VITAL SIGNS Temperature: 98.2 F SBP/DBP: 133/51 Pulse: 90 Resp: 16 MEDICATION ALLERGIES: No Known Drug Allergies (NKDA) ENVIRONMENTAL ALLERGIES: None Known - Substance Allergies None Known - Other Allergies None Known NURSING: - Shower allowing shower ACTIVITIES OOB only with supervision THERAPIES: - Dietary and Nutrition Adequate Nutrition. Nutritional Education. Nutritional Supplements. PHYSICAL EXAM - Gen Alert and awake Lying in bed No apparent distress Oriented to: person, time, and place - Skin No breakdowns Normacephalic - Eyes No abnormalities - ENMT No abnormalities - Neck No abnormalities - CVS RRR - Chest Clear - Resp Clear to auscultation - Abd + bowel sounds, incision is healing well. - GI Soft Deferred - No abnormalities - Ext No significant edema - MSK 4+/5 weakness in both lower extremities. - Neuro No focal deficits - Psych No abnormalities ASSESSMENT: Pt. is a 60 yo Right-handed white male.On 03/17/2021 he was admitted to [facility] with diagnosis Diverticulitis of LG intestine, bowel perforation, peritoneal abscess, incisio nal hernia, acute respiratory failure, ventilator dependent .His impairment category is Debility 16 - Debility (16).Pre-morbidly, Pt. was independent/mod-I in Locomotion, Safety Awareness, Balance, S elf-Care, Communication, and Sphincter Control; and he had good Endurance and Transfers Control.Curre ntly, he has deficits of Locomotion, Balance, Transfers Control, Sphincter Control, and Endurance.Pt. is now referred to [facility] for acute in-patient rehabilitation in order to maximize patient's functional independence in activities of daily living, strength, ROM, and mobilit y.- Rehab Goal Patient has realistic goal of being discharged at assistance level 7-Ind to reside at Home with Fami ly/Relatives. MDM/PLAN: - Physical Therapy Gait dysfunction - to improve, our physical therapists will perform initial evaluation of pt's statu s upon admission and devise an individualized program for Gait Training, and Wheel Chair mobility Inability to transfer - to improve, our physical therapists will perform initial evaluation of pt's status upon admission and devise an individualized program for Bed mobility Need for home safety evaluation - to improve, our physical therapists will perform initial evaluatio n of pt's status upon admission and devise an individualized program for Home Evaluation Need in caregiver upon discharge - to improve, our physical therapists will perform initial evaluati on of pt's status upon admission and devise an individualized program for Caregiver Training New precaution - to improve, our physical therapists will perform initial evaluation of pt's status upon admission and devise an individualized program for Patient precaution education Edema - to improve, our physical therapists will perform initial evaluation of pt's status upon admi ssion and devise an individualized program for Elevation Training, and Lymphedema Therapy Poor balance - to improve, our physical therapists will perform initial evaluation of pt's status up on admission and devise an individualized program for Balance Training Poor endurance - to improve, our physical therapists will perform initial evaluation of pt's status upon admission and devise an individualized program for Endurance Training Weakness - to improve, our physical therapists will perform initial evaluation of pt's status upon a dmission and devise an individualized program for Aquatic Therapy, Neuromuscular Reeducation, and Str engthening Achieving independence - to improve, our physical therapists will perform initial evaluation of pt's status upon admission and devise an individualized program for Community Reintegration Activities - Occupational Therapy Need for laboratory animal care veterinarian - to improve, our occupation therapists will perform initial evaluation of pt's status upon admission and devise an individualized program for Caregiver Training Weakness - to improve, our occupation therapists will perform initial evaluation of pt's status upon admission and devise an individualized program for Aquatic Therapy, Balance, Endurance, UE ROM, and UE strengthening - Other See attached MAR (Medication Administration Record) - Diet Type Continue Regular - Diet - Liquid Texture Continue Regular - Tube Feed Continue N/A - Diet - Solid Texture Continue Regular - Shower allowing shower FUNCTIONAL STATUS: UPDATED AT WEEKLY TEAM CONFERENCE - Bladder Same accident frequency: 7-Ind - No accidents in the past 7 days - Bowel Same accident frequency: 7-Ind - No accidents in the past 7 days - Walking Same score based on distance walked: 0(N/A) Same score based on distance walked: 2(50-149ft) - Wheelchair Same score based on distance traveled: 0(N/A) FUNCTIONAL STATUS: - Self-Care A. Eating Ind B. Grooming Mckenzie C. Bathing Steven D. Dressing - Upper sup E. Dressing - Lower sup F. Toileting sup - Sphincter Control G. Bladder control Mkcenzie H. Bowel control Mckenzie - Transfers Control I. Bed/Chair/Wheelchair Steven J. Toilet Steven K. Tub/Shower Steven - Locomotion L. Walk/Wheelchair (B) Steven M. Stairs ADNO - Communication N. Comprehension (B) Mckenzie O. Expression (B) Mckenzie - Social Cognition P. Social Interaction Ind Q. Problem Solving Mckenzie R. Memory Mckenzie - Endurance Good - Balance Good - Safety Awareness Good QI SCORES: - Self-Care A. Eating 03-Partial/moderate assistance B. Oral hygiene 03-Partial/moderate assistance C. Toileting hygiene 03-Partial/moderate assistance E. Shower/bathe self 03-Partial/moderate assistance F. Upper body dressing 03-Partial/moderate assistance G. Lower body dressing 03-Partial/moderate assistance H. Putting on/taking off footwear 88-Not attempted due to medical condition or safety concerns - Mobility A. Roll left and right 03-Partial/moderate assistance B. Sit to lying 03-Partial/moderate assistance C. Lying to sitting on side of bed 03-Partial/moderate assistance D. Sit to stand 03-Partial/moderate assistance E. Chair/jcf-yd-ejzft transfer 03-Partial/moderate assistance F. Toilet transfer 03-Partial/moderate assistance G. Car transfer 88-Not attempted due to medical condition or safety concerns I. Walk 10 feet 03-Partial/moderate assistance J. Walk 50 feet with two turns 03-Partial/moderate assistance K. Walk 150 feet 88-Not attempted due to medical condition or safety concerns L. Walking 10 feet on uneven surfaces 88-Not attempted due to medical condition or safety concerns M. 1 step (curb) 88-Not attempted due to medical condition or safety concerns N. 4 steps 88-Not attempted due to medical condition or safety concerns O. 12 steps 88-Not attempted due to medical condition or safety concerns P. Picking up object 88-Not attempted due to medical condition or safety concerns R. Wheel 50 feet with two turns 88-Not attempted due to medical condition or safety concerns S. Wheel 150 feet 88-Not attempted due to medical condition or safety concerns - Bladder and Bowel Bladder continence Bowel continence - Endurance Fair - Balance Fair - Safety Awareness Fair [facility]RENT [facility]. DEFICITS: Self-Care, Mobility, Endurance, Balance, and Safety Awareness SIGNATURE PANEL: (CDT)
[2021-03-31] MEDS: ATORVASTATIN 80 MG TAB PO SCH (19:17)
[2021-04-01] MEDS: carvediloL 6.25 MG TAB PO SCH (05:06)
[2021-04-01 06:54] LABS: Protime INR 2.75
[2021-04-01 07:03] VITALS: TEMP 99.3
[2021-04-01 08:19] VITALS: BP 142/75
[2021-04-01] MEDS: ACETAMINOPHEN 500 MG TAB PO PRN (08:20)
[2021-04-01] MEDS: ISOSORBIDE MONO SR 30 MG TAB PO SCH (08:21)
[2021-04-01] MEDS: CRANBERRY FRUIT EXTRACT 200 MG CAP PO SCH (08:21)
[2021-04-01] MEDS: MULTIVITAMIN TAB PO SCH (08:21)
[2021-04-01] MEDS: AMLODIPINE 2.5 MG TAB PO SCH (08:21)
[2021-04-01] MEDS: PARoxetine HCL 10 MG TAB PO SCH (08:22)
[2021-04-01] MEDS: FOLIC ACID 1 MG TABLET PO SCH (08:22)
[2021-04-01] MEDS: MAGNESIUM OXIDE 400 MG TAB PO SCH (08:22)
[2021-04-01] MEDS: TAMSULOSIN 0.4 MG SR CAP PO SCH (08:22)
[2021-04-01] MEDS: THIAMINE HCL 100 MG TABLET PO SCH (08:22)
[2021-04-01] MEDS: FAMOTIDINE 20 MG TAB PO SCH (08:22)
--- NOTE | 2021-04-01 09:39 | P.RH.PN ---
Estimated Length of Stay: 14 Expected Discharge Date: 04/04/21 Vital Signs: Last Vital Signs Temp 99.3 F 04/01/21 07:02 Pulse 86 04/01/21 08:21 Resp 18 04/01/21 07:02 BP 142/75 H 04/01/21 08:21 Pulse Ox 96 04/01/21 07:02 Laboratory: Laboratory Last Values WBC 7.40 K/uL (4.3-10.9) 03/31/21 06:16 RBC 3.44 M/uL (4.33-5.43) L 03/31/21 06:16 Hgb 10.6 g/dL (13.6-17.9) L 03/31/21 06:16 Hct 31.5 % (39.6-49.0) L 03/31/21 06:16 MCV 91.5 fL (80-100) 03/31/21 06:16 MCH 30.9 pg (27.0-35.0) 03/31/21 06:16 MCHC 33.7 g/dL (32.0-36.0) 03/31/21 06:16 RDW 15.5 % (12.1-15.2) H 03/31/21 06:16 Plt Count 348 K/uL (152-406) 03/31/21 06:16 MPV 8.1 fL (7.6-11.3) D 03/31/21 06:16 Neutrophils % 62.9 % (41.7-73.7) 03/31/21 06:16 Lymphocytes % 17.3 % (15.3-44.8) 03/31/21 06:16 Monocytes % 12.4 % (3.3-12.3) H 03/31/21 06:16 Eosinophils % 6.5 % (0-4.4) H 03/31/21 06:16 Basophils % 0.9 % (0-1.3) 03/31/21 06:16 Absolute Neutrophils 4.7 K/uL (1.8-8.0) 03/31/21 06:16 Segmented Neutrophils 69 % (40-80) 03/31/21 06:16 Absolute Lymphocytes 1.3 K/uL (0.7-4.9) 03/31/21 06:16 Lymphocytes 19 % (15-42) 03/31/21 06:16 Monocytes 8 % (0-10) 03/31/21 06:16 Absolute Monocytes 0.9 K/uL (0.1-1.3) 03/31/21 06:16 Eosinophils 2 % (0-3) 03/31/21 06:16 Absolute Eosinophils 0.5 K/uL (0-0.5) 03/31/21 06:16 Basophils 1 % (0-1) 03/31/21 06:16 Absolute Basophils 0.1 K/uL (0-0.5) 03/31/21 06:16 Myelocytes 1 % (0-0) H 03/31/21 06:16 Platelet Estimate Adeq 03/31/21 06:16 Morphology Comment Not seen (NOT SEEN) 03/31/21 06:16 PT 31.9 SECONDS (9.5-12.5) H 04/01/21 06:33 INR 2.75 04/01/21 06:33 Sodium 138 mmol/L (136-145) 03/31/21 06:16 Potassium 4.3 mmol/L (3.5-5.1) 03/31/21 06:16 Chloride 106 mmol/L (98-107) 03/31/21 06:16 Carbon Dioxide 30 mmol/L (21-32) 03/31/21 06:16 BUN 13 mg/dL (7-18) 03/31/21 06:16 Creatinine 0.57 mg/dL (0.55-1.3) 03/31/21 06:16 Estimated GFR > 90 mL/min (=/>90) 03/31/21 06:16 Glucose 96 mg/dL (74-106) 03/31/21 06:16 POC Glucose 108 mg/dL (65-120) 03/29/21 19:03 Calcium 9.0 mg/dL (8.5-10.1) 03/31/21 06:16 Magnesium 2.0 mg/dL (1.8-2.4) 03/31/21 06:16 Albumin 2.6 g/dL (3.4-5.0) L 03/31/21 06:16 Prealbumin 11.4 mg/dL (20-40) L 03/31/21 06:16 Urine Color Dk yellow (Yellow) 03/23/21 11:20 Urine Appearance Clear (Clear) 03/23/21 11:20 Urine pH 7.0 (5.0-7.0) 03/23/21 11:20 Ur Specific [place] 1.020 (1.005-1.030) 03/23/21 11:20 Glucose (UA)(Auto) Negative (Negative) 03/23/21 11:20 Urine Ketones Negative (Negative) 03/23/21 11:20 Urine Blood 1+ (Negative) H 03/23/21 11:20 Urine Nitrite Negative (Negative) 03/23/21 11:20 Urine Bilirubin 1+ (Negative) H 03/23/21 11:20 Urine Urobilinogen 2.0 mg/dL (0.2-1.0) H 03/23/21 11:20 Ur Leukocyte Esterase Negative (Negative) 03/23/21 11:20 Urine RBC 10-20 /HPF (NONE SEEN) H 03/23/21 11:20 Urine WBC 5-10 /HPF (<5) H 03/23/21 11:20 Ur Squamous Epith Cells 5-10 /HPF (NONE SEEN) H 03/23/21 11:20 Urine Bacteria 20-50 /HPF (NONE SEEN) H 03/23/21 11:20 Urine Culture Reflexed Not needed 03/23/21 11:20 Urine Total Protein 1+ (Negative) H 03/23/21 11:20 SARS-CoV-2 RNA (RT-PCR) Negative (NEGATIVE) 03/29/21 08:45 Weight: 207 lb Wound Present: No Closed Surgical Incision Present: Yes Negative Pressure Wound Therapy Present: No Physician Update: Labs reviewed and are stable. Walking 250', transfers, ADL and with standby assistance. Functional Improvement: Patient has met all short-term goals at this time, and has been progressing toward long-term goals. However, patient has been severely self-limiting in his progress, due to his lack of motivation toward therapy. 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 Please see the Rehabilitation Signature page for all necessary signatures.
[2021-04-01] MEDS ORDERED: TRAMADOL HCL 50 MG TAB PO PRN (10:31)
--- NOTE | 2021-04-01 13:23 | R.DS ---
DISCHARGE SUMMARY FACILITY [facility] MR# [id number] NAME SABA SUE ADDRESS [address] [place] [address] PHONE DATE OF 1960 AGE 60 SSN# [id number] GENDER Male DEXTERITY Right-handed MARITAL STATUS RACE White ENCOUNTER PHYSICIAN Dr. Alfred Crump M.D. REFERRING DOCTOR Dr Kalyan Wilson REFERRING FACILITY [facility] DISCHARGE DIAGNOSIS: - Debility 16 - Debility (16) Diverticulitis of LG intestine, bowel perforation, peritoneal abscess, incisional hernia, acute respi ratory failure, ventilator dependent . DATE OF ADMISSION 03/22/2021 15:37 (CDT) MEDICATION ALLERGIES: No Known Drug Allergies (NKDA) ENVIRONMENTAL ALLERGIES: None Known - Substance Allergies None Known - Other Allergies None Known DISCHARGE MEDICATIONS: Other- ContinueSee attached MAR (Medication Administration Record). NURSING: - Shower allowing shower ACTIVITIES OOB only with supervision THERAPIES: - Dietary and Nutrition Adequate Nutrition Nutritional Education Nutritional Supplements HISTORY OF PRESENT ILLNESS: Pt. is a 60 yo Right-handed white male.On 03/17/2021 he was admitted to [facility] with diagnosis Diverticulitis of LG intestine, bowel perforation, peritoneal abscess, incisio nal hernia, acute respiratory failure, ventilator dependent .His impairment category is Debility 16 - Debility (16).Pre-morbidly, Pt. was independent/mod-I in Locomotion, Safety Awareness, Balance, S elf-Care, Communication, and Sphincter Control; and he had good Endurance and Transfers Control.Curre ntly, he has deficits of Locomotion, Balance, Transfers Control, Sphincter Control, and Endurance.Pt. is now referred to [facility] for acute in-patient rehabilitation in order to maximize patient's functional independence in activities of daily living, strength, ROM, and mobilit y.- Rehab Goal Patient has realistic goal of being discharged at assistance level 7-Ind to reside at Home with Fami ly/Relatives. HOSPITAL COURSE: DIET - LIQUID TEXTURE: On 03/21/2021 Pt was upgraded to Regular Diet - Liquid Texture. DIET - SOLID TEXTURE: On 03/21/2021 Pt was upgraded to Regular Diet - Solid Texture. DIET TYPE: On 03/21/2021 Pt was upgraded to Regular Diet Type. TUBE FEED: On 03/21/2021 Pt was changed to N/A Tube Feed. DISCHARGE PHYSICAL EXAM - Gen Alert and awake Lying in bed No apparent distress Oriented to: person, time, and place - Skin No breakdowns Normacephalic - Eyes No abnormalities - ENMT No abnormalities - Neck No abnormalities - CVS RRR - Chest Clear - Resp Clear to auscultation - Abd + bowel sounds, incision is healing well. - GI Soft Deferred - No abnormalities - Ext No significant edema - MSK 4+/5 weakness in both lower extremities. - Neuro No focal deficits - Psych No abnormalities FUNCTIONAL STATUS: - Self-Care A. Eating 7-Ind B. Grooming 6-Mckenzie C. Bathing 5-sup D. Dressing - Upper 6-Mckenzie E. Dressing - Lower 6-Mckenzie F. Toileting 6-Mckenzie - Sphincter Control G. Bladder control 6-Mckenzie H. Bowel control 6-Mckenzie - Transfers Control I. Bed/Chair/Wheelchair 5-sup J. Toilet 5-sup K. Tub/Shower 5-sup - Locomotion L. Walk/Wheelchair (B) 5-sup M. Stairs 4-Steven - Communication N. Comprehension (B) 6-Mckenzie O. Expression (B) 6-Mckenzie - Social Cognition P. Social Interaction 7-Ind Q. Problem Solving 6-Mckenzie R. Memory 6-Mckenzie - Endurance Good - Balance Good - Safety Awareness Good QI SCORES: - Self-Care A. Eating 03-Partial/moderate assistance B. Oral hygiene 03-Partial/moderate assistance C. Toileting hygiene 03-Partial/moderate assistance E. Shower/bathe self 03-Partial/moderate assistance F. Upper body dressing 03-Partial/moderate assistance G. Lower body dressing 03-Partial/moderate assistance H. Putting on/taking off footwear 88-Not attempted due to medical condition or safety concerns - Mobility A. Roll left and right 03-Partial/moderate assistance B. Sit to lying 03-Partial/moderate assistance C. Lying to sitting on side of bed 03-Partial/moderate assistance D. Sit to stand 03-Partial/moderate assistance E. Chair/xzz-td-[id number] transfer 03-Partial/moderate assistance F. Toilet transfer 03-Partial/moderate assistance G. Car transfer 88-Not attempted due to medical condition or safety concerns I. Walk 10 feet 03-Partial/moderate assistance J. Walk 50 feet with two turns 03-Partial/moderate assistance K. Walk 150 feet 88-Not attempted due to medical condition or safety concerns L. Walking 10 feet on uneven surfaces 88-Not attempted due to medical condition or safety concerns M. 1 step (curb) 88-Not attempted due to medical condition or safety concerns N. 4 steps 88-Not attempted due to medical condition or safety concerns O. 12 steps 88-Not attempted due to medical condition or safety concerns P. Picking up object 88-Not attempted due to medical condition or safety concerns R. Wheel 50 feet with two turns 88-Not attempted due to medical condition or safety concerns S. Wheel 150 feet 88-Not attempted due to medical condition or safety concerns - Bladder and Bowel Bladder continence Bowel continence - Endurance Fair - Balance Fair - Safety Awareness Fair DISCHARGE INSTRUCTIONS: - N/A Coumadin 3.5 mg daily with INR 3 times weekly by Home Health. DISCHARGE PLAN, FOLLOW UP CARE PROVISIONS: - Estimated Length of Stay (days) 13. - Consensus on plan Discharge plan has been discussed with primary caregiver. Patient/Family is in agreement with the kim n. Primary caregiver is in agreement with the plan. - Patient/Family Goals Return home independently. - Planned Living Setting Upon Discharge Home, to live with Family/Relatives. Transitional Living. SIGNATURE PANEL: (CDT)
--- NOTE | 2021-04-01 13:24 | FAST ---
[employer] FORM SHIFT START DATE/TIME: 04/01/2021 07:00 (CDT) SHIFT END DATE/TIME: 04/01/2021 19:00 (CDT) NAME SABA SUE DATE OF : 1960 DATE OF ADMISSION: 03/22/2021 15:37 (CDT) PHONE: AGE: 60 SSN# [id number] GENDER: Male ENCOUNTER PHYSICIAN: Dr. Alfred Crump M.D. ADMISSION DIAGNOSIS: - Debility 16 - Debility (16) Diverticulitis of LG intestine, bowel perforation, peritoneal abscess, incisional hernia, acute respi ratory failure, ventilator dependent . EATING: EATING - STEP 1: Does the patient complete the activity by him/herself with no assistance (physical, verbal/nonverbal cueing, setup/clean-up)? No. EATING - STEP 2: Does the patient need only setup/clean-up assistance from one helper? Yes. 1. [id number] ADMISSION PERFORMANCE: Setup or clean-up assistance CODE: 05 ORAL HYGIENE: ORAL HYGIENE - STEP 1: Does the patient complete the activity by him/herself with no assistance (physical, verbal/nonverbal cueing, setup/clean-up)? No. ORAL HYGIENE - STEP 2: Does the patient need only setup/clean-up assistance from one helper? Yes. 1. [id number] ADMISSION PERFORMANCE: Setup or clean-up assistance CODE: 05 TOILETING HYGIENE: TOILETING HYGIENE - STEP 1: Does the patient complete the activity by him/herself with no assistance (physical, verbal/nonverbal cueing, setup/clean-up)? Yes. 1. [id number] ADMISSION PERFORMANCE: Independent CODE: 06 BATHING: Not assessed/no information CODE: - DRESSING - UPPER BODY: DRESSING - UPPER BODY - STEP 1: Does the patient complete the activity by him/herself with no assistance (physical, verbal/nonverbal cueing, setup/clean-up)? No. DRESSING - UPPER BODY - STEP 2: Does the patient need only setup/clean-up assistance from one helper? No. DRESSING - UPPER BODY - STEP 3: Does the patient need only verbal/nonverbal cueing or touching/steadying/contact guard assistance fro m one helper? Yes. 1. [id number] ADMISSION PERFORMANCE: Supervision or touching assistance CODE: 04 DRESSING - LOWER BODY: DRESSING - LOWER BODY - STEP 1: Does the patient complete the activity by him/herself with no assistance (physical, verbal/nonverbal cueing, setup/clean-up)? No. DRESSING - LOWER BODY - STEP 2: Does the patient need only setup/clean-up assistance from one helper? No. DRESSING - LOWER BODY - STEP 3: Does the patient need only verbal/nonverbal cueing or touching/steadying/contact guard assistance fro m one helper? Yes. 1. [id number] ADMISSION PERFORMANCE: Supervision or touching assistance CODE: 04 PUTTING ON/TAKING OFF FOOTWEAR: FOOTWEAR - STEP 1: Does the patient complete the activity by him/herself with no assistance (physical, verbal/nonverbal cueing, setup/clean-up)? No. FOOTWEAR - STEP 2: Does the patient need only setup/clean-up assistance from one helper? No. FOOTWEAR - STEP 3: Does the patient need only verbal/nonverbal cueing or touching/steadying/contact guard assistance fro m one helper? Yes. 1. [id number] ADMISSION PERFORMANCE: Supervision or touching assistance CODE: 04 ROLL LEFT AND RIGHT: Not assessed/no information CODE: - SIT TO LYING: SIT TO LYING - STEP 1: Does the patient complete the activity by him/herself with no assistance (physical, verbal/nonverbal cueing, setup/clean-up)? Yes. 1. [id number] ADMISSION PERFORMANCE: Independent CODE: 06 LYING TO SITTING: LYING TO SITTING ON SIDE OF BED - STEP 1: Does the patient complete the activity by him/herself with no assistance (physical, verbal/nonverbal cueing, setup/clean-up)? No. LYING TO SITTING ON SIDE OF BED - STEP 2: Does the patient need only setup/clean-up assistance from one helper? No. LYING TO SITTING ON SIDE OF BED - STEP 3: Does the patient need only verbal/nonverbal cueing or touching/steadying/contact guard assistance fro m one helper? Yes. 1. [id number] ADMISSION PERFORMANCE: Supervision or touching assistance CODE: 04 SIT TO STAND: SIT TO STAND - STEP 1: Does the patient complete the activity by him/herself with no assistance (physical, verbal/nonverbal cueing, setup/clean-up)? No. SIT TO STAND - STEP 2: Does the patient need only setup/clean-up assistance from one helper? No. SIT TO STAND - STEP 3: Does the patient need only verbal/nonverbal cueing or touching/steadying/contact guard assistance fro m one helper? Yes. 1. [id number] ADMISSION PERFORMANCE: Supervision or touching assistance CODE: 04 TRANSFERS: BED, CHAIR: CHAIR/LML-GE-AXIAP TRANSFER - STEP 1: Does the patient complete the activity by him/herself with no assistance (physical, verbal/nonverbal cueing, setup/clean-up)? No. CHAIR/RJL-PM-SFAYO TRANSFER - STEP 2: Does the patient need only setup/clean-up assistance from one helper? No. CHAIR/ZLQ-HU-CVTAN TRANSFER - STEP 3: Does the patient need only verbal/nonverbal cueing or touching/steadying/contact guard assistance fro m one helper? Yes. 1. [id number] ADMISSION PERFORMANCE: Supervision or touching assistance CODE: 04 TRANSFER TOILET: TOILET TRANSFER - STEP 1: Does the patient complete the activity by him/herself with no assistance (physical, verbal/nonverbal cueing, setup/clean-up)? No. TOILET TRANSFER - STEP 2: Does the patient need only setup/clean-up assistance from one helper? Yes. 1. [id number] ADMISSION PERFORMANCE: Setup or clean-up assistance CODE: 05 TRANSFERS: CAR: Not assessed/no information CODE: - WALK 10 FEET: Not assessed/no information CODE: - 1 STEP (CURB): Not assessed/no information CODE: - PICKING UP OBJECT: Not assessed/no information CODE: - DOES THE PATIENT USE A WHEELCHAIR/SCOOTER? Q1. DOES THE PATIENT USE A WHEELCHAIR/SCOOTER?: Yes CODE: 1 WHEEL 50 FEET WITH TWO TURNS: WHEEL 50 FEET WITH TWO TURNS - STEP 1: Does the patient complete the activity by him/herself with no assistance (physical, verbal/nonverbal cueing, setup/clean-up)? No. WHEEL 50 FEET WITH TWO TURNS - STEP 2: Does the patient need only setup/clean-up assistance from one helper? No. WHEEL 50 FEET WITH TWO TURNS - STEP 3: Does the patient need only verbal/nonverbal cueing or touching/steadying/contact guard assistance fro m one helper? Yes. 1. [id number] ADMISSION PERFORMANCE: Supervision or touching assistance CODE: 04 INDICATE THE TYPE OF WHEELCHAIR/SCOOTER USED: RR1. INDICATE THE TYPE OF WHEELCHAIR/SCOOTER USED.: Manual CODE: 1 WHEEL 150 FEET: WHEEL 150 FEET - STEP 1: Does the patient complete the activity by him/herself with no assistance (physical, verbal/nonverbal cueing, setup/clean-up)? No. WHEEL 150 FEET - STEP 2: Does the patient need only setup/clean-up assistance from one helper? Yes. 1. [id number] ADMISSION PERFORMANCE: Setup or clean-up assistance CODE: 05 INDICATE THE TYPE OF WHEELCHAIR/SCOOTER USED: SS1. INDICATE THE TYPE OF WHEELCHAIR/SCOOTER USED.: Manual CODE: EXPR BLADDER AND BOWEL: H350. BLADDER CONTINENCE (3-DAY ASSESSMENT PERIOD): Always continent (no documented incontinence) CODE: 0 H400. BOWEL CONTINENCE (3-DAY ASSESSMENT PERIOD): Always continent CODE: 0 SIGNATURE PANEL: The following modified sections: 1. [id number] Admission Performance, 1. [id number] Admission Performance, 1. [id number] Admission Performance, 1. VH1067c Admission Performance, 1. SM9438n Admission Performance, 1. AW9643S Admission Performance, 1. CZ1280S Admission Performance, 1. DL0125X Admission Performance , 1. [id number] Admission Performance, 1. [id number] Admission Performance, 1. PY8381T Admission Performanc e, Q1. Does the patient use a wheelchair/scooter?, 1. [id number] Admission Performance, RR1. Indicate th e type of wheelchair/scooter used., 1. CY2114I Admission Performance, Code, SS1. Indicate the type of wheelchair/scooter used., H350. Bladder Continence (3-day assessment period), H400. Bowel Continence (3-day assessment period), 1. UT8039b Admission Performance were [electronically] signed by Seymour [email or web address] on SunApr 01 2021 13:24:00 GMT-0500 (Central Daylight Time)
[2021-04-02] MEDS ORDERED: LIDOCAINE 4% PATCH TOP SCH (08:00)
== END 2021-04-01 15:05 | disposition home health service (06) | DRG 950 ==
LOC: 5TH 03-22 15:37
PROVIDERS: ADMIT Psychiatry & Neurology Neurology with Special Qualifications in Child Neurology; ATTEND Psychiatry & Neurology Neurology with Special Qualifications in Child Neurology
DX: Z48.89 Encounter for other specified surgical aftercare (principal); I10 Essential (primary) hypertension; K57.90 Diverticulosis of intestine, part unspecified, without perforation or abscess without bleeding; Z79.01 Long term (current) use of anticoagulants; Z95.2 Presence of prosthetic heart valve; Z90.49 Acquired absence of other specified parts of digestive tract; Z20.822 Contact with and (suspected) exposure to COVID-19
CPT/HCPCS: 36415; 80048; 81001; 82040; 82947; 83735; 84134; 85025; 85610; 87086; 87088; 97110; 97116; 97161; 97530; J1650; U0003

== ENCOUNTER 2023-04-11 07:00 | Day surgery (SDC) | payer OTHER ==
[2023-04-03 14:13] LABS: Protime INR 4.85
[2023-04-03 14:17] LABS: Hematocrit 47.2 % (39.6-49.0); MCV 98.4 fL (80-100); MPV 7.8 fL (7.6-11.3)
[2023-04-03 14:19] LABS: Potassium 3.4 mEq/L (3.5-5.1)
--- NOTE | 2023-04-03 14:37 | RAD REPORT ---
EXAM DESCRIPTION: Jeannie Carter And Pastora (2 Views)04/03/2023 2:05 pm CLINICAL HISTORY: Preop for cardiac catheterization. Hypertension COMPARISON: 2019 FINDINGS: The lungs appear clear of acute infiltrate. The heart is normal size. Postsurgical changes involve the chest IMPRESSION: No acute abnormalities displayed
--- NOTE | 2023-04-04 19:18 | EKG ---
Test Date: 2023-04-03 Test Time: 13:42:45 Clinical Research Nurse Coordinator: GENE MEASUREMENT RESULTS: Intervals: Rate: 67 UT: QRSD: 128 QT: 428 QTc: 452 [place]: P: UT: QRS: 105 T: 16 INTERPRETIVE STATEMENTS: Atrial fibrillation Rightward axis Nonspecific intraventricular block Possible Inferior infarct, age undetermined Abnormal ECG Compared to ECG 05/12/2019 09:41:04 Right-axis deviation now present Myocardial infarct finding now present Sinus rhythm no longer present Left posterior fascicular block no longer present Electronically Signed On 04-04-23 19:16:46 CDT by Kelvin Corona
[2023-04-11] MEDS ORDERED: HEPA 1000U/500MLS 2,000 UNIT/1,000 ML BAG IV ONE (07:01)
[2023-04-11] MEDS ORDERED: LIDOCAINE 1% 20 ML MDV ONE (07:01)
[2023-04-11] MEDS ORDERED: FENTANYL CITR 100 MCG/2 ML ONE (07:01)
[2023-04-11] MEDS ORDERED: ASPIRIN 325 MG TAB ONE (07:02)
[2023-04-11] MEDS ORDERED: MIDAZOLAM HCL 2 MG/2 ML INJ ONE (07:02)
[2023-04-11] MEDS ORDERED: HEPARIN 5000 UNIT/ML 1 ML VIAL ONE (07:02)
[2023-04-11] MEDS ORDERED: CLOPIDOGREL 75 MG TABLET ONE (07:02)
[2023-04-11] MEDS ORDERED: VERAPAMIL HCL 10 MG/4 ML VIAL IV ONE (07:02)
[2023-04-11] MEDS ORDERED: NITROGLYCERIN/D5W 25 MG/250 ML BTL IV ONE (07:03)
[2023-04-11] MEDS ORDERED: TICAGRELOR 90 MG TABLET PO ONE (07:03)
[2023-04-11] MEDS ORDERED: ATROPINE SULF 1 MG/10 ML SYR IV ONE (07:03)
[2023-04-11] MEDS ORDERED: HEPARIN 10,000 UNIT/10 ML VIAL IV ONE (07:03)
[2023-04-11] MEDS ORDERED: NITROGLYCERIN 100 MCG/ML SYR (for cath lab use only) IV ONE (07:03)
[2023-04-11] MEDS ORDERED: NA CHLORIDE 0.9% 500 ML ONE (07:22)
[2023-04-11 07:29] VITALS: O2SAT 100
[2023-04-11] MEDS ORDERED: HYDRALAZINE HCL 20 MG/ML VIAL ONE (08:28)
--- NOTE | 2023-04-11 08:57 | OP ---
Date of Procedure: 04/11/2023 Surgeon: ESTER AMADO Procedure Performed: Peripheral angiogram with runoff. Indication: Peripheral vascular disease. Access: Right femoral artery 6-Macanese closed with 6-Macanese Angio-Seal. Complications: None. Bleeding: Less than 20 mL. Total contrast load was 65 cc. Anesthesia: Total sedation time was 20 minutes. Description Of Procedure: After risks, benefits, alternatives were explained, the patient agreed to procedure and signed informed consent. The patient was [facility], prepped and draped in the usual sterile fashion. Then, I accessed right femoral artery using a micropuncture kit, ultrasound guidance, and fluoroscopy, placed a 6-Macanese [place] sheath and too k a straight 6-Macanese pigtail catheter into the distal aorta, performed distal aortogram with runoff. I then removed the catheter and the sheath, 6-Macanese Angio-Seal was used for closure with good hemo stasis. Findings: 1.Aorta is widely patent. 2.Right lower extremity; the right common iliac, external iliac, common femoral, and SFA were all wi joe patent. There was mild diffuse 20% stenosis in the SFA and then below the knee, triple vessels are present with diffuse disease, heavily calcified, ranging between 40% to 50%. 3.Left lower extremity; the right common iliac, external iliac, common femoral, profunda, and SFA ar e all widely patent with mild diffuse disease of the SFA ranging from 20% to 30% and diffuse moderate disease below the knee as well heavily calcified. Conclusion: Diffuse bilateral below the knee disease. Recommendation: Medical management. SR/MODL Voice ID: [id number] Report ID: [id number]
[2023-04-11] MEDS ORDERED: ONDANSETRON 4 MG/2 ML VIAL ONE (10:36)
[2023-04-11 14:11] VITALS: BP 121/81; TEMP 99
== END 2023-04-11 11:03 | disposition home or self-care (01) ==
LOC: CCL 07:00
PROVIDERS: ATTEND Internal Medicine
PROC: B41D1ZZ Fluoroscopy of Aorta and Bilateral Lower Extremity Arteries using Low Osmolar Contrast (ICD-10-PCS; principal; 2023-04-11)
DX: I70.223 Atherosclerosis of native arteries of extremities with rest pain, bilateral legs (principal); I65.23 Occlusion and stenosis of bilateral carotid arteries; I48.0 Paroxysmal atrial fibrillation; I10 Essential (primary) hypertension; Z87.891 Personal history of nicotine dependence; Z79.899 Other long term (current) drug therapy
CPT/HCPCS: 93005; 85025; 80048; 36415; 85610; 85730; 71046; 36200; 75630; J1644; J0360; J2001; J2250; J3010; J2405; J7040; 76937; C1760; C1893; G0269; J0461

== ENCOUNTER 2024-06-25 11:50 | Day surgery (SDC) | payer OTHER ==
[2024-06-20 13:26] LABS: Absolute Basophils 0.1 K/uL (0-0.5); Absolute Eosinophils 0.2 K/uL (0-0.5); Absolute Lymphocytes (CBC) 0.9 K/uL (0.7-4.9); Absolute Monocytes 0.7 K/uL (0.1-1.3); Absolute Neutrophil 2.5 K/uL (1.8-8.0); Basophils % 1.4 % (0-1.3); Hematocrit 44.8 % (39.6-49.0); Hemoglobin 15.3 g/dL (13.6-17.9); Lymphocytes % 21.5 % (15.3-44.8); MCH 34.3 pg (27.0-35.0); MCHC 34.1 g/dL (32.0-36.0); MCV 100.7 fL (80-100); MPV 8.2 fL (7.6-11.3); Monocytes % 15.6 % (3.3-12.3); Neutrophils % 57.5 % (41.7-73.7); Nucleated Red Blood Cells % 0.1 % (0-0); Platelets 131 thou/uL (152-406); RBC Red Blood Cell Count 4.45 M/uL (4.33-5.43); Red Cell Distribution Width 12.8 % (12.1-15.2)
--- NOTE | 2024-06-20 13:34 | RAD REPORT ---
Procedure: Chest Pa And Lat (2 Views) History: Cardiac catheterization Comparison: 2022 Findings: The lungs appear clear of acute infiltrate. No significant pleural effusion noted. The heart is mildly enlarged. Post surgical changes involving the chest. IMPRESSION: No acute abnormality is displayed.
[2024-06-20 13:40] LABS: PT Prothrombin Time 42.3 SECONDS (9.4-12.5); PTT, Activated Partial Thromb 52.4 SECONDS (24.3-36.9); Protime INR 3.93
[2024-06-20 13:51] LABS: Anion Gap 9.9 mEq/L (5.0-15.0); Potassium 3.9 mEq/L (3.5-5.1)
[2024-06-25] MEDS: NA CHLORIDE 0.9% 500 ML ONE (12:05)
[2024-06-25] MEDS ORDERED: FENTANYL CITR 100 MCG/2 ML ONE (13:33)
[2024-06-25] MEDS ORDERED: MIDAZOLAM HCL 2 MG/2 ML INJ ONE (13:33)
[2024-06-25] MEDS ORDERED: HEPARIN 5000 UNIT/ML 1 ML VIAL ONE (13:39)
[2024-06-25] MEDS ORDERED: VERAPAMIL HCL 10 MG/4 ML VIAL IV ONE (13:39)
[2024-06-25] MEDS ORDERED: HEPARIN 10,000 UNIT/10 ML VIAL IV ONE (13:39)
[2024-06-25] MEDS ORDERED: ATROPINE SULF 1 MG/10 ML SYR IV ONE (13:39)
[2024-06-25] MEDS ORDERED: LIDOCAINE 1% 20 ML MDV ONE (13:53)
[2024-06-25] MEDS ORDERED: HEPA 1000U/500MLS 2,000 UNIT/1,000 ML BAG IV ONE (13:55)
[2024-06-25] MEDS ORDERED: HYDRALAZINE HCL 20 MG/ML VIAL ONE (14:42)
[2024-06-25] MEDS ORDERED: METOPROLOL TARTRATE 5 MG/5 ML INJ IV ONE (15:00)
--- NOTE | 2024-06-25 15:03 | OP ---
Surgeon: ESTER AMADO Procedure Performed: Transesophageal echocardiogram. Indication: Pre left atrial appendage closure and due to atrial fibrillation. Description Of Procedure: After risks, benefits, and alternatives were explained, the patient agreed to procedure and signed informed consent. DICTATION ENDS HERE. /ABBIE Voice ID: [id number] Report ID: [id number]
[2024-06-25 19:12] VITALS: BP 143/94; TEMP 98.4; O2SAT 98
--- NOTE | 2024-06-26 12:18 | EKG ---
Test Date: 2024-06-20 Test Time: 13:00:46 Entry Level Buyer: RAYSHAWN MEASUREMENT RESULTS: Intervals: Rate: 66 RI: QRSD: 120 QT: 434 QTc: 454 [place]: P: RI: QRS: 75 T: 63 INTERPRETIVE STATEMENTS: Atrial fibrillation with premature ventricular or aberrantly conducted complexes Possible Inferior infarct, age undetermined Abnormal ECG Compared to ECG 04/03/2023 13:42:45 Ventricular premature complex(es) now present Right-axis deviation no longer present Myocardial infarct finding still present Electronically Signed On 06-26-24 12:01:38 CDT by Paul Riggs
--- NOTE | 2024-07-29 19:48 | OP ---
Date of Procedure: 06/25/2024 Surgeon: ESTER AMADO Procedures Performed: Selective peripheral angiogram of the right lower extremity. Indication: Angiogram prior for surgery. Access: Left common femoral artery 6-Arabic closed with manual pressure. Complications: None. Bleeding: Less than 50 mL. Anesthesia: Total sedation time was 45 minutes. Description Of Procedure: After risks, benefits, and alternatives were explained, the patient agreed to procedure and signed informed consent. The patient was brought into cardiac catheterization [facility], prepped and draped in the usual sterile fashion. Then, I accessed the left common femoral ar luan and using micropuncture kit, ultrasound guidance, fluoroscopy, placed 6-Arabic [place] sheath a nd then I took an Omni Flush catheter with [place] [employer] wire across to the other side and then I s ent a multipurpose catheter with side holes, placed it in the distal SFA and performed an angiogram o f the right lower extremity below the knee and also performed angiogram of the whole right leg and th en removed the catheter and the sheath. Manual pressure was used for closure with good hemostasis. Findings: 1.The common iliac, external iliac, profunda, and the SFA are widely patent. Peroneal is widely pat ent and then the popliteal is widely patent. Then, the anterior tibial is patent with diffuse 20% to 30% stenosis and it is giving collaterals to the posterior tibial artery and the tibial trunk is pat ent. The peroneal artery is patent all the way above to the foot area and then becomes 100% occluded and then it gives collaterals to the posterior tibial after the JACK SPOOLER TENDER and then the peroneal artery bec omes 100% occluded. However, there is collateral blood flow coming from the same artery before the s tenosis. The posterior tibial artery is patent proximally and then it becomes 100% occluded and then the peroneal artery gives a collateral blood flow before it become JACK SPOOLER TENDER to the distal portion of the posterior tibial artery filling it to supply blood flow to the foot. 2.Severe peripheral vascular disease below the knee as the following: The anterior tibial is patent with diffuse 20% to 30% stenosis. The peroneal artery is patent all the way distal to right above t he ankle, it becomes 100% occluded, but there are a few vessels that are collateralizing it, very sma ll and then the posterior tibial artery, it is proximal 100% occluded and then it gets filled with co llaterals from the peroneal before it becomes 100% occluded and then the posterior tibial has disease distally, it is about 80% stenosis. Those abnormalities or stenoses are not amenable to interventio n. Conclusions: Severe peripheral vascular disease below the knee. However, I feel that the foot is we ll vascularized at this moment as there are 3 vessels reaching the area including the collaterals, bu t the posterior tibial has significant stenosis still. SR/MODL Voice ID: [id number] Report ID: [id number]
== END 2024-06-25 18:47 | disposition home or self-care (01) ==
LOC: CCL 11:50
PROVIDERS: ADMIT Internal Medicine; ATTEND Internal Medicine
DX: I70.201 Unspecified atherosclerosis of native arteries of extremities, right leg (principal); I70.92 Chronic total occlusion of artery of the extremities; I35.0 Nonrheumatic aortic (valve) stenosis; I10 Essential (primary) hypertension
CPT/HCPCS: 93005; 85025; 80048; 36415; 85610; 85347; 85730; 71046; 36247; 75710; C1893; C1769; J1644; J0360; J2003; J2250; J3010; J7040; 36200; 36245; 99152; 99153; J0461